=== PATIENT | female | born 1940 | race Caucasian/White ===

== ENCOUNTER 2017-01-18 13:22 | Inpatient (IN) | payer MEDICARE ==
[~2017-01-18] VITALS: Ht 167.6 cm; Wt 134.6 kg
[~2017-01-18 13:22] MED LIST: AMIT10TA6 PO; ASPI-973 PO; CHOL100045 PO; CLOBEX TP; DESONIDE TP; DULO60CA61 PO; FOLI1TAB3 PO; FUR20 PO; GABA-502 PO; GABA600T2 PO; GLIM4TAB2 PO; IBUP200C PO; KETACONAZOLE CREAM TP; KETACONAZOLE SHAMPOO TP; LACT1CAP65 PO; LISI10TA PO; LOPE1LIQ9 PO; LORA0.5T PO; MELA1CAP3 PO; PRAM0.256 PO; PRAM0.5T10 PO; PROP1DRO4 OP; [UNRECOGNIZED DRUG - OTHER] TP; vitamin b-12 IM
[2017-01-18 13:27] VITALS: BP 162/76; PULSE 125; RESP 20; O2SAT 94
[2017-01-18 14:38] LABS: BASOPHILS % (AUTO) 0 % (0-3); EOSINOPHILS % (AUTO) 0.7 % (0-5); MONOCYTES % (AUTO) 12.4 % (4-12); Mean Corpuscular Hemoglobin 28.9 pg (27.0-35.0); Mean Corpuscular Volume 96.6 fL (81-100); NEUTROPHILS % (AUTO) 72.7 % (40-74); Platelet Count 236 bil/L (150-400)
[2017-01-18 14:59] LABS: TROPONIN T < 0.010 ug/L (0.0-0.011)
[2017-01-18 15:08] LABS: Magnesium 1.7 mg/dL (1.6-2.6)
--- NOTE | 2017-01-18 15:20 | DRSVH ---
PROCEDURE: X-RAY CHEST ONE VIEW, PORTABLE ([id number]) INDICATIONS: cp TECHNIQUE: One view of the chest was acquired. COMPARISON: [facility], CT, CHEST/ABD/PELVIS W/CON (PNL), 12/05/2013, 16:49. [facility], CR, CHEST 1VW (PORTABLE), 09/25/2009, 19:05. FINDINGS: Surgical changes and devices: None. Lungs and pleura: No pleural effusions or pneumothorax. Streaky opacities noted in the right lung ba se likely related to atelectasis. Nodular density identified in the right midlung is severely change compared to prior examination.. Mediastinum: Mediastinal contours appear normal. Heart size is enlarged. Bones and chest wall: No suspicious bony lesions. Overlying soft tissues appear unremarkable. IMPRESSION: No acute cardiopulmonary disease process. Dictated by: Maddi Banks MD, PhD on 01/18/2017 at 14:56 Approved by: Maddi Banks MD, PhD on 01/18/2017 at 14:57
[2017-01-18 15:30] VITALS: BP 142/77; PULSE 121; RESP 21; O2SAT 92
[2017-01-18] MEDS ORDERED: 0.9% Sodium Chloride 1,000 ML IV ONE (17:00)
[2017-01-18] MEDS ORDERED: Dextrose 5% 0.9% NaCl 1,000 ML IV SCH (17:05)
[2017-01-18] MEDS ORDERED: ANAS1TAB7 PO (17:27)
[2017-01-18] MEDS ORDERED: GABA600T2 PO (17:32)
--- NOTE | 2017-01-18 17:35 | ED.REPORT ---
HPI-General Illness Date of Service Jan 18, 2017 ED Provider: Nasim Starkey MD History of Present Illness: Eileen Beverly is a 76 year old woman with a PMH of severe Chron's managed by Dr. Casper, DM2 on glimeperide, HTN, and depression with anxiety who presents with a 2 day history of recurrent episodes of hypoglycemia with BG as low as 25 with confusion and combativeness grossly out of character for her. Her family reports that they contacted EMS about this issue last evening and they gave her some juice which corrected her BG. However, the symptoms recurred 3 hours later and have generally been occuring 2-3 times daily for the past few days. She has chronic diarrhea from her Chron's which apparently has been worse over the past few days, she has continued to faithfully take her meds including Glimeperide in that interim with poor PO intake and significant GI losses. She further complains of chest pain with deep inspiration. Nursing Notes Stated Complaint: LOW BLOOD SUGAR/CHEST PAIN Chief Complaint: Chest Pain Nursing Notes Reviewed: Yes Allergies: Coded Allergies: No Known Drug Allergies (Verified Allergy, Unknown, 01/18/17) Scheduled ([Clobex]) 1 APPLIC TP DAILY 0.05% ([Flocinonide]) 1 APPLIC TP BID 0.05% ([vitamin b-12]) 0.1 ML IM MONTHLY 1000MCG/ML ([Ketaconazole Shampoo]) 1 APPLIC TP 2X/WK 2% ([Ketaconazole Cream]) 1 APPLIC TP 2X/WK 2% Amitriptyline (Amitriptyline) 10 Mg Tablet 30 MG PO HS Anastrozole (Anastrozole) 1 Mg Tablet 1 MG PO DAILY Aspirin (Aspirin) 81 Mg Tablet 81 MG PO DAILY Cholecalciferol (Vitamin D3) (Vitamin D) 1,000 Unit Capsule 5,000 UNIT PO DAILY Duloxetine (Duloxetine) 60 Mg Capsule.dr 90 MG PO DAILY Fluocinolone/Shower Cap (Fluocinolone Acetonide 0.01% Oil) 118.28 Ml Oil 1 APPLIC TOP DAILY Folic Acid/Multivits-Min/Lut (Centrum Silver Chewable Tablet) 1 Each Tab.chew 1 EACH PO DAILY Furosemide (Furosemide) 20 Mg Tab 20 MG PO DAILY Gabapentin (Gabapentin) 600 Mg Tablet 600 MG PO a.m., noon Gabapentin (Gabapentin) 600 Mg Tablet 900 MG PO HS Lactobacillus Acidophilus (Probiotic) 1 Each Capsule 1 EACH PO AM Lisinopril (Lisinopril) 10 Mg Tablet 10 MG PO DAILY Lovastatin (Lovastatin) 40 Mg Tablet 40 MG PO HS Pramipexole Dihydrochloride (Pramipexole Dihydrochloride) 0.25 Mg Tablet 0.25 MG PO TID Pramipexole Dihydrochloride (Pramipexole Dihydrochloride) 0.5 Mg Tablet 0.5 MG PO HS Sulfasalazine (Sulfasalazine) 500 Mg Tablet 500 MG PO BID Scheduled PRN ([Desonide]) 1 APPLIC TP BID PRN PRN PRN 0.05% Loperamide Liquid (Imodium A-D Liquid) 1 Mg/7.5 Ml Liquid 1 MG PO DAILY PRN PRN PN Miscellaneous Medications Melatonin/Herbal Complex #184 (Sleep Softgel) 1 Each Capsule 2 EACH PO Melatonin/Herbal Complex #184 (Sleep Softgel) 1 Each Capsule 1 EACH PO General Time Seen by MD: 16:20 Chief Complaint Chest pain, Other (hypoglycemia) Hx Obtained From: Other family... (sister) Sudden in Onset?: No Onset Occurred: 1 day ago Symptom Duration: Waxes and wanes Similar Sx Previous: No Past Medical History Past Medical History Notes: Chron's disease with prior neil-colectomy DM2 HTN Anxieyt and depression Past Medical History Reports: Diabetes mellitus Reports: Depression Past Surgical History Neil-colectomy Smoking History Former Smoker Review of Systems Full Review of Systems Constitutional: Reports: Weakness - generalized Respiratory: Reports: Shortness of breath (pain with deep inspiration) Cardiovascular: Reports: Chest pain, Orthopnea GI: Reports: Abdominal pain, Diarrhea, Mucousy stool, Nausea Neurologic: Reports: Confusion, Lightheaded Psychiatric: Reports: Agitation, Anxiety, Change mental status, Hostile Complete sys rev & neg: except as marked. Physical Exam GEN: A/O x3, pleasant cooperative female in NAD Neck: Large bull neck, supple, full ROM, no JVD HEENT: PERRL, EOMI, mucous membranes slightly dry CV: Tachycardic, regular rhythm, no murmurs rubs or gallops Resp: Lungs CTA BL, unable to respire deeply due to pain Adomen: Midline Ventral hernia, surgical scar from prior colectomy, diffuse tenderness to palpation most acute in RLQ Extr: mild BL LE edema, no cyanosis or clubbing Neuro: CN 2-12 grossly intact, no focal neurologic deficit Vital Signs Vital Signs Date Time Temp Pulse Resp B/P Pulse Ox O2 Delivery O2 Flow Rate FiO2 01/18/17 17:43 37.0 105 20 123/56 98 Simple Mask 3 01/18/17 15:30 121 21 142/77 92 Simple Mask 4 01/18/17 13:27 36.2 125 20 162/76 94 Room Air Initial VS: Reviewed Interpretation & Diagnostics Interpretation & Diagnostics: The patient has been having recurrent hypoglycemic episodes in the setting of Glimeperide use with concurrent poor PO intake vomiting and diarrhea. She further complains of pain with deep inspiration with associated tachycardia, and jail prolonged hypoactivity; this prompted a D-Dimer measure which returned positive so the patient was sent for CT angio to rule out PE. Her marginal kidney function was discussed with the military technology specialist who affirmed that she would be a candidate for the above imaging. CT angio revealed persistent perihilar mass unchanged since 01/09/17, and no evidence of acute PE Lab Results Interpretation Result Diagram: 01/23/17 1005 01/23/17 1005 Test 01/18/17 14:25 01/18/17 16:00 D-Dimer 2.0mg/L (<0.50) Hemoglobin A1c 5.6% (4.8-5.6) Magnesium Level 1.7mg/dL (1.6-2.6) Total Bilirubin 0.2mg/dL (0.0-1.2) Aspartate Amino Transf (AST/SGOT) 22U/L (0-50) Alanine Aminotransferase (ALT/SGPT) 14U/L (0-32) Alkaline Phosphatase 103U/L (25-165) Troponin T < 0.010ug/L (0.0-0.011) Total Protein 6.7g/dL (6.4-8.4) Albumin 4.1g/dL (3.4-5.0) Hold Sorensen Top Tube Received (Received) Hold Urine Received (Received) Lab values outside NL range: no clinical significance. (Patient mildly anemic likely due to chronic GI loss from Chron's, hypoglycemia with etiology discussed above.) Re-Eval/Medical Decision Med Decision/Clinical Course Patient was borderline hypoglycemia upon presentation, with a history as mentioned above. Likely these hypoglycemic episodes are precipitated by use of Glimeperide in the setting of poor PO intake and concurrent diarrhea related to Chron's. Patient was initially given juice which provided some improvement. Time of Eval: 17:00 Re-Evaluation/Progress Note: Patient with BG 37 upon re-assessment, given 1 ampule D50 + D5 NS @ 100 ml/hr. Discharge & Departure Shift Change Sign-Out Patient Care Transferred: Yes Discussed Complaint(s): Yes Laboratory Evaluation: Back, reviewed by me Imaging Studies: Imaging discussed Response to Therapy: Improved Primary Impression: Hypoglycemia Disposition: ADMITTED TO HOSPITAL Discharge Condition All VS Reviewed: Yes Condition: Stable Referrals: Judith Miranda DO (PCP) Attending Statement The patient was seen and examined together with Dr. Carlin on 01/18/17 and I agree with the history, exam and plan as outlined in the note above. copies to: Judith Miranda David E DO Jan 18, 2017 16:47 Nasim Starkey MD Jan 24, 2017 09:03 7.4mg/dL (8.5-10.1) Magnesium Level 1.7mg/dL (1.6-2.6) Total Bilirubin 0.2mg/dL (0.0-1.2) Aspartate Amino Transf (AST/SGOT) 22U/L (0-50) Alanine Aminotransferase (ALT/SGPT) 14U/L (0-32) Alkaline Phosphatase 103U/L (25-165) Troponin T < 0.010ug/L (0.0-0.011) Total Protein 6.7g/dL (6.4-8.4) Albumin 4.1g/dL (3.4-5.0) Hold Sorensen Top Tube Received (Received) Hold Urine Received (Received) Lab values outside NL range: no clinical significance. (Patient mildly anemic likely due to chronic GI loss from Chron's, hypoglycemia with etiology discussed above.) Re-Eval/Medical Decision Med Decision/Clinical Course Patient was borderline hypoglycemia upon presentation, with a history as mentioned above. Likely these hypoglycemic episodes are precipitated by use of Glimeperide in the setting of poor PO intake and concurrent diarrhea related to Chron's. Patient was initially given juice which provided some improvement. Time of Eval: 17:00 Re-Evaluation/Progress Note: Patient with BG 37 upon re-assessment, given 1 ampule D50 + D5 NS @ 100 ml/hr. Discharge & Departure Shift Change Sign-Out Patient Care Transferred: Yes Discussed Complaint(s): Yes Laboratory Evaluation: Back, reviewed by me Imaging Studies: Imaging discussed Response to Therapy: Improved Primary Impression: Hypoglycemia Disposition: ADMITTED TO HOSPITAL Discharge Condition All VS Reviewed: Yes Condition: Stable Referrals: Judith Miranda DO (PCP) copies to: Judith Miranda David E DO Jan 18, 2017 16:47
[2017-01-18] MEDS ORDERED: LOVA40TA PO (17:36)
[2017-01-18 17:43] VITALS: BP 123/56; PULSE 105; RESP 20; O2SAT 98
--- NOTE | 2017-01-18 18:05 | DRSVH ---
PROCEDURE: CT ANGIO CHEST PULMONARY EMBOLISM ([id number]) INDICATIONS: possible PE TECHNIQUE: After the administration of intravenous contrast, 2 mm thick sections acquired from the pulmonary api manish to the posterior costophrenic angles. 3-dimensional maximum intensity projection (MIP) coronal a nd sagittal reformats were then acquired through the thorax. For radiation dose reduction, the follo wing was used: automated exposure control, adjustment of mA and/or kV according to patient size. COMPARISON: [facility], CT, CT CHEST WO CON, 01/09/2017, 10:16. [facility], CT, CT ANGIO CHEST PE, 07/18/2015, 9:45. FINDINGS: Image quality: Prominent artifact is present secondary to patient body habitus as well as injection t iming, limiting evaluation of distal branches of the pulmonary artery for evaluation of potential emb olism. There is no embolus identified within the main pulmonary artery branches. Pulmonary arteries: Pulmonary arteries are normal in size, and demonstrate no intraluminal filling d efects to suggest central pulmonary embolism. Lungs and pleura: The lungs demonstrate dependent changes. There is persistent consolidative opacity within the right lower lobe and right infrahilar region, as seen on 01/09/17. Scattered areas of groun dglass like opacity are present within the lungs bilaterally without significant interval change. Mediastinum: Heart size is normal, without pericardial effusion. No mediastinal or hilar adenopathy . Thoracic aorta is normal in caliber and enhancement. Esophagus demonstrates mild circumferential distal thickening with hiatal hernia. Recommend correlation of potential esophagitis. Bones and chest wall: No suspicious bony lesions. Ribs and thoracic spine appear intact throughout. Thyroid gland is unremarkable. No axillary or supraclavicular adenopathy. Abdomen: Visualized upper abdominal solid organs appear normal in the early arterial phase of enhanc ement. IMPRESSION: 1. Persistent consolidative opacities within the right perihilar region and right base. These are rel atively unchanged compared to 01/09/17. This could represent persistent infection or inflammation. Rec ommend continued general followup to document resolution and exclude presence of underlying mass lesi on. 2. Persistent groundglass like opacities within the lungs, indicative of inflammation or infection. 3. No evidence of central pulmonary embolus, as above. Dictated by: Annette Freitas M.D. on 01/18/2017 at 18:00 Approved by: Annette Freitas M.D. on 01/18/2017 at 18:03
[2017-01-18] MEDS ORDERED: Alum-Mag Hydrox-Simeth 30 mL Suspension PO PRN (18:25)
[2017-01-18] MEDS ORDERED: Polyethylene Glycol (PEG) 17 Gm Powder PO PRN (18:25)
[2017-01-18] MEDS ORDERED: Ondansetron 2 mg/mL 2 mL Inj IVPUSH PRN (18:25)
[2017-01-18] MEDS ORDERED: AZU500 PO (19:46)
[2017-01-18 20:13] VITALS: PULSE 119
[2017-01-18 20:18] VITALS: BP 134/62; PULSE 100; RESP 20; O2SAT 96
[2017-01-18] MEDS ORDERED: Glucose 40% Oral Gel 15 Gm Tube PO PRN (21:10)
[2017-01-18] MEDS: Dextrose 5% 0.45% NaCl 1,000 ML IV SCH (22:06)
--- NOTE | 2017-01-18 22:43 | PCM.HPMED ---
Subjective Date of Service Jan 18, 2017 Primary Provider: Admitting Physician: Primary Care Physician: Judith Miranda DO Attending Physician: Admit Status: From the Emergency Department, 23-Hour Observation, Remote Telemetry Chief Complaint: Hypoglycemia History of Present Illness: Eileen Beverly is a 76 year old woman with a PMH of severe Chron's managed by Dr. Casper, DM2 on glimeperide, HTN, and depression with anxiety who presents to [facility] emergency department with hypoglycemia Patient reports 2 day history of recurrent episodes of hypoglycemia with BG as low as 25 with confusion and combativeness. Her family reports that they contacted EMS about this issue last evening and they gave her some juice which corrected her BG. However, the symptoms recurred 3 hours later and have generally been occuring 2-3 times daily for the past few days. She has chronic diarrhea from her Chron's which apparently has been worse over the past few days, she has continued to faithfully take her meds including Glimeperide in that interim with poor PO intake and significant loose stools. She reports diffuse abdominal pressure consistent with her crohns pain. Non radiating. She further complains of chest pain with deep inspiration. Patient is not on any insulin. Case discussed with resident Dr Carlin, several doses of D50 given but still hypoglycemic. D5NS not going with plans to admit for close observation overnight. Review of Systems: Pertinent positives as noted in HPI. All other systems were reviewed and are negative Allergies Coded Allergies: No Known Drug Allergies (Verified Allergy, Unknown, 01/18/17) Home Medications From [facility], not yet confirmed Eileen Beverly I. [id number] 1940 01/01/2017 11:00 AM 11/23 amitriptyline 10 mg tablet take 3 tablet by oral route every day anastrozole 1 mg tablet take 1 tablet by oral route every day Aspirin Low Dose 81 mg tablet,delayed release take 1 tablet by oral route every day clobetasol 0.05 % scalp solution apply to affected areas 2xday until resolution Clobex 0.05 % shampoo APPLY A THIN LAYER TO SCALP EVERY DAY LEAVE ON FOR 15 MINUTES THEN LATHER AND RINSE Culturelle 10 billion cell capsule Take one dose by mouth daily. cyanocobalamin (vitamin B-12) 1,000 mcg/mL Injection inject 0.1 milliliter ( 100MCG) by intramuscular route every month desonide 0.05 % topical cream apply by topical route 2 times every day sparingly and rub gently into the affected area(s) diphenhydramine 25 mg tablet take 1 tablet by oral route at bedtime as needed duloxetine 30 mg capsule,delayed release take 3 capsule by oral route every day flaxseed oral powder Drink 2 tbps. ground flax in 8 oz water every morning fluocinolone 0.01 % scalp oil and shower cap Apply to scalp and cover QHS x 1- 2wk, then BIW until condition is clear. folic acid 800 mcg tablet take 1 tablet (0.8MG) by oral route every day FUROSEMIDE 20MG TAB SAND TAKE ONE TABLET BY MOUTH ONE TIME DAILY gabapentin 600 mg tablet one tablet by mouth in am, one at noon, one at 4pm, and 1.5 at bedtime. glimepiride 4 mg tablet take 1 tablet by oral route every day ibuprofen 200 mg tablet take 1 tablet by oral route every 6 hours as needed with food Imodium A-D take as needed ketoconazole 2 % shampoo lather x 5 min then rinse qd x 1 week (when flaring), then BIW thereafter (for maintenance) ketoconazole 2 % topical cream apply by topical route every day to the affected area(s) lisinopril 10 mg tablet take 1 tablet by oral route every day lorazepam 0.5 mg tablet take 1 tablet by oral route every day as needed MEVACOR 40MG TAB MERC TAKE 1 TABLET BY MOUTH EVERY DAY WITH THE EVENING MEAL. multivitamin tablet take 1 tablet by oral route every day with food One Touch Verio IQ Meter kit To test blood sugars twice daily OneTouch Verio strips Check fasting glucose levels one time a day. pramipexole 0.5 mg tablet 1/2 in am, 1/2 noon, 1/2 4-6 pm. 1 at 1 hr before bedtime Probiotic-Digestive Enzymes 5 mg-250 mg capsule 1 cap by mouth daily sulfasalazine 500 mg tablet take 2 tablet by ORAL route 2 times every day after meals Systane Ultra take as needed Vitamin D3 5,000 unit tablet 1 tab by mouth daily PMH Vitamin B12 deficiency Psoriasis Aortic Insufficiency Venous insufficiency, chronic Crohn's disease of small AND large intestines Depression with anxiety Restless leg syndrome Diabetes type 2, uncontrolled Insomnia Mitral Valve-regurgitation Peripheral neuropathy Obstructive sleep apnea Breast Cancer Periodic limb movement . Surgical History Tonsillectomy Fistulaetomy Bowel resection Stomach tumor removal Appendectomy Mastectomy Hysterectomy Family History Father had congenital heart disease, aortic aneurysm Mother from Brain tumor Social History Hx Alcohol Use: Yes (rare) Hx Substance Use: No Hx Tobacco Use: No Smoking Status: Former Smoker Living Arrangement: with Family Exam Vital Signs Vital Sign - Last Date Time Temp Pulse Resp B/P Pulse Ox O2 Delivery O2 Flow Rate FiO2 01/18/17 17:43 37.0 105 20 123/56 98 Simple Mask 3 Exam General: Alert, Oriented X3, Cooperative, No acute Distress Eyes: PERRLA, Scleral Anicteric Mouth: Mouth Normal, Mucous Membranes Moist/[place] Neck: Supple, no Thyromegaly, trachea central. Chest & Lungs: Clear to auscultation & percussion, No adventitious breath sounds, no crackles, no wheeze Cardiovascular: Normal S1, Normal S2, No Murmurs/Rubs/Gallops, Regular Rate/ Rhythm, (No JVD, no peripheral edema) Pulses: Radial (present and equal), Dorsalis Pedi (present and equal) Abdomen: Soft, Non-tender, Non-distended, Normoactive bowel tones. Musculoskeletal: Unremarkable. Normal range of motion, no swollen or erythematous joints Extremities: No edema, no cyanosis, no clubbing. Skin: No rashes. Warm and dry, no erythematous areas Neurological: Grossly neurologically intact, has generalized weakness, Normal Speech, Sensation Intact Lymphatic: Lymph nodes Cervical and Axillary not palpable. Lab and Diagnostics Labs Laboratory Tests Test 01/18/17 14:25 01/18/17 16:00 White Blood Count 5.6th/mm3 (3.8-10.1) Red Blood Count 3.57mil/mm3 (3.90-5.20) Hemoglobin 10.3g/dL (12.0-15.6) Hematocrit 34.5% (35.0-46.0) Mean Corpuscular Volume 96.6fL (81-100) Mean Corpuscular Hemoglobin 28.9pg (27.0-35.0) Mean Corpuscular Hemoglobin Concent 29.9% (32.0-37.0) Red Cell Distribution Width 17.4% (12.3-15.4) Platelet Count 236bil/L (150-400) Neutrophils (%) (Auto) 72.7% (40-74) Lymphocytes (%) (Auto) 12.8% (14-46) Monocytes (%) (Auto) 12.4% (4-12) Eosinophils (%) (Auto) 0.7% (0-5) Basophils (%) (Auto) 0% (0-3) D-Dimer 2.0mg/L (<0.50) Sodium Level 139mEq/L (134-144) Potassium Level 4.3mEq/L (3.5-5.2) Chloride Level 104mEq/L (97-108) Carbon Dioxide Level 19mmol/L (18-29) Blood Urea Nitrogen 17mg/dL (8-27) Creatinine 1.12mg/dL (0.57-1.00) Estimat Glomerular Filtration Rate 68mL/min (>59) Glucose Level 74mg/dL (60-99) Calcium Level 7.4mg/dL (8.5-10.1) Magnesium Level 1.7mg/dL (1.6-2.6) Total Bilirubin 0.2mg/dL (0.0-1.2) Aspartate Amino Transf (AST/SGOT) 22U/L (0-50) Alanine Aminotransferase (ALT/SGPT) 14U/L (0-32) Alkaline Phosphatase 103U/L (25-165) Troponin T < 0.010ug/L (0.0-0.011) Total Protein 6.7g/dL (6.4-8.4) Albumin 4.1g/dL (3.4-5.0) Hold Sorensen Top Tube Received (Received) Hold Urine Received (Received) Result Diagram: 01/18/17 1425 01/18/17 1425 X-Rays, CTs and MRIs CT ANGIO CHEST PULMONARY EMBOLISM 01/18/17 1. Persistent consolidative opacities within the right perihilar region and right base. These are relatively unchanged compared to 01/09/17. This could represent persistent infection or inflammation. Recommend continued general followup to document resolution and exclude presence of underlying mass lesion. 2. Persistent groundglass like opacities within the lungs, indicative of inflammation or infection. 3. No evidence of central pulmonary embolus, as above. Dictated by: Annette Freitas M.D. on 01/18/2017 at 18:00 Approved by: Annette Freitas M.D. on 01/18/2017 at 18:03 Assessment & Plan Eileen Beverly is a 76 year old woman with a PMH of severe Chron's managed by Dr. Casper, DM2 on glimeperide, HTN, and depression with anxiety who presents to [facility] emergency department with hypoglycemia 1. Acute Hypoglycemia. Present on admission Due to taking Glimepiride without eating. Other etiology includes Insulinoma which is less likely. - D51/2 NS @ 125 cc/hr with D 50 PRN - general diet ordered - hold Glimepiride - may consider using Metformin instead with no hypoglycemic side effects - educated patient on the importance of eating while taking hypoglycemic agents 2. Sinus tachycardia. Present on admission Pulmonary embolism ruled out. Pleuritic chest pain resolved and patient reported having chronic tachycardia - monitor on telemetry 3. Crohns disease with possible flare Patient currently being followed by Dr Spicer. Currently not on any steroids - continue Sulfasalazine 1000 mg bid - consider GI consult if symptoms escalates 4. Breast Cancer. Chronic Presumed stable - continue Anastrozole 1 mg daily - continue outpatient surveillance 5. Obesity BMI 47.9 Consider bariatric surgery - Acetaminophen as needed for mild pain/fever/headache - Bowel regimen as needed - Antiemetic as needed Patient is admitted under observation status with expected length of stay less than 2 midnights due to severity of presenting symptoms, risk of adverse event, and complexity of treatment plan. . Resuscitation Status: CPR: Attempt Resuscitation Loyd Shearer MD Jan 18, 2017 18:35
[2017-01-18] MEDS ORDERED: Loperamide 1 mg/5 mL 120 mL Liquid PO PRN (22:45)
[2017-01-19 00:18] VITALS: BP 118/73; PULSE 76; O2SAT 97
--- NOTE | 2017-01-19 00:18 | NUR ---
ADMIT Patient transfer from the ED after receiving another dose of D50 for ongoing hypoglycemia. BG has varied from 50-70s since arrival. Patient received several more D50 ampules and drank a couple of glasses of juice, half an ensure, ate half a frozen dinner and part of sandwich. D5 1/2Ns running continuous. Patient then became nauseated and began retching, resolved with zofran. . Then became incontinent of stool related to her crohns and was changed into a brief. Patient reports her crohn's has been out of control since August. Reports seeing Dr. Holley outpatient. Patient is alert and oriented with intermittent moments of confusion and dizziness noted when her BG dipped into the 50s. Will continue with frequent BG checks.
--- NOTE | 2017-01-19 04:56 | NUR ---
Blood Sugars Pt requiring Q15 to Q1 hour blood sugar checks. Pt requiring several pushes of D50 to help increase blood sugar. Last BG 109 will recheck in one hour. Pt c/o of heartburn as well as a headache. Maalox not effective for heartburn, notified and orders for Tums given, awaiting pharmacy verification. Administered 650 mg of Tylenol and awaiting reassessment. VSS and Tele ST 100's to 115's.
[2017-01-19 05:09] VITALS: BP 125/70; PULSE 81; RESP 22; O2SAT 96
[2017-01-19] MEDS: Dextrose 5% 0.45% NaCl 1,000 ML IV SCH (06:34)
[2017-01-19 08:04] LABS: BASOPHILS % (AUTO) 0.1 % (0-3); EOSINOPHILS % (AUTO) 0.8 % (0-5); MONOCYTES % (AUTO) 13.1 % (4-12); Mean Corpuscular Hemoglobin 28.1 pg (27.0-35.0); Mean Corpuscular Volume 95.8 fL (81-100); NEUTROPHILS % (AUTO) 67.9 % (40-74); Platelet Count 275 bil/L (150-400)
[2017-01-19] MEDS: DULoxetine 30 mg DR Capsule PO SCH (08:24)
[2017-01-19] MEDS: Sulfasalzine 500 mg Tablet PO SCH ×2 (08:25→21:46)
[2017-01-19 08:37] LABS: INR 0.96 ratio
[2017-01-19 10:46] VITALS: PULSE 110
[2017-01-19 10:55] VITALS: BP 123/78; PULSE 96; RESP 22; O2SAT 92
[2017-01-19] MEDS ORDERED: MELA1CAP3 PO ×2 (13:36→13:47)
[2017-01-19] MEDS ORDERED: [UNRECOGNIZED DRUG - CODE] TOP (13:45)
--- NOTE | 2017-01-19 15:16 | PCM.PNMED ---
Subjective Date of Service Jan 19, 2017 Subjective denies any new issues/complaints Exam Vital Signs Vital Sign - Last Date Time Temp Pulse Resp B/P Pulse Ox O2 Delivery O2 Flow Rate FiO2 01/19/17 10:55 36.5 96 22 123/78 92 Nasal Cannula 2.00 Intake and Output 01/18/17 01/18/17 01/19/17 Cumulative From/Thru 15:00 23:00 07:00 01/18/17 13:27 - 01/19/17 06:39 Intake Total 1420 ml 1420 ml Output Total 200 ml 200 ml Balance 1220 ml 1220 ml Intake Oral 400 ml 400 ml IV Total 1020 ml 1020 ml Output Urine Total 200 ml 200 ml # Voids 3 3 # Bowel Movements 3 3 General: Alert, Oriented X3, Cooperative, No Acute Distress Head: Normal Eyes: Scleral Anicteric Nose: Mucous Membr Moist/[place] Mouth: Mucous Membr Moist/[place] Neck: Supple Chest & Lungs: Chest Wall Normal, Clear to auscultation & percussion Cardiovascular: Regular Rate/Rhythm Abdomen: Non-tender, Non-distended, Normoactive bowel tones, Soft Extremities: No cyanosis/clubbing/edma bilat Neurological: Grossly Neurologically Intact, Cranial Nerves 2-12 Intact, Normal Speech IVs and Medications Medications Reviewed: Medications were reviewed in detail Lab and Diagnostics Result Diagram: 01/19/17 0753 01/19/17 0753 X-Rays, CTs and MRIs CT ANGIO CHEST PULMONARY EMBOLISM 01/18/17 1. Persistent consolidative opacities within the right perihilar region and right base. These are relatively unchanged compared to 01/09/17. This could represent persistent infection or inflammation. Recommend continued general followup to document resolution and exclude presence of underlying mass lesion. 2. Persistent groundglass like opacities within the lungs, indicative of inflammation or infection. 3. No evidence of central pulmonary embolus, as above. Dictated by: Annette Freitas M.D. on 01/18/2017 at 18:00 Approved by: Annette Freitas M.D. on 01/18/2017 at 18:03 Assessment & Plan 76 year old woman with a PMH of severe Chron's, DM2 on glimeperide, HTN, and depression with anxiety who presents to [facility] emergency department with hypoglycemia 1. Acute Hypoglycemia. Present on admission Due to taking Glimepiride without eating. Other etiology includes Insulinoma which is less likely. - stop D51/2 NS and f/u blood glucose on PO diet - ISS as needed - hold Glimepiride - ? about diagnosis of diabetes in this patient. - HgA1C 5.6 - may consider using Metformin if noted elevated blood sugar 2. Sinus tachycardia. Present on admission Pulmonary embolism ruled out. Pleuritic chest pain resolved and patient reported having chronic tachycardia - monitor on telemetry 3. Crohns disease with possible flare Patient currently being followed by Dr Spicer. Currently not on any steroids - continue Sulfasalazine 1000 mg bid - consider GI consult if symptoms escalates 4. Breast Cancer. Chronic Presumed stable - continue Anastrozole 1 mg daily - continue outpatient surveillance 5. Obesity BMI 47.9 Consider bariatric surgery Dispo: possibly home tomorrow if blood glucose stable. Resuscitation Status: CPR: Attempt Resuscitation Time spent 30 min Srikanth Hawthorne Jan 19, 2017 15:16
--- NOTE | 2017-01-19 16:11 | NUR ---
Social Work Note - Initial Assessment: D/A: See Initial Assessment, the Pt is a 76 y/o female that was admitted for drug related hypoglycemia. The Pt's PCP is DO Judith Miranda and her insurance is [employer] Medicare, no LTC or VA Benefits. EMR reviewed, LU met with the Pt at bedside to explain role and discuss discharge planning. LU telephone number written on board. The Pt lives with her son in a one story home with a ramp in the garage. The Pt does not have an Advance Care Directive, states that she has the paperwork at home to be completed. LU requested copy when it becomes available. The Pt reports that her son assists with most of her care needs to exclude personal care. The Pt drives, does not use any DME, and denies a HH/SNF history. The Pt denies any SW needs at this time, SW to follow if needs arise. P: The Pt will likely discharge home with son to provide POV transportation when medically stable. The Pt denies any SW needs at this time, SW to follow if needs arise. SORAYA Hernandez Equity Director SORAYA Latif Addendum: 01/19/17 at 1612 by SCOTT VAZQUEZ Amended: Links added.
[2017-01-19 17:58] VITALS: BP 132/76; PULSE 83; RESP 22; O2SAT 92
--- NOTE | 2017-01-19 19:42 | NUR ---
Case Management: MIRTHA explained to patient at 1710, all questions answered. Signed original in chart, copy given to patient. Jannie Irwin RN
[2017-01-19] MEDS ORDERED: GABAPENTIN 900 MG PO SCH (21:00)
[2017-01-19 21:40] VITALS: BP 116/69; PULSE 111; RESP 20; O2SAT 87
[2017-01-19] MEDS: LORazepam 0.5 mg Tablet PO PRN (21:47)
[2017-01-20] VITALS (9 sets, daily range): BP systolic 110–153; BP diastolic 46–68; PULSE 95–111; RESP 20; O2SAT 84–95
--- NOTE | 2017-01-20 05:52 | NUR ---
DIARRHEA Patient had two more episodes of explosive, incontinent diarrhea but was able to sleep the rest of the night without incident. Using CPAP, requiring 4L O2 for sleep. Continues to become quite SOB with any level of activity.
[2017-01-20] MEDS: DULoxetine 30 mg DR Capsule PO SCH (09:11)
[2017-01-20] MEDS: Sulfasalzine 500 mg Tablet PO SCH ×2 (09:12→21:40)
--- NOTE | 2017-01-20 10:41 | PCM.PNMED ---
Subjective Date of Service Jan 20, 2017 Subjective says "explosive diarrhea" that began yesterday afternoon seems to have resolved so far today. overall feels "a lot better". denies any other new issues/ complaints. Exam Vital Signs Vital Sign - Last Date Time Temp Pulse Resp B/P Pulse Ox O2 Delivery O2 Flow Rate FiO2 01/20/17 10:27 36.5 111 20 153/64 92 Room Air 01/20/17 05:54 3.00 Intake and Output 01/19/17 01/19/17 01/20/17 Cumulative From/Thru 15:00 23:00 07:00 01/18/17 13:27 - 01/20/17 06:38 Intake Total 800 ml 400 ml 2620 ml Output Total 5 ml 1100 ml 1305 ml Balance 795 ml -700 ml 1315 ml Intake Oral 800 ml 400 ml 1600 ml IV Total 1020 ml Output Urine Total 600 ml 800 ml Urine/Stool Mix 500 ml 500 ml Emesis 5 ml 5 ml # Voids 3 6 # Bowel Movements 0 1 4 Exam General: Alert, Oriented X3, Cooperative, No Acute Distress Head: Normal Eyes: Scleral Anicteric Nose: Mucous Membr Moist/[place] Mouth: Mucous Membr Moist/[place] Neck: Supple Chest & Lungs: Chest Wall Normal, Clear to auscultation bilat Cardiovascular: Regular Rate/Rhythm Abdomen: Non-tender, Non-distended, Normoactive bowel tones, Soft Extremities: No cyanosis/clubbing/edema bilat Neurological: Grossly Neurologically Intact, Cranial Nerves 2-12 Intact, Normal IVs and Medications Medications Reviewed: Medications were reviewed in detail Lab and Diagnostics Result Diagram: 01/19/17 0753 01/20/17 0535 X-Rays, CTs and MRIs CT ANGIO CHEST PULMONARY EMBOLISM 01/18/17 1. Persistent consolidative opacities within the right perihilar region and right base. These are relatively unchanged compared to 01/09/17. This could represent persistent infection or inflammation. Recommend continued general followup to document resolution and exclude presence of underlying mass lesion. 2. Persistent groundglass like opacities within the lungs, indicative of inflammation or infection. 3. No evidence of central pulmonary embolus, as above. Dictated by: Annette Freitas M.D. on 01/18/2017 at 18:00 Approved by: Annette Freitas M.D. on 01/18/2017 at 18:03 Assessment & Plan 76 year old woman with a PMH of severe Chron's, DM2 on glimeperide, HTN, and depression with anxiety who presents to [facility] emergency department with hypoglycemia 1. Acute Hypoglycemia. Present on admission Due to taking Glimepiride without eating. - stopped D51/2 NS on 01/19 and blood glucose has remained stable and within normal limits since. ? about diagnosis of diabetes at this time - HgA1C 5.6 - ISS as needed - hold Glimepiride 2. Sinus tachycardia. Present on admission Pulmonary embolism ruled out. Pleuritic chest pain resolved and patient reported having chronic tachycardia - monitor on telemetry 3. Crohns disease with possible flare Patient currently being followed by Dr Spicer. Currently not on any steroids - continue Sulfasalazine 1000 mg bid - consider GI consult if symptoms escalates 4. Acute diarrhea on 01/19/17. not present on admission. improving - r/o C. diff - ? if related to underlying Crohns - f/u 5. CKD - Cr on admission was much better than baseline but a little worse than admission today. - f/u renal fxn given diarrhea and IV contrast for CTA on admission - hold home dose Lasix for now - gentle IVF for today 6. Breast Cancer. Chronic Presumed stable - continue Anastrozole 1 mg daily - continue outpatient surveillance 7. Obesity BMI 47.9 Consider bariatric surgery Dispo: possibly home tomorrow if C. diff negative, blood glucose and renal function stable Resuscitation Status: CPR: Attempt Resuscitation Time spent 30 min Srikanth Hawthorne Jan 20, 2017 10:41
--- NOTE | 2017-01-20 12:30 | NUR ---
Social Work-readiness for discharge: Data:EMR Reviewed. Pt is on day 2 of hospitalization for hypoglycemia per H&P. Pt is not medically stable anticipate 1-2 days. Pt resides at home with her son and has been up independent in her room. SW confirmed plan of discharge home. No discharge needs identified. All updated and agreeable to plan. Assessment:Pt who is independent at baseline. Plan:Pt to discharge home when medically stable via POV. No discharge needs identified. All updated and agreeable to plan. SORAYA Latif
--- NOTE | 2017-01-20 15:22 | NUR ---
Stool/BG Pt had small soft formed stool today. Another C-diff sample sent per request of Lab. C-diff rule out pending. Blood glucose levels have been stable today. Last BG in the 200 range. Pt alert and oriented, states she feels much better than yesterday. Care ongoing.
--- NOTE | 2017-01-20 18:27 | NUR ---
C-DIFF P-Patient on Enteric precautions for pending C-Diff. I-C-Diff negative, precautions removed. E-Patient reports no diarrhea today.
[2017-01-20] MEDS: LORazepam 0.5 mg Tablet PO PRN (21:40)
[2017-01-21] VITALS (8 sets, daily range): BP systolic 129–146; BP diastolic 64–83; PULSE 76–121; RESP 20; O2SAT 91–97
--- NOTE | 2017-01-21 05:34 | NUR ---
BG/desaturation BG at HS was 224. Pt desated to 86% with just CPAP when sleeping. added 3L O2 bleeding in to her CPAP; SpO2 90%-93%. denies SOB or respiratory distress. pt stated that she's shallow breathing. Encouraged to CDB Q1hr while awake. pt verbalized understanding. Pt also desated to high 80s on RA when awake. given 3L O2 via NC. Sats in low 90s now.
[2017-01-21] MEDS: DULoxetine 30 mg DR Capsule PO SCH (08:01)
[2017-01-21] MEDS: Sulfasalzine 500 mg Tablet PO SCH ×2 (08:01→21:34)
[2017-01-21] MEDS ORDERED: Glucose 40% Oral Gel 15 Gm Tube PO PRN (11:25)
[2017-01-21] MEDS: Insulin LISPRO 300 Unit/3 mL Inj SUBQ SCH ×3 (11:53→22:00)
[2017-01-21 12:13] LABS: BASOPHILS % (AUTO) 0.2 % (0-3); EOSINOPHILS % (AUTO) 1.9 % (0-5); MONOCYTES % (AUTO) 13.8 % (4-12); Mean Corpuscular Hemoglobin 28.5 pg (27.0-35.0); Mean Corpuscular Volume 98.3 fL (81-100); NEUTROPHILS % (AUTO) 60.6 % (40-74); Platelet Count 219 bil/L (150-400)
--- NOTE | 2017-01-21 13:28 | PCM.PNMED ---
Subjective Date of Service Jan 21, 2017 Subjective pt seen on supplemental oxygen of 3L this AM - recumbent in bed. denies cp/sob/ f but does not use oxygen at home. notes generally has sedentary lifestyle given her bouts of diarrhea with hx of crohns. neg c diff - needs order for insulin sliding scale with inc sugars. repeat cxr Exam Vital Signs Vital Sign - Last Date Time Temp Pulse Resp B/P Pulse Ox O2 Delivery O2 Flow Rate FiO2 01/21/17 12:24 76 20 97 Nasal Cannula 2.00 01/21/17 09:31 36.3 146/81 Intake and Output 01/20/17 01/20/17 01/21/17 Cumulative From/Thru 15:00 23:00 07:00 01/18/17 13:27 - 01/21/17 06:26 Intake Total 1000 ml 1200 ml 4820 ml Output Total 800 ml 400 ml 2505 ml Balance 200 ml 800 ml 2315 ml Intake Oral 1000 ml 200 ml 2800 ml IV Total 1000 ml 2020 ml Output Urine Total 800 ml 400 ml 2000 ml Urine/Stool Mix 500 ml Emesis 5 ml # Voids 6 # Bowel Movements 1 0 5 Exam General: Alert, Oriented X3, Cooperative, No Acute Distress Head: Normal Eyes: Scleral Anicteric Nose: Mucous Membr Moist/[place], +supplemental oxygen Mouth: Mucous Membr Moist/[place] Neck: Supple, cannot assess jvd d/t habitus Chest & Lungs: Chest Wall Normal, intermittent fine wheezing but +BS b/l Cardiovascular: Regular Rate/Rhythm Abdomen: Non-tender, Non-distended, Normoactive bowel tones, Soft Extremities: No cyanosis/clubbing/edema bilat Neurological: Grossly Neurologically Intact, Cranial Nerves 2-12 Intact, Normal IVs and Medications Medications Reviewed: Medications were reviewed in detail Lab and Diagnostics Result Diagram: 01/21/17 1200 01/21/17 1200 X-Rays, CTs and MRIs CT ANGIO CHEST PULMONARY EMBOLISM 01/18/17 1. Persistent consolidative opacities within the right perihilar region and right base. These are relatively unchanged compared to 01/09/17. This could represent persistent infection or inflammation. Recommend continued general followup to document resolution and exclude presence of underlying mass lesion. 2. Persistent groundglass like opacities within the lungs, indicative of inflammation or infection. 3. No evidence of central pulmonary embolus, as above. Dictated by: Annette Freitas M.D. on 01/18/2017 at 18:00 Approved by: Annette Freitas M.D. on 01/18/2017 at 18:03 Assessment & Plan 76 year old woman with a PMH of severe Chron's, DM2 on glimeperide, HTN, and depression with anxiety who presents to [facility] emergency department with hypoglycemia 1. Acute Hypoglycemia. Present on admission Due to taking Glimepiride without eating. - stopped D51/2 NS on 01/19 and blood glucose has remained stable, now inc and insulin ss added - HgA1C 5.6? - hold Glimepiride 2. acute respiratory failure necessitating supplementaly oxygen possibly 2/2 to obesity/hypoventil syndrome +/-atelectasis with low grade sinus tachycardia. Present on admission Pulmonary embolism ruled out. Pleuritic chest pain resolved and patient reported having chronic tachycardia - off tele, repeat cxr today' - up out of bed, PT padmini, added IS 3. Crohns disease with possible flare Patient currently being followed by Dr Casper. Currently not on any steroids - continue Sulfasalazine 1000 mg bid - consider GI consult if symptoms escalates 4. Acute diarrhea on 01/19/17. not present on admission. - neg c diff on 01/20 - likely related to underlying Crohns given hx of recent intermittent bouts 5. Cisco/CKD - likely 2/2 to IV contrast load - cont to monitor - Cr on admission was much better than baseline but a little worse than admission today. - f/u renal fxn given diarrhea and IV contrast for CTA on admission - hold home dose Lasix for now - gentle IVF for today 6. Breast Cancer. Chronic Presumed stable - continue Anastrozole 1 mg daily - continue outpatient surveillance 7. Obesity BMI 47.9 Consider bariatric surgery Dispo: possibly home tomorrow if blood glucose reasonable and renal function stable - along with improved respiratory status Pain Evaluation: Adequate Pain Control VTE Prophylaxis: Sub-Q Heparin (Unfractionated) Resuscitation Status: CPR: Attempt Resuscitation Time spent 40 minutes spent with evmary and Nasim Blackman DO Jan 21, 2017 13:28
--- NOTE | 2017-01-21 14:21 | NUR ---
Evaluation completed. Please go to "Notes" then click on "Assessments and Notes" (bottom left corner of screen). Then select appropriate discipline tab on top of screen.
--- NOTE | 2017-01-21 15:59 | DRSVH ---
PROCEDURE: X-RAY CHEST ONE VIEW, PORTABLE ([id number]) INDICATIONS: desat TECHNIQUE: One view of the chest was acquired. COMPARISON: [facility], CR, XR CHEST 1VW (PORTABLE), 01/18/2017, 14:10. FINDINGS: Surgical changes and devices: None. Lungs and pleura: Mid/bibasilar airspace opacities redemonstrated. Interstitial is prominent. Mediastinum: Mediastinal contours appear normal. Heart size is normal. Bones and chest wall: No suspicious bony lesions. Overlying soft tissues appear unremarkable. IMPRESSION: Mid/basilar atelectasis versus aspiration or pneumonia. Dictated by: Joaquin Dickens RRA Interpreted: Maddi Banks MD on 01/21/2017 at 15:58 Transcribed by: TORO on 01/21/2017 at 15:59 Approved by: Maddi Banks MD, PhD on 01/21/2017 at 17:08
--- NOTE | 2017-01-21 17:23 | NUR ---
Transfer of care Assumed care of pt at 1700 following report from Luisa Hood RN. Pt sitting up EOB, eating dinner. Denies any pain/discomfort and in no distress. Pt aware to call if she needs anything.
[2017-01-22 05:01] VITALS: BP 143/78; PULSE 105; RESP 18; O2SAT 89
--- NOTE | 2017-01-22 05:03 | NUR ---
Activity Pt alert and oriented, cooperative with cares. Uses CPAP at night with 2L O2 and a pulse Ox. Pt desating to 85% so pushed up O2 to 3L with CPAP, O2 now up to 91 to 92%. Left room with call light at bedside.
[2017-01-22 06:38] LABS: BASOPHILS % (AUTO) 0.3 % (0-3); EOSINOPHILS % (AUTO) 1.9 % (0-5); MONOCYTES % (AUTO) 15.5 % (4-12); Mean Corpuscular Hemoglobin 28.1 pg (27.0-35.0); Mean Corpuscular Volume 96.4 fL (81-100); Platelet Count 191 bil/L (150-400)
[2017-01-22] MEDS: Insulin LISPRO 300 Unit/3 mL Inj SUBQ SCH ×4 (07:57→22:00)
[2017-01-22] MEDS: Sulfasalzine 500 mg Tablet PO SCH ×2 (09:00→21:13)
[2017-01-22] MEDS: DULoxetine 30 mg DR Capsule PO SCH (09:01)
--- NOTE | 2017-01-22 09:15 | PCM.PNMED ---
Subjective Date of Service Jan 22, 2017 Subjective - No acute events over night. - c/o mild head ache. Denies any other complaints. - Creatinine is worsening. 1.32 <-- 1.14 Exam Vital Signs Vital Sign - Last Date Time Temp Pulse Resp B/P Pulse Ox O2 Delivery O2 Flow Rate FiO2 01/22/17 05:01 36.6 105 18 143/78 89 Room Air 01/21/17 21:09 3.00 Intake and Output 01/21/17 01/21/17 01/22/17 Cumulative From/Thru 15:00 23:00 07:00 01/18/17 13:27 - 01/22/17 06:39 Intake Total 1300 ml 350 ml 6470 ml Output Total 1150 ml 600 ml 4255 ml Balance 150 ml -250 ml 2215 ml Intake Oral 1300 ml 350 ml 4450 ml IV Total 2020 ml Output Urine Total 1150 ml 600 ml 3750 ml Urine/Stool Mix 500 ml Emesis 5 ml # Voids 6 # Bowel Movements 1 6 Exam General: Morbidly obese, Alert, Oriented X3, Cooperative, No Acute Distress Head: Normal Eyes: Scleral Anicteric Nose: Mucous Membr Moist/[place], +supplemental oxygen Neck: Supple, cannot assess jvd d/t habitus Chest & Lungs: Chest Wall Normal, intermittent fine wheezing but +BS b/l Cardiovascular: Regular Rate/Rhythm Abdomen: Non-tender, Non-distended, Normoactive bowel tones, Soft Extremities: No cyanosis/clubbing/edema bilat Neurological: Grossly Neurologically Intact, Cranial Nerves 2-12 Intact, Normal IVs and Medications Medications Reviewed: Medications were reviewed in detail Lab and Diagnostics Result Diagram: 01/22/17 0600 01/22/17 0600 X-Rays, CTs and MRIs CT ANGIO CHEST PULMONARY EMBOLISM 01/18/17 1. Persistent consolidative opacities within the right perihilar region and right base. These are relatively unchanged compared to 01/09/17. This could represent persistent infection or inflammation. Recommend continued general followup to document resolution and exclude presence of underlying mass lesion. 2. Persistent groundglass like opacities within the lungs, indicative of inflammation or infection. 3. No evidence of central pulmonary embolus, as above. Dictated by: Annette Freitas M.D. on 01/18/2017 at 18:00 Approved by: Annette Freitas M.D. on 01/18/2017 at 18:03 Assessment & Plan 76 year old woman with a PMH of severe Chron's, DM2 on glimeperide, HTN, and depression with anxiety who presents to [facility] emergency department with hypoglycemia 1. Acute Hypoglycemia. Present on admission Due to taking Glimepiride without eating. - stopped D51/2 NS on 01/19 and blood glucose has remained stable, now inc and insulin ss added - HgA1C 5.6 - hold Glimepiride 2. acute respiratory failure necessitating supplementaly oxygen possibly 2/2 to obesity/hypoventil syndrome +/-atelectasis with low grade sinus tachycardia. Present on admission Pulmonary embolism ruled out. Pleuritic chest pain resolved and patient reported having chronic tachycardia - improving - up out of bed, PT eval, added IS 3. Crohns disease with possible flare - Patient currently being followed by Dr Casper. Currently not on any steroids - continue Sulfasalazine 1000 mg bid - consider GI consult if symptoms escalates 4. Acute diarrhea on 01/19/17. not present on admission. - neg c diff on 01/20 - likely related to underlying Crohns given hx of recent intermittent bouts 5. Cisco/CKD - likely 2/2 to IV contrast load - cont to monitor - Cr is worsening 1.32 <-- 1.14 - f/u renal fxn given diarrhea and IV contrast for CTA on admission - hold home dose Lasix for now - gentle IVF 6. Breast Cancer. Chronic Presumed stable - continue Anastrozole 1 mg daily - continue outpatient surveillance 7. Obesity BMI 47.9 Consider bariatric surgery Dispo: possibly home tomorrow if blood glucose reasonable and renal function improves Pain Evaluation: Adequate Pain Control VTE Prophylaxis: Sub-Q Heparin (Unfractionated) Resuscitation Status: CPR: Attempt Resuscitation Luis Coffey MD Jan 22, 2017 09:15
[2017-01-22] MEDS: 0.9% Sodium Chloride 1,000 ML IV SCH (10:04)
[2017-01-22 10:10] VITALS: O2SAT 92
[2017-01-22 14:45] VITALS: BP 118/68; PULSE 116; O2SAT 91
--- NOTE | 2017-01-22 16:20 | NUR ---
IV infiltration Right upper hand IV infiltration. per assessment denies pain to right hand but discomfort and swelling to right upper hand. Discontinued IV to right upper hand with out difficulty. Encouraged patient to elevate right hand. Paged Dr. Posey and orders to elevated right hand and warm compresses. Will start IV on left arm. Will continue to monitor.
--- NOTE | 2017-01-22 17:18 | NUR ---
Follow up IV infiltration Patient feeling much better after elevation and warm compress. Patient is able to eat her dinner with her right hand. Blood sugar 163. Insulin given as ordered. IV Therapy at bed side to start new peripheral IV. Continue to monitor Right hand.
[2017-01-22 20:21] VITALS: BP 133/62; PULSE 109; RESP 18; O2SAT 94
--- NOTE | 2017-01-22 20:55 | NUR ---
[facility] signed
[2017-01-23] MEDS: 0.9% Sodium Chloride 1,000 ML IV SCH (03:08)
--- NOTE | 2017-01-23 04:40 | NUR ---
activity Pt alert and oriented, some forgetfulness. Pt remained in room for the shift, independent to bathroom, with slip resistant socks on. Pleasant and conversational throughout the shift. Left room with call light at bedside.
[2017-01-23 05:00] VITALS: BP 143/78; PULSE 105; RESP 18; O2SAT 93
[2017-01-23] MEDS: Insulin LISPRO 300 Unit/3 mL Inj SUBQ SCH ×2 (08:00→12:07)
[2017-01-23] MEDS: Sulfasalzine 500 mg Tablet PO SCH (08:41)
[2017-01-23] MEDS: DULoxetine 30 mg DR Capsule PO SCH (08:50)
[2017-01-23 08:51] VITALS: BP 144/82; PULSE 111; RESP 22; O2SAT 89
--- NOTE | 2017-01-23 10:08 | PCM.DIMED ---
Discharge Instructions Date of Service Jan 23, 2017 Dates of Hospitalization Jan 18, 2017 at 18:50 Discharge Diagnosis Discharge Diagnosis Hypoglycemia ELVIA on CKD Diet Heart Healthy Call your provider Fever or Chills, Shortness of breath, Bleeding, Chest pain, Vomitting, Excessive diarrhea, Weakness (unilateral) Patient Instructions - Your diabetic medications are stopped due to persistent low blood glucose. Please follow up with your primary physician for further follow up. Follow-up with PCP in: 1 week Luis Coffey MD Jan 23, 2017 10:08
--- NOTE | 2017-01-23 10:19 | PCM.DC.MED ---
Discharge Summary Date of Service Jan 23, 2017 Dates of Hospitalization Date of Hospital Admission Jan 18, 2017 at 18:50 Date of Discharge: Jan 23, 2017 Providers: Admitting Physician: Loyd Shearer MD Primary Care Physician: Judith Miranda DO Attending Physician: Loyd Shearer MD Diagnosis at Time of Discharge Diagnosis at Time of Discharge Hypoglycemia ELVIA on CKD Procedures XRay, CTs & MRIs CT ANGIO CHEST PULMONARY EMBOLISM 01/18/17 1. Persistent consolidative opacities within the right perihilar region and right base. These are relatively unchanged compared to 01/09/17. This could represent persistent infection or inflammation. Recommend continued general followup to document resolution and exclude presence of underlying mass lesion. 2. Persistent groundglass like opacities within the lungs, indicative of inflammation or infection. 3. No evidence of central pulmonary embolus, as above. Dictated by: Annette Freitas M.D. on 01/18/2017 at 18:00 Approved by: Annette Freitas M.D. on 01/18/2017 at 18:03 Brief History Eileen Beverly is a 76 year old woman with a PMH of severe Chron's managed by Dr. Casper, DM2 on glimeperide, HTN, and depression with anxiety who presents to [facility] emergency department with hypoglycemia Patient reports 2 day history of recurrent episodes of hypoglycemia with BG as low as 25 with confusion and combativeness. Her family reports that they contacted EMS about this issue last evening and they gave her some juice which corrected her BG. However, the symptoms recurred 3 hours later and have generally been occuring 2-3 times daily for the past few days. She has chronic diarrhea from her Chron's which apparently has been worse over the past few days, she has continued to faithfully take her meds including Glimeperide in that interim with poor PO intake and significant loose stools. She reports diffuse abdominal pressure consistent with her crohns pain. Non radiating. She further complains of chest pain with deep inspiration. Patient is not on any insulin. Case discussed with resident Dr Carlin, several doses of D50 given but still hypoglycemic. D5NS not going with plans to admit for close observation overnight. Hospital Course 76 year old woman with a PMH of severe Chron's, DM2 on glimeperide, HTN, and depression with anxiety who presents to [facility] emergency department with hypoglycemia 1. Acute Hypoglycemia. Present on admission Due to taking Glimepiride without eating. - stopped D51/2 NS on 01/19 and blood glucose has remained stable, now inc and insulin ss added - HgA1C 5.6 - Glimepiride stopped. 2. acute respiratory failure necessitating supplementaly oxygen possibly 2/2 to obesity/hypoventil syndrome +/-atelectasis with low grade sinus tachycardia. Present on admission Pulmonary embolism ruled out. Pleuritic chest pain resolved and patient reported having chronic tachycardia - resolved 3. Crohns disease with possible flare - Patient currently being followed by Dr Casper. Currently not on any steroids - continue Sulfasalazine 1000 mg bid 4. Acute diarrhea on 01/19/17. not present on admission. - neg c diff on 01/20 - likely related to underlying Crohns given hx of recent intermittent bouts 5. Elvia/CKD - likely 2/2 to IV contrast load - cont to monitor - Cr is at baseline on discharge. - f/u renal fxn given diarrhea and IV contrast for CTA on admission 6. Breast Cancer. Chronic Presumed stable - continue Anastrozole 1 mg daily - continue outpatient surveillance 7. Obesity BMI 47.9 Consider bariatric surgery Exam Vital Signs (Last) Date Time Temp Pulse Resp B/P Pulse Ox O2 Delivery O2 Flow Rate FiO2 01/23/17 08:51 Supplement Oxygen CPAP/BIPAP 01/23/17 08:51 36.8 111 22 144/82 89 01/23/17 05:00 2.50 Exam General: Morbidly obese, Alert, Oriented X3, Cooperative, No Acute Distress Head: Normal Eyes: Scleral Anicteric Nose: Mucous Membr Moist/Lago, +supplemental oxygen Neck: Supple, cannot assess jvd d/t habitus Chest & Lungs: Chest Wall Normal, intermittent fine wheezing but +BS b/l Cardiovascular: Regular Rate/Rhythm Abdomen: Non-tender, Non-distended, Normoactive bowel tones, Soft Extremities: No cyanosis/clubbing/edema bilat Neurological: Grossly Neurologically Intact, Cranial Nerves 2-12 Intact, Normal Test 01/18/17 14:25 01/18/17 16:00 01/19/17 07:53 01/22/17 06:00 D-Dimer 2.0mg/L (<0.50) Hemoglobin A1c 5.6% (4.8-5.6) Magnesium Level 1.7mg/dL (1.6-2.6) Total Bilirubin 0.2mg/dL (0.0-1.2) Aspartate Amino Transf (AST/SGOT) 22U/L (0-50) Alanine Aminotransferase (ALT/SGPT) 14U/L (0-32) Alkaline Phosphatase 103U/L (25-165) Troponin T < 0.010ug/L (0.0-0.011) Total Protein 6.7g/dL (6.4-8.4) Albumin 4.1g/dL (3.4-5.0) Hold [place] Top Tube Received (Received) Hold Urine Received (Received) Prothrombin Time 10.3sec (8.1-12.5) Prothromb Time International Ratio 0.96ratio Activated Partial Thromboplast Time 29.0sec (22.8-33.0) White Blood Count 5.8th/mm3 (3.8-10.1) Red Blood Count 3.38mil/mm3 (3.90-5.20) Hemoglobin 9.5g/dL (12.0-15.6) Hematocrit 32.6% (35.0-46.0) Mean Corpuscular Volume 96.4fL (81-100) Mean Corpuscular Hemoglobin 28.1pg (27.0-35.0) Mean Corpuscular Hemoglobin Concent 29.1% (32.0-37.0) Red Cell Distribution Width 17.1% (12.3-15.4) Platelet Count 191bil/L (150-400) Neutrophils (%) (Auto) 62.0% (40-74) Lymphocytes (%) (Auto) 18.6% (14-46) Monocytes (%) (Auto) 15.5% (4-12) Eosinophils (%) (Auto) 1.9% (0-5) Basophils (%) (Auto) 0.3% (0-3) Sodium Level 139mEq/L (134-144) Potassium Level 5.0mEq/L (3.5-5.2) Chloride Level 105mEq/L (97-108) Carbon Dioxide Level 19mmol/L (18-29) Blood Urea Nitrogen 19mg/dL (8-27) Creatinine 1.32mg/dL (0.57-1.00) Estimat Glomerular Filtration Rate 56mL/min (>59) Glucose Level 165mg/dL (60-99) Calcium Level 8.2mg/dL (8.5-10.1) Discharge Medications Discharge Medications ([Clobex]) 1 APPLIC TP DAILY (Reported) 0.05% ([Flocinonide]) 1 APPLIC TP BID (Reported) 0.05% ([vitamin b-12]) 0.1 ML IM MONTHLY (Reported) 1000MCG/ML ([Ketaconazole Shampoo]) 1 APPLIC TP 2X/WK (Reported) 2% ([Ketaconazole Cream]) 1 APPLIC TP 2X/WK (Reported) 2% Amitriptyline (Amitriptyline) 10 Mg Tablet 30 MG PO HS (Reported) Anastrozole (Anastrozole) 1 Mg Tablet 1 MG PO DAILY (Reported) Aspirin (Aspirin) 81 Mg Tablet 81 MG PO DAILY (Reported) Cholecalciferol (Vitamin D3) (Vitamin D) 1,000 Unit Capsule 5,000 UNIT PO DAILY (Reported) Duloxetine (Duloxetine) 60 Mg Capsule.dr 90 MG PO DAILY (Reported) Fluocinolone/Shower Cap (Fluocinolone Acetonide 0.01% Oil) 118.28 Ml Oil 1 APPLIC TOP DAILY (Reported) Folic Acid/Multivits-Min/Lut (Centrum Silver Chewable Tablet) 1 Each Tab.chew 1 EACH PO DAILY (Reported) Furosemide (Furosemide) 20 Mg Tab 20 MG PO DAILY (Reported) Gabapentin (Gabapentin) 600 Mg Tablet 600 MG PO a.m., noon (Reported) Gabapentin (Gabapentin) 600 Mg Tablet 900 MG PO HS (Reported) Lactobacillus Acidophilus (Probiotic) 1 Each Capsule 1 EACH PO AM (Reported) Lisinopril (Lisinopril) 10 Mg Tablet 10 MG PO DAILY (Reported) Lovastatin (Lovastatin) 40 Mg Tablet 40 MG PO HS (Reported) Pramipexole Dihydrochloride (Pramipexole Dihydrochloride) 0.25 Mg Tablet 0.25 MG PO TID (Reported) Pramipexole Dihydrochloride (Pramipexole Dihydrochloride) 0.5 Mg Tablet 0.5 MG PO HS (Reported) Sulfasalazine (Sulfasalazine) 500 Mg Tablet 500 MG PO BID (Reported) As needed ([Desonide]) 1 APPLIC TP BID PRN PRN PRN (Reported) 0.05% Loperamide Liquid (Imodium A-D Liquid) 1 Mg/7.5 Ml Liquid 1 MG PO DAILY PRN PRN PN (Reported) Miscellaneous Medications Melatonin/Herbal Complex #184 (Sleep Softgel) 1 Each Capsule 2 EACH PO (Reported ) Melatonin/Herbal Complex #184 (Sleep Softgel) 1 Each Capsule 1 EACH PO (Reported ) Followup Plan Discharge Diet: Heart Healthy Patient Instructions - Your diabetic medications are stopped due to persistent low blood glucose. Please follow up with your primary physician for further follow up. Follow-up with PCP in: 1 week Luis Coffey MD Jan 23, 2017 10:19
[2017-01-23 10:26] LABS: BASOPHILS % (AUTO) 0.3 % (0-3); EOSINOPHILS % (AUTO) 1.7 % (0-5); MONOCYTES % (AUTO) 12.8 % (4-12); Mean Corpuscular Hemoglobin 28.4 pg (27.0-35.0); Mean Corpuscular Volume 97.2 fL (81-100); NEUTROPHILS % (AUTO) 62.9 % (40-74); Platelet Count 177 bil/L (150-400)
--- NOTE | 2017-01-23 11:35 | NUR ---
Social Work- discharge: Data:EMR Reviewed. Pt is on day 5 of hospitalization for hypoglycemia per H&P. Pt is medically stable for discharge today. Pt resides at home with her son. PT has cleared pt for home no needs. SW confirmed plan with pt and family. No discharge needs identified. All updated and agreeable to plan. Assessment:Pt who is independent at baseline. Plan:Pt to discharge home today via POV. No discharge needs identified. All updated and agreeable to plan. SORAYA Latif
--- NOTE | 2017-01-23 12:48 | NUR ---
DISCHARGE Patient discharged at 1245, left with friend who is to drive her home. Patient denies pain, shortness of breath at rest, and nausea. IV catheter removed intact, medications reviewed and patient verbalizes understanding. Care notes on Crohns and hypoglycemia provided. Follow up care reviewed and paperwork given to patient.
== END 2017-01-23 12:46 | disposition home or self-care (01) | DRG 638 ==
LOC: SED 13:22 → MPC 18:50 → OBSVTOIN 18:50 → INTOOBSV 18:50 → MPC 19:46
PROVIDERS: ADMIT Hospitalist; ATTEND Hospitalist
DX: E11.649 Type 2 diabetes mellitus with hypoglycemia without coma (principal); K50.80 Crohn's disease of both small and large intestine without complications; Z68.42 Body mass index [BMI] 45.0-49.9, adult; E66.2 Morbid (severe) obesity with alveolar hypoventilation; I10 Essential (primary) hypertension; G25.81 Restless legs syndrome; Z87.891 Personal history of nicotine dependence; R00.0 Tachycardia, unspecified; C50.919 Malignant neoplasm of unspecified site of unspecified female breast; N17.9 Acute kidney failure, unspecified

== ENCOUNTER 2017-03-08 19:09 | Inpatient (IN) | payer MEDICARE ==
[~2017-03-08] VITALS: Ht 170.2 cm; Wt 123.3 kg
[~2017-03-08 19:09] MED LIST changes: +ANAS1TAB7 PO; -GABA-502 PO; -GLIM4TAB2 PO; -IBUP200C PO; -LACT1CAP65 PO; -LORA0.5T PO; +LOVA40TA PO; -MELA1CAP3 PO; -PROP1DRO4 OP; +[UNRECOGNIZED DRUG - CODE] TOP
--- NOTE | 2017-03-08 19:39 | ED.REPORT ---
HPI-NVD Date of Service Mar 08, 2017 ED Provider: Dr. Silvestre Jensen, DCarlosO. A 76 year old female with a medical history including Crohn's disease, diabetes , hypertension, and metastatic breast cancer currently in remission presents to the ED accompanied by her son with vomiting and diarrhea onset two days ago. Associated symptoms include abdominal pain, decreased appetite, altered mental status, and lethargy. Per the patient's son, she has been drinking plenty of fluids. He denies other symptoms. EMS found the patient with a BP of 129/61, a pulse of 110, and a respiration rate of 18. History is limited due to patient's mental status. Nursing Notes Stated Complaint: VOMITTING AND DIARRHEA FOR 2 DAYS,HX OF CROHNS Chief Complaint: General Complaint Nursing Notes Reviewed: Yes Allergies: Coded Allergies: No Known Drug Allergies (Verified Allergy, Unknown, 03/08/17) Scheduled Amitriptyline (Amitriptyline) 10 Mg Tablet 30 MG PO HS Anastrozole (Anastrozole) 1 Mg Tablet 1 MG PO QAM Aspirin (Aspirin) 81 Mg Tablet 81 MG PO QAM Cholecalciferol (Vitamin D3) (Vitamin D) 1,000 Unit Capsule 5,000 UNIT PO QAM Clobetasol Propionate (Clobetasol Propionate) 50 Ml Solution 1 APPLIC TP QAM 0.05% Cyanocobalamin (Cyanocobalamin Injection) 1,000 Mcg/1 Ml Vial 1,000 MCG IM Monthly Duloxetine (Duloxetine) 60 Mg Capsule.dr 90 MG PO QAM DULOXETINE 30 MG + 60 MG = 90 MG TOTAL Fluocinolone/Shower Cap (Fluocinolone Acetonide 0.01% Oil) 118.28 Ml Oil 1 APPLIC TOP DAILY Fluocinonide 0.05% Cream (Fluocinonide 0.05% Cream) 15 Gm Cream..g. 1 APPLIC TOPICAL BID Folic Acid/Multivits-Min/Lut (Centrum Silver Chewable Tablet) 1 Each Tab.chew 1 EACH PO QAM Furosemide (Furosemide) 20 Mg Tab 20 MG PO QAM Gabapentin (Gabapentin) 600 Mg Tablet 600 MG PO BIDBL 600 MG IN AM & AFTERNOON, 900 MG AT HS Gabapentin (Gabapentin) 600 Mg Tablet 900 MG PO HS 600 MG IN AM & AFTERNOON, 900 MG AT HS Infliximab (Remicade) 10 Mg/Ml Sdv Unknown Dose IV [id number] Ketoconazole (Nizoral) 120 Ml Shampoo 1 APPLIC TOP TWICE WEEKLY Lisinopril (Lisinopril) 10 Mg Tablet 10 MG PO QAM Lovastatin (Lovastatin) 40 Mg Tablet 40 MG PO HS Pramipexole Dihydrochloride (Pramipexole Dihydrochloride) 0.25 Mg Tablet 0.25 MG PO TIDWM PRAMIPEXOLE 0.25 MG AM, NOON, PM AND 0.5 MG AT HS Pramipexole Dihydrochloride (Pramipexole Dihydrochloride) 0.5 Mg Tablet 0.5 MG PO HS PRAMIPEXOLE 0.25 MG AM, NOON, PM AND 0.5 MG AT HS Scheduled PRN Desonide (Desonide Cream) 15 Gm Cream..g. 1 APPLIC TOP BID PRN PRN RASH Loperamide Liquid (Imodium A-D Liquid) 1 Mg/7.5 Ml Liquid 1 MG PO DAILY PRN PRN PN General Time Seen by MD: 19:39 Chief Complaint Vomiting, Diarrhea Hx Obtained From: Son Unable to Obtain Hx: Patient condition, Mental status Arrived By: Ambulance Onset Occurred: 2 days ago Symptom Duration: Since onset Location: : Diffuse Quality: Painful Severity: Current: Moderate Severity: Maximum: Moderate Associated with: Reports: Abdominal pain Pertinent Negative: Relieved by nothing Related History: Reports: Abdominal surgery, Crohn's disease, Diabetes mellitus Recent Healthcare: No recent doctor visit Similar Sx Previous: Yes Past Medical History Past Medical History Psoriasis Aortic and venous Insufficiency Crohn's disease of small AND large intestines Depression with anxiety Restless leg syndrome Diabetes type 2, uncontrolled Insomnia Mitral Valve-regurgitation Peripheral neuropathy Obstructive sleep apnea Metastatic breast cancer in clinical remission since 2008 Periodic limb movement Reports: Diabetes mellitus, Hypertension Reports: Depression Past Surgical History Neil-colectomy Tonsillectomy Fistulaetomy Bowel resection Stomach tumor removal Appendectomy Mastectomy Hysterectomy Family History Father had congenital heart disease, aortic aneurysm Mother from Brain tumor Smoking History Former Smoker Review of Systems Unable to Obtain ROS Patient condition, Mental status Physical Exam Physical Exam Notes: Initial Vital Signs Vital Signs (First) Date Time Temp Pulse Resp B/P Pulse Ox O2 Delivery O2 Flow Rate FiO2 03/08/17 19:43 37.0 110 20 111/58 94 Nasal Cannula 3 Initial VS: Reviewed Head / Eyes: Atraumatic, Normocephalic, PERRL Cardiovascular: Regular rate & rhythm, Heart sounds normal Skin: Warm, Dry General/Constitutional: Awake Distress / Hydration: Positive: Dehydration moderate Appearance / Presentation: Positive: Obese, Pale Altered mental status Jennifer Coma Scale 13 Abdomen: Atraumatic, No distention Tenderness/Guarding/Rebound: Positive: Tender diffuse Respiratory / Chest: Breath sounds = bilat, No respiratory distress Rales / Rhonchi: Positive: Rales diffuse (Bilateral) Interpretation & Diagnostics ARTERIAL BLOOD GAS REPORT: Time 20:40 pH 7.244 pCO2 28 pO2 90.0 cHCO3 11.6 cBase(B) -14.3 Lab Results Interpretation Result Diagram: 03/08/17 1950 03/08/17 1950 Test 03/08/17 19:22 03/08/17 19:50 03/08/17 20:20 Hold Purple Top Tube Received (Received) Hold Blue Top Tube Received (Received) Hold Red Top Tube Received (Received) Hold [place] Top Tube Received (Received) White Blood Count 5.7th/mm3 (3.8-10.1) Red Blood Count 3.71mil/mm3 (3.90-5.20) Hemoglobin 10.3g/dL (12.0-15.6) Hematocrit 32.4% (35.0-46.0) Mean Corpuscular Volume 87.3fL (81-100) Mean Corpuscular Hemoglobin 27.8pg (27.0-35.0) Mean Corpuscular Hemoglobin Concent 31.8% (32.0-37.0) Red Cell Distribution Width 17.5% (12.3-15.4) Platelet Count 298bil/L (150-400) Neutrophils (%) (Auto) 74.9% (40-74) Lymphocytes (%) (Auto) 15.8% (14-46) Monocytes (%) (Auto) 8.2% (4-12) Eosinophils (%) (Auto) 0.4% (0-5) Basophils (%) (Auto) 0.2% (0-3) Prothrombin Time 10.5sec (8.1-12.5) Prothromb Time International Ratio 0.98ratio Sodium Level 136mEq/L (134-144) Potassium Level 5.2mEq/L (3.5-5.2) Chloride Level 95mEq/L (97-108) Carbon Dioxide Level 12mmol/L (18-29) Blood Urea Nitrogen 142mg/dL (8-27) Creatinine 8.40mg/dL (0.57-1.00) Estimat Glomerular Filtration Rate 7mL/min (>59) Glucose Level 129mg/dL (60-99) Calcium Level 6.5mg/dL (8.5-10.1) Magnesium Level 2.1mg/dL (1.6-2.6) Total Bilirubin 0.4mg/dL (0.0-1.2) Aspartate Amino Transf (AST/SGOT) 13U/L (0-50) Alanine Aminotransferase (ALT/SGPT) 10U/L (0-32) Alkaline Phosphatase 90U/L (25-165) Troponin T 0.093ug/L (0.0-0.011) Total Protein 7.0g/dL (6.4-8.4) Albumin 4.0g/dL (3.4-5.0) Lactic Acid Level 0.6mmol/L (0.4-2.0) Ammonia 144ug/dL (18-53) ECG Interpretation ECG Interpretation: Sinus tachycardia rate 108 LBBB Similar to prior 01/18/17 Time: 20:21 Interpreted by: ED physician X-Ray Chest Interpretation Chest Xray Interpretation: IMPRESSION: 1. Right infrahilar consolidation redemonstrated as was increased bandlike opacities in the left base and bilateral patchy groundglass opacities. The findings are suggestive of multifocal pneumonia. Dictated by: Man Mcnulty M.D. on 03/08/2017 at 20:22 View: Portable, 1 view Interpretation / Wet Read by: Interpret - Radiologist CT Head Interpretation IMPRESSION: 1. Limited study due to motion demonstrates no definite acute intracranial abnormality. Dictated by: Man Mcnulty M.D. on 03/08/2017 at 21:29 Study: Head CT no contrast Interpretation / Wet Read by: Interpret - Radiologist CT Abd / Pelvis Interpretation IMPRESSION: 1. Fluid and gas distention of the small and large bowel extending to the rectosigmoid colon distally without a focal transition point. The findings are suggestive of an ileus or gastroenteritis without definite obstruction. 2. Patchy groundglass opacities in the visualized lung bases with consolidation in the inferior right middle and lower lobes. The findings suggest aspiration with right basilar pneumonia. 3. Small atrophic left kidney. No hydronephrosis in the right the left kidney. Dictated by: Man Mcnulty M.D. on 03/08/2017 at 21:18 Study type: Abdominal CT no contrast Interpretation / Wet Read by: Interpret - Radiologist Re-Eval/Medical Decision Med Decision/Clinical Course Altered mental status, multifactorial with associated uremia as well as elevated ammonia and probable hepatic encephalopathy, she is maintaining her own airway at this point, does not need to be emergently intubated. She has acute renal failure with acidosis and will be fluid repleted as this is the likely underlying cause additionally started on a bicarbonate drip. Significant hypocalcemia repleted with IV calcium. Unclear etiology of elevated troponin though it does not seem to be acute coronary syndrome. Nasogastric tube placed due to massive abdominal distention. Multi lobar pneumonia meets criteria for healthcare associated, broad-spectrum antibiotics initiated. Source of Hx: Old records Re-Evaluation/Progress #1: Time of Eval: 21:03 Patient Status: Condition improved Re-Evaluation/Progress Note: Patient rechecked. Discussed with patient's son lab results and plan for nephrology consult. Re-Evaluation/Progress #2: Time of Eval: 21:13 Patient Status: Condition improved Re-Evaluation/Progress Note: Discussed with patient's family nephrology consult and plan for NG tube placement. O2 saturation at 96% Re-Evaluation/Progress #3: Time of Eval: 21:52 Patient Status: Condition improved Re-Evaluation/Progress Note: Discussed with patient's family x-ray, lab, and CT results, diagnosis, and plan for admit. They agree with plan for care and all questions were addressed. Consultation #1: Referral / Consult Name: Gen Escobedo MD Consulted With: Nephrology Call Returned at: 21:07 Retail Stocker: Agrees with eval, Agrees with plan Consultation #2: Referral / Consult Name: Loyd Shearer MD Consulted With: Hospitalist Call Returned at: 21:47 Retail Stocker: Agrees with eval, Agrees with plan, Accepts admit Counseled Regarding: Diagnosis, Lab results, Need for admission Discharge & Departure Impression: Primary Impression: Acute kidney injury Additional Impressions: Ileus Pneumonia Pneumonia type: due to unspecified organism Laterality: unspecified laterality Lung location: unspecified part of lung Qualified Code: J18.9 - Pneumonia, unspecified organism Disposition: ADMITTED TO HOSPITAL Discharge Condition All VS Reviewed: Yes Condition: Improved (ERASED) Referrals: Judith Miranda DO (PCP) Crit Care Except Billable Proc Time Spent: 30-74 minutes Services Performed: Patient management by me, Time spent at bedside, Reviewing test results Critical Care Notes: See MDM Scribe Attestation Portions of this note were transcribed by Mayra Rodriguez. I, Dr. Jensen, personally performed the history, physical exam, and medical decision-making; I reviewed and confirmed the accuracy of the information in the transcribed note. Signed by: Elvin Foster, 03/08/2017, 23:05 copies to: Judith Miranda Timothy S DO Mar 08, 2017 19:39 MAYAR RODRIGUEZ Mar 08, 2017 19:54
[2017-03-08 19:43] VITALS: BP 111/58; PULSE 110; RESP 20; O2SAT 94
[2017-03-08] MEDS ORDERED: 0.9% Sodium Chloride 1,000 ML IV ONE ×2 (19:49→21:05)
[2017-03-08 19:53] LABS: BASOPHILS % (AUTO) 0.2 % (0-3); EOSINOPHILS % (AUTO) 0.4 % (0-5); MONOCYTES % (AUTO) 8.2 % (4-12); Mean Corpuscular Hemoglobin 27.8 pg (27.0-35.0); Mean Corpuscular Volume 87.3 fL (81-100); NEUTROPHILS % (AUTO) 74.9 % (40-74); Platelet Count 298 bil/L (150-400)
[2017-03-08] MEDS ORDERED: Ondansetron 2 mg/mL 2 mL Inj IVPUSH PRN (20:00)
[2017-03-08 20:01] LABS: INR 0.98 ratio
[2017-03-08 20:17] LABS: Magnesium 2.1 mg/dL (1.6-2.6)
[2017-03-08] MEDS ORDERED: Calcium GLUCOnate 10% (Gm) 1 Gm/10 mL Inj IVPUSH ONE (20:25)
--- NOTE | 2017-03-08 20:26 | DRSVH ---
PROCEDURE: X-RAY CHEST ONE VIEW, PORTABLE ([id number]) INDICATIONS: Nausea and vomiting. TECHNIQUE: One view of the chest was acquired. COMPARISON: [facility], CT, CT ANGIO CHEST PE, 01/18/2017, 17:24. [facility] , CR, XR CHEST 1VW (PORTABLE), 01/21/2017, 12:54. FINDINGS: Surgical changes and devices: None. Lungs and pleura: No pleural effusions or pneumothorax. There is persistent right infrahilar consol idation with streaky left basilar opacities which appear slightly increased. There also patchy groun dglass opacities bilaterally which appear slightly increased. Mediastinum: Mediastinal contours appear unchanged. Heart size is borderline enlarged. Bones and chest wall: No suspicious bony lesions. Overlying soft tissues appear unremarkable. IMPRESSION: 1. Right infrahilar consolidation redemonstrated as was increased bandlike opacities in the left bas e and bilateral patchy groundglass opacities. The findings are suggestive of multifocal pneumonia. Dictated by: Man Mcnulty M.D. on 03/08/2017 at 20:22 Approved by: Man Mcnulty M.D. on 03/08/2017 at 20:24
[2017-03-08 20:42] LABS: TROPONIN T 0.093 ug/L (0.0-0.011)
--- NOTE | 2017-03-08 20:48 | ABG ---
DateTimeAnalyzed 20:43:00 -_ pH ____7.244 - 7.350 7.450 pCO2 ___27.7__ -mmHg 35.0 45.0 pO2 ___90.0__ -mmHg 69.0 116 HCO3- ___11.6__ -mmol/L 22.0 26.0 ABE __-14.3__ -mmol/L -2.0 2.0 tHb ____9.8__ -g/dL O2Hb ___93.4__ -% COHb ____0.5__ -% MetHb ____0.8__ -% sO2 ___94.6__ -% FIO2 ___32.0__ -% Drawn By MM - Date/Time Notified____ 20:48:00 -_ Liter_Flow ____3.0__ -L/min Oxygen Device 1 __CANNULA - Notified By MM - Notified Whom DR O'SEAN - B 753 -mmHg tO2 ___13.0__ -Vol% Steven test _Positive -
[2017-03-08] MEDS ORDERED: Sodium Bicarb 8.4% 150 mEq/1,000 mL D5W IV ONE ×2 (21:10)
[2017-03-08] MEDS ORDERED: levoFLOXacin Inj 500 MG in IV Premix 1 EACH IV ONE (21:15)
[2017-03-08] MEDS ORDERED: Linezolid Inj 600 MG in IV Premix 1 EACH IV ONE (21:15)
[2017-03-08] MEDS ORDERED: Piperacillin-Tazo 3.375 Gm Inj 3.375 GM in Dextrose 5% Minibag Plus 50 ML IV ONE (21:15)
--- NOTE | 2017-03-08 21:28 | DRSVH ---
PROCEDURE: CT ABDOMEN AND PELVIS WITHOUT CONTRAST ([id number]) INDICATIONS: Abdominal distention TECHNIQUE: Noncontrast 5 mm thick sections acquired from the diaphragms to the symphysis. 5 mm coronal and sagi ttal reformats were then performed. For radiation dose reduction, the following was used: automated exposure control, adjustment of mA and/or kV according to patient size. COMPARISON: [facility], CT, CT ABD PELVIS WO CON, 10/14/2016, 17:22. FINDINGS: Image quality: There is extensive motion artifact limiting evaluation. ABDOMEN: Lung bases: There are patchy groundglass opacities within the lung bases and mild consolidation with in the inferior right middle lobe and right lower lobe. Findings are suggestive of aspiration with r ight basilar pneumonia. Heart size is normal. There is mild concentric wall thickening of the visua lized distal esophagus. Solid organs: No definite focal hepatic lesions and absence of intravenous contrast. The spleen is normal in size. The gallbladder is distended with internal high attenuation which may represent bili adrien sludge. No calcified gallstones or definite gallbladder wall thickening. There is mild fatty at rophy of the pancreas. No adrenal nodules. There is a small diminutive atrophic left kidney. There are multiple small hypoattenuating foci in the kidneys bilaterally suggestive of small cysts. No hy dronephrosis. Peritoneum and bowel: There are postsurgical changes in the right lower quadrant compatible with shon or partial bowel resection. There is diffuse fluid and gas distention throughout the residual small bowel with multiple air-fluid levels. There is a gradual transition in the distal small bowel in the right lower quadrant. There is also diffuse fluid and gas distention of the colon extending to the rectosigmoid colon. No definite focal transition point to suggest an obstruction. There is colonic diverticulosis without acute diverticulitis. No free fluid or air. Nodes and vessels: No retroperitoneal or mesenteric adenopathy by size criteria. Aorta and inferior vena cava are normal in caliber. Miscellaneous: No ventral hernias. PELVIS: Genitourinary: Bladder wall thickness is normal. Miscellaneous: No inguinal hernias or adenopathy. Bones: No suspicious bony lesions. No vertebral body compression fractures. IMPRESSION: 1. Fluid and gas distention of the small and large bowel extending to the rectosigmoid colon distall y without a focal transition point. The findings are suggestive of an ileus or gastroenteritis witho ut definite obstruction. 2. Patchy groundglass opacities in the visualized lung bases with consolidation in the inferior righ t middle and lower lobes. The findings suggest aspiration with right basilar pneumonia. 3. Small atrophic left kidney. No hydronephrosis in the right the left kidney. Dictated by: Man Mcnulty M.D. on 03/08/2017 at 21:18 Approved by: Man Mcnulty M.D. on 03/08/2017 at 21:26
[2017-03-08] MEDS ORDERED: Ketamine 10 mg/mL 20 mL Inj IV ONE (21:30)
--- NOTE | 2017-03-08 21:33 | DRSVH ---
PROCEDURE: CT BRAIN WITHOUT CONTRAST ([id number]) INDICATIONS: Altered mental status. TECHNIQUE: Noncontrast 4.5 mm thick angled axial sections acquired from the foramen magnum to the vertex, with c oronal reformats. COMPARISON: None. FINDINGS: Image quality: There is motion artifact limiting evaluation. CSF spaces: Basal cisterns are patent. No extra-axial fluid collections. The ventricles are symmet melodie in size and shape. Brain: No intracranial hemorrhage, mass, or mass effect. There are subcortical, periventricular and deep white matter hypodensities consistent with old chronic small vessel ischemic changes. There is intracranial internal carotid artery atherosclerosis. Skull and face: Calvarium and visualized facial bones appear intact, without suspicious lesions. Sinuses: Visualized sinuses and mastoids are clear. IMPRESSION: 1. Limited study due to motion demonstrates no definite acute intracranial abnormality. Dictated by: Man Mcnulty M.D. on 03/08/2017 at 21:29 Approved by: Man Mcnulty M.D. on 03/08/2017 at 21:31
[2017-03-08] MEDS ORDERED: Polyethylene Glycol (PEG) 17 Gm Powder PO PRN (22:10)
[2017-03-08] MEDS ORDERED: Alum-Mag Hydrox-Simeth 30 mL Suspension PO PRN (22:10)
[2017-03-08] MEDS ORDERED: GLIM4TAB2 PO (22:20)
[2017-03-08] MEDS ORDERED: GLIM2TAB2 PO (22:20)
[2017-03-08] MEDS ORDERED: CLOB50SO TP (22:22)
[2017-03-08] MEDS ORDERED: FLUO15CR TOPICAL (22:23)
[2017-03-08] MEDS ORDERED: DESO15CR25 TOP (22:23)
[2017-03-08] MEDS ORDERED: CYA1000I IM (22:25)
[2017-03-08] MEDS ORDERED: KETO120S TOP (22:25)
--- NOTE | 2017-03-08 22:28 | PCM.HPMED ---
Subjective Date of Service Mar 08, 2017 Primary Provider: Admitting Physician: Primary Care Physician: Judith Miranda DO Attending Physician: Admit Status: From the Emergency Department, [facility] Telemetry Chief Complaint: Vomiting, diarrhea, abdominal pain, decreased appetite, altered mental status, lethargy History of Present Illness: Ms. Beverly is a 76-year-old morbidly obese woman with an unfortunate history of Crohn's disease status post hemicolectomy, [id number] diabetes mellitus, hypertension, and metastatic breast cancer currently in remission, that presented to [facility] with a 2 day history of vomiting, diarrhea, abdominal pain , decreased appetite, altered mental status, lethargy. Information is primarily obtained from chart review, as patient has no family at bedside at time of admission, and is not responsive to questioning. She was admitted for evaluation and treatment of altered mental status, severe acute on chronic kidney injury, and suspected pneumonia, gastroenteritis. Hospital day 1 According to documentation, patient was initially accompanied by her family, whom she resides with. Family at that time stated that the patient had been experiencing approximately a 2 day history of diarrhea, vomiting, decreased intake, lethargy, and confusion. She is followed by Dr. Miranda, oncology, last OV 02/02/17; at that visit, her breast cancer was deemed to be in continued remission, she was continuing with her anastrozole, and scheduled for her next dose of Prolia July 2017. She was recently admitted 01/18/17-01/23/17 with presenting symptoms hypoglycemia and acute respiratory failure. Examination at that time revealed an alert and oriented woman that was cooperative and is in no acute distress. In the ED, T 37.0, pulse 110, respiratory rate 20, blood pressure 111/58, 94% on 3 L nasal cannula; initial labs revealed WBC 5.7, hemoglobin 10.3, platelets 298; potassium 5.2, chloride 95, carbon dioxide 12, BUN 142, creatinine 8.40, lactic acid 0.6, calcium 6.5, albumin 4.0, troponin 0.093, ammonia 144; blood cultures, UA, and stool PCR were ordered, not yet obtained. Initial therapies included an S bolus is, Levaquin, Zosyn, linezolid, and ketamine. ABG revealed pH 7.24, PCO2 27.7, PO2 90, bicarbonate 11.6. EKG revealed sinus tachycardia with rate 108, QTC 491 and findings of suspected left bundle branch block, this EKG is largely unchanged compared to prior 01/2017. Multiple images were taken , including chest x-ray which revealed right infrahilar consolidation with bandlike opacities in left base and bilateral patchy groundglass opacities suggestive of multifocal pneumonia; brain CT was obtained and the study was limited due to motion artifact, but no definite acute intracranial abnormalities were noted; CT abdomen and pelvis without contrast as her kidneys were failing, there was patchy groundglass opacities within both lung bases and consolidation within the inferior right middle lobe and right lower lobe suspicious of aspiration with right basilar pneumonia, no hepatic lesions are noted, spleen was normal in size, possibility of biliary sludge plus and without gallstones, evidence of partial bowel resection was noted no definite focal transitions to suggest an obstruction, colonic diverticulosis without diverticulitis and findings of fluid and gas distention of small and large bowel suggestive of ileus or gastroenteritis, kidneys largely unremarkable in appearance with left kidney mildly atrophied and no hydronephrosis noted. She was transferred to [facility] in stable condition. Review of Systems: Unable to obtain ROS secondary to patient's current mental status Allergies Coded Allergies: No Known Drug Allergies (Verified Allergy, Unknown, 03/08/17) Home Medications Obtained from 80 to documentation, as patient is unable to respond to questioning appropriately. No family is present at bedside at time of this evaluation to verify any medications ([Clobex]) 1 APPLIC TP DAILY 0.05% ([Flocinonide]) 1 APPLIC TP BID 0.05% ([vitamin b-12]) 0.1 ML IM MONTHLY 1000MCG/ML ([Ketaconazole Shampoo]) 1 APPLIC TP 2X/WK 2% ([Ketaconazole Cream]) 1 APPLIC TP 2X/WK 2% Amitriptyline (Amitriptyline) 10 Mg Tablet 30 MG PO HS Anastrozole (Anastrozole) 1 Mg Tablet 1 MG PO DAILY Aspirin (Aspirin) 81 Mg Tablet 81 MG PO DAILY Cholecalciferol (Vitamin D3) (Vitamin D) 1,000 Unit Capsule 5,000 UNIT PO DAILY Duloxetine (Duloxetine) 60 Mg Capsule.dr 90 MG PO DAILY Fluocinolone/Shower Cap (Fluocinolone Acetonide 0.01% Oil) 118.28 Ml Oil 1 APPLIC TOP DAILY Folic Acid/Multivits-Min/Lut (Centrum Silver Chewable Tablet) 1 Each Tab.chew 1 EACH PO DAILY Furosemide (Furosemide) 20 Mg Tab 20 MG PO DAILY Gabapentin (Gabapentin) 600 Mg Tablet 600 MG PO a.m., noon Gabapentin (Gabapentin) 600 Mg Tablet 900 MG PO HS Lisinopril (Lisinopril) 10 Mg Tablet 10 MG PO DAILY Lovastatin (Lovastatin) 40 Mg Tablet 40 MG PO HS Pramipexole Dihydrochloride (Pramipexole Dihydrochloride) 0.25 Mg Tablet 0.25 MG PO TID Pramipexole Dihydrochloride (Pramipexole Dihydrochloride) 0.5 Mg Tablet 0.5 MG PO HS Scheduled PRN ([Desonide]) 1 APPLIC TP BID PRN PRN PRN 0.05% Loperamide Liquid (Imodium A-D Liquid) 1 Mg/7.5 Ml Liquid 1 MG PO DAILY PRN PRN PN PMH Obtained from ED documentation, as patient is not appropriately responsive: Psoriasis Aortic and venous Insufficiency Crohn's disease of small AND large intestines Depression with anxiety Restless leg syndrome Diabetes type 2, uncontrolled Insomnia Mitral Valve-regurgitation Peripheral neuropathy Obstructive sleep apnea Metastatic breast cancer in clinical remission since 2008 Periodic limb movement Reports: Diabetes mellitus, Hypertension Reports: Depression Surgical History Obtained from ED documentation, patient is unable to appropriately respond to questioning: Neil-colectomy Tonsillectomy Fistulaetomy Bowel resection Stomach tumor removal Appendectomy Mastectomy Hysterectomy Family History Obtained from ED documentation, as patient is unable to appropriately respond to questioning at this time: Father had congenital heart disease, aortic aneurysm Mother from Brain tumor Social History Hx Alcohol Use: Yes (rare) Hx Substance Use: No Hx Tobacco Use: No Smoking Status: Former Smoker Living Arrangement: with Family (reported to live with son, local) Exam Vital Signs Vital Sign - Last Date Time Temp Pulse Resp B/P Pulse Ox O2 Delivery O2 Flow Rate FiO2 03/08/17 19:43 37.0 110 20 111/58 94 Nasal Cannula 3 Exam General: Patient unresponsive, intermittently opens eyes, nonpurposeful; no acute distress Neck: Obese, soft HEENT: Atraumatic, pupils reactive to light, no conjunctival hemorrhage, mucous membranes dry Cardiac: Tachycardic rate approximately 90 at time of examination, no murmurs were discernible Respiratory: Poor inspiratory effort secondary to poor mental status, bilateral crackles from bases to mid house; use of accessory muscles Abdomen: Obese, appears to be nontender, nondistended Extremities: Mild dependent edema appreciated, obese MSK: Unable to follow commands to assess strength; unable to support self when transitioning Skin: Warm and dry; recently cleansed by nursing staff : Neville in place Neuro: Unable to assess secondary to current mental status Psych: Unable to assess secondary to altered mental status Lab and Diagnostics Result Diagram: 03/08/17 1950 03/08/17 1950 Assessment & Plan Ms. Beverly is a 76-year-old morbidly obese woman with an unfortunate history of Crohn's disease status post hemicolectomy, [id number]-[id number] diabetes mellitus, hypertension, and metastatic breast cancer currently in remission, that presented to [facility] with a 2 day history of vomiting, diarrhea, abdominal pain , decreased appetite, altered mental status, lethargy. Information is primarily obtained from chart review, as patient has no family at bedside at time of admission, and is not responsive to questioning. She was admitted for evaluation and treatment of altered mental status, severe acute on chronic kidney injury, and suspected pneumonia, gastroenteritis. Hospital day 1 Acute Encephalopathy, present on admission. Ongoing - Patient unable to answer any questions appropriately at time of admission - ABG on admit: pH 7.24, pCO2 27.7, pO2 90, HCO3 11.6 - Per documentation, patient was alert and oriented at recent admission in 2016 - Treat underlying cause. DDx: Uremia, infection, TIA/CVA, electrolyte abnormalities, vitamin deficiencies; no history chronic alcohol use - CT brain did not reveal any evidence of acute intracranial abnormality - ABG in am - NPO - Swallow eval - NGT placed; dietary consultation when appropriate Acute on chronic kidney injury, present on admission. Under evaluation - On admit: Creatinine 8.40; previous value 01/2017 creatinine 1.15 - ED had contacted Dr. Palomino, nephrology; kindly agrees to consult on patient in a.m. - Initial orders: Bicarbonate drip plus rehydration - Telemetry Diarrhea and emesis, acute, present on admission. Under evaluation - These are the symptoms that led to her admission and resultant dehydration, which led to her significant acute on chronic renal failure - CT findings suggestive of gastroenteritis versus ileus - Stool PCR- await results - Blood cultures Abnormal CT findings suggestive of pneumonia, likely acute, present on admission. Under evaluation - At risk for healthcare associated PNA: Recent admission 01/2017 - In ED, patient received: linezolid, Levaquin, Zosyn - We will continue antibiotics at this time to provide broad coverage until spectrum can be narrowed appropriately: ZOSYN + LEVO + VANCO - Linezolid interacts with SSRIs/antidepressants, patient on duloxetine and amitriptyline; not FDA for tx PNA - Amitriptyline t1/2 18-36h; duloxetine t1/2 8-17h - Vanco further progresses kidney disease - Dapto OK for bacteremia; not useful in PNA - Clinda carries risk C.diff; pt has diarrhea currently - OK to continue levaquin and zosyn; will continue with vanco per pharmacy as risk with serotonin syndrome too great with linezolid Elevated troponins of undetermined significance, likely acute, present on admission. Monitor - On admit: 0.093; in 01/2017, troponin was negative - Likely secondary to demand ischemia in the setting of acute on chronic renal failure - Continue to monitor - Telemetry plus EKG in morning Elevated ammonia, chronicity unknown, present on admission. Under evaluation - On admit: Ammonia 144 - No known history of chronic/daily alcohol use - Hold lactulose secondary to CT findings of gastroenteritis/ileus Hypocalcemia, chronicity unknown, present on admission. Active - On admit: Ca 6.5 - In ED, 2 g calcium gluconate provided - Replete as necessary; monitor High anion gap acidosis, likely acute, present on admission. Under evaluation - On admit, calculated: 29 - Likely secondary to renal failure, uremia, possibly rhabdo in the setting of ongoing vomiting and diarrhea; no salicylate or alcohol levels were obtained - Trend lactic acid, CPK - Replete fluids Diabetes mellitus, non-insulin using, chronic. Controlled - A1c 01/2017:5.6 History of Crohn's colitis status post hemicolectomy, chronic. Presumed stable - May be contributing to electrolyte abnormalities which in turn may affect mental status - Labs Goals of care, chronic. Needs to be evaluated - EMS reported that patient was found covered in feces and vomitus - Patient currently lives with family, no family present at time of initial evaluation; son later attended bedside on PCC - [employer] consultation placed - Previous admission: Cleared for home, no needs were identified - POLST completion recommended an appropriate - Son reports she has paperwork, unsure of details - Son would like to keep FULL CODE until paperwork found - Son insists he is able to care for her; patient does not have LifeAlert and does have h/o GLF PRN fever/pain/bowel/nausea DVT: Hep q8 GI: Not indicated Diet: NPO CODE STATUS: FULL CODE at this time; will need to find patient's paperwork Patient status: Due to severity of presented symptoms, likely course of events, and anticipated course of care, estimated length of stay exceeds two midnights; admitted as inpatient Pain Evaluation: Adequate Pain Control GI Prophylaxis: Not indicated VTE Prophylaxis: Sub-Q Heparin (Unfractionated) Resuscitation Status: CPR: Attempt Resuscitation Attending Statement The patient was seen and examined together with Dr. Ibarra on 03/08 and I agree with the history, exam and plan as outlined in the note above. Kathi Ibarra DO Mar 08, 2017 22:28 Loyd Shearer MD Mar 09, 2017 03:30
[2017-03-08] MEDS ORDERED: INFL100V IV (23:00)
[2017-03-08 23:25] VITALS: BP 116/54; PULSE 111; RESP 20; O2SAT 95
[2017-03-08] MEDS: Sodium Bicarb 8.4% Inj 150 MEQ in Dextrose 5% 1,000 ML IV SCH (23:25)
[2017-03-08 23:32] VITALS: PULSE 110
[2017-03-08] MEDS: Vancomycin Dose per Pharmacist XX SCH (23:55)
[2017-03-08] MEDS ORDERED: levoFLOXacin Dose Per Pharmacist XX ONE (23:55)
[2017-03-09] VITALS (8 sets, daily range): BP systolic 83–130; BP diastolic 44–82; PULSE 11–118; RESP 16–20; O2SAT 95–98
[2017-03-09 02:35] LABS: BASOPHILS % (AUTO) 0 % (0-3); EOSINOPHILS % (AUTO) 0 % (0-5); MONOCYTES % (AUTO) 8.3 % (4-12); Mean Corpuscular Hemoglobin 27.4 pg (27.0-35.0); Mean Corpuscular Volume 87.7 fL (81-100); NEUTROPHILS % (AUTO) 78.1 % (40-74); Platelet Count 259 bil/L (150-400)
[2017-03-09 03:59] LABS: Magnesium 1.8 mg/dL (1.6-2.6); Phosphorus 7.5 mg/dL (2.5-4.9)
[2017-03-09 04:51] LABS: APPEARANCE,URINE HAZY (CLEAR,HAZY); COLOR,URINE YELLOW (YELLOW)
[2017-03-09 04:52] LABS: ICTOTEST,URINE POSITIVE (Negative); OCCULT BLOOD,URINE LARGE (NEGATIVE); UROBILINOGEN,URINE NORMAL (NORMAL)
--- NOTE | 2017-03-09 05:31 | ABG ---
DateTimeAnalyzed 05:26:00 -_ pH ____7.393 - 7.350 7.450 pCO2 ___31.5__ -mmHg 35.0 45.0 pO2 105 -mmHg 69.0 116 HCO3- ___18.8__ -mmol/L 22.0 26.0 ABE ___-5.0__ -mmol/L -2.0 2.0 tHb ____9.1__ -g/dL O2Hb ___95.8__ -% COHb ____0.6__ -% MetHb ____1.3__ -% sO2 ___97.7__ -% FIO2 ___32.0__ -% Drawn By blf - Date/Time Notified____ 05:30:00 -_ Spontaneous_RR ___18.0__ -b/min Liter_Flow ____4.0__ -L/min Oxygen Device 1 __CANNULA - Notified By blf - Notified Whom _Bruce RN - B 755 -mmHg tO2 ___12.4__ -Vol% OrderingPhysicianInitials mf - Steven test N/A -
[2017-03-09] MEDS: Sodium Bicarb 8.4% Inj 150 MEQ in Dextrose 5% 1,000 ML IV SCH ×2 (06:35→18:54)
[2017-03-09] MEDS: Vancomycin Dose per Pharmacist XX SCH (08:30)
--- NOTE | 2017-03-09 10:03 | DRSVH ---
PROCEDURE: X-RAY CHEST ONE VIEW, PORTABLE ([id number]) INDICATIONS: PNEUMONIA TECHNIQUE: One view of the chest was acquired. COMPARISON: [facility], CR, XR CHEST 1VW (PORTABLE), 03/08/2017, 19:58. FINDINGS: Surgical changes and devices: Nasogastric tube has been placed tip extending beyond the GE junction. Lungs and pleura: Mid/bibasilar airspace opacities redemonstrated, slightly increased involving the l eft upper lobe. Mediastinum: Mediastinal contours appear normal. Heart size is normal. Bones and chest wall: No suspicious bony lesions. Overlying soft tissues appear unremarkable. IMPRESSION: Bilateral pneumonia slightly increased involving the left upper lobe. Dictated by: Joaquin Dickens RRA Interpreted: Maddi Banks MD on 03/09/2017 at 10:01 Transcribed by: TORO on 03/09/2017 at 10:02 Approved by: Maddi Banks MD, PhD on 03/09/2017 at 11:28
--- NOTE | 2017-03-09 10:29 | NUR ---
Social Work- Initial Assessment Data: See Initial Assessment. Pt is a 76 year old female admitted 03/08/17 for ELVIA Ileus Pneumonia per H&P. Wound Care is following. Nephrology is following. Pt may require hemodialysis. PT evaluation is pending. Pt's insurance is [facility]. Pt's PCP/oncologist is Judith Miranda DO. LU met with pt's son (Jermain Beverly, ) and pt at bedside regarding discharge plan, SW role explained. Pt was periodically awake at bedside, did not participate in conversation at this time. Pt resides in a home in [place] with her son where she receives assistance with meals, cooking, cleaning, transfers, ambulating. Pt is not very active, has limited mobility, no O2 at base. Pt uses a CPAP at night. Pt manages her own medications and is able to bathe and feed herself. Pt uses no DME at base, though pt's son states that she should use it and has a walker and cane available for use. Pt's home is equipped with ramps, handrails in the bathrooms, and a bath bench. Pt's son states pt has fallen a few times, states "we get along the best that we can." SW explored feelings related to SNF or HH, pending therapy evaluation. Pt's son open to further conversation, hesitant about SNF. Pt has no HH or SNF experience. Pt has no LTC or VA benefits. Pt may have DPOA/AD, POLST, or Living Will available at home. SW encouraged son to check and bring in any information that he may have at home. Anticipate pt to discharge home with HH vs SNF, pending therapy recommendation. SW will continue to follow. Assessment: Pt who has limited mobility at base. Plan: PT evaluation pending. Anticipate pt to discharge home with HH vs SNF, pending therapy recommendation. SW will continue to follow. SORAYA Xie Addendum: 03/09/17 at 1037 by DEREK SEO SS Amended: Links added. Addendum: 03/09/17 at 1354 by DEREK SEO SS SW received social work referral order from MD regarding pt's condition at time of EMS pickup. Pt was somnolent at time of assessment, SW to follow up regarding this matter when pt is more alert and oriented. Joselyn Seo, SORAYA
--- NOTE | 2017-03-09 10:44 | NUR ---
[employer] consultation received. Pt has NG with suction for ileus. METAL RIVETER will follow and evaluate with pt is cleared for PO.
[2017-03-09] MEDS: Piperacillin-Tazo 3.375 Gm Inj 3.375 GM in Dextrose 5% Minibag Plus 50 ML IV SCH ×2 (12:11→21:58)
--- NOTE | 2017-03-09 13:23 | NUR ---
Pt transferred to CCU at 1315hrs Pt VS on admit to CCU ST 109, BP 122/48, RR 16, Sats 96% of 4l NC. Pt does open eyes to voice and obey some simple commands but is drowsy and generally decreased LOC. Family at bedside.
--- NOTE | 2017-03-09 14:03 | CONS ---
[address] [address] CONSULTATION REPORT PATIENT: ELIZABETH HAWTHORNE I : 1940 MR#: [id number] ADMIT: 03/08/2017 JOB ID: [id number] DATE OF SERVICE: 03/09/2017 RENAL CONSULTATION: HISTORY: The patient is a 76-year-old white female, who was admitted to [facility] for intractable nausea, vomiting, diarrhea, and acute kidney injury. Renal consultation is being sought for further evaluation of her acute on chronic kidney injury. She has a longstanding history of Crohn disease and has undergone a subtotal colectomy in the remote past. Her son states that she has intermittent exacerbation of her Crohn disease and when this happens, she usually stays in bed. Approximately a week ago, she had an exacerbation of her diarrhea, nausea and vomiting and has had decreased oral intake. Her condition continued to deteriorate and she was brought to the hospital. In the emergency department, her BUN and creatinine were found to be markedly elevated at 142 and 8.4 respectively. She also had a significant anion gap metabolic acidosis with a bicarbonate of 12, along with hypocalcemia. She was quite obtunded and her ammonia level was 144. She has had some IV fluids and her creatinine has improved somewhat to a level of 7.8 this morning. Her son states that there is no history of any prior renal problems. There is no history of any prior hematuria, proteinuria, recurrent urinary tract infections or diabetes. She does have a history of an atrophic kidney, but this is longstanding. On January 20, 2017, her creatinine was 1.17. In the emergency department, her chest x-ray was obtained and was suspicious for right hilar infrastructural infiltrates and possible pneumonia. CT of the brain was also performed for her obtundation and there were no acute findings and there was evidence of chronic small vessel disease. CT of her abdomen showed diffuse air-fluid levels and ileus. Her left kidney was atrophic and the right kidney showed some small cysts. Her gallbladder was distended with considerable sludge in there. There was fatty infiltration of the liver but otherwise was unremarkable. She was empirically given vancomycin, Zosyn, and Levaquin. Reviewing her blood pressures, she has had blood pressures in the low 110s to the mid 120s since admission. Since midnight she has had approximately 200 mL of urine out. She has also had approximately 800 mL of coffee-ground material via her NG tube. This morning the patient was passing some loose stools. PAST MEDICAL HISTORY: Is significant for: 1. Crohn disease as detailed above. 2. Psoriasis. 3. Type 2 diabetes. 4. Mitral regurgitation. 5. History of breast cancer dating back to 2008. 6. There is also a history of hypertension and peripheral neuropathy. 7. She does have a history of obstructive sleep apnea. PAST SURGICAL HISTORY: Is significant for: 1. Subtotal hemicolectomy. 2. Tonsillectomy. 3. Bowel resection. 4. Some type of gastric surgery. 5. Appendectomy. 6. Mastectomy. 7. Hysterectomy. ALLERGIES: She is not allergic to any food or any medications. SOCIAL HISTORY: She takes ethanol on rare occasions and there is no history of any tobacco use. She lives with her son and is quite sedentary. FAMILY HISTORY: Remarkable for a brain tumor and heart disease. REVIEW OF SYSTEMS: Is detailed above. Otherwise is unobtainable. MEDICATIONS: At time of my evaluation, include Levaquin, Zosyn, vancomycin, linezolid and sodium bicarb infusion. PHYSICAL EXAMINATION: Revealed a pale, chronically ill-appearing, obese 76-year-old white female, who was quite obtunded at time of my evaluation. Her blood pressure was 112/53 with a pulse rate of 108. HEENT examination is remarkable for pale sclerae. Mucous membranes are dry. Neck is supple without adenopathy, thyromegaly or jugular venous distention. Lungs showed scattered rhonchi with markedly diminished breath sounds bilaterally due to poor inspiratory effort. Heart sounds were regular but distant again due to the patient's body habitus. Abdomen is distended with diminished bowel sounds. There was diffuse tympany throughout the abdomen. There was nonfocal tenderness without rebound, guarding, or masses noted. There was a questionable abdominal fluid wave noted. Extremities do not show any evidence of any clubbing, cyanosis or edema. Skin turgor is good and half and half nails are noted. LABORATORY EXAMINATION: This morning, her white count is 4.7, hemoglobin of 8.9, hematocrit 25.5, red cell indices and platelet count were normal. Neutrophils were 78%. This morning her follow up lab showed a sodium of 139, potassium 4.4, chloride 98, bicarbonate 15. BUN and creatinine were 131 and 7.8 with a calcium of 5.8, and a phosphorus of 7.5. Her remaining liver function studies were unremarkable as was her PT and PTT were also normal. Urinalysis showed a specific gravity 1.025, pH was 5. Tests for protein, occult blood and bilirubin were positive. Microscopic showed 11-50 RBCs per high-power field and 0-5 WBCs per high-power field. IMPRESSION: 1. Acute tubular necrosis secondary to acute volume depletion with possible sepsis. 2. Acute asterixis with hyperammonemia. 3. Increased anion gap metabolic acidosis secondary to acid and possible B lactic acidosis. 4. Atrophic left kidney. 5. Baseline chronic kidney disease stage 3. 6. Thickened gallbladder with possible cholecystitis. RECOMMENDATION: 1. I would like to get a renal ultrasound. 2. I would also like to do cautious IV hydration with half normal saline with 1 amp of sodium bicarbonate to run at 75 mL/h. 3. I would like to try clamping her NG tube and checking it several hours later for residual fluid. I would also strongly recommend both a GI and a surgical evaluation for possible ileus versus obstruction and an explanation for her elevated ammonia level. I would also like to strongly consider if she can tolerate starting lactulose but I will defer that to gastroenterology. Once again, I would like to thank you for allowing me to participate in the care of this rather unfortunate patient and I will be following her closely with you.
--- NOTE | 2017-03-09 14:58 | PCM.PNMED ---
Subjective Date of Service Mar 09, 2017 Subjective 76-year-old morbidly obese woman with Crohn's disease, anti-TNF therapy, hemicolectomy,diabetes mellitus, and hypertension presented after several days of vomiting, diarrhea, abdominal pain, decreased appetite, altered mental status , lethargy. The patient remains encephalopathic and is unable to give history. Her son describes chronic diarrhea which is worse over the past 2 weeks, with severe nausea vomiting and poor by mouth intake times several days. He endorses abdomen pain which is chronic complaint. He does not recall any other new complaints from his mother prior to her encephalopathy. Exam Vital Signs Vital Sign - Last Date Time Temp Pulse Resp B/P Pulse Ox O2 Delivery O2 Flow Rate FiO2 03/09/17 12:25 36.4 108 20 89/50 98 Room Air 03/09/17 08:00 4.00 Intake and Output 03/08/17 03/08/17 03/09/17 Cumulative From/Thru 15:00 23:00 07:00 03/08/17 19:43 - 03/09/17 06:06 Intake Total 3343 ml 3343 ml Output Total 250 ml 250 ml Balance 3093 ml 3093 ml Intake Oral 0 ml 0 ml IV Total 3343 ml 3343 ml Output Urine Total 250 ml 250 ml Exam General: Obese woman with NG tube and myoclonic twitching, barely responds to voice HEENT: Pale, sclerae anicteric, oral mucosa dry Neck: Difficult to assess JVP Chest: Coarse breath sounds but generally clear to auscultation Cardiac: S1S2, distant, no murmur initiated Abdomen: BS diminished, protuberant and tympanitic, no rigidity, no wincing with rebound Extremities: 1+ edema Neuro: Cranial nerves seen symmetric, myoclonic twitching, asterixis, reflexes 3 + symmetric bilaterally toes downgoing IVs and Medications Medications Reviewed: Medications were reviewed in detail Lab and Diagnostics Serial troponin: 0.09, 0.07, 0.08 Calcium/phosphorus equals 5.8/7.5 Procalcitonin 0.42 Thyroid function tests normal Arterial blood gas: DateTimeAnalyzed 20:43:00 -_ pH ____7.244 - 7.350 7.450 pCO2 ___27.7__ -mmHg 35.0 45.0 pO2 ___90.0__ -mmHg 69.0 116 FIO2 ___32.0__ -% DateTimeAnalyzed 05:26:00 -_ pH ____7.393 - 7.350 7.450 pCO2 ___31.5__ -mmHg 35.0 45.0 pO2 105 -mmHg 69.0 116 FIO2 ___32.0__ -% . Result Diagram: 03/09/17 0221 03/09/17 1220 Microbiology Urinalysis no pyuria Enteric pathogen stool profile - no C. difficile or other pathogen MRSA swab negative Strep pneumonia and legionella urinary antigens negative Blood culture 03/08/17 - 2 sets pending X-Rays, CTs and MRIs PROCEDURE: CT ABDOMEN AND PELVIS WITHOUT CONTRAST ([id number]) IMPRESSION: 1. Fluid and gas distention of the small and large bowel extending to the rectosigmoid colon distally without a focal transition point. The findings are suggestive of an ileus or gastroenteritis without definite obstruction. 2. Patchy groundglass opacities in the visualized lung bases with consolidation in the inferior right middle and lower lobes. The findings suggest aspiration with right basilar pneumonia. 3. Small atrophic left kidney. No hydronephrosis in the right the left kidney. Dictated by: Man Mcnulty M.D. on 03/08/2017 at 21:18 PROCEDURE: X-RAY CHEST ONE VIEW, PORTABLE ([id number]) IMPRESSION: 1. Right infrahilar consolidation redemonstrated as was increased bandlike opacities in the left base and bilateral patchy groundglass opacities. The findings are suggestive of multifocal pneumonia. Dictated by: Man Mcnulty M.D. on 03/08/2017 at 20:22 PROCEDURE: X-RAY CHEST ONE VIEW, PORTABLE ([id number]) IMPRESSION: Bilateral pneumonia slightly increased involving the left upper lobe. Dictated by: Joaquin Dickens RRA Interpreted: Maddi Banks MD on 03/09/2017 at 10:01 PROCEDURE: CT BRAIN WITHOUT CONTRAST ([id number]) IMPRESSION: 1. Limited study due to motion demonstrates no definite acute intracranial abnormality. Dictated by: Man Mcnulty M.D. on 03/08/2017 at 21:29 . 12-lead ECG Sinus tachycardia with left bundle branch block Assessment & Plan # Acute Encephalopathy, present on admission. Ongoing. Per documentation, patient was alert and oriented at baseline. Likely metabolic encephalopathy secondary to acidosis, uremia and elevated ammonia. Brain CT unremarkable - Swallow eval - Avoid sedatives - Avoid anticholinergics and benzodiazepines # Acute on chronic kidney injury, present on admission. Oliguric. In setting of unilateral functioning kidney. Presumed prerenal azotemia, possibly ATN secondary to volume depletion.On admit: Creatinine 8.40; recent baseline is 1.15. - Moderate fluid resuscitation, but avoid precipitating pulmonary edema - Bicarbonate drip plus rehydration - Treat electrolyte disorders - Nephrology consult # High anion gap acidosis, acute, present on admission. On admit, calculated: 29, lactate is not elevated. Likely secondary to renal failure, pyroglutamate and D lactate possible - Replete fluids # Hypotension, acute. Not present on admission. Patient developed mean arterial pressures less than 65 mmHg despite aggressive fluid hydration. - Place CVC to manage fluid resuscitation and pressors; IJ only to avoid interfering with potential dialysis catheter needs - Measure CVP - Pressors as needed - Maintain mean arterial pressure greater than 65, urine output greater than 0.5 ml/kg/hr # Abdomen pain, diarrhea and emesis, acute, present on admission. Diarrhea appears to be chronic related to Crohn disease, although possibly worse recently. The patient is immunocompromise on TNF alpha inhibitor. Differential diagnosis is Crohn disease, gastroenteritis, ischemic bowel, partial bowel obstruction. Acalculous cholecystitis is possible, although not supported by CT scan. C. difficile has been ruled out. - Nothing by mouth - NG tube to low suction - Gen. surgery consult to assess abdomen # Radiographic pneumonia, likely acute, present on admission. Likely aspiration pneumonia pneumonitis versus pneumonia based on clinical context of recent severe emesis. At risk for healthcare associated PNA: Recent admission . In ED, patient received: linezolid, Levaquin, Zosyn - We will continue levaquin and zosyn; - Discontinue vanco due to MRSA-negative status low clinical probability of staphylococcal pneumonia # Elevated ammonia, chronicity unknown, present on admission. On admit: Ammonia 144. Liver transaminases unremarkable, synthetic function intact. Differential diagnosis hyperammonemia: hepatic disorders, portosystemic shunt, inborn errors of urea cycle metabolism, Teresita's syndrome, ureterosigmoidostomy, infection in nondraining bladder, drugs (cyanide, carbamazepine, valproic acid, iron, and cytotoxics can also cause secondary hyperammonemia.) - Lactulose when able to take by mouth # Hypocalcemia, hyperphosphatemia, present on admission. Presumed secondary to severe renal failure. Calcium phosphorus product is 43. - No parenteral calcium supplementation to avoid precipitating calciphylaxis - Nephrology service to consider phosphate binder, active vitamin D when patient is able to take by mouth # Diabetes mellitus, non-insulin using, chronic. Controlled. A1c 01/2017:5.6 - Frequently monitor capillary blood glucose - Glucose control goals: Random less than 180, fasting less than 140, none less than 70 - Insulin as needed, IV insulin while patient in CCU, then divided 50-50 long- acting and nutritional/correctional Resolving, stable and/or chronic problems: # Elevated troponins of undetermined significance, likely acute, present on admission. Monitor - Troponin profile does not suggest acute coronary syndrome # History of Crohn's colitis status post hemicolectomy, chronic. Recently initiated infliximab therapy. - May be contributing to electrolyte abnormalities which in turn may affect mental status - Labs # Goals of care, chronic. Discussed with 2 children at bedside today. Patient does not wish to be dependent on life support, or to live a chronically impaired lifestyle nursing facility. CODE STATUS: DO NOT RESUSCITATE, DO NOT INTUBATE in setting life-threatening arrhythmia, otherwise medical care Patient status: Due to severity of presented symptoms, likely course of events, and anticipated course of care, estimated length of stay exceeds two midnights; admitted as inpatient GI Prophylaxis: Not indicated VTE Prophylaxis: Sub-Q Heparin (Unfractionated) Resuscitation Status: CPR: Attempt Resuscitation Time spent 60 minutes with patient assessment, care coordination, counseling family, review of data with consultants. Robert Levin MD Mar 09, 2017 14:58
--- NOTE | 2017-03-09 15:07 | DRSVH ---
PROCEDURE: US RENAL SONOGRAM INDICATIONS: worsening creatinine TECHNIQUE: Real-time scanning was performed of the kidneys and bladder, with image documentation. COMPARISON: [facility], CT, CT ABD PELVIS WO CON, 03/08/2017, 20:52. FINDINGS: Kidneys: Left kidney not visualized. Right kidney measures 14.5 cm in length renal cortical thickne ss 1.6 cm. Renal cortical echogenicity is mildly increased. Right kidney superior pole cyst present on the upper pole measuring 17 mm and inferior pole cyst present measuring 25 mm Bladder: Urinary bladder decompressed and suboptimally visualized. Miscellaneous: No free pelvic fluid. IMPRESSION: 1. Left kidney not visualized which is atrophied CT scan.. 2. Increased renal cortical echogenicity of the right kidney suggesting medical renal disease and sev eral right renal cysts present. 3. Urinary bladder not well-seen. Dictated by: Joaquin Dickens [facility] Interpreted: Maddi Banks MD on 03/09/2017 at 14:59 Transcribed by: TORO on 03/09/2017 at 15:06 Approved by: Maddi Banks MD, PhD on 03/09/2017 at 16:30
[2017-03-09] MEDS ORDERED: Insulin Human REGular Inj 100 UNIT in 0.9% Sodium Chloride-Pha MIX 100 ML IV SCH (15:39)
--- NOTE | 2017-03-09 18:29 | DRSVH ---
PROCEDURE: X-RAY CHEST ONE VIEW, PORTABLE ([id number]) INDICATIONS: CENTRAL LINE PLACEMENT TECHNIQUE: One view of the chest was acquired. COMPARISON: [facility], CR, XR CHEST 1VW (PORTABLE), 03/09/2017, 5:57. FINDINGS: Surgical changes and devices: Right internal jugular vein central venous catheter is present, tip of which is not well seen, but appears to project over the lower SVC. NGT extends the level of the film. Lungs and pleura: No pleural effusions or pneumothorax. No change in multifocal patchy bilateral pul monary opacities. Mediastinum: Mediastinal contours appear normal. Heart size is normal. Bones and chest wall: No suspicious bony lesions. Overlying soft tissues appear unremarkable. IMPRESSION: 1. No complication following right-sided catheter placement, tip of which appears to be in the lower SVC. 2. No change in multifocal pneumonia. Dictated by: Bernice Fountain M.D. on 03/09/2017 at 18:26 Approved by: Bernice Fountain M.D. on 03/09/2017 at 18:28
--- NOTE | 2017-03-09 18:46 | NUR ---
P: Hemodynamics, Neuro, I,E: Pt continues to have marginal BP's. SBP 88-89 on average. She is in ST 110's, with occ to frequent PAc's. UOP was 200cc, since arrival in CCU, NG put out 300cc of brown fluid since arrival in CCU. Pt has decreased LOC, but if persistant she does look at you and is able to acknowledge simple concepts/ comments. She has ongoing twitching of extremities, MD is aware. Pt just had Central line placed by anaesthesia. Will obtain CVP and start levophed as needed per MD instructions. Keep CVP 6-10, use levophed if needed to keep MAP >65. Family is at the bedside and have been updated on pt progress.
--- NOTE | 2017-03-09 20:02 | NUR ---
Admit Admitted to room 2002 , son accompanied her assisted w history though many gaps in history and details . Unsure exactly about POLST , but SonJermain states he will bring it in on Wednesday. IV rt arm , Blood pressures only on left arm , BiCarb IV running @ 150 , NS @ TKO, ABX as ordered, 6 L O2 per NC. Pt is weak and withdrawn, unable or unwilling to respond in complete sentences . Denies pain, Neville Catheter draining scant urine to gravity, was ablt to draw 3 Ml for lab sample, NG tube in to 65 Cm. on intermittent low suction, placement placement checked by auscultation. On soft non-violent restraints to protect lines, otherwise compliant. Telemetry: SR-80's
[2017-03-09] MEDS: Norepineph 8,000 mCg/250 mL NS 8,000 MCG in IV Premix 1 EACH IV SCH (20:30)
[2017-03-09 20:49] LABS: Mean Corpuscular Hemoglobin 28.3 pg (27.0-35.0); Mean Corpuscular Volume 87.7 fL (81-100)
--- NOTE | 2017-03-09 23:00 | PCM.CONSUR ---
Subjective History of Present Illness CC : Vomiting, Diarrhea, Altered mental status Consulting physician: Dr. Robert Levin. H&P: Ms. Beverly is a 76-year-old morbidly obese woman with an unfortunate history of Crohn's disease status post hemicolectomy, cpk-zkbtzuo-juurorhve diabetes mellitus, hypertension, and metastatic breast cancer currently in remission, that presented to [facility] with a 4 day history of vomiting, diarrhea, abdominal pain , and a 2 day history decreased appetite, altered mental status, lethargy. Patient son, Jermain was present during interview and answered questions on Ms. Patten behalf. Patient denies abdominal pain or nausea with a shake of the head no. She has NG in place with roughly 1300 cc brown liquid output since . 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 Today she was transferred to [facility] in stable condition with potential for use of pressers. She is receiving Vacomycin, zosyn, and levoquin. IV fluids of Sodium bicarb 150 meq currently running at 150 ml/hr. Surgery has been consulted for evaluation of bowel obstruction or the possible contribution of her gallbladder to her overall systemic illness. Past Medical History: Psoriasis Aortic and venous Insufficiency Crohn's disease of small AND large intestines Depression with anxiety Restless leg syndrome Diabetes type 2, uncontrolled Insomnia Mitral Valve-regurgitation Peripheral neuropathy Obstructive sleep apnea Metastatic breast cancer in clinical remission since 2008 Periodic limb movement Reports: Diabetes mellitus, Hypertension Reports: Depression Past Surgical History. I looked through all operative records in [facility], asked the patient and her sister to obtain the following PSH: R hemicolectomy with ileocolonic anastomosis--Colonoscopy in 2003 reports seeing the anastomosis Hysterectomy R breast lumpectomy with SLN Bx 2006 Dr. Keith Marquez R Simple mastectomy 2006 Dr. Keith Marquez R axillary dissection 2006 Dr. Keith Marquez Laparotomy with resection of R ovarian mass, left salpingo-oophorectomy, lysis of adhesions, [address] Keith Marquez. R ureteral stent was placed by Dr. Maldonado Port placement in 2008 R finger surgery 2016 by Garret Mason Colonoscopy 2004 shows patent ileocolonic anastomosis, diverticular stricture in sigmoid Colonoscopy 2006 shows IC anastomotic stricture, anal stenosis Colonoscopy 2008 shows edema in the sigmoid colon Tonsillectomy--report not in EMR Stomach tumor removal--report not in EMR Possible additional resection of small bowel/fistula/no records in EMR Possible additional h/o appendectomy Home Meds: Obtained from AD from documentation, as patient is unable to respond to questioning appropriately. ([Clobex]) 1 APPLIC TP DAILY 0.05% ([Flocinonide]) 1 APPLIC TP BID 0.05% ([vitamin b-12]) 0.1 ML IM MONTHLY 1000MCG/ML ([Ketaconazole Shampoo]) 1 APPLIC TP 2X/WK 2% ([Ketaconazole Cream]) 1 APPLIC TP 2X/WK 2% Amitriptyline (Amitriptyline) 10 Mg Tablet 30 MG PO HS Anastrozole (Anastrozole) 1 Mg Tablet 1 MG PO DAILY Aspirin (Aspirin) 81 Mg Tablet 81 MG PO DAILY Cholecalciferol (Vitamin D3) (Vitamin D) 1,000 Unit Capsule 5,000 UNIT PO DAILY Duloxetine (Duloxetine) 60 Mg Capsule.dr 90 MG PO DAILY Fluocinolone/Shower Cap (Fluocinolone Acetonide 0.01% Oil) 118.28 Ml Oil 1 APPLIC TOP DAILY Folic Acid/Multivits-Min/Lut (Centrum Silver Chewable Tablet) 1 Each Tab.chew 1 EACH PO DAILY Furosemide (Furosemide) 20 Mg Tab 20 MG PO DAILY Gabapentin (Gabapentin) 600 Mg Tablet 600 MG PO a.m., noon Gabapentin (Gabapentin) 600 Mg Tablet 900 MG PO HS Lisinopril (Lisinopril) 10 Mg DAILY Lovastatin (Lovastatin) 40 Mg PO HS Pramipexole Dihydrochloride 0.25 MG PO TID Pramipexole Dihydrochloride 0.5 MG PO HS Scheduled PRN ([Desonide]) 1 APPLIC TP BID PRN PRN PRN 0.05% Loperamide Liquid (Imodium A-D Liquid) 1 Mg/7.5 Ml Liquid 1 MG PO DAILY PRN PRN PN Allergies: NKDA. Family history: Father had congenital heart disease, aortic aneurysm Mother from Brain tumor Social history: Former Smoker, lives at home with son Jermain. ROS: A comprehensive review of systems was conducted with the patient and found to be negative except as above in the History of Present Illness. PE General: No acute distress, well-developed, Obese, intermittently responsive with nods yes or head shakes no. HEENT: Normocephalic, atraumatic. External ears without defect. Pupils equal, round, and reactive to light and accommodation. Anicteric sclerae, moist conjunctivae Neck: Supple with full range of motion. JVD hard to assess due to neck habitus. No bruits. No lymphadenopathy or thyromegaly. Cardiovascular: Tachycardic rate and irregular rhythm with no murmurs, rubs, or gallops appreciated Pulmonary: Diminished air flow bilaterally with no crackles, wheezes, or rhonchi at apices. Mild use of accessory muscles of respiration. Abdomen: Distended, tympanic. Obese, mild tenderness to palpation. No hepatosplenomegaly or masses appreciated. Minimal Fluid wave present. Extremities: No clubbing, cyanosis, or lymphadenopathy appreciated. Lower extremity edema present, Soft restraints in place Skin: Normal temperature, no subcutaneous nodules appreciated. Neurological: Cranial nerves grossly intact. Muscle tone, strength, reflexes difficult to ascertain due to muscle tetany. Psychiatric: Difficult to determine orientation of person/place/time due to obtundation and tetany. . Vitals : Temp 37.2, HR 111, RR 16, BP 83/45, 96% 4L NC Laboratories: WBC 4.7, RBC 3.25, Hgb 8.9, Plt 259, Neut 78.1, lymph 13.2, Sodium 139, potassium 4.1, chloride 97, C0217, BUN 125, Cr 7.69, Glu 144, Calcium 5.7, Trop 0.075, ck 129, pt/inr 10.5/0.98, MICRO Ur L. pne negative. Stool PCR negative. MRSA swab negative. Strep pneum Ag negative. Blood cx negative. I/O: NG output 300 cc brown liquid out today, with vineet reports of roughly 1300 cc total since yesterday (03/08) Imaging: CXR 03/09 18:28 1. No complication following right-sided catheter placement, tip of which appears to be in the lower SVC. 2. 2. No change in multifocal pneumonia. Retroperitoneum US 03/09 15:06 1. Left kidney not visualized which is atrophied CT scan.. 2. Increased renal cortical echogenicity of the right kidney suggesting medical renal disease and several right renal cysts present. 3. Urinary bladder not well-seen. CT abd/pelvis 03/08 21:26 1. Fluid and gas distention of the small and large bowel extending to the rectosigmoid colon distally without a focal transition point. The findings are suggestive of an ileus or gastroenteritis without definite obstruction. 2. Patchy groundglass opacities in the visualized lung bases with consolidation in the inferior right middle and lower lobes. The findings suggest aspiration with right basilar pneumonia. 3. Small atrophic left kidney. No hydronephrosis in the right the left kidney. CT brain 03/08 21:31 1. Limited study due to motion demonstrates no definite acute intracranial abnormality. Assessment: 76yof with abdominal distension, renal failure, diarrhea, without transition point to suggest small bowel obstruction, with patent ileocolonic anastomosis seen on CT, with narrowed sigmoid colon but with ongoing diarrhea. Physical exam is unrevealing as to the cause of her pain and distension. Dr. Levin asked me to weigh in to whether her gallbladder could be contributory to her overall picture. Recommendations: 1. Abdominal ultrasound to rule out gallbladder pathology. 2. I will review CT scan images in detail with radiologist tomorrow and follow her stool output. Although she had a stricture in the sigmoid back in 2003 and her sigmoid colon appears narrowed on CT, she is having ongoing bowel movements which makes obstruction less likely at this location. There is no sign of small bowel obstruction as there is both proximal and distal distention within the loops of small bowel, and the colon is also distended rather than decompressed. 3. I called Dr. Shearer and Dr. Levin to discuss overall plan of care given hypotension, tachycardia, and renal failure. The patient's DPOA is her son Jermain. 4. I ordered repeat lactate and CBC for this evening. Allergy Allergies: Coded Allergies: No Known Drug Allergies (Verified Allergy, Unknown, 03/08/17) Medications Amitriptyline (Amitriptyline) 10 Mg Tablet 30 MG PO HS (Reported) Last Taken: 30 MG on 03/07/17 2100 Anastrozole (Anastrozole) 1 Mg Tablet 1 MG PO QAM (Reported) Last Taken: 1 MG on 03/07/17 0900 Aspirin (Aspirin) 81 Mg Tablet 81 MG PO QAM (Reported) Last Taken: 81 MG on 03/07/17 0900 Cholecalciferol (Vitamin D3) (Vitamin D) 1 ,000 Unit Capsule 5,000 UNIT PO QAM (Reported) Last Taken: 5,000 UNITS on 03/07/17 0900 Clobetasol Propionate (Clobetasol Propionate) 50 Ml Solution 1 APPLIC TP QAM (Reported) 0.05% Last Taken: 1 APPLICATION on Unknown Date & Time Cyanocobalamin ( Cyanocobalamin Injection) 1,000 Mcg/1 Ml Vial 1,000 MCG IM Monthly (Reported) Last Taken: 1,000 MCG on Unknown Date & Time Desonide (Desonide Cream) 15 Gm Cream..g. 1 APPLIC TOP BID PRN PRN RASH (Reported) Last Taken: 1 APPLICATION on Unknown Date & Time Duloxetine (Duloxetine) 60 Mg Capsule.dr 90 MG PO QAM (Reported) DULOXETINE 30 MG + 60 MG = 90 MG TOTAL Last Taken: 90 MG on 03/07/17 0900 Fluocinolone/Shower Cap (Fluocinolone Acetonide 0.01% Oil) 118.28 Ml Oil 1 APPLIC TOP DAILY (Reported) Last Taken: 1 CAP on Unknown Date & Time Fluocinonide 0.05% Cream ( Fluocinonide 0.05% Cream) 15 Gm Cream..g. 1 APPLIC TOPICAL BID (Reported) Last Taken: 1 APPLICATION on Unknown Date & Time Folic Acid/Multivits-Min/ Lut (Centrum Silver Chewable Tablet) 1 Each Tab.chew 1 EACH PO QAM (Reported) Last Taken: 1 TABLET on 03/07/17 0900 Furosemide (Furosemide) 20 Mg Tab 20 MG PO QAM (Reported) Last Taken: 20 MG on 03/07/17 0900 Gabapentin (Gabapentin) 600 Mg Tablet 600 MG PO BIDBL (Reported) 600 MG IN AM & AFTERNOON, 900 MG AT HS Last Taken: 600 MG on 03/07/17 1200 Gabapentin (Gabapentin) 600 Mg Tablet 900 MG PO HS (Reported) 600 MG IN AM & AFTERNOON, 900 MG AT HS Last Taken: 900 MG on 03/07/17 2100 Infliximab (Remicade) 10 Mg/Ml Sdv Unknown Dose IV [id number] (Reported) Last Taken: UNKNOWN on Unknown Date & Time Ketoconazole (Nizoral) 120 Ml Shampoo 1 APPLIC TOP TWICE WEEKLY (Reported) Last Taken: 1 APPICATION on Unknown Date & Time Lisinopril (Lisinopril) 10 Mg Tablet 10 MG PO QAM (Reported) Last Taken: 10 MG on 03/07/17 0900 Loperamide Liquid (Imodium A-D Liquid) 1 Mg/7.5 Ml Liquid 1 MG PO DAILY PRN PRN PN (Reported) Last Taken: 1 MG on Unknown Date & Time Lovastatin (Lovastatin) 40 Mg Tablet 40 MG PO HS (Reported) Last Taken: 40 MG on 03/07/17 2100 Pramipexole Dihydrochloride (Pramipexole Dihydrochloride) 0.25 Mg Tablet 0.25 MG PO TIDWM (Reported) PRAMIPEXOLE 0.25 MG AM, NOON, PM AND 0.5 MG AT HS Last Taken: 0.25 MG on 03/07/17 1700 Pramipexole Dihydrochloride ( Pramipexole Dihydrochloride) 0.5 Mg Tablet 0.5 MG PO HS (Reported) PRAMIPEXOLE 0.25 MG AM, NOON, PM AND 0.5 MG AT HS Last Taken: 0.5 MG on 03/07/17 2100 Discontinued Medications ([Clobex]) 1 APPLIC TP DAILY (Reported) 0.05% ([Desonide]) 1 APPLIC TP BID PRN PRN PRN (Reported) 0.05% ([Flocinonide]) 1 APPLIC TP BID (Reported) 0.05% ([vitamin b-12]) 0.1 ML IM MONTHLY (Reported) 1000MCG/ML ([Ketaconazole Shampoo]) 1 APPLIC TP 2X/WK (Reported) 2% ([Ketaconazole Cream]) 1 APPLIC TP 2X/WK (Reported) 2% Glimepiride (Glimepiride) 4 Mg Tablet 4 MG PO DAILYWM (Reported) GLIMEPERIDE 4 MG WITH BREAKFAST, 2 MG WITH DINNER Last Taken: 4 MG on Unknown Date & Time Glimepiride (Glimepiride) 2 Mg Tablet 2 MG PO DAILYWD (Reported) GLIMEPERIDE 4 MG WITH BREAKFAST, 2 MG WITH DINNER Last Taken: 2 MG on Unknown Date & Time Lactobacillus Acidophilus (Probiotic ) 1 Each Capsule 1 EACH PO AM (Reported) Melatonin/Herbal Complex #184 (Sleep Softgel) 1 Each Capsule 2 EACH PO (Reported ) Melatonin/Herbal Complex #184 (Sleep Softgel) 1 Each Capsule 1 EACH PO (Reported ) Sulfasalazine (Sulfasalazine) 500 Mg Tablet 500 MG PO BID (Reported) Past Surgical History Surgeries: Yes (multiple.) Patient/Family Past Surgical: Positive for:: Accept Blood Products?, Blood Transfusions, Denies:: Anesthesia Reactions, Blood Transfuse Reaction, Malignant Hyperthermia Social History Hx Alcohol Use: No Hx Substance Use: No Hx Tobacco Use: No PMH HEENT History History of ENT Problems?: No HEENT History: Positive for:: Cataracts (surgery ) Hearing Problem Denies:: Abnormal Airway Difficult Intubation Dysphagia Sinus Problem Cardiovascular History History of Heart Problems?: Yes Cardiovascular History: Positive for:: Congestive Heart Failure Edema (ankles and feet) Hypertension Valvular Heart Disease (HX OF AI) Denies:: AICD Atrial Fibrillation Cardiac Surgery Chest Pain Heart Murmur (ECHO 11/2015 EF 50%) Pacemaker Respiratory History of Respiratory Problem: Yes Respiratory History: Positive for:: COPD (PFT 2009 SHOWS MOD RESTRICTIVE DISEASE) Chest Surgery (right mastectomy) Dyspnea (PEARCE W/ PROBLEMS LYING FLAT) Use of C-PAP Machine (NANI+ SLEEP STUDY 02/2011) Denies:: Asthma Cough Hemoptysis Pneumonia Tuberculosis Neurological History Hx Neurologic Problems?: Yes Neurological History: Positive for:: Headaches Denies:: CVA Dementia Dizziness Parkinson's Disease Seizures Gastrointestinal History HX of GI Problems?: Yes Gastrointestinal History: Positive for:: Diverticulitis (hx of) Denies:: Cirrhosis Gastroesphageal Reflux Gastrointestinal Bleeding Heartburn Hepatitis Hiatal Hernia Rectal Bleeding (HX COLON POLYPS HX ANAL STENOSIS S/P FISTULECTOMY) Genitourinary History Hx of Gu Problems?: Yes Genitourinary History: Denies: HX of Hemodialysis (HX CHRONIC RENAL INSUFFICIENCY) Urinary Tract Infection Female/Male History Reproductive History Female: Positive for: Problems with Breasts? (S/P RT BREQAST BX/MASTECTOMY FOR CA) Denies: Currently ? Endometriosis Pelvic Inflammatory DX Skin History Skin History: Positive for:: History Skin Disorders? (PSORIASIS, PRURITIS, RASHES) Denies:: Pressure Ulcers Musculoskeletal History Hx Musculoskeletal Problems?: Yes Musculoskeletal History: Positive for:: Back Injury (chronic back pain) Denies:: Joint Replacement Psycho Social History Hx of Psycho/Social Problems?: Yes Psycho Social History: Positive for:: Anxiety Hx Depression Denies:: Bipolar Disorder Suicide Attempt Other History Hx Any Other Health Problems?: Yes Other History: Positive for:: Cancer (RT BREAST) Hospitalization Denies:: Endocrine Disease Thyroid Disease Diabetes: YesBedside Blood Glucose: 128 Social History Hx Alcohol Use: NoHx Substance Use: NoHx Tobacco Use: No Smoking Status: Former Smoker Living Arrangement: with Family (reported to live with son, local) Objective Exam Vital Signs & I/O Vital Sign- Last 8 Hours Date Time Temp Pulse Resp B/P Pulse Ox O2 Delivery O2 Flow Rate FiO2 03/09/17 20:30 37.2 18 18 102/44 95 Nasal Cannula 3.00 03/09/17 16:35 37.2 11 16 83/45 96 Nasal Cannula 4.00 Intake and Output- Last 8 Hour 03/09/17 Cumulative From/Thru 07:00 03/08/17 19:43 - 03/09/17 06:06 Intake Total 3343 ml 3343 ml Output Total 250 ml 250 ml Balance 3093 ml 3093 ml Intake Oral 0 ml 0 ml IV Total 3343 ml 3343 ml Output Urine Total 250 ml 250 ml Lab & Micro Results Laboratory Tests Test 03/09/17 02:21 03/09/17 04:30 03/09/17 08:30 03/09/17 12:20 White Blood Count 4.7th/mm3 (3.8-10.1) Red Blood Count 3.25mil/mm3 (3.90-5.20) Hemoglobin 8.9g/dL (12.0-15.6) Hematocrit 28.5% (35.0-46.0) Mean Corpuscular Volume 87.7fL (81-100) Mean Corpuscular Hemoglobin 27.4pg (27.0-35.0) Mean Corpuscular Hemoglobin Concent 31.2% (32.0-37.0) Red Cell Distribution Width 17.4% (12.3-15.4) Platelet Count 259bil/L (150-400) Neutrophils (%) (Auto) 78.1% (40-74) Lymphocytes (%) (Auto) 13.2% (14-46) Monocytes (%) (Auto) 8.3% (4-12) Eosinophils (%) (Auto) 0% (0-5) Basophils (%) (Auto) 0% (0-3) Sodium Level 139mEq/L (134-144) 139mEq/L (134-144) Potassium Level 4.4mEq/L (3.5-5.2) 4.1mEq/L (3.5-5.2) Chloride Level 98mEq/L (97-108) 97mEq/L (97-108) Carbon Dioxide Level 15mmol/L (18-29) 17mmol/L (18-29) Blood Urea Nitrogen 131mg/dL (8-27) 125mg/dL (8-27) Creatinine 7.80mg/dL (0.57-1.00) 7.69mg/dL (0.57-1.00) Estimat Glomerular Filtration Rate 7mL/min (>59) 7mL/min (>59) Glucose Level 195mg/dL (60-99) 144mg/dL (60-99) Lactic Acid Level 1.2mmol/L (0.4-2.0) Calcium Level 5.8mg/dL (8.5-10.1) 5.8mg/dL (8.5-10.1) 5.7mg/dL (8.5-10.1) Phosphorus Level 7.5mg/dL (2.5-4.9) Magnesium Level 1.8mg/dL (1.6-2.6) Total Bilirubin 0.3mg/dL (0.0-1.2) Aspartate Amino Transf (AST/SGOT) 10U/L (0-50) Alanine Aminotransferase (ALT/SGPT) 9U/L (0-32) Alkaline Phosphatase 75U/L (25-165) Troponin T 0.067ug/L (0.0-0.011) 0.075ug/L (0.0-0.011) Total Protein 5.6g/dL (6.4-8.4) Albumin 3.0g/dL (3.4-5.0) Procalcitonin 0.42ng/mL (0.00-0.08) Thyroid Stimulating Hormone (TSH) 1.180uIU/mL (0.450-4.500) Free Thyroxine 0.91ng/dL (0.82-1.77) Urine Color Yellow (YELLOW) Urine Appearance Hazy (CLEAR,HAZY) Urine pH 5.0 (5.0-8.0) Urine Specific [place] 1.025 (1.003-1.035) Urine Protein 30mg/dL (NEG,TRACE) Urine Glucose (UA) Negativemg/dL (NEGATIVE) Urine Ketones Negativemg/dL (NEGATIVE) Urine Occult Blood Large (NEGATIVE) Urine Nitrite Negative (NEGATIVE) Urine Bilirubin Small (NEGATIVE) Urine Ictotest Positive (Negative) Urine Urobilinogen Normalmg/dL (NORMAL) Urine Leukocyte Esterase Negative (NEGATIVE) Urine RBC 11-50/hpf (0-2) Urine WBC 0-5/hpf (0-5) Urine Epithelial Cells Few/hpf (NONE-MOD) Urine Crystals Amorphous urates (NONE Urine Bacteria None/hpf (NONE-FEW) Urine Hyaline Casts None/lpf (NONE) Urine Granular Casts None seen (NONE SEEN) Urine Waxy Casts None seen (NONE SEEN) Urine Red Blood Cell Casts None seen (NONE SEEN) Urine White Blood Cell Casts None seen (NONE SEEN) Urine Mucus None seen (None Seen) Urine Trichomonas None seen (NONE SEEN) Urine Yeast None (NONE SEEN) Urine Culture Reflexed Not indicated Urine Legionella pneumophilia Ag Negative (Negative) Total Creatine Kinase 129U/L (21-215) Vancomycin Level Trough 19.4mcg/mL Test 03/09/17 20:38 White Blood Count 6.1th/mm3 (3.8-10.1) Red Blood Count 3.18mil/mm3 (3.90-5.20) Hemoglobin 9.0g/dL (12.0-15.6) Hematocrit 27.9% (35.0-46.0) Mean Corpuscular Volume 87.7fL (81-100) Mean Corpuscular Hemoglobin 28.3pg (27.0-35.0) Mean Corpuscular Hemoglobin Concent 32.3% (32.0-37.0) Red Cell Distribution Width 17.4% (12.3-15.4) Platelet Count 298bil/L (150-400) Lactic Acid Level 0.8mmol/L (0.4-2.0) Microbiology 03/08/17 Blood Culture - Preliminary, Resulted NO GROWTH AFTER 24 HOURS 03/09/17 Campylobacter (PCR) - Final, Complete Not Detected 03/09/17 Clostridium difficile Toxin A&B (M) - Final, Complete Not Detected 03/09/17 Plesiomonas shigelloides (PCR) - Final, Complete Not Detected 03/09/17 Salmonella (PCR)([place]) - Final, Complete Not Detected 03/09/17 Yersinia enterocolitica (PCR) - Final, Complete Not Detected 03/09/17 Vibrio Species (PCR) - Final, Complete Not Detected 03/09/17 Vibrio Cholerae (PCR) - Final, Complete Not Detected 03/09/17 Enteroaggregative E. coli (PCR) - Final, Complete Not Detected 03/09/17 Enteropathogenic E. coli (PCR) - Final, Complete Not Detected 03/09/17 Enterotoxigenic E. coli (PCR) - Final, Complete Not Detected 03/09/17 E. coli Shiga-like Toxin (PCR) - Final, Complete Not Detected 03/09/17 Escherichia coli 0157 (PCR) - Final, Complete Not Detected 03/09/17 Enteroinvasive E. coli/Shigella PCR - Final, Complete Not Detected 03/09/17 Cryptosporidium (PCR) - Final, Complete Not Detected 03/09/17 Cyclospora cayetanensis (PCR) - Final, Complete Not Detected 03/09/17 Entamoeba histolytica (PCR) - Final, Complete Not Detected 03/09/17 Giardia lamblia (PCR) - Final, Complete Not Detected 03/09/17 Adenovirus Type F 40/41 (PCR) - Final, Complete Not Detected 03/09/17 Astrovirus (PCR) - Final, Complete Not Detected 03/09/17 Norovirus (PCR) - Final, Complete Not Detected 03/09/17 Rotavirus A (PCR) - Final, Complete Not Detected 03/09/17 Sapovirus I/II/IV/V (PCR) - Final, Complete 03/09/17 MRSA (PCR) - Final, Complete 03/09/17 Streptococcus pneumoniae Ag Screen - Final, Complete Result Diagram: 03/09/17203703/09/17 1220 Review of Systems: Constitutional: Negative, except as otherwise mentioned in the history above. Ophthalmologic: Negative, except as otherwise mentioned in the history above. Cardiovascular: Negative, except as otherwise mentioned in the history above. Respiratory: Negative, except as otherwise mentioned in the history above. Gastrointestinal: Negative, except as otherwise mentioned in the history above. Genitourinary: Negative, except as otherwise mentioned in the history above. Musculoskeletal: Negative, except as otherwise mentioned in the history above. Neurological: Negative, except as otherwise mentioned in the history above. Psychiatric: Negative, except as otherwise mentioned in the history above. Hematologic/Lymphatic: Negative, except as otherwise mentioned in the history above. Allergic/Immunologic: Negative, except as otherwise mentioned in the history above. Assessment & Plan VTE Prophylaxis: Sub-Q Heparin (Unfractionated) Resuscitation Status: CPR: Attempt Resuscitation Swati Parish MD Mar 09, 2017 23:00
--- NOTE | 2017-03-09 23:28 | PROCED ---
[address] [address] PROCEDURE NOTE PATIENT: ELIZABETH HAWTHORNE I : 1940 MR#: [id number] ADMIT: 03/08/2017 JOB ID: [id number] DATE OF SERVICE: PREOPERATIVE DIAGNOSIS(ES): POSTOPERATIVE DIAGNOSIS(ES): SURGEON: PROCEDURE: Central venous line placement was requested by Dr. Levin of the hospitalist group. The patient is encephalopathic secondary to renal failure, she is also hypovolemic and hypotensive. Central line is requested for management of fluids and the surveillance agent requested the line be placed in the internal jugular to leave the subclavians available for future potential hemodialysis catheters. [id number] is in the room and telephoned the son with durable power of immigration attorney, with whom I spoke at length about that procedure. He agrees to proceed. Nurses have received verbal consent over the phone and it has been signed. The patient was placed in the supine, head turned to left position. The head was taped to keep it on the left as the patient is having occasional spastic motions. Ultrasound was used to identify the right internal carotid artery, as well as the right internal jugular vein. It was noted to be in good position and full in the supine position. Trendelenburg was not needed. The neck was prepped in the usual fashion. Gown and gloves, hat and mask were worn. A drape was placed. Local anesthetic was infiltrated. A 22-gauge needle was placed into the right internal jugular vein, blood was aspirated. An 18-gauge catheter was placed parallel to this 22-gauge needle and then advanced into the vein. A wire was placed into the catheter. The catheter was removed. A skin hole was made and a dilator was placed. The dilator was removed. An 8-Welsh triple lumen catheter was placed at 18 cm. It will be secured after x-ray has determined the placement of the line. All three lines were aspirated and flushed. They all returned good venous blood. The patient tolerated the procedure well. Thank you for the consultation. Chest x ray was obtained, catherter was noted to be about 2.5 cm too far in and was adjusted by iv therapy nurse Man FRAZIER
[2017-03-10 00:30] VITALS: BP 125/56; PULSE 114; RESP 22; O2SAT 95
[2017-03-10] MEDS: Sodium Bicarb 8.4% Inj 150 MEQ in Dextrose 5% 1,000 ML IV SCH ×4 (02:43→19:08)
[2017-03-10 04:30] VITALS: BP 103/51; PULSE 112; RESP 24; O2SAT 96
[2017-03-10 05:04] LABS: BASOPHILS % (AUTO) 0.2 % (0-3); EOSINOPHILS % (AUTO) 0.7 % (0-5); MONOCYTES % (AUTO) 14.5 % (4-12); Mean Corpuscular Hemoglobin 28.1 pg (27.0-35.0); Mean Corpuscular Volume 88.3 fL (81-100); NEUTROPHILS % (AUTO) 61.1 % (40-74); Platelet Count 277 bil/L (150-400)
[2017-03-10 05:36] LABS: Magnesium 1.6 mg/dL (1.6-2.6); Phosphorus 6.5 mg/dL (2.5-4.9)
[2017-03-10 07:46] VITALS: BP 124/60; PULSE 114; RESP 21; O2SAT 95
--- NOTE | 2017-03-10 08:07 | PCM.PNNEPH ---
Gadiel Bear DO 03/10/17 0807: Subjective Date of Service Mar 10, 2017 Subjective Per the primary team the patient is to be moved to comfort care measures once her family arrives. Sister was in the room when nephrology saw the patient. The patient was unresponsive and the sister had no question. Exam Vital Signs Vital Sign - Last Date Time Temp Pulse Resp B/P Pulse Ox O2 Delivery O2 Flow Rate FiO2 03/10/17 07:46 114 03/10/17 07:46 37.5 21 124/60 95 Nasal Cannula 3.00 Intake and Output 03/09/17 03/09/17 03/10/17 Cumulative From/Thru 15:00 23:00 07:00 03/08/17 19:43 - 03/10/17 06:31 Intake Total 1450 ml 1899 ml 6692 ml Output Total 2000 ml 950 ml 3200 ml Balance -550 ml 949 ml 3492 ml Intake Oral 0 ml IV Total 1450 ml 1899 ml 6692 ml Output Urine Total 200 ml 550 ml 1000 ml Stool Total 500 ml 500 ml Gastric Drainage Total 1300 ml 400 ml 1700 ml # Bowel Movements 2 2 Exam General: No acute distress, well-developed, Obese ill appearing female lying in bed Eyes: PERRLA, anicteric sclerae, moist noninjected conjunctivae HEENT: Normocephalic, atraumatic. External ears without defect. Neck: Supple with full range of motion. JVD hard to assess due to neck habitus. No bruits. No lymphadenopathy or thyromegaly. Right IJ in place Cardiovascular: Tachycardic rate and irregular rhythm with no murmurs, rubs, or gallops appreciated Pulmonary: Diminished air flow bilaterally with no crackles, wheezes, or rhonchi at apices. Abdomen: Distended, tympanic. Obese Extremities: No clubbing, cyanosis, or lymphadenopathy appreciated. Lower extremity edema present Skin: Normal temperature, no subcutaneous nodules appreciated. Neurological: Cranial nerves grossly intact. involuntary contracture and asterixis noted Psychiatric: unable to obtain Lab and Diagnostics Result Diagram: 03/10/17 0455 03/10/17 0455 Microbiology Urinalysis no pyuria Enteric pathogen stool profile - no C. difficile or other pathogen MRSA swab negative Strep pneumonia and legionella urinary antigens negative Blood culture 03/08/17 - 2 sets pending X-Rays, CTs and MRIs PROCEDURE: CT ABDOMEN AND PELVIS WITHOUT CONTRAST ([id number]) IMPRESSION: 1. Fluid and gas distention of the small and large bowel extending to the rectosigmoid colon distally without a focal transition point. The findings are suggestive of an ileus or gastroenteritis without definite obstruction. 2. Patchy groundglass opacities in the visualized lung bases with consolidation in the inferior right middle and lower lobes. The findings suggest aspiration with right basilar pneumonia. 3. Small atrophic left kidney. No hydronephrosis in the right the left kidney. Dictated by: Man Mcnulty M.D. on 03/08/2017 at 21:18 PROCEDURE: X-RAY CHEST ONE VIEW, PORTABLE ([id number]) IMPRESSION: 1. Right infrahilar consolidation redemonstrated as was increased bandlike opacities in the left base and bilateral patchy groundglass opacities. The findings are suggestive of multifocal pneumonia. Dictated by: Man Mcnulty M.D. on 03/08/2017 at 20:22 PROCEDURE: X-RAY CHEST ONE VIEW, PORTABLE ([id number]) IMPRESSION: Bilateral pneumonia slightly increased involving the left upper lobe. Dictated by: Joaquin Dickens RR Interpreted: Maddi Banks MD on 03/09/2017 at 10:01 PROCEDURE: CT BRAIN WITHOUT CONTRAST ([id number]) IMPRESSION: 1. Limited study due to motion demonstrates no definite acute intracranial abnormality. Dictated by: Man Mcnulty M.D. on 03/08/2017 at 21:29 . 12-lead ECG Sinus tachycardia with left bundle branch block Plan Impression 76-year-old morbidly obese woman with Crohn's disease, anti-TNF therapy, hemicolectomy,diabetes mellitus, and hypertension presented after several days of vomiting, diarrhea, abdominal pain, decreased appetite, altered mental status , lethargy. 1. Acute tubular necrosis secondary to acute volume depletion with possible sepsis. 2. Acute asterixis with hyperammonemia. 3. Increased anion gap metabolic acidosis secondary to pyroglutamic acid and possible d-lactic acidosis 4. Hypocalcemia 4. Atrophic left kidney. 5. Baseline chronic kidney disease stage 3. Plan: # Acute Tubular necrosis - likely secondary to hypotension and poor kidney perfusion with only one functional kidney - Creatinine 8.40; recent baseline is 1.15. - to be moved to comfort care measures # Asterixis secondary to elevated ammonia, - On admit: Ammonia 144. - Liver transaminases unremarkable, INR unremarkable making synthetic function intact. - to be moved to comfort care measures # High anion gap acidosis, acute, present on admission. - AG 29 on admission - Likely secondary to chronic renal failure, pyroglutamate and D lactate - lactate was not elevated 1.3 - to be moved to comfort care measures # Acute kidney injury on chronic kidney disease, present on admission. - Atrophic left kidney with stage III chronic kidney disease - Presumed prerenal azotemia, possibly ATN secondary to volume depletion.On admit: Creatinine 8.40; recent baseline is 1.15. - to be moved to comfort care measures # hypocalcemia - given elevated phosphate likely secondary to chronic renal failure - to be moved to comfort care measures # Hypotension - Patient developed mean arterial pressures less than 65 mmHg despite aggressive fluid hydration. - to be moved to comfort care measures Conor Carolina DO 03/10/17 1357: Subjective Subjective He was seen and examined and case discussed with . I appreciate Dr. Parish's input and in light of her multiple comorbidities and her condition is terminal. Apparently she is on comfort care at this point and I feel this is not entirely appropriate as I do not feel dialysis would be of any significant benefit. Exam Lab and Diagnostics Result Diagram: 03/10/17 0455 03/10/17 0455 Gadiel Bear DO Mar 10, 2017 08:07 Conor Carolina DO Mar 10, 2017 13:57
[2017-03-10] MEDS: Norepineph 8,000 mCg/250 mL NS 8,000 MCG in IV Premix 1 EACH IV SCH (08:09)
--- NOTE | 2017-03-10 08:30 | PCM.PNMED ---
Subjective Date of Service Mar 10, 2017 Subjective The patient is unable to communicate in any meaningful way. Her eyes are open but she is not following. She appears uncomfortable with intermittent tonic movements. Review of systems and subjective is otherwise not obtainable. Exam Vital Signs Vital Sign - Last Date Time Temp Pulse Resp B/P Pulse Ox O2 Delivery O2 Flow Rate FiO2 03/10/17 07:46 114 03/10/17 07:46 37.5 21 124/60 95 Nasal Cannula 3.00 Intake and Output 03/09/17 03/09/17 03/10/17 Cumulative From/Thru 15:00 23:00 07:00 03/08/17 19:43 - 03/10/17 06:31 Intake Total 1450 ml 1899 ml 6692 ml Output Total 2000 ml 950 ml 3200 ml Balance -550 ml 949 ml 3492 ml Intake Oral 0 ml IV Total 1450 ml 1899 ml 6692 ml Output Urine Total 200 ml 550 ml 1000 ml Stool Total 500 ml 500 ml Gastric Drainage Total 1300 ml 400 ml 1700 ml # Bowel Movements 2 2 Exam She cannot speak or follow commands. Her eyes are open and she does have a fixed gaze. Tonic movements intermittently. Anicteric sclera. Lungs are clear with normal rate and effort Heart is regular without murmur gallop or rub Abdomen soft nontender, distended Extremities are free of edema. Skin is free of rash or lesions. IVs and Medications Medications Reviewed: Medications were reviewed in detail Lab and Diagnostics Result Diagram: 03/10/17 0455 03/10/17 0455 Microbiology Urinalysis no pyuria Enteric pathogen stool profile - no C. difficile or other pathogen MRSA swab negative Strep pneumonia and legionella urinary antigens negative Blood culture 03/08/17 - 2 sets pending X-Rays, CTs and MRIs PROCEDURE: CT ABDOMEN AND PELVIS WITHOUT CONTRAST ([id number]) IMPRESSION: 1. Fluid and gas distention of the small and large bowel extending to the rectosigmoid colon distally without a focal transition point. The findings are suggestive of an ileus or gastroenteritis without definite obstruction. 2. Patchy groundglass opacities in the visualized lung bases with consolidation in the inferior right middle and lower lobes. The findings suggest aspiration with right basilar pneumonia. 3. Small atrophic left kidney. No hydronephrosis in the right the left kidney. Dictated by: Man Mcnulty M.D. on 03/08/2017 at 21:18 PROCEDURE: X-RAY CHEST ONE VIEW, PORTABLE ([id number]) IMPRESSION: 1. Right infrahilar consolidation redemonstrated as was increased bandlike opacities in the left base and bilateral patchy groundglass opacities. The findings are suggestive of multifocal pneumonia. Dictated by: Man Mcnulty M.D. on 03/08/2017 at 20:22 PROCEDURE: X-RAY CHEST ONE VIEW, PORTABLE ([id number]) IMPRESSION: Bilateral pneumonia slightly increased involving the left upper lobe. Dictated by: Joaquin Dickens RRA Interpreted: Maddi Banks MD on 03/09/2017 at 10:01 PROCEDURE: CT BRAIN WITHOUT CONTRAST ([id number]) IMPRESSION: 1. Limited study due to motion demonstrates no definite acute intracranial abnormality. Dictated by: Man Mcnulty M.D. on 03/08/2017 at 21:29 . 12-lead ECG Sinus tachycardia with left bundle branch block Assessment & Plan # Acute Encephalopathy, present on admission. Ongoing. Per documentation, patient was alert and oriented at baseline. Likely metabolic encephalopathy secondary to acidosis, uremia and elevated ammonia. Brain CT unremarkable - Swallow eval - Avoid sedatives - Avoid anticholinergics and benzodiazepines No meaningful improvement. # Acute on chronic kidney injury, present on admission. Oliguric. In setting of unilateral functioning kidney. Presumed prerenal azotemia, possibly ATN secondary to volume depletion.On admit: Creatinine 8.40; recent baseline is 1.15. - Moderate fluid resuscitation, but avoid precipitating pulmonary edema - Bicarbonate drip plus rehydration - Treat electrolyte disorders - Nephrology consult No meaningful improvement, patient's family indicates that dialysis will not be accepted as a treatment option. # High anion gap acidosis, acute, present on admission. On admit, calculated: 29, lactate is not elevated. Likely secondary to renal failure, pyroglutamate and D lactate possible - Replete fluids No meaningful improvement. # Hypotension, acute. Not present on admission. Patient developed mean arterial pressures less than 65 mmHg despite aggressive fluid hydration. - Place CVC to manage fluid resuscitation and pressors; IJ only to avoid interfering with potential dialysis catheter needs - Measure CVP - Pressors as needed - Maintain mean arterial pressure greater than 65, urine output greater than 0.5 ml/kg/hr # Abdomen pain, diarrhea and emesis, acute, present on admission. Diarrhea appears to be chronic related to Crohn disease, although possibly worse recently. The patient is immunocompromise on TNF alpha inhibitor. Differential diagnosis is Crohn disease, gastroenteritis, ischemic bowel, partial bowel obstruction. Acalculous cholecystitis is possible, although not supported by CT scan. C. difficile has been ruled out. - Nothing by mouth - NG tube to low suction - Gen. surgery consult to assess abdomen, they felt that there is no evidence of acute cholecystitis. # Radiographic pneumonia, likely acute, present on admission. Likely aspiration pneumonia pneumonitis versus pneumonia based on clinical context of recent severe emesis. At risk for healthcare associated PNA: Recent admission . In ED, patient received: linezolid, Levaquin, Zosyn - We will continue levaquin and zosyn; - Discontinue vanco due to MRSA-negative status low clinical probability of staphylococcal pneumonia, no changed medications this morning. # Elevated ammonia, chronicity unknown, present on admission. On admit: Ammonia 144. Liver transaminases unremarkable, synthetic function intact. Differential diagnosis hyperammonemia: hepatic disorders, portosystemic shunt, inborn errors of urea cycle metabolism, Teresita's syndrome, ureterosigmoidostomy, infection in nondraining bladder, drugs (cyanide, carbamazepine, valproic acid, iron, and cytotoxics can also cause secondary hyperammonemia.) - Lactulose when able to take by mouth # Hypocalcemia, hyperphosphatemia, present on admission. Presumed secondary to severe renal failure. Calcium phosphorus product is 43. - No parenteral calcium supplementation to avoid precipitating calciphylaxis - Nephrology service to consider phosphate binder, active vitamin D when patient is able to take by mouth # Diabetes mellitus, non-insulin using, chronic. Controlled. A1c 01/2017:5.6 - Frequently monitor capillary blood glucose - Glucose control goals: Random less than 180, fasting less than 140, none less than 70 - Insulin as needed, IV insulin while patient in CCU, then divided 50-50 long- acting and nutritional/correctional Resolving, stable and/or chronic problems: # Elevated troponins of undetermined significance, likely acute, present on admission. Monitor - Troponin profile does not suggest acute coronary syndrome # History of Crohn's colitis status post hemicolectomy, chronic. Recently initiated infliximab therapy. - May be contributing to electrolyte abnormalities which in turn may affect mental status - Labs # Goals of care, chronic. Discussed with 2 children at bedside today. Patient does not wish to be dependent on life support, or to live a chronically impaired lifestyle nursing facility. CODE STATUS: DO NOT RESUSCITATE, DO NOT INTUBATE in setting life-threatening arrhythmia, otherwise medical care Patient status: Due to severity of presented symptoms, likely course of events, and anticipated course of care, estimated length of stay exceeds two midnights; admitted as inpatient Family indicates that they will want to pursue comfort this morning after all family members assembled to likely be around 10:30 in the morning. Specifically they will want to withdraw all medical's and other measures. GI Prophylaxis: Not indicated VTE Prophylaxis: Sub-Q Heparin (Unfractionated) VTE Mechanical Devices: Intermittant Pneumatic CD Resuscitation Status: CPR: Attempt Resuscitation Steven Marquez MD Mar 10, 2017 08:30
--- NOTE | 2017-03-10 08:52 | DRSVH ---
PROCEDURE: US ABDOMEN, LIMITED ([id number]) INDICATIONS: evaluate gallbladder TECHNIQUE: Real-time focused scanning was performed of the abdomen, with image documentation. COMPARISON: [facility], CT, CT ABD PELVIS WO CON, 03/08/2017, 20:52. FINDINGS: Limited exam demonstrating small amount of gallbladder sludge. No stones or gallbladder wa ll thickening. No biliary dilatation. IMPRESSION: Limited exam demonstrating gallbladder sludge. No evidence for cholecystitis. Note: These findings are concordant with the preliminary interpretation. Dictated by: Joaquin VERMA Interpreted: Tulio Watson MD on 03/10/2017 at 8:50 Transcribed by: FABRICIO on 03/10/2017 at 8:51 Approved by: Tulio Watson M.D. on 03/10/2017 at 15:39
[2017-03-10 09:14] LABS: Vitamin B12 >1999 pg/mL (211-946)
--- NOTE | 2017-03-10 09:42 | NUR ---
Insulin drip Eye opening to verbal commands. Patient was able to indicate with her head to yes/no questions. Uncontrolled body jerks/twitches primarily to shoulders and arms. This activity was increased when patient was touched/stimulated- MD aware. Family at the bedside- patients sister asked that the patient not be disturbed with finger stick for glucose monitoring- MD was made aware- Insulin drip was discontinued.
--- NOTE | 2017-03-10 10:09 | NUR ---
PT NOTE-- Patient to transfer to comfort care per MD at CCU rounds. Discontinue PT eval.
--- NOTE | 2017-03-10 11:05 | PCM.PNSURG ---
Subjective Visit Information: Reason for Visit Lc Ileus Pneumonia Surgery/Surgery Date Post-Op Day # Date of Admission: Mar 08, 2017 at 22:23 Hospital Day # Subjective: Family present this morning, plans to initiate comfort care are underway. I reviewed the CT scan in detail with the radiologist this morning, no sign of small bowel obstruction, overall ileus picture is more likely. Although she does have narrowing in the sigmoid colon, it is possible that it is simply from stool ball. However, diarrhea limits the possibility of obstruction. US shows sludge in the gallbladder, no sign of cholecystitis. Objective Vital Sign- Last 8 Hours Date Time Temp Pulse Resp B/P Pulse Ox O2 Delivery O2 Flow Rate FiO2 03/10/17 07:46 114 03/10/17 07:46 37.5 114 21 124/60 95 Nasal Cannula 3.00 03/10/17 04:30 37.5 112 24 103/51 96 Nasal Cannula 3.00 Intake and Output- Last 8 Hour 03/10/17 Cumulative From/Thru 07:00 03/08/17 19:43 - 03/10/17 06:31 Intake Total 1899 ml 6692 ml Output Total 950 ml 3200 ml Balance 949 ml 3492 ml Intake Oral 0 ml IV Total 1899 ml 6692 ml Output Urine Total 550 ml 1000 ml Stool Total 500 ml Gastric Drainage Total 400 ml 1700 ml # Bowel Movements 2 General: Other (obtunded; family at bedside for comfort care measures, therefore full physical examination not performed.) Result Diagram: 03/10/17 0455 03/10/17 0455 Assessment & Plan Impression 76yof with multiorgan dysfunction, no SBO Problems: Plan Comfort care measures are being initiated. OK to consider enema PRN if she stops having bowel movements. Surgery team to sign off at this time. VTE Prophylaxis: Sub-Q Heparin (Unfractionated) Resuscitation Status: CPR: Attempt Resuscitation Swati Parish MD Mar 10, 2017 11:05
[2017-03-10] MEDS: Piperacillin-Tazo 3.375 Gm Inj 3.375 GM in Dextrose 5% Minibag Plus 50 ML IV SCH ×2 (11:18→22:30)
[2017-03-10 11:30] VITALS: BP 119/51; PULSE 112; RESP 29; O2SAT 95
[2017-03-10] MEDS ORDERED: Morphine 100 mg/100 mL NS 100 MG in IV Premix 1 EACH IV SCH (12:35)
[2017-03-10] MEDS ORDERED: Ondansetron 2 mg/mL 2 mL Inj IVPUSH PRN ×2 (12:35→15:25)
--- NOTE | 2017-03-10 15:54 | PCM.ADCARE ---
Advance Care Planning Note Purpose of Encounter: To discuss comfort care Parties in Attendance: 4 family members including daughters. Decisional Capacity: The patient is obtunded and could not participate. Subjective: The patient is obtunded for 2 days. Her family is concerned that she is receiving medical treatments that exceeded the level that she would ever want and that her dignity and comfort being compromised. Objective: Patient is obtunded, vital signs are stable. Lungs are clear with normal effort Abdomen soft Goals of Care Determinations: 1. DO NOT RESUSCITATE 2. DO NOT INTUBATE 3. Will withdraw all life-sustaining measures including NG tube, oxygen, active medications including vasopressors. 4. We will initiate comfort care and provide analgesia with morphine drip and lorazepam as needed. Plan: [place] full comfort care and withdrawal all active medical treatment measures as of noon today CODE STATUS: DO NOT RESUSCITATE DO NOT INTUBATE Time Spent Adv.Care Plannin minutes Adv. Care Plan Documenation: As outlined above Steven Marquez MD Mar 10, 2017 15:54
--- NOTE | 2017-03-10 16:18 | NUR ---
Comfort care: Pt transferred to comfort care, per MD orders. Levophed gtt stopped, tele d/c'd. NG tube left in place as it is still draining a fair amount, family notified that it can be d/c'd if it starts bothering pt. Per family's request, pt has not been turned, pt gets agitated with staff interaction. Pt denies pain at this time. Comfort cart provided for family. Care ongoing.
--- NOTE | 2017-03-10 18:03 | NUR ---
Social Work Note: Continued Discharge Planning Data& Assessment: Per MD pt is being transitioned to Comfort care. Per EMS report on chart and MD, pt was found by EMS covered in vomit and feces. Due to concerns over pt condition when found in the home, SW did make APS report today 03/10/2017. SW to continue to follow for any needs from APS or pt family during this time. SW to continue to follow. Plan: Pt is transitioning to comfort care, per pt is likely to pass during this hospitalization in the next 24 hours. SORAYA Deutsch
[2017-03-10] MEDS: Ondansetron 2 mg/mL 2 mL Inj IVPUSH PRN (18:15)
--- NOTE | 2017-03-10 18:35 | NUR ---
Transfer to [facility] [place] Pt arrived from [facility] at aprox 1815. Pt nauseated and appeared to be uncomfortable, 2mg IV morphine and 4mg IV zofran administered. Pt nonverbal, opens eyes and can intermittently nod/shake head in response to questions. Post medication, pt denies pain/nausea. NGT to low continuous suction, green/dark brown output noted. Family at bedside.
--- NOTE | 2017-03-10 18:55 | NUR ---
spiritual care: nurse referral supportive conversational care to pt and family as family gathers and makes discernments. stress of decisionmaking noted as family gathers.
[2017-03-10] MEDS ORDERED: Levofloxacin 500 mg/100 mL D5W IV SCH (21:00)
--- NOTE | 2017-03-10 21:19 | NUR ---
Nausea Pt has a constant flow in NG tube of dark brown fluid The pt's brother at the bedside as well as the evening RN reiterated that the pt became very nauseated with the NG was temporarily off. Plan to speak to MD ozuna NG left at [facility] for comfort to prevent ongoing nausea.
--- NOTE | 2017-03-10 23:47 | NUR ---
GI/Pain Pt has moderate amt of liq brown stool. Pt showed signs of nausea when changing her dominick area of soiled linens. FELDT score 2 Given IV ativan and morphine. Pt appears comfortable. All cares explained to brother and son at bedside. Will cont to monitor
--- NOTE | 2017-03-11 01:46 | NUR ---
Comfort Pt has no tremors/body twitches following dose of ativan. She appears comfortable. FELDT score zero Will cont to monitor
[2017-03-11] MEDS: Sodium Bicarb 8.4% Inj 150 MEQ in Dextrose 5% 1,000 ML IV SCH ×2 (05:05→12:15)
--- NOTE | 2017-03-11 08:31 | NUR ---
Social Work: APS Update [employer] received telephone notification from [facility] that the pt's case has been screened in and an investigation is pending. Reference number is [id number]. Radiologist Physician is Veronica Mcneil ([phone]). SORAYA Yuen Addendum: 03/11/17 at 1506 by TABATHA GERBER SS [employer] spoke with Veronica Mcneil with [facility]. Clinicals faxed to [phone]. She is aware pt has been made comfort care.
[2017-03-11] MEDS: Piperacillin-Tazo 3.375 Gm Inj 3.375 GM in Dextrose 5% Minibag Plus 50 ML IV SCH (10:30)
[2017-03-11] MEDS: Norepineph 8,000 mCg/250 mL NS 8,000 MCG in IV Premix 1 EACH IV SCH (12:16)
[2017-03-11 17:26] LABS: BASOPHILS % (AUTO) 0.2 % (0-3); EOSINOPHILS % (AUTO) 0.6 % (0-5); MONOCYTES % (AUTO) 12.3 % (4-12); Mean Corpuscular Hemoglobin 27.5 pg (27.0-35.0); Mean Corpuscular Volume 93.8 fL (81-100); Platelet Count 211 bil/L (150-400)
[2017-03-11 17:47] LABS: Magnesium 1.8 mg/dL (1.6-2.6); Phosphorus 9.3 mg/dL (2.5-4.9)
--- NOTE | 2017-03-11 18:43 | NUR ---
Comfort Care: Patient remains on comfort care. She recieved PRN pain and anxiety meds as needed. Her Family has been at her bedside throughout the day. Patient spoke with her family briefly this afternoon and then fell back to sleep and became non verbal again. Patients labs were3 drawn and remain out of range per MD . MD consulted with family RE plan of care.
[2017-03-11] MEDS: 0.9% Sodium Chloride 1,000 ML IV SCH ×2 (21:10→22:48)
[2017-03-11] MEDS: Calcium GLUCO 10% (Gm) Inj 2 GM in 0.9% Sodium Chloride 100 ML IV ONE ×2 (21:14→23:38)
--- NOTE | 2017-03-11 23:09 | NUR ---
Mentation Pt awakened when turned. She stated, "It hurts" and then repeatedly, "Water!" Given mouth swabs. NG draining light green fluid. Her FELDT score is 1. Appears comfortable. IVF started NS at 80cc/hr per MD orders. Explained all cares to family at bedside.
--- NOTE | 2017-03-12 00:24 | PCM.PNMED ---
Subjective Date of Service Mar 12, 2017 Subjective Patient apparently woke up this morning the first time since admission and said hello to all of her family members by name and when I entered the room this afternoon she asked me where Dr. Holley was and when I told her I was and that I did not know where Dr. Holley was she asked me "sorry you going to fix me". Patient remains somnolent. Easily arousable and conversant with family members in the room. Exam Vital Signs Vital Sign - Last Date Time Temp Pulse Resp B/P Pulse Ox O2 Delivery O2 Flow Rate FiO2 03/11/17 23:51 Supplement Oxygen 03/10/17 11:30 37.9 112 29 119/51 95 2.00 Intake and Output 03/11/17 03/11/17 03/12/17 Cumulative From/Thru 15:00 23:00 07:00 03/08/17 19:43 - 03/11/17 06:46 Intake Total 7387 ml Output Total 4900 ml Balance 2487 ml Intake Oral 0 ml IV Total 7387 ml Output Urine Total 2200 ml Stool Total 500 ml Gastric Drainage Total 2200 ml # Bowel Movements 7 Exam General: Patient is now waking up and speaking to family members as above. HEENT: Head is atraumatic and normocephalic. Eyes: Pupils are equally round and reactive to light and accommodation. Extraocular muscles are intact. Sclera are white, anicteric. Subconjunctival mucosa is pink. Ears are unremarkable. Nose is significant for an NG tube placed in the left nostril.. Oropharynx: There are no mucosal lesions, there is no thrush, there is no pharyngitis. However, mucosa is quite dry. Neck: Is supple, there are no nodes, or masses or tenderness. Chest: Is clear to auscultation and percussion. There are no rales, rhonchi, wheezes or rubs. Heart: Rate, rhythm is regular. There is no murmur, rub or gallop. Abdomen: Good bowel sounds are present. Abdomen is soft, nontender, no organomegaly or masses were appreciated. Extremities: Are symmetrical and well perfused. There is no edema, there is no cellulitis, no rash. Neurologic: There are no focal neurological deficits. Cranial nerves II through XII are intact. There are no sensory or motor deficits. Patient is somnolent. Psychiatric: Patients mood is calm and she shows no sign of agitation. Genital: Deferred Rectal: Deferred Lab and Diagnostics Result Diagram: 03/11/17 1715 03/11/17 171 Microbiology Urinalysis no pyuria Enteric pathogen stool profile - no C. difficile or other pathogen MRSA swab negative Strep pneumonia and legionella urinary antigens negative Blood culture 03/08/17 - 2 sets pending X-Rays, CTs and MRIs PROCEDURE: CT ABDOMEN AND PELVIS WITHOUT CONTRAST ([id number]) IMPRESSION: 1. Fluid and gas distention of the small and large bowel extending to the rectosigmoid colon distally without a focal transition point. The findings are suggestive of an ileus or gastroenteritis without definite obstruction. 2. Patchy groundglass opacities in the visualized lung bases with consolidation in the inferior right middle and lower lobes. The findings suggest aspiration with right basilar pneumonia. 3. Small atrophic left kidney. No hydronephrosis in the right the left kidney. Dictated by: Man Mcnulty M.D. on 03/08/2017 at 21:18 PROCEDURE: X-RAY CHEST ONE VIEW, PORTABLE ([id number]) IMPRESSION: 1. Right infrahilar consolidation redemonstrated as was increased bandlike opacities in the left base and bilateral patchy groundglass opacities. The findings are suggestive of multifocal pneumonia. Dictated by: Man Mcnulty M.D. on 03/08/2017 at 20:22 PROCEDURE: X-RAY CHEST ONE VIEW, PORTABLE ([id number]) IMPRESSION: Bilateral pneumonia slightly increased involving the left upper lobe. Dictated by: Joaquin Dickens RRA Interpreted: Maddi Banks MD on 03/09/2017 at 10:01 PROCEDURE: CT BRAIN WITHOUT CONTRAST ([id number]) IMPRESSION: 1. Limited study due to motion demonstrates no definite acute intracranial abnormality. Dictated by: Man Mcnulty M.D. on 03/08/2017 at 21:29 . 12-lead ECG Sinus tachycardia with left bundle branch block Assessment & Plan Ms. Beverly is a 76-year-old morbidly obese woman with an unfortunate history of Crohn's disease status post hemicolectomy, [id number] diabetes mellitus, hypertension, and metastatic breast cancer currently in remission, that presented to [facility] with a 2 day history of vomiting, diarrhea, abdominal pain , decreased appetite, altered mental status, lethargy. Information is primarily obtained from chart review, as patient has no family at bedside at time of admission, and is not responsive to questioning. She was admitted for evaluation and treatment of altered mental status, severe acute on chronic kidney injury, and suspected pneumonia, gastroenteritis. # Acute Encephalopathy, present on admission. Ongoing. Per documentation, patient was alert and oriented at baseline. Likely metabolic encephalopathy secondary to acidosis, uremia and elevated ammonia. Brain CT unremarkable - She is now starting to wake up. - Swallow eval - Avoid sedatives - Avoid anticholinergics and benzodiazepines # Acute on chronic kidney injury, present on admission. Oliguric. In setting of unilateral functioning kidney. Presumed prerenal azotemia, possibly ATN secondary to volume depletion.On admit: Creatinine 8.40; recent baseline is 1.15. - Moderate fluid resuscitation, but avoid precipitating pulmonary edema - Bicarbonate drip plus rehydration - Treat electrolyte disorders - We will likely need to re-consult Nephrology No meaningful improvement in renal function yet, patient's family indicates that dialysis will not be accepted as a treatment option. # High anion gap acidosis, acute, present on admission. On admit, calculated: 29, lactate is not elevated. Likely secondary to renal failure, pyroglutamate and D lactate possible - Replete fluids No meaningful improvement. # Hypotension, acute. Not present on admission. Patient developed mean arterial pressures less than 65 mmHg despite aggressive fluid hydration. - Place CVC to manage fluid resuscitation and pressors; IJ only to avoid interfering with potential dialysis catheter needs - Measure CVP - Pressors as needed - Maintain mean arterial pressure greater than 65, urine output greater than 0.5 ml/kg/hr # Abdomen pain, diarrhea and emesis, acute, present on admission. Diarrhea appears to be chronic related to Crohn disease, although possibly worse recently. The patient is immunocompromise on TNF alpha inhibitor. Differential diagnosis is Crohn disease, gastroenteritis, ischemic bowel, partial bowel obstruction. Acalculous cholecystitis is possible, although not supported by CT scan. C. difficile has been ruled out. - Nothing by mouth - NG tube to low suction - Gen. surgery consult to assess abdomen, they felt that there is no evidence of acute cholecystitis. # Radiographic pneumonia, likely acute, present on admission. Likely aspiration pneumonia pneumonitis versus pneumonia based on clinical context of recent severe emesis. At risk for healthcare associated PNA: Recent admission . In ED, patient received: linezolid, Levaquin, Zosyn - We will continue levaquin and zosyn; - Discontinue vanco due to MRSA-negative status low clinical probability of staphylococcal pneumonia, no changed medications this morning. # Elevated ammonia, chronicity unknown, present on admission. On admit: Ammonia 144. Liver transaminases unremarkable, synthetic function intact. Differential diagnosis hyperammonemia: hepatic disorders, portosystemic shunt, inborn errors of urea cycle metabolism, Teresita's syndrome, ureterosigmoidostomy, infection in nondraining bladder, drugs (cyanide, carbamazepine, valproic acid, iron, and cytotoxics can also cause secondary hyperammonemia.) - Lactulose when able to take by mouth # Hypocalcemia, hyperphosphatemia, present on admission. Presumed secondary to severe renal failure. Calcium phosphorus product is 43. - No parenteral calcium supplementation to avoid precipitating calciphylaxis - Nephrology service to consider phosphate binder, active vitamin D when patient is able to take by mouth # Diabetes mellitus, non-insulin using, chronic. Controlled. A1c 01/2017:5.6 - Frequently monitor capillary blood glucose - Glucose control goals: Random less than 180, fasting less than 140, none less than 70 - Insulin as needed, IV insulin while patient in CCU, then divided 50-50 long- acting and nutritional/correctional Resolving, stable and/or chronic problems: # Elevated troponins of undetermined significance, likely acute, present on admission. Monitor - Troponin profile does not suggest acute coronary syndrome # History of Crohn's colitis status post hemicolectomy, chronic. Recently initiated infliximab therapy. - May be contributing to electrolyte abnormalities which in turn may affect mental status - Labs # Goals of care, chronic. Discussed with 2 children at bedside today. Patient does not wish to be dependent on life support, or to live a chronically impaired lifestyle nursing facility. CODE STATUS: DO NOT RESUSCITATE, DO NOT INTUBATE in setting life-threatening arrhythmia, otherwise medical care Patient status: Due to severity of presented symptoms, likely course of events, and anticipated course of care, estimated length of stay exceeds two midnights; admitted as inpatient Patient appears to be waking up and family is now undecided as to what they wanted to the PO2 want to resume medical therapy for the patient as she is waking up and talking to all of them and asking me the doctor to fixer. We will continue to check labs and order some IV fluids and some IV calcium gluconate and see if the patient will make any meaningful improvement. We will continue have further discussions with the patient family and will likely reconsult palliative care. Pain Evaluation: Adequate Pain Control GI Prophylaxis: Not indicated VTE Prophylaxis: Sub-Q Heparin (Unfractionated) VTE Mechanical Devices: Intermittant Pneumatic CD Resuscitation Status: CPR: Attempt Resuscitation AlyceFox MD Mar 12, 2017 00:24
[2017-03-12] MEDS ORDERED: Piperacillin-Tazo 3.375 Gm Inj 3.375 GM in Dextrose 5% Minibag Plus 50 ML IV ONE (01:00)
--- NOTE | 2017-03-12 01:52 | NUR ---
GI Pt has large watery brown diarreah. Requires entire bed change Skin is irritated around the perineam. Camoseptime applied x 3 packages. The pt tolerated the movement/turning. Requested water multiple times. Given mouth swabs. Returned to sleep.
--- NOTE | 2017-03-12 06:14 | NUR ---
PO intake Pt requests again and again, "Water". Pt given mouth swabs and water. Family helping with the mouth swabs due to the constant request of the patient for water. I asked the familiy not to have the pt drink the water down via the mouth swabs. Mouth wash and mouth moisturizer at bedside. Will cont to monitor
[2017-03-12 06:28] LABS: BASOPHILS % (AUTO) 0.2 % (0-3); EOSINOPHILS % (AUTO) 1.2 % (0-5); MONOCYTES % (AUTO) 12.3 % (4-12); Mean Corpuscular Hemoglobin 27.7 pg (27.0-35.0); Mean Corpuscular Volume 94.9 fL (81-100); Platelet Count 236 bil/L (150-400)
[2017-03-12 07:40] LABS: Magnesium 1.8 mg/dL (1.6-2.6); Phosphorus 8.9 mg/dL (2.5-4.9)
[2017-03-12] MEDS: Piper-Tazo 3.375 Gm/50 mL D5W Minibag Plus - Q8H over 4 hrs IV SCH ×2 (12:13)
[2017-03-12] MEDS: 0.9% Sodium Chloride 1,000 ML IV SCH (12:15)
--- NOTE | 2017-03-12 14:19 | PCM.PNSURG ---
Subjective Date of Service: Mar 12, 2017 Date of Service: Mar 12, 2017 Visit Information: Reason for Visit Lc Ileus Pneumonia Surgery/Surgery Date Post-Op Day # Date of Admission: Mar 08, 2017 at 22:23 Hospital Day # Subjective: Patient is alert and oriented to place and month/year, and person. She continues to deny abdominal pain, nausea, vomiting, fever, chills, chest pain, shortness of breath, headache. She reports bowel movements, flatus. Objective Vital Sign- Last 8 Hours Date Time Temp Pulse Resp B/P Pulse Ox O2 Delivery O2 Flow Rate FiO2 03/12/17 09:00 Supplement Oxygen Intake and Output- Last 8 Hour 03/12/17 Cumulative From/Thru 07:00 03/08/17 19:43 - 03/12/17 06:12 Intake Total 621 ml 8008 ml Output Total 4900 ml Balance 621 ml 3108 ml Intake Oral 0 ml IV Total 621 ml 8008 ml Output Urine Total 2200 ml Stool Total 500 ml Gastric Drainage Total 2200 ml # Bowel Movements 7 General: Alert, Oriented X3, Cooperative, No Acute Distress, Anicteric Neck: Supple Lungs: Clear to Auscultation Heart: Exam Unremarkable Abdomen: Non-tender, Distended, Tympanic, Other (obese) Neuro: Cranial Nerves 2-12 nl, Other (speech slightly slurred. ) Result Diagram: 03/12/17 0600 03/12/17 0600 Assessment & Plan Impression 76yof with multiorgan dysfunction, no SBO, resolving illeus and AMS. Problems: Plan Comfort care measures were in place, however patient awoke and is nearly back to baseline mentally and patient and family is currently in the process of re- evaluating care plan. She states she would like surgery if necessary, but is apprehensive regarding hemo-dialysis, intubation and CPR. She is currently passing bowel and flatus, Okay from surgery standpoint to attempt clamp NG tube in a day and see if she tolerates it. Will consider additional CT scans, however patient's symptoms are resolving and is a poor surgical candidate. Consider gastroenterology consult as her current illness occurred just after use of Remicade. She also has had diverticular stricture in the past on colonoscopy, although it was not noted on later colonoscopies. Surgery will continue to follow along. Thank you for this most interesting consult. I have examined this patient and agree with the assessment and plan as noted above. I also discussed this with Jermain her son and Dr. Mead. Swati Parish MD VTE Prophylaxis: Sub-Q Heparin (Unfractionated) Resuscitation Status: CPR: Attempt Resuscitation [place] MENDIETA DO Mar 12, 2017 14:11 Swati Parish MD Mar 12, 2017 15:19
[2017-03-12 14:59] VITALS: BP 131/71; PULSE 100; RESP 15; O2SAT 93
--- NOTE | 2017-03-12 15:17 | NUR ---
NUTRITION ASSESSMENT: ASSESS: 76 YO female admitted for acute kidney injury, ileus with vomiting, diarrhea, abd. pain, decreased appetite, altered mental status and lethargy. Pt was placed on comfort measures, but has since become more alert and responsive. Per GI, ileus appears to be resolving as pt with BM and flatus. NG tube will be clamped today also. Pt has been NPO x 4 days. PMHx:Psoriasis, Crohn's, depression, anxiety, restless leg syndrome, DM type 2, insomnia, NANI, metastatic breast cancer, peripheral neuropathy, mitral value regurgitation. LABS: Reviewed. Na 149, BUN 117, Cr 7.52, Glu 117, Ca 5.4, Phos 8.9, Alb 3.2. MEDS: Reviewed. GI: BM x 1 today (diarrhea) and flatus. NG tube to be clamped today. CURRENT WT: 123.3 kg. IBW: 61.364. Adj BW: 76.85 kg. DIET: NPO x 4 days. EST. NEEDS (ELVIA, BMI): 2383-5441 kcals (25-30 kcals/kg Adj BW), 60-75 g protein (0.8-1.0 g/kg Adj BW) NUTRITION DIAGNOSIS: 1.) Inadequate oral intake related to decreased ability to consume sufficient energy as evidenced by current NPO x 4 days status. NUTRITION INTERVENTION: 1.) Will continue to await resolution of ileus and timely advancement of diet, hopefully within the next 24-48 hours. MONITOR / EVAL: Diet advancement / tolerance, labs, nutritional status. Follow per high nutritional risk guidelines.
--- NOTE | 2017-03-12 18:22 | NUR ---
Change of Status: Patient was changed from "comfort care status" to regular hospital status (patient continues to be DNR/DNI per MD) Patient woke up and is able to converse with her family and nursing staff members. Patient verbalized that she is not having anxiety or pain . Her IV fluids were restarted . Her IV ABT was restarted .Patients NG tube was clamped and turned off and left in place. She was started on a soft diet with honey thick liquids. Patient has been tolerating oral intake at this time without issues.Her Family is at bedside.
[2017-03-12 21:25] VITALS: BP 131/79; PULSE 99; RESP 20; O2SAT 92
[2017-03-13] MEDS: Piper-Tazo 3.375 Gm/50 mL D5W Minibag Plus - Q8H over 4 hrs IV SCH ×4 (00:30→14:08)
--- NOTE | 2017-03-13 00:45 | PCM.PNMED ---
Subjective Date of Service Mar 13, 2017 Subjective Patient is awake and alert and lucid. She is fully oriented to person time and place surroundings etc. She is very thirsty and wants to drink water. She has no other new complaints. Exam Vital Signs Vital Sign - Last Date Time Temp Pulse Resp B/P Pulse Ox O2 Delivery O2 Flow Rate FiO2 03/12/17 21:25 37.3 99 20 131/79 92 Nasal Cannula 2.00 Intake and Output 03/12/17 03/12/17 03/13/17 Cumulative From/Thru 15:00 23:00 07:00 03/08/17 19:43 - 03/12/17 18:41 Intake Total 0 ml 1139 ml 9147 ml Output Total 1525 ml 900 ml 7325 ml Balance -1525 ml 239 ml 1822 ml Intake Oral 0 ml 200 ml 200 ml IV Total 939 ml 8947 ml Output Urine Total 1075 ml 900 ml 4175 ml Stool Total 500 ml Gastric Drainage Total 450 ml 2650 ml # Bowel Movements 3 3 13 Exam General: Patient is now waking up and speaking to family members as above. She is fully oriented to person time and place and her surroundings etc. HEENT: Head is atraumatic and normocephalic. Eyes: Pupils are equally round and reactive to light and accommodation. Extraocular muscles are intact. Sclera are white, anicteric. Subconjunctival mucosa is pink. Ears are unremarkable. Nose is significant for an NG tube placed in the left nostril.. Oropharynx: There are no mucosal lesions, there is no thrush, there is no pharyngitis. However, mucosa is quite dry. Neck: Is supple, there are no nodes, or masses or tenderness. Chest: Is clear to auscultation and percussion. There are no rales, rhonchi, wheezes or rubs. Heart: Rate, rhythm is regular. There is no new murmur, rub or gallop. Abdomen: Good bowel sounds are present. Abdomen is obese, soft, nontender, no organomegaly or masses were appreciated. Extremities: Are symmetrical and well perfused. There is no edema, there is no cellulitis, no rash. Neurologic: There are no focal neurological deficits. Cranial nerves II through XII are intact. There are no sensory or motor deficits. Patient is now fully oriented to person time place and her surroundings. Psychiatric: Patients mood is calm and she shows no sign of agitation. Genital: Deferred Rectal: Deferred Lab and Diagnostics Result Diagram: 03/12/17 0600 03/12/17 0600 Microbiology Urinalysis no pyuria Enteric pathogen stool profile - no C. difficile or other pathogen MRSA swab negative Strep pneumonia and legionella urinary antigens negative Blood culture 03/08/17 - 2 sets pending X-Rays, CTs and MRIs PROCEDURE: CT ABDOMEN AND PELVIS WITHOUT CONTRAST ([id number]) IMPRESSION: 1. Fluid and gas distention of the small and large bowel extending to the rectosigmoid colon distally without a focal transition point. The findings are suggestive of an ileus or gastroenteritis without definite obstruction. 2. Patchy groundglass opacities in the visualized lung bases with consolidation in the inferior right middle and lower lobes. The findings suggest aspiration with right basilar pneumonia. 3. Small atrophic left kidney. No hydronephrosis in the right the left kidney. Dictated by: Man Mcnulty M.D. on 03/08/2017 at 21:18 PROCEDURE: X-RAY CHEST ONE VIEW, PORTABLE ([id number]) IMPRESSION: 1. Right infrahilar consolidation redemonstrated as was increased bandlike opacities in the left base and bilateral patchy groundglass opacities. The findings are suggestive of multifocal pneumonia. Dictated by: Man Mcnulty M.D. on 03/08/2017 at 20:22 PROCEDURE: X-RAY CHEST ONE VIEW, PORTABLE ([id number]) IMPRESSION: Bilateral pneumonia slightly increased involving the left upper lobe. Dictated by: Joaquin Dickens [facility] Interpreted: Maddi Banks MD on 03/09/2017 at 10:01 PROCEDURE: CT BRAIN WITHOUT CONTRAST ([id number]) IMPRESSION: 1. Limited study due to motion demonstrates no definite acute intracranial abnormality. Dictated by: Man Mcnulty M.D. on 03/08/2017 at 21:29 . 12-lead ECG Sinus tachycardia with left bundle branch block Assessment & Plan Ms. Beverly is a 76-year-old morbidly obese woman with an unfortunate history of Crohn's disease status post hemicolectomy, [id number] diabetes mellitus, hypertension, and metastatic breast cancer currently in remission, that presented to [facility] with a 2 day history of vomiting, diarrhea, abdominal pain , decreased appetite, altered mental status, lethargy. Information is primarily obtained from chart review, as patient has no family at bedside at time of admission, and is not responsive to questioning. She was admitted for evaluation and treatment of altered mental status, severe acute on chronic kidney injury, and suspected pneumonia, gastroenteritis. # Acute Encephalopathy, present on admission. Ongoing, however improving. Per documentation, patient was alert and oriented at baseline. Likely metabolic encephalopathy secondary to acidosis, uremia and elevated ammonia. Brain CT unremarkable - She is now awake and alert. - Repeat Swallow eval - Avoid sedatives - Avoid anticholinergics and benzodiazepines # Acute on chronic kidney injury, present on admission. Oliguric. In setting of unilateral functioning kidney. Presumed prerenal azotemia, possibly ATN secondary to volume depletion.On admit: Creatinine 8.40; recent baseline is 1.15. - Moderate fluid resuscitation, but avoid precipitating pulmonary edema - Bicarbonate drip plus rehydration - Treat electrolyte disorders - We will likely need to re-consult Nephrology No meaningful improvement in renal function yet, patient's family indicates that dialysis will not be accepted as a treatment option. # High anion gap acidosis, acute, present on admission. On admit, calculated: 29, lactate is not elevated. Likely secondary to renal failure, pyroglutamate and D lactate possible - Replete fluids No meaningful improvement. # Hypotension, acute. Not present on admission. Patient developed mean arterial pressures less than 65 mmHg despite aggressive fluid hydration. - Place CVC to manage fluid resuscitation and pressors; IJ only to avoid interfering with potential dialysis catheter needs - Measure CVP - Pressors as needed - Maintain mean arterial pressure greater than 65, urine output greater than 0.5 ml/kg/hr # Abdomen pain, diarrhea and emesis, acute, present on admission. Diarrhea appears to be chronic related to Crohn disease, although possibly worse recently. The patient is immunocompromise on TNF alpha inhibitor. Differential diagnosis is Crohn disease, gastroenteritis, ischemic bowel, partial bowel obstruction. Acalculous cholecystitis is possible, although not supported by CT scan. C. difficile has been ruled out. - Nothing by mouth - NG tube to low suction - Gen. surgery consult to assess abdomen, they felt that there is no evidence of acute cholecystitis. # Radiographic pneumonia, likely acute, present on admission. Likely aspiration pneumonia pneumonitis versus pneumonia based on clinical context of recent severe emesis. At risk for healthcare associated PNA: Recent admission . In ED, patient received: linezolid, Levaquin, Zosyn - We will continue levaquin and zosyn; - Discontinue vanco due to MRSA-negative status low clinical probability of staphylococcal pneumonia, no changed medications this morning. # Elevated ammonia, chronicity unknown, present on admission. On admit: Ammonia 144. Liver transaminases unremarkable, synthetic function intact. Differential diagnosis hyperammonemia: hepatic disorders, portosystemic shunt, inborn errors of urea cycle metabolism, Teresita's syndrome, ureterosigmoidostomy, infection in nondraining bladder, drugs (cyanide, carbamazepine, valproic acid, iron, and cytotoxics can also cause secondary hyperammonemia.) - Lactulose when able to take by mouth # Hypocalcemia, hyperphosphatemia, present on admission. Presumed secondary to severe renal failure. Calcium phosphorus product is 43. - No parenteral calcium supplementation to avoid precipitating calciphylaxis - Nephrology service to consider phosphate binder, active vitamin D when patient is able to take by mouth # Diabetes mellitus, non-insulin using, chronic. Controlled. A1c 01/2017:5.6 - Frequently monitor capillary blood glucose - Glucose control goals: Random less than 180, fasting less than 140, none less than 70 - Insulin as needed, IV insulin while patient in CCU, then divided 50-50 long- acting and nutritional/correctional Resolving, stable and/or chronic problems: # Elevated troponins of undetermined significance, likely acute, present on admission. Monitor - Troponin profile does not suggest acute coronary syndrome # History of Crohn's colitis status post hemicolectomy, chronic. Recently initiated infliximab therapy. - May be contributing to electrolyte abnormalities which in turn may affect mental status - Labs # Goals of care, chronic. Discussed with 2 children at bedside today. Patient does not wish to be dependent on life support, or to live a chronically impaired lifestyle nursing facility. CODE STATUS: DO NOT RESUSCITATE, DO NOT INTUBATE in setting life-threatening arrhythmia, otherwise medical care Patient status: Due to severity of presented symptoms, likely course of events, and anticipated course of care, estimated length of stay exceeds two midnights; admitted as inpatient Patient appears to be waking up and family is now undecided as to what they wanted to the PO2 want to resume medical therapy for the patient as she is waking up and talking to all of them and asking me the doctor to fix her. We will continue to check labs and order some IV fluids and IV antibiotics and some IV calcium gluconate and see if the patient will make any meaningful improvement. We will continue have further discussions with the patient and family Pain Evaluation: Adequate Pain Control GI Prophylaxis: Not indicated VTE Prophylaxis: Sub-Q Heparin (Unfractionated) VTE Mechanical Devices: Intermittant Pneumatic CD Resuscitation Status: CPR: Attempt Resuscitation Fox Mead MD Mar 13, 2017 00:45
--- NOTE | 2017-03-13 00:49 | PCM.ADCARE ---
Advance Care Planning Note Purpose of Encounter: To establish goals of care Parties in Attendance: The patient was fully lucid alert and oriented at this time. The patient's son The patient's brother. Decisional Capacity: The patient is now in her right mind to make her own decisions. She is fully alert to person time including date and place. She is fully aware of her surroundings. She is fully aware of her situation. Subjective: Patient has made remarkable improvement since the last advanced care planning meeting Objective: The patient is much more awake alert and again fully oriented. For further physical exam see today's progress note. Goals of Care Determinations: The patient would like everything done to save her life. In the event of cardiopulmonary arrest she would like to be a DO NOT RESUSCITATE DO NOT INTUBATE. However, up to the point she would like everything done including intensive care and possibly even dialysis. Plan: Will begin to reinstitute aggressive medical care. Patient will remain a DNR/ DNI. I have contacted several of her specialists including gastroenterology and nephrology and surgery. I have received their input and will follow their recommendations. CODE STATUS: Patient has remain DNR/DNI Time Spent Adv.Care Planning: Approximately 30 minutes of time was taken in this advanced care planning meeting. Adv. Care Plan Documenation: See above. Fox Mead MD Mar 13, 2017 00:49
[2017-03-13] MEDS: 0.9% Sodium Chloride 1,000 ML IV SCH ×2 (01:13→12:53)
[2017-03-13 05:19] LABS: BASOPHILS % (AUTO) 0.2 % (0-3); EOSINOPHILS % (AUTO) 1.6 % (0-5); Mean Corpuscular Hemoglobin 27.4 pg (27.0-35.0); Mean Corpuscular Volume 95.9 fL (81-100); NEUTROPHILS % (AUTO) 68.8 % (40-74); Platelet Count 217 bil/L (150-400)
[2017-03-13 05:47] LABS: Phosphorus 6.7 mg/dL (2.5-4.9)
[2017-03-13 05:50] VITALS: BP 132/69; PULSE 95; RESP 20; O2SAT 90
[2017-03-13] MEDS ORDERED: Calcium GLUCO 10% (Gm) Inj 2 GM in 0.9% Sodium Chloride 100 ML IV ONE (09:00)
[2017-03-13] MEDS ORDERED: Magnesium Sulf 2 Gm/50mL Water 2 GM in IV Premix 1 EACH IV ONE (09:00)
[2017-03-13] MEDS ORDERED: KCl 40 mEq/D5W 500 mL 40 MEQ in IV Premix 1 EACH IV ONE (09:00)
--- NOTE | 2017-03-13 10:42 | PROG NOTE ---
[address] [address] PROGRESS NOTE PATIENT: ELIZABETH HAWTHORNE I : 1940 MR#: [id number] ADMIT: 03/08/2017 JOB ID: [id number] DATE: 03/13/2017 SUBJECTIVE: She remains lethargic but conversant and oriented. Vital signs are stable. She put 450 cc out of her gastric drain over the previous 24 hours, though did take in 200 cc orally during that time. She is having frequent bowel movements. OBJECTIVE: Abdominal exam is relatively benign, though difficult to assess, given her BMI of 42. LABORATORIES: Her white count is normal. Her hematocrit is 28. Her creatinine has dropped down to 6.54. IMPRESSION AND PLAN: I have reviewed her CT from the . At this point, I do not see any sign of significant mechanical obstruction. I will discuss the case with the hospitalist today, and General Surgery will continue to follow her.
[2017-03-13 13:14] VITALS: BP 119/67; PULSE 97; RESP 20; O2SAT 87
--- NOTE | 2017-03-13 13:52 | NUR ---
[facility] signed
--- NOTE | 2017-03-13 17:58 | NUR ---
appetite/agitation/IVF patient has refused oral nutrition but enjoys ice chips. magic cups provided and encouraged denied nausea but stated that she needed to throw up-lots of reassurance, encouraged slow breathing. son in room asked for ativan which helped with previous nausea. intermittent suctioning hooked up to NG tube. drained 200ml of grain-thin liquid. notified. tolerated IVF/antibiotics well. Addendum: 03/13/17 at 1854 by PHNOG GARDUNO RN I agree with above SRN note.
[2017-03-13] MEDS: Lactulose 20 Gm/30 mL 30 mL Syrup PO SCH (18:09)
[2017-03-13 20:20] VITALS: O2SAT 93
[2017-03-13 21:34] VITALS: BP 151/82; PULSE 98; RESP 20; O2SAT 88
--- NOTE | 2017-03-13 21:41 | PCM.PNMED ---
Subjective Date of Service Mar 13, 2017 Subjective Patient appears slightly less responsive late this morning. Apparently earlier in the morning she was more responsive. She has been asking for water and does not want to drink water with thickened and it she is taking ice chips. She has no other new complaints. Exam Vital Signs Vital Sign - Last Date Time Temp Pulse Resp B/P Pulse Ox O2 Delivery O2 Flow Rate FiO2 03/13/17 13:14 37.1 97 20 119/67 87 Nasal Cannula 2.00 Intake and Output 03/12/17 03/12/17 03/13/17 Cumulative From/Thru 15:00 23:00 07:00 03/08/17 19:43 - 03/12/17 18:41 Intake Total 0 ml 1139 ml 9147 ml Output Total 1525 ml 900 ml 7325 ml Balance -1525 ml 239 ml 1822 ml Intake Oral 0 ml 200 ml 200 ml IV Total 939 ml 8947 ml Output Urine Total 1075 ml 900 ml 4175 ml Stool Total 500 ml Gastric Drainage Total 450 ml 2650 ml # Bowel Movements 3 3 13 Exam General: Patient is slightly less interactive today and slightly more somnolent today. She remains fully oriented to person time and place and her surroundings etc. HEENT: Head is atraumatic and normocephalic. Eyes: Pupils are equally round and reactive to light and accommodation. Extraocular muscles are intact. Sclera are white, anicteric. Subconjunctival mucosa is pink. Ears are unremarkable. Nose is significant for an NG tube placed in the left nostril.. Oropharynx: There are no mucosal lesions, there is no thrush, there is no pharyngitis. However, mucosa is quite dry. Neck: Is supple, there are no nodes, or masses or tenderness. Chest: Is clear to auscultation and percussion. There are no rales, rhonchi, wheezes or rubs. Heart: Rate, rhythm is regular. There is no new murmur, rub or gallop. Abdomen: Good bowel sounds are present. Abdomen is obese, soft, nontender, no organomegaly or masses were appreciated. Extremities: Are symmetrical and well perfused. There is no edema, there is no cellulitis, no rash. Neurologic: There are no focal neurological deficits. Cranial nerves II through XII are intact. There are no sensory or motor deficits. Patient is now fully oriented to person, time, place and her surroundings. Psychiatric: Patients mood is calm and she shows no sign of agitation. Genital: Deferred Rectal: Deferred Lab and Diagnostics Result Diagram: 03/13/17 0503/13/17 05 Microbiology Urinalysis no pyuria Enteric pathogen stool profile - no C. difficile or other pathogen MRSA swab negative Strep pneumonia and legionella urinary antigens negative Blood culture 03/08/17 - 2 sets pending X-Rays, CTs and MRIs PROCEDURE: CT ABDOMEN AND PELVIS WITHOUT CONTRAST ([id number]) IMPRESSION: 1. Fluid and gas distention of the small and large bowel extending to the rectosigmoid colon distally without a focal transition point. The findings are suggestive of an ileus or gastroenteritis without definite obstruction. 2. Patchy groundglass opacities in the visualized lung bases with consolidation in the inferior right middle and lower lobes. The findings suggest aspiration with right basilar pneumonia. 3. Small atrophic left kidney. No hydronephrosis in the right the left kidney. Dictated by: Man Mcnulty M.D. on 03/08/2017 at 21:18 PROCEDURE: X-RAY CHEST ONE VIEW, PORTABLE ([id number]) IMPRESSION: 1. Right infrahilar consolidation redemonstrated as was increased bandlike opacities in the left base and bilateral patchy groundglass opacities. The findings are suggestive of multifocal pneumonia. Dictated by: Man Mcnulty M.D. on 03/08/2017 at 20:22 PROCEDURE: X-RAY CHEST ONE VIEW, PORTABLE ([id number]) IMPRESSION: Bilateral pneumonia slightly increased involving the left upper lobe. Dictated by: Joaquin Dickens [facility] Interpreted: Maddi Banks MD on 03/09/2017 at 10:01 PROCEDURE: CT BRAIN WITHOUT CONTRAST ([id number]) IMPRESSION: 1. Limited study due to motion demonstrates no definite acute intracranial abnormality. Dictated by: Man Mcnulty M.D. on 03/08/2017 at 21:29 . 12-lead ECG Sinus tachycardia with left bundle branch block Cardiac Echo Impressions Echocardiogram Report Name: ELIZABETH BEVERLY IStudy Date: Height: 67 in Hospital Exam Location: [facility] Weight: 291 lb Gender: Female BSA: 2.4 m2 : 1940 Age: 76 yrs BP: 109/71 mmHg Reason For Study: BREAST CANCER Ordering Physician: Performed By: Kori Keller Interpretation Summary Left ventricular systolic function is mildly reduced with the ejection fraction visually estimated to be 45-50% with borderline global hypokinesis and more severe hypokinesis in the inferior and inferoposterior segments but this appears unchanged compared to the previous study. There are no other obvious focal wall motion abnormalities and there has been no significant change since the previous study. There is borderline concentric left ventricular hypertrophy and assessment of diastolic parameters indicates a relaxation abnormality of the left ventricle, although the E/E' ratio is mildly increased, suggesting possible increased filling pressures, perhaps slightly higher compared to the previous study. The right ventricle is borderline dilated and right ventricular systolic function is mildly reduced but likely unchanged compared to the previous study. The right ventricular systolic pressure is estimated to be at least 38 mmHg assuming a right atrial pressure of 8 mm Hg, but could be higher. Comparison with the previous study is not possible because this was not assessed on the previous study. The left atrium is mildly dilated. There is no significant valvular heart disease. The ascending aorta is mildly enlarged. There is no pericardial effusion or pleural effusion seen. The patient was in normal sinus rhythm with heart rates between 85-105 bpm during the study which is somewhat slower compared to the previous study. Assessment & Plan Ms. Beverly is a 76-year-old morbidly obese woman with an unfortunate history of Crohn's disease status post hemicolectomy, iys-zqvowsa-tqczruyar diabetes mellitus, hypertension, and metastatic breast cancer currently in remission, that presented to [facility] with a 2 day history of vomiting, diarrhea, abdominal pain , decreased appetite, altered mental status, lethargy. Information is primarily obtained from chart review, as patient has no family at bedside at time of admission, and is not responsive to questioning. She was admitted for evaluation and treatment of altered mental status, severe acute on chronic kidney injury, and suspected pneumonia, gastroenteritis. # Acute Encephalopathy, present on admission. Ongoing, however improving. Per documentation, patient was alert and oriented at baseline. Likely metabolic encephalopathy secondary to acidosis, uremia and elevated ammonia. Brain CT unremarkable - She is now awake and alert. - Repeat Swallow eval, speech therapy has been re-consulted - Avoid sedatives - Avoid anticholinergics and benzodiazepines # Acute on chronic kidney injury, present on admission. Oliguric. In setting of unilateral functioning kidney. Presumed prerenal azotemia, possibly ATN secondary to volume depletion.On admit: Creatinine 8.40; recent baseline is 1.15. - Moderate fluid resuscitation, but avoid precipitating pulmonary edema - Bicarbonate drip plus rehydration was given. Patient is now off the bicarbonate drip and on gentle IV hydration. It appears patient may now be in the diuretic phase of acute tubular necrosis. - Treat electrolyte disorders - We will likely need to re-consult Nephrology # Chronic systolic congestive heart failure - See echocardiogram report as above - We will start carvedilol low-dose in a.m. - Unable to start NATHALIE inhibitor or ARB due to renal failure - Hold diuretics at this time as patient appears to be in the diuretic phase of acute tubular necrosis. The diuretic phase may be hampered somewhat by the fact that the patient has a solitary kidney. # High anion gap acidosis, acute, present on admission. On admit, calculated: 29, lactate is not elevated. Likely secondary to renal failure, pyroglutamate and D lactate possible - Replete fluids - Improved # Hypotension, acute. Not present on admission. Resolved Patient developed mean arterial pressures less than 65 mmHg despite aggressive fluid hydration. - Place CVC to manage fluid resuscitation and pressors; IJ only to avoid interfering with potential dialysis catheter needs - Measure CVP - Pressors as needed - Maintain mean arterial pressure greater than 65, urine output greater than 0.5 ml/kg/hr # Abdomen pain, diarrhea and emesis, acute, present on admission. Diarrhea appears to be chronic related to Crohn disease, although possibly worse recently. The patient is immunocompromise on TNF alpha inhibitor. Differential diagnosis is Crohn disease, gastroenteritis, ischemic bowel, partial bowel obstruction. Acalculous cholecystitis is possible, although not supported by CT scan. C. difficile has been ruled out. - Nothing by mouth - NG tube to low suction - Gen. surgery consult to assess abdomen, they felt that there is no evidence of acute cholecystitis. - Discussed with Dr. Nasim Doan today and appreciate his follow-up. There does not appear to be any current bowel obstruction. However, will leave NG tube in place for now and she stills appears to have some gastric significant gastric residual. # Radiographic pneumonia, likely acute, present on admission. Likely aspiration pneumonia pneumonitis versus pneumonia based on clinical context of recent severe emesis. At risk for healthcare associated PNA: Recent admission . In ED, patient received: linezolid, Levaquin, Zosyn - We will continue Zosyn alone for now; - Discontinue vanco due to MRSA-negative status low clinical probability of staphylococcal pneumonia, no changed medications this morning. # Elevated ammonia, chronicity unknown, present on admission. On admit: Ammonia 144. Liver transaminases unremarkable, synthetic function intact. Differential diagnosis hyperammonemia: hepatic disorders, portosystemic shunt, inborn errors of urea cycle metabolism, Teresita's syndrome, ureterosigmoidostomy, infection in nondraining bladder, drugs (cyanide, carbamazepine, valproic acid, iron, and cytotoxics can also cause secondary hyperammonemia.) - Lactulose when able to take by mouth - We will repeat ammonia level in a.m. # Hypocalcemia, hyperphosphatemia, present on admission. Presumed secondary to severe renal failure. Calcium phosphorus product is 43. - No parenteral calcium supplementation to avoid precipitating calciphylaxis - Nephrology service to consider phosphate binder, active vitamin D when patient is able to take by mouth # Diabetes mellitus, non-insulin using, chronic. Controlled. A1c 01/2017:5.6 - Frequently monitor capillary blood glucose - Glucose control goals: Random less than 180, fasting less than 140, none less than 70 - Insulin as needed, IV insulin while patient in CCU, then divided 50-50 long- acting and nutritional/correctional Resolving, stable and/or chronic problems: # Elevated troponins of undetermined significance, likely acute, present on admission. Monitor - Troponin profile does not suggest acute coronary syndrome # History of Crohn's colitis status post hemicolectomy, chronic. Recently initiated infliximab therapy. - May be contributing to electrolyte abnormalities which in turn may affect mental status - Labs Patient appears to be waking up and family is now undecided as to what they wanted to the PO2 want to resume medical therapy for the patient as she is waking up and talking to all of them and asking me the doctor to fix her. We will continue to check labs and order some IV fluids and IV antibiotics and some IV calcium gluconate and see if the patient will make any meaningful improvement. We will continue have further discussions with the patient and family Pain Evaluation: Adequate Pain Control GI Prophylaxis: Not indicated VTE Prophylaxis: Sub-Q Heparin (Unfractionated) VTE Mechanical Devices: Venous Foot Pump Resuscitation Status: CPR: Attempt Resuscitation Fox Mead MD Mar 13, 2017 21:41 VTE Mechanical Devices: Venous Foot Pump Resuscitation Status: CPR: Attempt Resuscitation Fox Mead MD Mar 13, 2017 21:41
[2017-03-13 21:50] VITALS: O2SAT 94
[2017-03-14] MEDS: Piper-Tazo 3.375 Gm/50 mL D5W Minibag Plus - Q8H over 4 hrs IV SCH ×4 (01:05→17:52)
[2017-03-14] MEDS: 0.9% Sodium Chloride 1,000 ML IV SCH ×2 (01:07→04:36)
[2017-03-14 05:35] VITALS: BP 131/73; PULSE 96; RESP 18; O2SAT 92
--- NOTE | 2017-03-14 07:18 | NUR ---
BM Pt large incontinent liquid brown stool flowing from bed to the floor at evening. 11 BM at dayshift per documentation. Dr. Alvarez paged for order fecal management system, not order given.
--- NOTE | 2017-03-14 07:51 | DRSVH ---
PROCEDURE: X-RAY CHEST ONE VIEW, PORTABLE ([id number]) INDICATIONS: follow-up for pulmonary edema? TECHNIQUE: One view of the chest was acquired. COMPARISON: [facility], CR, XR CHEST 1VW (PORTABLE), 03/09/2017, 17:59. FINDINGS: Surgical changes and devices: Right-sided central venous catheters present with the tip overlying the mid SVC. Lungs and pleura: Poor expiratory effort is present. There is persistent appearance of multifocal opa cities, although minimally less prominent when compared to prior exam. Minor right basilar opacity is present, likely atelectasis. Mediastinum: Mediastinal contours appear normal. Heart size is normal. Bones and chest wall: No suspicious bony lesions. Overlying soft tissues appear unremarkable. IMPRESSION: Minimal interval improvement of previous bilateral patchy opacities. Dictated by: Annette Freitas M.D. on 03/14/2017 at 7:48 Approved by: Annette Freitas M.D. on 03/14/2017 at 7:49
[2017-03-14 07:54] LABS: BASOPHILS % (AUTO) 0.3 % (0-3); EOSINOPHILS % (AUTO) 2.6 % (0-5); MONOCYTES % (AUTO) 12.9 % (4-12); Mean Corpuscular Hemoglobin 27.6 pg (27.0-35.0); Mean Corpuscular Volume 92.4 fL (81-100); NEUTROPHILS % (AUTO) 62.4 % (40-74); Platelet Count 252 bil/L (150-400)
[2017-03-14 08:52] LABS: Magnesium 1.8 mg/dL (1.6-2.6); Phosphorus 4.5 mg/dL (2.5-4.9)
[2017-03-14] MEDS: Lactulose 20 Gm/30 mL 30 mL Syrup PO SCH (10:12)
[2017-03-14] MEDS ORDERED: Potassium Chloride 20 mEq/15 mL 15mL Oral Soln PO ONE (10:20)
[2017-03-14] MEDS ORDERED: Magnesium Sulf 2 Gm/50mL Water 2 GM in IV Premix 1 EACH IV ONE (10:20)
[2017-03-14] MEDS ORDERED: Calcium GLUCO 10% (Gm) Inj 2 GM in 0.9% Sodium Chloride 100 ML IV ONE (10:20)
--- NOTE | 2017-03-14 13:45 | NUR ---
Evaluation completed. Please go to "Notes" then click on "Assessments and Notes" (bottom left corner of screen). Then select appropriate discipline tab on top of screen.
[2017-03-14 14:23] VITALS: BP 156/82; PULSE 89; RESP 17; O2SAT 92
--- NOTE | 2017-03-14 15:54 | NUR ---
Social work: Brief Note Data & Assessment: EMR reviewed. Patient is a 76 y/o female that admitted for ELVIA ileus Pneumonia and is on her sixth day of hospitalization. Patient was discussed in morning rounds and is not medically ready for discharge, but she is no longer on comfort care as she previously was. Physician ordered a ST evaluation. Patient has a current APS investigation is pending. Reference number is [id number]. SW call claims investigator Veronica Mcneil ([phone]) and attempted to give an update on the patient's status. There was no answer. SW left a voicemail requesting a call back. SW will continue to follow and assist patient throughout stay. Plan: SW will continue to follow patient for discharge planning needs. Chichi Arrieta LMSW, [place]
--- NOTE | 2017-03-14 16:51 | NUR ---
Patient pulled central line out Patient pulled her central line out at approx. 1130. Central Line intact. No bleeding on the site. placed a 2x2 Norris with Tegaderm on site. Notified MD, and IV therapy. MD ordered new PICC line to be inserted on patient. Patient refused. At 1400 MD talked to the patient and patient agreed to have PICC line inserted. IV therapy finishing PICC line insertion at this time.
--- NOTE | 2017-03-14 17:34 | DRSVH ---
PROCEDURE: X-RAY PICC LINE PLACEMENT BY NURSE ([id number]) INDICATIONS: Multiple IV infusion needed COMPARISON: None. FINDINGS: PICC was placed by the intravenous therapy team from the right side. Fluoroscopic spot fi lm demonstrates tip of PICC overlying the distal SVC/right atrial junction. IMPRESSION: Tip of PICC overlies the distal SVC/right atrial junction. Dictated by: Annette Freitas M.D. on 03/14/2017 at 17:32 Approved by: Annette Freitas M.D. on 03/14/2017 at 17:32
--- NOTE | 2017-03-14 18:29 | PROG NOTE ---
[address] [address] PROGRESS NOTE PATIENT: ELIZABETH HAWTHORNE I : 1940 MR#: [id number] ADMIT: 03/08/2017 JOB ID: [id number] DATE: 03/14/2017 The patient continues to improve with improved lucidity, stable vital signs and a decreasing creatinine. However, she continues with a high NG output and frequent bowel movements. I do not believe she requires surgical intervention at this point. I would leave her nasogastric tube in place for the time being given its high output. General Surgery will continue to follow her.
[2017-03-14] MEDS: Ondansetron 2 mg/mL 2 mL Inj IVPUSH PRN (19:40)
[2017-03-14 21:35] VITALS: BP 146/74; PULSE 95; RESP 18; O2SAT 96
[2017-03-15] MEDS: 0.9% Sodium Chloride 1,000 ML IV SCH ×2 (00:41→12:54)
--- NOTE | 2017-03-15 03:13 | PCM.PNMED ---
Subjective Date of Service March 14, 2017 Subjective Patient stated that she was "bad today" as she pulled out her central line. Her son Jermain stated that she awakened from a deep sleep and realized that her son was not there and was angry and pulled out her line. Patient agrees to keep PICC line in and agrees to PICC line placement. Exam Vital Signs Vital Sign - Last Date Time Temp Pulse Resp B/P Pulse Ox O2 Delivery O2 Flow Rate FiO2 03/14/17 21:35 36.9 95 18 146/74 96 OxyMask 2.00 Intake and Output 03/14/17 03/14/17 03/15/17 Cumulative From/Thru 15:00 23:00 07:00 03/08/17 19:43 - 03/14/17 19:30 Intake Total 1200 ml 64614 ml Output Total 1050 ml 850 ml 07677 ml Balance -1050 ml 350 ml 662 ml Intake Oral 1200 ml 1450 ml IV Total 75083 ml Output Urine Total 850 ml 7595 ml Stool Total 500 ml Gastric Drainage Total 1050 ml 5150 ml # Bowel Movements 2 27 Exam General: Patient is slightly more interactive today and in better spirits. She remains fully oriented to person time and place and her surroundings etc. HEENT: Head is atraumatic and normocephalic. Eyes: Pupils are equally round and reactive to light and accommodation. Extraocular muscles are intact. Sclera are white, anicteric. Subconjunctival mucosa is pink. Ears are unremarkable. Nose is significant for an NG tube placed in the left nostril.. Oropharynx: There are no mucosal lesions, there is no thrush, there is no pharyngitis. However, mucosa is quite dry. Neck: Is supple, there are no nodes, or masses or tenderness. Chest: Is clear to auscultation and percussion. There are no rales, rhonchi, wheezes or rubs. Heart: Rate, rhythm is regular. There is no new murmur, rub or gallop. Abdomen: Good bowel sounds are present. Abdomen is obese, soft, nontender, no organomegaly or masses were appreciated. Extremities: Are symmetrical and well perfused. There is 2+ edema on all 4 extremities. There is no cellulitis, no rash. Neurologic: There are no focal neurological deficits. Cranial nerves II through XII are intact. There are no sensory or motor deficits. Patient is now fully oriented to person, time, place and her surroundings. Psychiatric: Patients mood is calm and she shows no sign of agitation. Genital: Deferred Rectal: Deferred Lab and Diagnostics Result Diagram: 03/14/17 0740 03/14/17 0740 Microbiology Urinalysis no pyuria Enteric pathogen stool profile - no C. difficile or other pathogen MRSA swab negative Strep pneumonia and legionella urinary antigens negative Blood culture 03/08/17 - 2 sets pending X-Rays, CTs and MRIs PROCEDURE: CT ABDOMEN AND PELVIS WITHOUT CONTRAST ([id number]) IMPRESSION: 1. Fluid and gas distention of the small and large bowel extending to the rectosigmoid colon distally without a focal transition point. The findings are suggestive of an ileus or gastroenteritis without definite obstruction. 2. Patchy groundglass opacities in the visualized lung bases with consolidation in the inferior right middle and lower lobes. The findings suggest aspiration with right basilar pneumonia. 3. Small atrophic left kidney. No hydronephrosis in the right the left kidney. Dictated by: Man Mcnulty M.D. on 03/08/2017 at 21:18 PROCEDURE: X-RAY CHEST ONE VIEW, PORTABLE ([id number]) IMPRESSION: 1. Right infrahilar consolidation redemonstrated as was increased bandlike opacities in the left base and bilateral patchy groundglass opacities. The findings are suggestive of multifocal pneumonia. Dictated by: Man Mcnulty M.D. on 03/08/2017 at 20:22 PROCEDURE: X-RAY CHEST ONE VIEW, PORTABLE ([id number]) IMPRESSION: Bilateral pneumonia slightly increased involving the left upper lobe. Dictated by: Joaquin Dickens [facility] Interpreted: Maddi Banks MD on 03/09/2017 at 10:01 PROCEDURE: CT BRAIN WITHOUT CONTRAST ([id number]) IMPRESSION: 1. Limited study due to motion demonstrates no definite acute intracranial abnormality. Dictated by: Man Mcnulty M.D. on 03/08/2017 at 21:29 . 12-lead ECG Sinus tachycardia with left bundle branch block Cardiac Echo Impressions Echocardiogram Report Name: ELIZABETH BEVERLY IStudy Date: Height: 67 in Hospital Exam Location: [facility] Weight: 291 lb Gender: Female BSA: 2.4 m2 : 1940 Age: 76 yrs BP: 109/71 mmHg Reason For Study: BREAST CANCER Ordering Physician: Performed By: Kori Keller Interpretation Summary Left ventricular systolic function is mildly reduced with the ejection fraction visually estimated to be 45-50% with borderline global hypokinesis and more severe hypokinesis in the inferior and inferoposterior segments but this appears unchanged compared to the previous study. There are no other obvious focal wall motion abnormalities and there has been no significant change since the previous study. There is borderline concentric left ventricular hypertrophy and assessment of diastolic parameters indicates a relaxation abnormality of the left ventricle, although the E/E' ratio is mildly increased, suggesting possible increased filling pressures, perhaps slightly higher compared to the previous study. The right ventricle is borderline dilated and right ventricular systolic function is mildly reduced but likely unchanged compared to the previous study. The right ventricular systolic pressure is estimated to be at least 38 mmHg assuming a right atrial pressure of 8 mm Hg, but could be higher. Comparison with the previous study is not possible because this was not assessed on the previous study. The left atrium is mildly dilated. There is no significant valvular heart disease. The ascending aorta is mildly enlarged. There is no pericardial effusion or pleural effusion seen. The patient was in normal sinus rhythm with heart rates between 85-105 bpm during the study which is somewhat slower compared to the previous study. Assessment & Plan Ms. Beverly is a 76-year-old morbidly obese woman with an unfortunate history of Crohn's disease status post hemicolectomy, [id number] diabetes mellitus, hypertension, and metastatic breast cancer currently in remission, that presented to [facility] with a 2 day history of vomiting, diarrhea, abdominal pain , decreased appetite, altered mental status, lethargy. Information is primarily obtained from chart review, as patient has no family at bedside at time of admission, and is not responsive to questioning. She was admitted for evaluation and treatment of altered mental status, severe acute on chronic kidney injury, and suspected pneumonia, gastroenteritis. # Acute Encephalopathy, present on admission. Ongoing, however improving. Per documentation, patient was alert and oriented at baseline. Likely metabolic encephalopathy secondary to acidosis, uremia and elevated ammonia. Brain CT unremarkable - She is now awake and alert. - Repeat Swallow eval, speech therapy has been re-consulted - Avoid sedatives - Avoid anticholinergics and benzodiazepines # Acute on chronic kidney injury, present on admission. Oliguric. In setting of unilateral functioning kidney. Presumed prerenal azotemia, possibly ATN secondary to volume depletion.On admit: Creatinine 8.40; recent baseline is 1.15. - Moderate fluid resuscitation, but avoid precipitating pulmonary edema - Bicarbonate drip plus rehydration was given. Patient is now off the bicarbonate drip and on gentle IV hydration. It appears patient may now be in the diuretic phase of acute tubular necrosis. - Treat electrolyte disorders - We will likely need to re-consult Nephrology # Chronic systolic congestive heart failure - See echocardiogram report as above - We will start carvedilol low-dose in a.m. - Unable to start NATHALIE inhibitor or ARB due to renal failure - Hold diuretics at this time as patient appears to be in the diuretic phase of acute tubular necrosis. The diuretic phase may be hampered somewhat by the fact that the patient has a solitary kidney. # High anion gap acidosis, acute, present on admission. On admit, calculated: 29, lactate is not elevated. Likely secondary to renal failure, pyroglutamate and D lactate possible - Replete fluids - Improved # Hypotension, acute. Not present on admission. Resolved Patient developed mean arterial pressures less than 65 mmHg despite aggressive fluid hydration. - Place CVC to manage fluid resuscitation and pressors; IJ only to avoid interfering with potential dialysis catheter needs - Measure CVP - Pressors as needed - Maintain mean arterial pressure greater than 65, urine output greater than 0.5 ml/kg/hr # Abdomen pain, diarrhea and emesis, acute, present on admission. Diarrhea appears to be chronic related to Crohn disease, although possibly worse recently. The patient is immunocompromise on TNF alpha inhibitor. Differential diagnosis is Crohn disease, gastroenteritis, ischemic bowel, partial bowel obstruction. Acalculous cholecystitis is possible, although not supported by CT scan. C. difficile has been ruled out. - Nothing by mouth - NG tube to low suction - Gen. surgery consult to assess abdomen, they felt that there is no evidence of acute cholecystitis. - Discussed with Dr. Nasim Doan today and appreciate his follow-up. There does not appear to be any current bowel obstruction. However, will leave NG tube in place for now and she stills appears to have some gastric significant gastric residual. # Radiographic pneumonia, likely acute, present on admission. Likely aspiration pneumonia pneumonitis versus pneumonia based on clinical context of recent severe emesis. At risk for healthcare associated PNA: Recent admission . In ED, patient received: linezolid, Levaquin, Zosyn - We will continue Zosyn alone for now; - Discontinue vanco due to MRSA-negative status low clinical probability of staphylococcal pneumonia, no changed medications this morning. # Elevated ammonia, chronicity unknown, present on admission. On admit: Ammonia 144. Liver transaminases unremarkable, synthetic function intact. Differential diagnosis hyperammonemia: hepatic disorders, portosystemic shunt, inborn errors of urea cycle metabolism, Teresita's syndrome, ureterosigmoidostomy, infection in nondraining bladder, drugs (cyanide, carbamazepine, valproic acid, iron, and cytotoxics can also cause secondary hyperammonemia.) - Lactulose when able to take by mouth - Repeat ammonia levels have normalized # Hypocalcemia, hyperphosphatemia, present on admission. Presumed secondary to severe renal failure. Calcium phosphorus product is 43. - We will consult nephrology. - Nephrology service to consider phosphate binder, active vitamin D when patient is able to take by mouth # Diabetes mellitus, non-insulin using, chronic. Controlled. A1c 01/2017:5.6 - Frequently monitor capillary blood glucose - Glucose control goals: Random less than 180, fasting less than 140, none less than 70 - Insulin as needed, IV insulin while patient in CCU, then divided 50-50 long- acting and nutritional/correctional Resolving, stable and/or chronic problems: # Elevated troponins of undetermined significance, likely acute, present on admission. Monitor - Troponin profile does not suggest acute coronary syndrome # History of Crohn's colitis status post hemicolectomy, chronic. Recently initiated infliximab therapy. - May be contributing to electrolyte abnormalities which in turn may affect mental status - Labs Patient appears to be waking up and family is now undecided as to what they want to resume medical therapy for the patient as she is waking up and talking to all of them and asking me, the doctor, to fix her. We will continue to check labs and order some IV fluids and IV antibiotics and some IV calcium gluconate and see if the patient will make any meaningful improvement. We will continue have further discussions with the patient and family . Will consult nephrology. Dr. Padgett to follow in a.m. Pain Evaluation: Adequate Pain Control GI Prophylaxis: Not indicated VTE Prophylaxis: Sub-Q Heparin (Unfractionated) VTE Mechanical Devices: Intermittant Pneumatic CD, Venous Foot Pump Resuscitation Status: CPR: Attempt Resuscitation GrapelandFox MD March 15, 2017 03:13
[2017-03-15 05:31] VITALS: BP 132/72; PULSE 78; RESP 14; O2SAT 93
[2017-03-15] MEDS: Piper-Tazo 3.375 Gm/50 mL D5W Minibag Plus - Q8H over 4 hrs IV SCH ×4 (05:31→17:39)
[2017-03-15 06:01] LABS: BASOPHILS % (AUTO) 0.3 % (0-3); EOSINOPHILS % (AUTO) 1.5 % (0-5); MONOCYTES % (AUTO) 13.5 % (4-12); Mean Corpuscular Hemoglobin 27.5 pg (27.0-35.0); Mean Corpuscular Volume 94.8 fL (81-100); NEUTROPHILS % (AUTO) 57.7 % (40-74); Platelet Count 212 bil/L (150-400)
[2017-03-15 06:44] LABS: Magnesium 1.5 mg/dL (1.6-2.6); Phosphorus 3.7 mg/dL (2.5-4.9)
[2017-03-15] MEDS ORDERED: Potassium Chloride Inj 20 MEQ in Dextrose 5% 250 ML IV ONE (07:30)
[2017-03-15] MEDS ORDERED: Magnesium Sulf 2 Gm/50mL Water 2 GM in IV Premix 1 EACH IV ONE (07:30)
--- NOTE | 2017-03-15 07:53 | PCM.PNSURG ---
Subjective Visit Information: Reason for Visit Lc Ileus Pneumonia Surgery/Surgery Date Post-Op Day # Date of Admission: Mar 08, 2017 at 22:23 Hospital Day # Subjective: NG output about 1L, however, the pt has been advanced to pureed diet and PO output >1L in past 24h. She had a breakfast of eggs and gravy waiting for her this morning. Abdomen is less distended and she continues to have BMs. Objective Vital Sign- Last 8 Hours Date Time Temp Pulse Resp B/P Pulse Ox O2 Delivery O2 Flow Rate FiO2 03/15/17 05:31 36.5 78 14 132/72 93 OxyMask 2.00 Intake and Output- Last 8 Hour 03/15/17 Cumulative From/Thru 07:00 03/08/17 19:43 - 03/15/17 06:26 Intake Total 540 ml 79763 ml Output Total 66744 ml Balance 540 ml 1202 ml Intake Oral 1450 ml IV Total 540 ml 84912 ml Output Urine Total 7595 ml Stool Total 500 ml Gastric Drainage Total 5150 ml # Bowel Movements 27 General: Alert, Cooperative, No Acute Distress Abdomen: Soft, Other (mild distension, improved significantly) Result Diagram: 03/15/17 0515 03/15/17 0515 Assessment & Plan Impression Ileus, no sign of SBO. Problems: Plan NG removed today. Continue current diet. VTE Prophylaxis: Sub-Q Heparin (Unfractionated) Resuscitation Status: CPR: Attempt Resuscitation Swati Parish MD March 15, 2017 07:53
--- NOTE | 2017-03-15 08:40 | PCM.PNMED ---
Subjective Date of Service March 15, 2017 Subjective Pt still feeling poor. Minimal appetite "nothing smells good", but she is craving a strawberry milkshake form [employer]. NG tube removed this morning. She received some relief from this but notes epigastric pain and nausea are still present. Denies fever/chills/sweats. She denies severe abdominal distention, also noted good stool pattern. Exam Vital Signs Vital Sign - Last Date Time Temp Pulse Resp B/P Pulse Ox O2 Delivery O2 Flow Rate FiO2 03/15/17 05:31 36.5 78 14 132/72 93 OxyMask 2.00 Intake and Output 03/14/17 03/14/17 03/15/17 Cumulative From/Thru 15:00 23:00 07:00 03/08/17 19:43 - 03/15/17 06:26 Intake Total 1200 ml 540 ml 76668 ml Output Total 1050 ml 850 ml 66088 ml Balance -1050 ml 350 ml 540 ml 1202 ml Intake Oral 1200 ml 1450 ml IV Total 540 ml 91252 ml Output Urine Total 850 ml 7595 ml Stool Total 500 ml Gastric Drainage Total 1050 ml 5150 ml # Bowel Movements 2 27 General: Alert, Oriented X3, Cooperative, Moderate Distress Mouth: Mucous Membranes Dry Chest & Lungs: Clear to auscultation & percussion Cardiovascular: Regular Rate/Rhythm Abdomen: Non-distended, Other ((+)epigastric pain. Abdomen is obsese but nontender to palpation, (+)BS. ) Extremities: No cyanosis/clubbing/edma bilat Neurological: Grossly Neurologically Intact IVs and Medications Medications Reviewed: Medications were reviewed in detail Lab and Diagnostics Result Diagram: 03/15/1751403/15/17514 Microbiology Urinalysis no pyuria Enteric pathogen stool profile - no C. difficile or other pathogen MRSA swab negative Strep pneumonia and legionella urinary antigens negative Blood culture 03/08/17 - 2 sets pending X-Rays, CTs and MRIs PROCEDURE: CT ABDOMEN AND PELVIS WITHOUT CONTRAST ([id number]) IMPRESSION: 1. Fluid and gas distention of the small and large bowel extending to the rectosigmoid colon distally without a focal transition point. The findings are suggestive of an ileus or gastroenteritis without definite obstruction. 2. Patchy groundglass opacities in the visualized lung bases with consolidation in the inferior right middle and lower lobes. The findings suggest aspiration with right basilar pneumonia. 3. Small atrophic left kidney. No hydronephrosis in the right the left kidney. Dictated by: Man Mcnulty M.D. on 03/08/2017 at 21:18 PROCEDURE: X-RAY CHEST ONE VIEW, PORTABLE ([id number]) IMPRESSION: 1. Right infrahilar consolidation redemonstrated as was increased bandlike opacities in the left base and bilateral patchy groundglass opacities. The findings are suggestive of multifocal pneumonia. Dictated by: Man Mcnulty M.D. on 03/08/2017 at 20:22 PROCEDURE: X-RAY CHEST ONE VIEW, PORTABLE ([id number]) IMPRESSION: Bilateral pneumonia slightly increased involving the left upper lobe. Dictated by: Joaquin VERMA Interpreted: Maddi Banks MD on 03/09/2017 at 10:01 PROCEDURE: CT BRAIN WITHOUT CONTRAST ([id number]) IMPRESSION: 1. Limited study due to motion demonstrates no definite acute intracranial abnormality. Dictated by: Man Mcnulty M.D. on 03/08/2017 at 21:29 . 12-lead ECG Sinus tachycardia with left bundle branch block Cardiac Echo Impressions Echocardiogram Report Name: ELIZABETH BEVERLY IStudy Date: Height: 67 in Hospital Exam Location: [facility] Weight: 291 lb Gender: Female BSA: 2.4 m2 : 1940 Age: 76 yrs BP: 109/71 mmHg Reason For Study: BREAST CANCER Ordering Physician: Performed By: Kori Keller Interpretation Summary Left ventricular systolic function is mildly reduced with the ejection fraction visually estimated to be 45-50% with borderline global hypokinesis and more severe hypokinesis in the inferior and inferoposterior segments but this appears unchanged compared to the previous study. There are no other obvious focal wall motion abnormalities and there has been no significant change since the previous study. There is borderline concentric left ventricular hypertrophy and assessment of diastolic parameters indicates a relaxation abnormality of the left ventricle, although the E/E' ratio is mildly increased, suggesting possible increased filling pressures, perhaps slightly higher compared to the previous study. The right ventricle is borderline dilated and right ventricular systolic function is mildly reduced but likely unchanged compared to the previous study. The right ventricular systolic pressure is estimated to be at least 38 mmHg assuming a right atrial pressure of 8 mm Hg, but could be higher. Comparison with the previous study is not possible because this was not assessed on the previous study. The left atrium is mildly dilated. There is no significant valvular heart disease. The ascending aorta is mildly enlarged. There is no pericardial effusion or pleural effusion seen. The patient was in normal sinus rhythm with heart rates between 85-105 bpm during the study which is somewhat slower compared to the previous study. Assessment & Plan Ms. Beverly is a 76-year-old morbidly obese woman with an unfortunate history of Crohn's disease status post hemicolectomy, [id number] diabetes mellitus, hypertension, and metastatic breast cancer currently in remission, that presented to [facility] with a 2 day history of vomiting, diarrhea, abdominal pain , decreased appetite, altered mental status, lethargy. Information is primarily obtained from chart review, as patient has no family at bedside at time of admission, and is not responsive to questioning. She was admitted for evaluation and treatment of altered mental status, severe acute on chronic kidney injury, and suspected pneumonia, gastroenteritis. # Acute Encephalopathy, present on admission. Ongoing, however improving. Per documentation, patient was alert and oriented at baseline. Likely metabolic encephalopathy secondary to acidosis, uremia and elevated ammonia. Brain CT unremarkable - She is now awake and alert. - Repeat Swallow eval, speech therapy has been re-consulted - Avoid sedatives - Avoid anticholinergics and benzodiazepines # Acute on chronic kidney injury, present on admission. Oliguric. In setting of unilateral functioning kidney. Presumed prerenal azotemia, possibly ATN secondary to volume depletion.On admit: Creatinine 8.40; recent baseline is 1.15. - Moderate fluid resuscitation, but avoid precipitating pulmonary edema - Bicarbonate drip plus rehydration was given. Patient is now off the bicarbonate drip and on gentle IV hydration. It appears patient may now be in the diuretic phase of acute tubular necrosis. - Treat electrolyte disorders - We will re-consult Nephrology # Chronic systolic congestive heart failure - See echocardiogram report as above - We will start carvedilol low-dose in a.m. - Unable to start NATHALIE inhibitor or ARB due to renal failure - Hold diuretics at this time as patient appears to be in the diuretic phase of acute tubular necrosis. The diuretic phase may be hampered somewhat by the fact that the patient has a solitary kidney. # High anion gap acidosis, acute, present on admission. On admit, calculated: 29, lactate is not elevated. Likely secondary to renal failure, pyroglutamate and D lactate possible - Replete fluids - Improved # Hypotension, acute. Not present on admission. Resolved Patient developed mean arterial pressures less than 65 mmHg despite aggressive fluid hydration. - Place CVC to manage fluid resuscitation and pressors; IJ only to avoid interfering with potential dialysis catheter needs - Measure CVP - Pressors as needed - Maintain mean arterial pressure greater than 65, urine output greater than 0.5 ml/kg/hr - Currently resolved. HDS # Abdomen pain, diarrhea and emesis, acute, present on admission. Diarrhea appears to be chronic related to Crohn disease, although possibly worse recently. The patient is immunocompromise on TNF alpha inhibitor. Differential diagnosis is Crohn disease, gastroenteritis, ischemic bowel, partial bowel obstruction. Acalculous cholecystitis is possible, although not supported by CT scan. C. difficile has been ruled out. - Advancing diet now as tolerated - NG tube to low suction has been removed (03/15) - Gen. surgery consult to assess abdomen, they felt that there is no evidence of acute cholecystitis. - Discussed with Dr. Nasim Parry previously, pt now followed by Dr Parish, appreciating assistance and follow-up. There does not appear to be any current bowel obstruction, but CT does siggest evidence of some stricture. . # Radiographic pneumonia, likely acute, present on admission. Likely aspiration pneumonia pneumonitis versus pneumonia based on clinical context of recent severe emesis. At risk for healthcare associated PNA: Recent admission . In ED, patient received: linezolid, Levaquin, Zosyn - We will continue Zosyn alone for now; - Discontinue vanco due to MRSA-negative status low clinical probability of staphylococcal pneumonia, no changed medications this morning. # Elevated ammonia, chronicity unknown, present on admission. On admit: Ammonia 144. Liver transaminases unremarkable, synthetic function intact. Differential diagnosis hyperammonemia: hepatic disorders, portosystemic shunt, inborn errors of urea cycle metabolism, Teresita's syndrome, ureterosigmoidostomy, infection in nondraining bladder, drugs (cyanide, carbamazepine, valproic acid, iron, and cytotoxics can also cause secondary hyperammonemia.) - Lactulose when able to take by mouth - Repeat ammonia levels have normalized #Hypokalemia: - Progressive process, renal dsyfunction likely contributing factor - Continue to monitor on telemetry, repleated IV currently , in addition provided Mg repletion. # Hypocalcemia, hyperphosphatemia, present on admission. Presumed secondary to severe renal failure. Calcium phosphorus product is 43. - We will consult nephrology, repl;eteding orally daily, IV X1 today. - Nephrology service to consider phosphate binder, active vitamin D when patient is able to take by mouth # Diabetes mellitus, non-insulin using, chronic. Controlled. A1c 01/2017:5.6 - Frequently monitor capillary blood glucose - Glucose control goals: Random less than 180, fasting less than 140, none less than 70 - Insulin as needed, IV insulin while patient in CCU, then divided 50-50 long- acting and nutritional/correctional #Anemia: - Progressive process, no evidence of acute bleeding - Stool guiac ordered and pending. - Continue to monitor H&H. Resolving, stable and/or chronic problems: # Elevated troponins of undetermined significance, likely acute, present on admission. Monitor - Troponin profile does not suggest acute coronary syndrome # History of Crohn's colitis status post hemicolectomy, chronic. Recently initiated infliximab therapy. - May be contributing to electrolyte abnormalities which in turn may affect mental status - Continue tredning labs, role of medication treatment in this process unclear, but certain pt demonstrated acute worsening following first infusion. We will continue have further discussions with the patient and family . Awaiting further nrphology recommendations. Pain Evaluation: Adequate Pain Control GI Prophylaxis: Not indicated VTE Prophylaxis: Sub-Q Heparin (Unfractionated) VTE Mechanical Devices: Intermittant Pneumatic CD, Venous Foot Pump Resuscitation Status: CPR: Attempt Resuscitation Time spent 35 minutes Mk Winters DO March 15, 2017 08:40
[2017-03-15] MEDS: Lactulose 20 Gm/30 mL 30 mL Syrup PO SCH (09:00)
--- NOTE | 2017-03-15 10:39 | NUR ---
VANESSA: Patient unable to accept VANESSA, asked MANAGER [employer] to follow up with [facility]OO
--- NOTE | 2017-03-15 13:11 | NUR ---
NUTRITION FOLLOW UP: ASSESS: 76 YO female admitted for acute kidney injury, ileus with vomiting, diarrhea, abd. pain, decreased appetite, altered mental status and lethargy. Pt was placed on comfort measures, but has since become more alert and responsive. Per GI, ileus appears to be resolving as pt with BM and flatus, NG tube removed and now no evidence of bowel obstruction, however CT shows stricture. Appetite remains minimal; MD reports craving strawberry shake; will order strawberry supplement. PMHx: Psoriasis, Crohn's, depression, anxiety, restless leg syndrome, DM type 2, insomnia, NANI, metastatic breast cancer, peripheral neuropathy, mitral value regurgitation. LABS: Reviewed. Na 151, K+2.7, Cr 3.84, Ca 4.8, Alb 2.7 MEDS: Reviewed. GI: BM x 2 CURRENT WT: 123.3 kg. IBW: 61.364. Adj BW: 76.85 kg. DIET: Puree. PO 0-50% EST. NEEDS (ELVIA, BMI): 5720-5037 kcals (25-30 kcals/kg Adj BW), 60-75 g protein (0.8-1.0 g/kg Adj BW) NUTRITION DIAGNOSIS: 1.) Inadequate oral intake related to decreased ability to consume sufficient energy as evidenced by current NPO x 4 days status---IMPROVED. Diet advanced, po intake remains minimal. NUTRITION INTERVENTION: 1.) Supplements added to meal trays. (Glucerna TID). MONITOR / EVAL: Diet advancement / tolerance, labs, nutritional status. Follow per high nutritional risk guidelines.
--- NOTE | 2017-03-15 14:04 | NUR ---
SW - Continued Discharge Planning Data: Pt is on day 7 of hospitalization for Lc ileus pneumonia. EMR reviewed. Per morning rounds the pt could possibly discharge in 2-3 days. Pt has open APS case with child support investigator Veronica Tarun [phone]. SW called to update APS that pt is no longer imminently dying and could possibly discharge to home. APS requested we continue to update them. SW will continue to follow. Assessment: Pt who resides at home, independent, with open APS case Plan: Pt will possibly discharge home in 2-3 days. Transport tbd. SW will continue to follow. SORAYA Tian
--- NOTE | 2017-03-15 14:07 | NUR ---
Pt not appropriate to sign VANESSA. SW attempted to contact son Jermain via phone [phone] to sign VANESSA. Left voicemail. Will reattempt 03/16. SORAYA Tian
[2017-03-15 15:32] VITALS: BP 130/65; PULSE 73; RESP 20; O2SAT 91
--- NOTE | 2017-03-15 19:33 | NUR ---
Nutrition: Surgery MD discontinued NG tube this am. Patient taking ice chips, fluids, smoothies and yogurt. Tolerating well. Not eating much of meals trays as she does not like the puree diet. Denies abdominal pain and nausea.
[2017-03-15 20:15] VITALS: BP 137/69; PULSE 71; RESP 22; O2SAT 91
[2017-03-15 21:26] LABS: Mean Corpuscular Hemoglobin 27.9 pg (27.0-35.0); Mean Corpuscular Volume 94.4 fL (81-100)
[2017-03-15] MEDS ORDERED: Potassium Chloride 20 mEq/15 mL 15mL Oral Soln PO ONE (22:35)
[2017-03-16] VITALS (8 sets, daily range): BP systolic 124–144; BP diastolic 65–76; PULSE 68–86; RESP 18–20; O2SAT 90–93
[2017-03-16] MEDS: Ondansetron 2 mg/mL 2 mL Inj IVPUSH PRN ×2 (00:11→08:29)
[2017-03-16] MEDS ORDERED: Potassium Chloride 20 mEq SR Tablet PO ONE (00:30)
[2017-03-16] MEDS: 0.9% Sodium Chloride 1,000 ML IV SCH (00:43)
--- NOTE | 2017-03-16 03:09 | NUR ---
KCl Potassium liquid ordered for hypokalemia. Pt took a sip of diluted potassium and refused the rest. unable to finish it due to taste. Vomited 50mL 15mins later. Zofran given with good relief. Rec'd an order for KCl tab; diluted in water and given with apple sauce. able to tolerate this. will recheck K level with AM labs. denies pain; wanting to go home with her son and her "puppies".
[2017-03-16] MEDS: Piper-Tazo 3.375 Gm/50 mL D5W Minibag Plus - Q8H over 4 hrs IV SCH ×4 (06:26→18:33)
[2017-03-16 06:28] LABS: BASOPHILS % (AUTO) 0.3 % (0-3); EOSINOPHILS % (AUTO) 1.5 % (0-5); MONOCYTES % (AUTO) 16.5 % (4-12); Mean Corpuscular Hemoglobin 26.9 pg (27.0-35.0); Mean Corpuscular Volume 95.3 fL (81-100); NEUTROPHILS % (AUTO) 57.1 % (40-74); Platelet Count 199 bil/L (150-400)
[2017-03-16 06:52] LABS: Magnesium 1.8 mg/dL (1.6-2.6); Phosphorus 2.7 mg/dL (2.5-4.9)
[2017-03-16] MEDS: Lactulose 20 Gm/30 mL 30 mL Syrup PO SCH (07:59)
[2017-03-16] MEDS ORDERED: Calcium GLUCO 10% (mEq) Inj 9.3 MEQ in Dextrose 5% 100 ML IV ONE (08:25)
[2017-03-16] MEDS ORDERED: Potassium Chloride Inj 30 MEQ in Dextrose 5% 500 ML IV ONE ×2 (08:25→14:00)
--- NOTE | 2017-03-16 08:29 | PCM.PNMED ---
Subjective Date of Service March 16, 2017 Subjective Patient is very nauseated this morning, having difficult time keeping down even her [employer] milkshake was yesterday she enjoyed quite a bit. He notes frequent loose stools since starting lactulose, and also notes is very difficult to drink, worsening her nausea. No chest pains or shortness of breath however. Also denies any abdominal pain at this time. Denies fever chills. Exam Vital Signs Vital Sign - Last Date Time Temp Pulse Resp B/P Pulse Ox O2 Delivery O2 Flow Rate FiO2 03/16/17 07:55 36.1 68 20 130/65 91 Room Air 03/15/17 15:32 2.00 Intake and Output 03/15/17 03/15/17 03/16/17 Cumulative From/Thru 15:00 23:00 07:00 03/08/17 19:43 - 03/16/17 06:15 Intake Total 1050 ml 1647 ml 1045 ml 18547 ml Output Total 650 ml 802 ml 18301 ml Balance 400 ml 845 ml 1045 ml 3492 ml Intake Oral 1050 ml 700 ml 3200 ml IV Total 947 ml 1045 ml 85239 ml Output Urine Total 650 ml 800 ml 9045 ml Stool Total 2 ml 502 ml Gastric Drainage Total 5150 ml # Bowel Movements 2 1 30 Exam General: Alert, Oriented X3, Cooperative, Moderate Distress Mouth: Mucous Membranes Dry Chest & Lungs: Clear to auscultation & percussion Cardiovascular: Regular Rate/Rhythm Abdomen: Non-distended, Abdomen is obese but nontender to palpation, (+)BS. Extremities: No cyanosis/clubbing/edmea bilat Neurological: Grossly Neurologically Intact IVs and Medications Medications Reviewed: Medications were reviewed in detail Lab and Diagnostics Result Diagram: 03/16/1761403/16/17614 Microbiology Urinalysis no pyuria Enteric pathogen stool profile - no C. difficile or other pathogen MRSA swab negative Strep pneumonia and legionella urinary antigens negative Blood culture 03/08/17 - 2 sets pending X-Rays, CTs and MRIs PROCEDURE: CT ABDOMEN AND PELVIS WITHOUT CONTRAST ([id number]) IMPRESSION: 1. Fluid and gas distention of the small and large bowel extending to the rectosigmoid colon distally without a focal transition point. The findings are suggestive of an ileus or gastroenteritis without definite obstruction. 2. Patchy groundglass opacities in the visualized lung bases with consolidation in the inferior right middle and lower lobes. The findings suggest aspiration with right basilar pneumonia. 3. Small atrophic left kidney. No hydronephrosis in the right the left kidney. Dictated by: Man Mcnulty M.D. on 03/08/2017 at 21:18 PROCEDURE: X-RAY CHEST ONE VIEW, PORTABLE ([id number]) IMPRESSION: 1. Right infrahilar consolidation redemonstrated as was increased bandlike opacities in the left base and bilateral patchy groundglass opacities. The findings are suggestive of multifocal pneumonia. Dictated by: Man Mcnulty M.D. on 03/08/2017 at 20:22 PROCEDURE: X-RAY CHEST ONE VIEW, PORTABLE ([id number]) IMPRESSION: Bilateral pneumonia slightly increased involving the left upper lobe. Dictated by: Joaquin Dickens RRA Interpreted: Maddi Banks MD on 03/09/2017 at 10:01 PROCEDURE: CT BRAIN WITHOUT CONTRAST ([id number]) IMPRESSION: 1. Limited study due to motion demonstrates no definite acute intracranial abnormality. Dictated by: Man Mcnulty M.D. on 03/08/2017 at 21:29 . 12-lead ECG Sinus tachycardia with left bundle branch block Cardiac Echo Impressions Echocardiogram Report Name: ELIZABETH BEVERLY IStudy Date: Height: 67 in Hospital Exam Location: [facility] Weight: 291 lb Gender: Female BSA: 2.4 m2 : 1940 Age: 76 yrs BP: 109/71 mmHg Reason For Study: BREAST CANCER Ordering Physician: Performed By: Kori Keller Interpretation Summary Left ventricular systolic function is mildly reduced with the ejection fraction visually estimated to be 45-50% with borderline global hypokinesis and more severe hypokinesis in the inferior and inferoposterior segments but this appears unchanged compared to the previous study. There are no other obvious focal wall motion abnormalities and there has been no significant change since the previous study. There is borderline concentric left ventricular hypertrophy and assessment of diastolic parameters indicates a relaxation abnormality of the left ventricle, although the E/E' ratio is mildly increased, suggesting possible increased filling pressures, perhaps slightly higher compared to the previous study. The right ventricle is borderline dilated and right ventricular systolic function is mildly reduced but likely unchanged compared to the previous study. The right ventricular systolic pressure is estimated to be at least 38 mmHg assuming a right atrial pressure of 8 mm Hg, but could be higher. Comparison with the previous study is not possible because this was not assessed on the previous study. The left atrium is mildly dilated. There is no significant valvular heart disease. The ascending aorta is mildly enlarged. There is no pericardial effusion or pleural effusion seen. The patient was in normal sinus rhythm with heart rates between 85-105 bpm during the study which is somewhat slower compared to the previous study. Assessment & Plan Ms. Beverly is a 76-year-old morbidly obese woman with an unfortunate history of Crohn's disease status post hemicolectomy, [id number] diabetes mellitus, hypertension, and metastatic breast cancer currently in remission, that presented to [facility] with a 2 day history of vomiting, diarrhea, abdominal pain , decreased appetite, altered mental status, lethargy. Information is primarily obtained from chart review, as patient has no family at bedside at time of admission, and is not responsive to questioning. She was admitted for evaluation and treatment of altered mental status, severe acute on chronic kidney injury, and suspected pneumonia, gastroenteritis. # Acute Encephalopathy, present on admission. Ongoing, however improving. Per documentation, patient was alert and oriented at baseline. Likely metabolic encephalopathy secondary to acidosis, uremia and elevated ammonia. Brain CT unremarkable - She is now awake and alert. - Repeat Swallow eval, speech therapy has been re-consulted - Avoid sedatives - Will hold Lactulose in setting of normal liver function, complaints of poor tolerability, and now frequent stooling pattern. - Avoid anticholinergics and benzodiazepines # Acute on chronic kidney injury, present on admission. Oliguric. In setting of unilateral functioning kidney. Presumed prerenal azotemia, possibly ATN secondary to volume depletion.On admit: Creatinine 8.40; recent baseline is 1.15. - Moderate fluid resuscitation, but avoid precipitating pulmonary edema - Bicarbonate drip plus rehydration was given. Patient is now off the bicarbonate drip and on gentle IV hydration. It appears patient may now be in the diuretic phase of acute tubular necrosis. - Treat electrolyte disorders - We will re-consult Nephrology # Chronic systolic congestive heart failure - See echocardiogram report as above - We will start carvedilol low-dose in a.m. - Unable to start NATHALIE inhibitor or ARB due to renal failure - Hold diuretics at this time as patient appears to be in the diuretic phase of acute tubular necrosis. The diuretic phase may be hampered somewhat by the fact that the patient has a solitary kidney. # High anion gap acidosis, acute, present on admission. On admit, calculated: 29, lactate is not elevated. Likely secondary to renal failure, pyroglutamate and D lactate possible - Replete fluids - Improved # Hypotension, acute. Not present on admission. Resolved Patient developed mean arterial pressures less than 65 mmHg despite aggressive fluid hydration. - Place CVC to manage fluid resuscitation and pressors; IJ only to avoid interfering with potential dialysis catheter needs - Measure CVP - Pressors as needed - Maintain mean arterial pressure greater than 65, urine output greater than 0.5 ml/kg/hr - Currently resolved. HDS # Abdomen pain, diarrhea and emesis, acute, present on admission. Diarrhea appears to be chronic related to Crohn disease, although possibly worse recently. The patient is immunocompromise on TNF alpha inhibitor. Differential diagnosis is Crohn disease, gastroenteritis, ischemic bowel, partial bowel obstruction. Acalculous cholecystitis is possible, although not supported by CT scan. C. difficile has been ruled out. - Advancing diet now as tolerated - NG tube to low suction has been removed (03/15) - Gen. surgery consult to assess abdomen, they felt that there is no evidence of acute cholecystitis. - Discussed with Dr. Nasim Parry previously, pt now followed by Dr Parish, appreciating assistance and follow-up. There does not appear to be any current bowel obstruction, but CT does siggest evidence of some stricture. - Continue to monitor stooling pattern with DC of Lactulose. # Radiographic pneumonia, likely acute, present on admission. Likely aspiration pneumonia pneumonitis versus pneumonia based on clinical context of recent severe emesis. At risk for healthcare associated PNA: Recent admission . In ED, patient received: linezolid, Levaquin, Zosyn - We will continue Zosyn alone for now; - Discontinue vanco due to MRSA-negative status low clinical probability of staphylococcal pneumonia, no changed medications this morning. # Elevated ammonia, chronicity unknown, present on admission. On admit: Ammonia 144. Liver transaminases unremarkable, synthetic function intact. Differential diagnosis hyperammonemia: hepatic disorders, portosystemic shunt, inborn errors of urea cycle metabolism, Teresita's syndrome, ureterosigmoidostomy, infection in nondraining bladder, drugs (cyanide, carbamazepine, valproic acid, iron, and cytotoxics can also cause secondary hyperammonemia.) - Repeat ammonia levels have normalized - Lactulose, held, AM level pending. Mentation also stable. #Hypokalemia: - Progressive process, renal dsyfunction likely contributing factor. Maybe also due to loose stools., - Continue to monitor on telemetry, repleated IV currently , in addition provided Mg repletion. #Hyponatremia: - transitioning to 1/2 NS at this time at 75cc/hr. - Consider discontinuation with continued good pO intake. # Hypocalcemia, hyperphosphatemia, present on admission. Presumed secondary to severe renal failure. Calcium phosphorus product is 43. - We will consult nephrology, repl;eteding orally daily, IV X1 again today. - Nephrology service to consider phosphate binder, active vitamin D when patient is able to take by mouth # Diabetes mellitus, non-insulin using, chronic. Controlled. A1c 01/2017:5.6 - Frequently monitor capillary blood glucose - Glucose control goals: Random less than 180, fasting less than 140, none less than 70 - Insulin as needed, IV insulin while patient in CCU, then divided 50-50 long- acting and nutritional/correctional #Anemia: - Progressive process, no evidence of acute bleeding - Stool guiac ordered and pending. - Continue to monitor H&H. Resolving, stable and/or chronic problems: # Elevated troponins of undetermined significance, likely acute, present on admission. Monitor - Troponin profile does not suggest acute coronary syndrome # History of Crohn's colitis status post hemicolectomy, chronic. Recently initiated infliximab therapy. - May be contributing to electrolyte abnormalities which in turn may affect mental status - Continue tredning labs, role of medication treatment in this process unclear, but certain pt demonstrated acute worsening following first infusion. We will continue have further discussions with the patient and family . Awaiting further nephrology recommendations. Pain Evaluation: Adequate Pain Control GI Prophylaxis: Not indicated VTE Prophylaxis: Sub-Q Heparin (Unfractionated) VTE Mechanical Devices: Intermittant Pneumatic CD Resuscitation Status: CPR: Attempt Resuscitation Time spent 35 minutes Mk Winters DO March 16, 2017 08:29
--- NOTE | 2017-03-16 11:26 | PCM.PNNEPH ---
Subjective Date of Service March 16, 2017 Subjective Renal service was reconsulted to manage electrolyte disturbance. Her kidney function has improved. Persistent hypokalemia and hypocalcemia noted. KCL was given in am. Exam Vital Signs Vital Sign - Last Date Time Temp Pulse Resp B/P Pulse Ox O2 Delivery O2 Flow Rate FiO2 03/16/17 08:47 86 03/16/17 07:55 36.1 20 130/65 91 Room Air 03/15/17 15:32 2.00 Intake and Output 03/15/17 03/15/17 03/16/17 Cumulative From/Thru 15:00 23:00 07:00 03/08/17 19:43 - 03/16/17 06:15 Intake Total 1050 ml 1647 ml 1045 ml 83998 ml Output Total 650 ml 802 ml 33456 ml Balance 400 ml 845 ml 1045 ml 3492 ml Intake Oral 1050 ml 700 ml 3200 ml IV Total 947 ml 1045 ml 06189 ml Output Urine Total 650 ml 800 ml 9045 ml Stool Total 2 ml 502 ml Gastric Drainage Total 5150 ml # Bowel Movements 2 30 Exam General: No acute distress, well-developed, Obese ill appearing female lying in bed Eyes: PERRLA, anicteric sclerae, moist noninjected conjunctivae HEENT: Normocephalic, atraumatic. External ears without defect. Neck: Supple with full range of motion. JVD hard to assess due to neck habitus. No bruits. No lymphadenopathy or thyromegaly. Right IJ in place Cardiovascular: Tachycardic rate and irregular rhythm with no murmurs, rubs, or gallops appreciated Pulmonary: poor air entry, occasionally rhonchi noted. Abdomen: Distended, tympanic. Obese Extremities: No clubbing, cyanosis, or lymphadenopathy appreciated. Lower extremity edema present Lab and Diagnostics Result Diagram: 03/16/17 0615 03/16/1715 Microbiology Urinalysis no pyuria Enteric pathogen stool profile - no C. difficile or other pathogen MRSA swab negative Strep pneumonia and legionella urinary antigens negative Blood culture 03/08/17 - 2 sets pending X-Rays, CTs and MRIs PROCEDURE: CT ABDOMEN AND PELVIS WITHOUT CONTRAST ([id number]) IMPRESSION: 1. Fluid and gas distention of the small and large bowel extending to the rectosigmoid colon distally without a focal transition point. The findings are suggestive of an ileus or gastroenteritis without definite obstruction. 2. Patchy groundglass opacities in the visualized lung bases with consolidation in the inferior right middle and lower lobes. The findings suggest aspiration with right basilar pneumonia. 3. Small atrophic left kidney. No hydronephrosis in the right the left kidney. Dictated by: Man Mcnulty M.D. on 03/08/2017 at 21:18 PROCEDURE: X-RAY CHEST ONE VIEW, PORTABLE ([id number]) IMPRESSION: 1. Right infrahilar consolidation redemonstrated as was increased bandlike opacities in the left base and bilateral patchy groundglass opacities. The findings are suggestive of multifocal pneumonia. Dictated by: Man Mcnulty M.D. on 03/08/2017 at 20:22 PROCEDURE: X-RAY CHEST ONE VIEW, PORTABLE ([id number]) IMPRESSION: Bilateral pneumonia slightly increased involving the left upper lobe. Dictated by: Joaquin Dickens RRA Interpreted: Maddi Banks MD on 03/09/2017 at 10:01 PROCEDURE: CT BRAIN WITHOUT CONTRAST ([id number]) IMPRESSION: 1. Limited study due to motion demonstrates no definite acute intracranial abnormality. Dictated by: Man Mcnulty M.D. on 03/08/2017 at 21:29 . 12-lead ECG Sinus tachycardia with left bundle branch block Cardiac Echo Impressions Echocardiogram Report Name: ELIZABETH HAWTHORNE IStudy Date: Height: 67 in Hospital Exam Location: [facility] Weight: 291 lb Gender: Female BSA: 2.4 m2 : 1940 Age: 76 yrs BP: 109/71 mmHg Reason For Study: BREAST CANCER Ordering Physician: Performed By: Kori Keller Interpretation Summary Left ventricular systolic function is mildly reduced with the ejection fraction visually estimated to be 45-50% with borderline global hypokinesis and more severe hypokinesis in the inferior and inferoposterior segments but this appears unchanged compared to the previous study. There are no other obvious focal wall motion abnormalities and there has been no significant change since the previous study. There is borderline concentric left ventricular hypertrophy and assessment of diastolic parameters indicates a relaxation abnormality of the left ventricle, although the E/E' ratio is mildly increased, suggesting possible increased filling pressures, perhaps slightly higher compared to the previous study. The right ventricle is borderline dilated and right ventricular systolic function is mildly reduced but likely unchanged compared to the previous study. The right ventricular systolic pressure is estimated to be at least 38 mmHg assuming a right atrial pressure of 8 mm Hg, but could be higher. Comparison with the previous study is not possible because this was not assessed on the previous study. The left atrium is mildly dilated. There is no significant valvular heart disease. The ascending aorta is mildly enlarged. There is no pericardial effusion or pleural effusion seen. The patient was in normal sinus rhythm with heart rates between 85-105 bpm during the study which is somewhat slower compared to the previous study. Plan Impression 1. ELVIA due to ATN, improving. 2. Hypokalemia and hypomagnesemia. 3. Hypocalcemia due to ELVIA, possible vitD def, poor absorption. 4. Hypernatremia. 5. Crohn's disease status post hemicolectomy 6. Metabolic encephalopathy 7. DNR/DNI. Plan: start 1/2 NS + KCL 40 meq 80 ml/hr. start slow Mg, calcitriol and Tums. repeat BMP, Mg, PO4 in am. check PTH and vitD 25 level. Gen Escobedo MD March 16, 2017 11:26 kidney injury, and suspected pneumonia, gastroenteritis. # Acute Encephalopathy, present on admission. Ongoing, however improving. Per documentation, patient was alert and oriented at baseline. Likely metabolic encephalopathy secondary to acidosis, uremia and elevated ammonia. Brain CT unremarkable - She is now awake and alert. - Repeat Swallow eval, speech therapy has been re-consulted - Avoid sedatives - Continue Lactulose - Avoid anticholinergics and benzodiazepines # Acute on chronic kidney injury, present on admission. Oliguric. In setting of unilateral functioning kidney. Presumed prerenal azotemia, possibly ATN secondary to volume depletion.On admit: Creatinine 8.40; recent baseline is 1.15. - Moderate fluid resuscitation, but avoid precipitating pulmonary edema - Bicarbonate drip plus rehydration was given. Patient is now off the bicarbonate drip and on gentle IV hydration. It appears patient may now be in the diuretic phase of acute tubular necrosis. - Treat electrolyte disorders - We will re-consult Nephrology # Chronic systolic congestive heart failure - See echocardiogram report as above - We will start carvedilol low-dose in a.m. - Unable to start NATHALIE inhibitor or ARB due to renal failure - Hold diuretics at this time as patient appears to be in the diuretic phase of acute tubular necrosis. The diuretic phase may be hampered somewhat by the fact that the patient has a solitary kidney. # High anion gap acidosis, acute, present on admission. On admit, calculated: 29, lactate is not elevated. Likely secondary to renal failure, pyroglutamate and D lactate possible - Replete fluids - Improved # Hypotension, acute. Not present on admission. Resolved Patient developed mean arterial pressures less than 65 mmHg despite aggressive fluid hydration. - Place CVC to manage fluid resuscitation and pressors; IJ only to avoid interfering with potential dialysis catheter needs - Measure CVP - Pressors as needed - Maintain mean arterial pressure greater than 65, urine output greater than 0.5 ml/kg/hr - Currently resolved. HDS # Abdomen pain, diarrhea and emesis, acute, present on admission. Diarrhea appears to be chronic related to Crohn disease, although possibly worse recently. The patient is immunocompromise on TNF alpha inhibitor. Differential diagnosis is Crohn disease, gastroenteritis, ischemic bowel, partial bowel obstruction. Acalculous cholecystitis is possible, although not supported by CT scan. C. difficile has been ruled out. - Advancing diet now as tolerated - NG tube to low suction has been removed (03/15) - Gen. surgery consult to assess abdomen, they felt that there is no evidence of acute cholecystitis. - Discussed with Dr. Nasim Parry previously, pt now followed by Dr Parish, appreciating assistance and follow-up. There does not appear to be any current bowel obstruction, but CT does siggest evidence of some stricture. . # Radiographic pneumonia, likely acute, present on admission. Likely aspiration pneumonia pneumonitis versus pneumonia based on clinical context of recent severe emesis. At risk for healthcare associated PNA: Recent admission . In ED, patient received: linezolid, Levaquin, Zosyn - We will continue Zosyn alone for now; - Discontinue vanco due to MRSA-negative status low clinical probability of staphylococcal pneumonia, no changed medications this morning. # Elevated ammonia, chronicity unknown, present on admission. On admit: Ammonia 144. Liver transaminases unremarkable, synthetic function intact. Differential diagnosis hyperammonemia: hepatic disorders, portosystemic shunt, inborn errors of urea cycle metabolism, Teresita's syndrome, ureterosigmoidostomy, infection in nondraining bladder, drugs (cyanide, carbamazepine, valproic acid, iron, and cytotoxics can also cause secondary hyperammonemia.) - Lactulose when able to take by mouth - Repeat ammonia levels have normalized #Hypokalemia: - Progressive process, renal dsyfunction likely contributing factor - Continue to monitor on telemetry, repleated IV currently , in addition provided Mg repletion. #Hyponatremia: - transitioning to 1/2 NS at this time at 75cc/hr. - Consider discontinuation with continued good pO intake. # Hypocalcemia, hyperphosphatemia, present on admission. Presumed secondary to severe renal failure. Calcium phosphorus product is 43. - We will consult nephrology, repl;eteding orally daily, IV X1 again today. - Nephrology service to consider phosphate binder, active vitamin D when patient is able to take by mouth # Diabetes mellitus, non-insulin using, chronic. Controlled. A1c 01/2017:5.6 - Frequently monitor capillary blood glucose - Glucose control goals: Random less than 180, fasting less than 140, none less than 70 - Insulin as needed, IV insulin while patient in CCU, then divided 50-50 long- acting and nutritional/correctional #Anemia: - Progressive process, no evidence of acute bleeding - Stool guiac ordered and pending. - Continue to monitor H&H. Gen Escobedo MD March 16, 2017 11:26
[2017-03-16] MEDS: Magnesium Chloride SR 64 mg ER24 Tablet PO SCH ×2 (13:28→20:59)
[2017-03-16] MEDS: D5 0.45% NaCl + KCl 40 mEq/L 1,000 ML IV SCH (13:28)
--- NOTE | 2017-03-16 15:31 | NUR ---
SW - Continued Discharge Planning Pt discussed in morning rounds and is likely to be hospitalized at least 2 more nights. Palliative consult and nephrology consult are pending. LU met with pt at bedside to discuss HH for nursing needs. Pt appeared confused and SW asked if she could contact son, pt agreed. SW contacted hilda Aly at [phone]. He stated no preference for HH. LU sent referral to [facility] for RN per rotating calendar. Gave access. Face to face is in folder to be signed. LU will meet with hilda Aly tomorrow morning to further discuss discharge planning and offer resources. LU will continue to follow. SORAYA Tian
--- NOTE | 2017-03-16 17:58 | NUR ---
Panic Labs/Bowels Patient Potassium 2.2 this a.m. MD notified and orders recieved to start IV KCL and tele monitoring. Patient a/o x 2-3, forgetful at times, denies pain, nausea or sob. Patient taking diet poor. Patient given Lactulose this a.m. incont loose stools this shift. Barrier cream applied after incont stool. Neville patent putting out alexx uop. Patient declined getting oob this shift, turned q 2 hr. Family at bedside intermittently throughout the shift.
[2017-03-17] VITALS (7 sets, daily range): BP systolic 116–146; BP diastolic 67–78; PULSE 81–87; RESP 18–20; O2SAT 89–92
[2017-03-17] MEDS: D5 0.45% NaCl + KCl 40 mEq/L 1,000 ML IV SCH ×2 (01:20→13:00)
[2017-03-17] MEDS: Piper-Tazo 3.375 Gm/50 mL D5W Minibag Plus - Q8H over 4 hrs IV SCH ×4 (06:06→17:54)
[2017-03-17 06:39] LABS: BASOPHILS % (AUTO) 0.3 % (0-3)
--- NOTE | 2017-03-17 07:17 | NUR ---
sahu Pt c/o pain "when trying to pee". pt's sahu was assessed and advanced in. Pt had 500mL of UOP this shift; no further complaints of sahu discomfort.
[2017-03-17] MEDS: Magnesium Chloride SR 64 mg ER24 Tablet PO SCH ×2 (08:30→21:13)
[2017-03-17] MEDS: Ondansetron 2 mg/mL 2 mL Inj IVPUSH PRN ×5 (09:01→22:25)
[2017-03-17 09:19] LABS: Magnesium 1.5 mg/dL (1.6-2.6); Phosphorus 2.1 mg/dL (2.5-4.9)
[2017-03-17 09:39] LABS: Mean Corpuscular Hemoglobin 27.9 pg (27.0-35.0); Mean Corpuscular Volume 94.2 fL (81-100)
[2017-03-17 09:40] LABS: EOSINOPHILS % (AUTO) 2.2 % (0-5); MONOCYTES % (AUTO) 17.3 % (4-12); NEUTROPHILS % (AUTO) 50.7 % (40-74); Platelet Count 205 bil/L (150-400)
[2017-03-17] MEDS ORDERED: Magnesium Sulf 4 Gm/100 mL H2O 4 GM in IV Premix 1 EACH IV ONE (09:45)
[2017-03-17] MEDS ORDERED: Ergocalciferol (Vit D2) 50,000 Unit Capsule PO SCH (09:50)
--- NOTE | 2017-03-17 10:25 | PCM.PNNEPH ---
Subjective Date of Service March 17, 2017 Subjective She is nauseated, zofran given in am. c/o sahu discomfort. Exam Vital Signs Vital Sign - Last Date Time Temp Pulse Resp B/P Pulse Ox O2 Delivery O2 Flow Rate FiO2 03/17/17 06:02 37.1 81 20 130/70 90 Room Air 03/15/17 15:32 2.00 Intake and Output 03/16/17 03/16/17 03/17/17 Cumulative From/Thru 15:00 23:00 07:00 03/08/17 19:43 - 03/17/17 06:29 Intake Total 450 ml 2299 ml 1441 ml 53403 ml Output Total 700 ml 852 ml 501 ml 94014 ml Balance -250 ml 1447 ml 940 ml 5629 ml Intake Oral 450 ml 500 ml 400 ml 4550 ml IV Total 1799 ml 1041 ml 34749 ml Output Urine Total 650 ml 850 ml 500 ml 55226 ml Stool Total 2 ml 1 ml 505 ml Gastric Drainage Total 5150 ml Emesis 50 ml 50 ml # Bowel Movements 2 32 Exam General: No acute distress, well-developed, Obese ill appearing female lying in bed Eyes: PERRLA, anicteric sclerae, moist noninjected conjunctivae HEENT: Normocephalic, atraumatic. External ears without defect. Neck: Supple with full range of motion. JVD hard to assess due to neck habitus. No bruits. No lymphadenopathy or thyromegaly. Cardiovascular: RRR, no murmurs, rubs, or gallops appreciated Pulmonary: poor air entry, occasionally rhonchi noted. Abdomen: Distended, tympanic. Obese Extremities: trace edema. : sahu cath in place with good UOP. Lab and Diagnostics Result Diagram: 03/17/17 0615 03/17/17 0810 Microbiology Urinalysis no pyuria Enteric pathogen stool profile - no C. difficile or other pathogen MRSA swab negative Strep pneumonia and legionella urinary antigens negative Blood culture 03/08/17 - 2 sets pending X-Rays, CTs and MRIs PROCEDURE: CT ABDOMEN AND PELVIS WITHOUT CONTRAST ([id number]) IMPRESSION: 1. Fluid and gas distention of the small and large bowel extending to the rectosigmoid colon distally without a focal transition point. The findings are suggestive of an ileus or gastroenteritis without definite obstruction. 2. Patchy groundglass opacities in the visualized lung bases with consolidation in the inferior right middle and lower lobes. The findings suggest aspiration with right basilar pneumonia. 3. Small atrophic left kidney. No hydronephrosis in the right the left kidney. Dictated by: Man Mcnulty M.D. on 03/08/2017 at 21:18 PROCEDURE: X-RAY CHEST ONE VIEW, PORTABLE ([id number]) IMPRESSION: 1. Right infrahilar consolidation redemonstrated as was increased bandlike opacities in the left base and bilateral patchy groundglass opacities. The findings are suggestive of multifocal pneumonia. Dictated by: Man Mcnulty M.D. on 03/08/2017 at 20:22 PROCEDURE: X-RAY CHEST ONE VIEW, PORTABLE ([id number]) IMPRESSION: Bilateral pneumonia slightly increased involving the left upper lobe. Dictated by: Joaquin Dickens RRA Interpreted: Maddi Banks MD on 03/09/2017 at 10:01 PROCEDURE: CT BRAIN WITHOUT CONTRAST ([id number]) IMPRESSION: 1. Limited study due to motion demonstrates no definite acute intracranial abnormality. Dictated by: Man Mcnulty M.D. on 03/08/2017 at 21:29 . 12-lead ECG Sinus tachycardia with left bundle branch block Cardiac Echo Impressions Echocardiogram Report Name: ELIZABETH HAWTHORNE IStudy Date: Height: 67 in Hospital Exam Location: [facility] Weight: 291 lb Gender: Female BSA: 2.4 m2 : 1940 Age: 76 yrs BP: 109/71 mmHg Reason For Study: BREAST CANCER Ordering Physician: Performed By: Kori Keller Interpretation Summary Left ventricular systolic function is mildly reduced with the ejection fraction visually estimated to be 45-50% with borderline global hypokinesis and more severe hypokinesis in the inferior and inferoposterior segments but this appears unchanged compared to the previous study. There are no other obvious focal wall motion abnormalities and there has been no significant change since the previous study. There is borderline concentric left ventricular hypertrophy and assessment of diastolic parameters indicates a relaxation abnormality of the left ventricle, although the E/E' ratio is mildly increased, suggesting possible increased filling pressures, perhaps slightly higher compared to the previous study. The right ventricle is borderline dilated and right ventricular systolic function is mildly reduced but likely unchanged compared to the previous study. The right ventricular systolic pressure is estimated to be at least 38 mmHg assuming a right atrial pressure of 8 mm Hg, but could be higher. Comparison with the previous study is not possible because this was not assessed on the previous study. The left atrium is mildly dilated. There is no significant valvular heart disease. The ascending aorta is mildly enlarged. There is no pericardial effusion or pleural effusion seen. The patient was in normal sinus rhythm with heart rates between 85-105 bpm during the study which is somewhat slower compared to the previous study. Plan Impression 1. ELVIA due to ATN, improving. 2. Hypokalemia and hypomagnesemia. 3. Hypocalcemia due to ELVIA, possible vitD def, poor GI absorption. 4. Hypernatremia. 5. Crohn's disease status post hemicolectomy 6. Metabolic encephalopathy 7. DNR/DNI. Plan: Continue DW 1/2 NS + KCL 40 meq 80 ml/hr. Start ergocalciferol and neutraphos MgSO4 4 gm IVPB. Continue slow Mg, calcitriol and Tums. Repeat BMP, Mg, PO4 in am. d/c sahu cath. monitor PVR. Gen Escobedo MD March 17, 2017 10:25
--- NOTE | 2017-03-17 11:02 | PCM.PNSURG ---
Subjective Visit Information: Reason for Visit Lc Ileus Pneumonia Surgery/Surgery Date Post-Op Day # Date of Admission: Mar 08, 2017 at 22:23 Hospital Day # Subjective: Stable, nauseated but tolerating PO. Continues to have BMs Objective Vital Sign- Last 8 Hours Date Time Temp Pulse Resp B/P Pulse Ox O2 Delivery O2 Flow Rate FiO2 03/17/17 06:02 37.1 81 20 130/70 90 Room Air Intake and Output- Last 8 Hour 03/17/17 Cumulative From/Thru 07:00 03/08/17 19:43 - 03/17/17 06:29 Intake Total 1441 ml 12901 ml Output Total 501 ml 14685 ml Balance 940 ml 5629 ml Intake Oral 400 ml 4550 ml IV Total 1041 ml 95077 ml Output Urine Total 500 ml 64597 ml Stool Total 1 ml 505 ml Gastric Drainage Total 5150 ml Emesis 50 ml # Bowel Movements 32 General: Alert, Cooperative, No Acute Distress Abdomen: Soft, Distended Result Diagram: 03/17/17 0615 03/17/17 0810 Assessment & Plan Impression 76yof with ileus, tolerating PO despite nausea and having multiple BMs per day Problems: Plan Surgery to sign off. VTE Prophylaxis: Sub-Q Heparin (Unfractionated) Resuscitation Status: CPR: Attempt Resuscitation Swati Parish MD March 17, 2017 11:02
--- NOTE | 2017-03-17 11:24 | PCM.PNMED ---
Subjective Date of Service March 17, 2017 Subjective Patient was seen and examined at bedside. She is losing her son become was bringing her [employer] breakfast including smoothly which she plans on eating. Additionally will bring instant cream of wheat cereal and other food she is found she can tolerate without much nausea. Overall condition slowly improving but she still feels very weak intermittently nauseated. She has been having frequent stools as loose for the last couple of days, was thankful not to have to take lactulose the last couple of days. She denies any fever chills or sweats. Abdominal pain has resolved. Denies palpitations or shortness of breath at this time. Exam Vital Signs Vital Sign - Last Date Time Temp Pulse Resp B/P Pulse Ox O2 Delivery O2 Flow Rate FiO2 03/17/17 11:04 82 03/17/17 06:02 37.1 20 130/70 90 Room Air 03/15/17 15:32 2.00 Intake and Output 03/16/17 03/16/17 03/17/17 Cumulative From/Thru 15:00 23:00 07:00 03/08/17 19:43 - 03/17/17 06:29 Intake Total 450 ml 2299 ml 1441 ml 61115 ml Output Total 700 ml 852 ml 501 ml 76342 ml Balance -250 ml 1447 ml 940 ml 5629 ml Intake Oral 450 ml 500 ml 400 ml 4550 ml IV Total 1799 ml 1041 ml 37054 ml Output Urine Total 650 ml 850 ml 500 ml 71131 ml Stool Total 2 ml 1 ml 505 ml Gastric Drainage Total 5150 ml Emesis 50 ml 50 ml # Bowel Movements 2 32 Exam General: Alert, Oriented X3, Cooperative, Moderate Distress Mouth: Mucous Membranes Dry Chest & Lungs: Clear to auscultation & percussion. Coarse breath sounds diffusely. Cardiovascular: Regular Rate/Rhythm Abdomen: Non-distended, Abdomen is obese but nontender to palpation, (+)BS. Extremities: No cyanosis/clubbing/edema bilat Neurological: Grossly Neurologically Intact IVs and Medications Medications Reviewed: Medications were reviewed in detail Lab and Diagnostics Result Diagram: 03/17/17 0615 03/17/17 0810 Microbiology Urinalysis no pyuria Enteric pathogen stool profile - no C. difficile or other pathogen MRSA swab negative Strep pneumonia and legionella urinary antigens negative Blood culture 03/08/17 - 2 sets pending X-Rays, CTs and MRIs PROCEDURE: CT ABDOMEN AND PELVIS WITHOUT CONTRAST ([id number]) IMPRESSION: 1. Fluid and gas distention of the small and large bowel extending to the rectosigmoid colon distally without a focal transition point. The findings are suggestive of an ileus or gastroenteritis without definite obstruction. 2. Patchy groundglass opacities in the visualized lung bases with consolidation in the inferior right middle and lower lobes. The findings suggest aspiration with right basilar pneumonia. 3. Small atrophic left kidney. No hydronephrosis in the right the left kidney. Dictated by: Man Mcnulty M.D. on 03/08/2017 at 21:18 PROCEDURE: X-RAY CHEST ONE VIEW, PORTABLE ([id number]) IMPRESSION: 1. Right infrahilar consolidation redemonstrated as was increased bandlike opacities in the left base and bilateral patchy groundglass opacities. The findings are suggestive of multifocal pneumonia. Dictated by: Man Mcnulty M.D. on 03/08/2017 at 20:22 PROCEDURE: X-RAY CHEST ONE VIEW, PORTABLE ([id number]) IMPRESSION: Bilateral pneumonia slightly increased involving the left upper lobe. Dictated by: Joaquin Dickens [facility] Interpreted: Maddi Bansk MD on 03/09/2017 at 10:01 PROCEDURE: CT BRAIN WITHOUT CONTRAST ([id number]) IMPRESSION: 1. Limited study due to motion demonstrates no definite acute intracranial abnormality. Dictated by: Man Mcnulty M.D. on 03/08/2017 at 21:29 . 12-lead ECG Sinus tachycardia with left bundle branch block Cardiac Echo Impressions Echocardiogram Report Name: ELIZABETH BEVERLY IStudy Date: Height: 67 in Hospital Exam Location: [facility] Weight: 291 lb Gender: Female BSA: 2.4 m2 : 1940 Age: 76 yrs BP: 109/71 mmHg Reason For Study: BREAST CANCER Ordering Physician: Performed By: Kori Keller Interpretation Summary Left ventricular systolic function is mildly reduced with the ejection fraction visually estimated to be 45-50% with borderline global hypokinesis and more severe hypokinesis in the inferior and inferoposterior segments but this appears unchanged compared to the previous study. There are no other obvious focal wall motion abnormalities and there has been no significant change since the previous study. There is borderline concentric left ventricular hypertrophy and assessment of diastolic parameters indicates a relaxation abnormality of the left ventricle, although the E/E' ratio is mildly increased, suggesting possible increased filling pressures, perhaps slightly higher compared to the previous study. The right ventricle is borderline dilated and right ventricular systolic function is mildly reduced but likely unchanged compared to the previous study. The right ventricular systolic pressure is estimated to be at least 38 mmHg assuming a right atrial pressure of 8 mm Hg, but could be higher. Comparison with the previous study is not possible because this was not assessed on the previous study. The left atrium is mildly dilated. There is no significant valvular heart disease. The ascending aorta is mildly enlarged. There is no pericardial effusion or pleural effusion seen. The patient was in normal sinus rhythm with heart rates between 85-105 bpm during the study which is somewhat slower compared to the previous study. Assessment & Plan Ms. Beverly is a 76-year-old morbidly obese woman with an unfortunate history of Crohn's disease status post hemicolectomy, [id number] diabetes mellitus, hypertension, and metastatic breast cancer currently in remission, that presented to [facility] with a 2 day history of vomiting, diarrhea, abdominal pain , decreased appetite, altered mental status, lethargy. Information is primarily obtained from chart review, as patient has no family at bedside at time of admission, and is not responsive to questioning. She was admitted for evaluation and treatment of altered mental status, severe acute on chronic kidney injury, and suspected pneumonia, gastroenteritis. # Acute Encephalopathy, present on admission. Ongoing, however improving. Per documentation, patient was alert and oriented at baseline. Likely metabolic encephalopathy secondary to acidosis, uremia and elevated ammonia. Brain CT unremarkable - She is now awake and alert. - Repeat Swallow eval, speech therapy has been re-consulted; now advancing diet as tolerated - Avoid sedatives - Will hold Lactulose in setting of normal liver function, complaints of poor tolerability, and now frequent stooling pattern. - Avoid anticholinergics and benzodiazepines # Acute on chronic kidney injury, present on admission. Oliguric. In setting of unilateral functioning kidney. Presumed prerenal azotemia, possibly ATN secondary to volume depletion.On admit: Creatinine 8.40; recent baseline is 1.15. - Moderate fluid resuscitation, but avoid precipitating pulmonary edema - Bicarbonate drip plus rehydration was given. Patient is now off the bicarbonate drip and on gentle IV hydration. It appears patient may now be in the diuretic phase of acute tubular necrosis. - Treat electrolyte disorders - We have re-consulted Nephrology, continue to appreciate the recommendations and insight. Ergocalciferol and Neutra-Phos have been started on their recommendations.. # Chronic systolic congestive heart failure - See echocardiogram report as above - We will start carvedilol low-dose in a.m. - Unable to start NATHALIE inhibitor or ARB due to renal failure - Hold diuretics at this time as patient appears to be in the diuretic phase of acute tubular necrosis. The diuretic phase may be hampered somewhat by the fact that the patient has a solitary kidney. # High anion gap acidosis, acute, present on admission. On admit, calculated: 29, lactate is not elevated. Likely secondary to renal failure, pyroglutamate and D lactate possible - Replete fluids - Improved # Hypotension, acute. Not present on admission. Resolved Patient developed mean arterial pressures less than 65 mmHg despite aggressive fluid hydration. - Place CVC to manage fluid resuscitation and pressors; IJ only to avoid interfering with potential dialysis catheter needs - Measure CVP - Pressors as needed - Maintain mean arterial pressure greater than 65, urine output greater than 0.5 ml/kg/hr - Currently resolved. HDS # Abdomen pain, diarrhea and emesis, acute, present on admission. Diarrhea appears to be chronic related to Crohn disease, although possibly worse recently. The patient is immunocompromise on TNF alpha inhibitor. Differential diagnosis is Crohn disease, gastroenteritis, ischemic bowel, partial bowel obstruction. Acalculous cholecystitis is possible, although not supported by CT scan. C. difficile has been ruled out. - Advancing diet now as tolerated - NG tube to low suction has been removed (03/15) - Gen. surgery consult to assess abdomen, they felt that there is no evidence of acute cholecystitis. - Discussed with Dr. Nasim Parry previously, pt now followed by Dr Parish, appreciating assistance and follow-up. There does not appear to be any current bowel obstruction, but CT does siggest evidence of some stricture. - Continue to monitor stooling pattern with DC of Lactulose. Continues to note loose and frequent stools. - General surgery has signed off narrowing intervention will not be needed recommend consultation of GI should further abdominal symptoms develop as possible Crohn's flare or other etiology may account for stricture noted in imaging studies. , # Radiographic pneumonia, likely acute, present on admission. Likely aspiration pneumonia pneumonitis versus pneumonia based on clinical context of recent severe emesis. At risk for healthcare associated PNA: Recent admission . In ED, patient received: linezolid, Levaquin, Zosyn - We will continue Zosyn alone for now; anticipate discontinuation of 7 day, continue use has not appeared to hamper renal recovery. - Discontinue vanco due to MRSA-negative status low clinical probability of staphylococcal pneumonia, no changed medications this morning. # Elevated ammonia, chronicity unknown, present on admission. On admit: Ammonia 144. Liver transaminases unremarkable, synthetic function intact. Differential diagnosis hyperammonemia: hepatic disorders, portosystemic shunt, inborn errors of urea cycle metabolism, Teresita's syndrome, ureterosigmoidostomy, infection in nondraining bladder, drugs (cyanide, carbamazepine, valproic acid, iron, and cytotoxics can also cause secondary hyperammonemia.) - Repeat ammonia levels have normalized - Lactulose, held, AM level pending. Mentation also stable. Consider follow-up ammonia level once 2 days to ensure it is not again rising. - #Hypokalemia: - Progressive process, renal dsyfunction likely contributing factor. Maybe also due to loose stools., - Continue to monitor on telemetry, repleated IV currently , in addition provided Mg repletion. #Hyponatremia: - transitioning to 1/2 NS at this time at 75cc/hr. - Consider discontinuation with continued good pO intake. # Hypocalcemia, hyperphosphatemia, present on admission. Presumed secondary to severe renal failure. Calcium phosphorus product is 43. - We will consult nephrology, repl;eteding orally daily, IV X1 again today. - Nephrology service has recommended initiation of ergocalciferol, in addition to Tums. # Diabetes mellitus, non-insulin using, chronic. Controlled. A1c 01/2017:5.6 - Frequently monitor capillary blood glucose - Glucose control goals: Random less than 180, fasting less than 140, none less than 70 - Insulin as needed, IV insulin while patient in CCU, then divided 50-50 long- acting and nutritional/correctional #Anemia: - Progressive process, no evidence of acute bleeding - Stool guiac ordered and pending. - Continue to monitor H&H. Resolving, stable and/or chronic problems: # Elevated troponins of undetermined significance, likely acute, present on admission. Monitor - Troponin profile does not suggest acute coronary syndrome # History of Crohn's colitis status post hemicolectomy, chronic. Recently initiated infliximab therapy. - May be contributing to electrolyte abnormalities which in turn may affect mental status - Continue tredning labs, role of medication treatment in this process unclear, but certain pt demonstrated acute worsening following first infusion. We will continue have further discussions with the patient and family . Pain Evaluation: Adequate Pain Control GI Prophylaxis: Not indicated VTE Prophylaxis: Sub-Q Heparin (Unfractionated) VTE Mechanical Devices: Intermittant Pneumatic CD Resuscitation Status: CPR: Attempt Resuscitation Time spent 35 minutes Mk Winetrs DO March 17, 2017 11:24
--- NOTE | 2017-03-17 13:43 | NUR ---
Palliative Care Palliative Care received verbal order from Dr Winters 03/17/17 to assist with (?) goals of care and (?) symptom management. Patient is a 76 year old woman with a complex medical history and past history of breast CA. She was admitted 03/08/17. Patient lives at home with her son. Jermain Beverly (son) [phone] Palliative Care to follow. Lisette Vega
[2017-03-17] MEDS: Sodium-Potassium Phosphorus Packet PO SCH ×3 (14:15→21:28)
--- NOTE | 2017-03-17 14:41 | PCM.CONPAL ---
Date of Service March 17, 2017 Date of Hospital Admission: Mar 08, 2017 at 22:23 Date of Palliative Consult: March 17, 2017 Requesting Provider: BARBIE WINTERS MD Reason Palliative Care Consult: Other (per request of the patient's sonJermain. ) Reason for Consultation Palliative Care received verbal order from Dr Winters 03/17/17 to assist with ( ?) goals of care and (?) symptom management. Patient is a 76 year old woman with a complex medical history and past history of breast CA. She was admitted . Patient lives at home with her son. Jermain Beverly (son) [phone] Hospital Unit @time of consult: Medical/Pediatric Care ([id number]) Palliative Care Recommendation Summary of palliative recommendations: -Symptom management (Pain/other): per [facility] hospitalist team -DPOA/Advanced Directives/POLST: 1. Patient's code status is current DNR/DNI. She does not have a POLST form in place. Palliative care team hopes to complete a POLST form before discharge. However, discharge disposition is not clear at this point. -Family/emotional support: good support from son, sister, and niece. Kaz Aly can be reached at [phone] (or cell [phone]). -Family conference team meeting (FCTM): Dr. Bah and Dr. Sewell met with the patient's son, sister, and niece today. We had a lengthy discussion about Eileen's condition and explained how she is physically not as strong as 2 weeks prior to admission. At that time, she could transfer with one assist and take steps for short distances to get from bed to chair. Currently, she has not been out of bed at all since admission. We strongly recommend that she goes to a rehab facility for strengthening prior to transfer home. She should also have PT evaluation in the hospital. We counseled the patient and her family on this issue today. -Spiritual support: not addressed today. Patient Goals: The patient would like everything done to save her life. In the event of cardiopulmonary arrest she would like to be a DO NOT RESUSCITATE DO NOT INTUBATE. However, up to the point she would like everything done including intensive care and possibly even dialysis. Additional Medical Diagnoses with primary management by Hospitalist team include : Problems: Resuscitation Status Resuscitation Status: CPR: Attempt Resuscitation . Pain: None Symptom management: Nausea Pt History History of Present Illness Ms. Beverly is a 76-year-old morbidly obese woman with an unfortunate history of Crohn's disease status post hemicolectomy, [id number] diabetes mellitus, hypertension, and metastatic breast cancer currently in remission, that presented to [facility] with a 2 day history of vomiting, diarrhea, abdominal pain , decreased appetite, altered mental status, lethargy. Information is primarily obtained from chart review, as patient has no family at bedside at time of admission, and is not responsive to questioning. She was admitted for evaluation and treatment of altered mental status, severe acute on chronic kidney injury, and suspected pneumonia, gastroenteritis. Hospital Course: Patient was admitted on 03/08/17. Today is Hospital day 10. On admission, patient was initially put on comfort care due to her poor medical status. She was found to have metabolic encephalopathy, acute kidney injury due to ATN that likely secondary to acute volume depletion, bowel obstruction, metabolic acidosis, and hyperammonemia. However, patient's symptoms and labs has gradually improved and comfort care status was removed. Patient had NG tube for bowel obstruction that was removed on 03/15. The patient has been tolerating pureed diet well. The hyperammonemia has also resolved. Her overall condition is slowly improving but she still feels very weak with intermittent nausea. The nausea is refractory to Zofran. She also has been having frequent loose stools in spite of discontinuation of Lactulose. PT was consulted on admission , but stopped seeing the patient due to comfort care status on 03/10. Patient has not been out of bed, but thinks she can be discharged home with the help of her son and family. Today, her son (also her DPOA), Jermain Beverly, requests a Palliative consult to discuss about goals of care and discharge planning. Past Medical History Significant PMH Noted: PMH Obtained from ED documentation Psoriasis Aortic and venous Insufficiency Crohn's disease of small AND large intestines Depression with anxiety Restless leg syndrome Diabetes type 2, uncontrolled Insomnia Mitral Valve-regurgitation Peripheral neuropathy Obstructive sleep apnea Metastatic breast cancer in clinical remission since 2008 Periodic limb movement Reports: Diabetes mellitus, Hypertension Reports: Depression Surgical History Obtained from ED documentation Neil-colectomy Tonsillectomy Fistulaetomy Bowel resection Stomach tumor removal Appendectomy Mastectomy Hysterectomy Palliative Performance Scale PPS Patient Status: Baseline PPS Ambulation: Mainly Sit/Lie PPS Activity: Unable to do most activity PPS Self-Care: Considerable assistance required PPS Intake: Normal PPS Conscious Level: Full Performance Scale: 50% ADLs ADL Patient Status: Current ADL Ambulation: Totally Bed ADL Dressing: Total care ADL Feeding: Occasional assistance necessary ADL Hygene/bathing: Total care ADL Transfers: Total care POLST at Time of Admission Previous POLST?: No Allergy Allergies Reviewed: Yes Medications Current Medications: Current Medications Sodium Chloride 1,000 ml @ 75 mls/hr [id number] IV Last administered on 03/16/17 08:36; Admin Dose 75 MLS/HR; Start 03/16/17 at 08:25; Stop 03/16/17 at 11:28; Status DC Calcitriol 0.5 mcg DAILY PO Last administered on 03/17/17 11:32; Admin Dose 0.5 MCG; Start 03/16/17 at 11:20 Calcium Carbonate 1000 mg 1,000 mg TIDWM PO Last administered on 03/16/17 18:32 ; Admin Dose 1,000 MG; Start 03/16/17 at 12:00 Potassium Chloride/Dextrose/ Sod Cl 1,000 ml @ 80 mls/hr [id number] IV Last administered on 03/17/17 13:00; Admin Dose 80 MLS/HR; Start 03/16/17 at 11:30 Magnesium Chloride 64 mg BID PO Last administered on 03/16/17 20:59; Admin Dose 64 MG; Start 03/16/17 at 11:30 Potassium/ Phosphorus/Sodium 1 ea PCHS PO; Start 03/17/17 at 13:00 Ergocalciferol 13118 unit 50,000 unit WEEKLY PO; Start 03/17/17 at 09:50 Famotidine/Sodium Chloride/Premix 50 ml @ 100 mls/hr Q12 IV; Start 03/17/17 at 20:30 Scheduled Amitriptyline (Amitriptyline) 10 Mg Tablet 30 MG PO HS Anastrozole (Anastrozole) 1 Mg Tablet 1 MG PO QAM Aspirin (Aspirin) 81 Mg Tablet 81 MG PO QAM Cholecalciferol (Vitamin D3) (Vitamin D) 1,000 Unit Capsule 5,000 UNIT PO QAM Clobetasol Propionate (Clobetasol Propionate) 50 Ml Solution 1 APPLIC TP QAM 0.05% Cyanocobalamin (Cyanocobalamin Injection) 1,000 Mcg/1 Ml Vial 1,000 MCG IM Monthly Duloxetine (Duloxetine) 60 Mg Capsule. 90 MG PO QAM DULOXETINE 30 MG + 60 MG = 90 MG TOTAL Fluocinolone/Shower Cap (Fluocinolone Acetonide 0.01% Oil) 118.28 Ml Oil 1 APPLIC TOP DAILY Fluocinonide 0.05% Cream (Fluocinonide 0.05% Cream) 15 Gm Cream..g. 1 APPLIC TOPICAL BID Folic Acid/Multivits-Min/Lut (Centrum Silver Chewable Tablet) 1 Each Tab.chew 1 EACH PO QAM Furosemide (Furosemide) 20 Mg Tab 20 MG PO QAM Gabapentin (Gabapentin) 600 Mg Tablet 600 MG PO BIDBL 600 MG IN AM & AFTERNOON, 900 MG AT HS Gabapentin (Gabapentin) 600 Mg Tablet 900 MG PO HS 600 MG IN AM & AFTERNOON, 900 MG AT HS Infliximab (Remicade) 10 Mg/Ml Sdv Unknown Dose IV [id number] Ketoconazole (Nizoral) 120 Ml Shampoo 1 APPLIC TOP TWICE WEEKLY Lisinopril (Lisinopril) 10 Mg Tablet 10 MG PO QAM Lovastatin (Lovastatin) 40 Mg Tablet 40 MG PO HS Pramipexole Dihydrochloride (Pramipexole Dihydrochloride) 0.25 Mg Tablet 0.25 MG PO TIDWM PRAMIPEXOLE 0.25 MG AM, NOON, PM AND 0.5 MG AT HS Pramipexole Dihydrochloride (Pramipexole Dihydrochloride) 0.5 Mg Tablet 0.5 MG PO HS PRAMIPEXOLE 0.25 MG AM, NOON, PM AND 0.5 MG AT HS Scheduled PRN Desonide (Desonide Cream) 15 Gm Cream..g. 1 APPLIC TOP BID PRN PRN RASH Loperamide Liquid (Imodium A-D Liquid) 1 Mg/7.5 Ml Liquid 1 MG PO DAILY PRN PRN PN Objective Findings Exam Vital Sign - Last Date Time Temp Pulse Resp B/P Pulse Ox O2 Delivery O2 Flow Rate FiO2 03/17/17 11:04 82 03/17/17 10:46 36.9 18 136/78 92 Room Air 03/15/17 15:32 2.00 Intake and Output 03/16/17 03/16/17 03/17/17 Cumulative From/Thru 15:00 23:00 07:00 03/08/17 19:43 - 03/17/17 06:29 Intake Total 450 ml 2299 ml 1441 ml 50344 ml Output Total 700 ml 852 ml 501 ml 18144 ml Balance -250 ml 1447 ml 940 ml 5629 ml Intake Oral 450 ml 500 ml 400 ml 4550 ml IV Total 1799 ml 1041 ml 09835 ml Output Urine Total 650 ml 850 ml 500 ml 12048 ml Stool Total 2 ml 1 ml 505 ml Gastric Drainage Total 5150 ml Emesis 50 ml 50 ml # Bowel Movements 2 32 General: Alert, Oriented, No acute distress, Other (morbidly obese) HEENT: Atraumatic, EOMI, Scleral Anicteric Abdomen: Other (dry heaving noted during the visit) Lab/Diagnostics Lab and Imaging results reviewed in detail in EMR. Time spent Total time [70 ] minutes; >50% face to face with patient and/or family, providing counselling regarding plans and recommendations, and in care coordination with his/her medical teams. I also spent an additional [ ] minutes counseling for advanced care planning with the patient/the patients family/the surrogate decision maker. Attending Statement I was physically present and available with house staff and agree with history, exam and plan of care as outlined in the note above. copies to: Jovani Miranda DO; Judith Miranda DO; Eliazar Casper MD, Ngochanh H DO March 17, 2017 14:41 Luz Bah MD March 17, 2017 15:23
--- NOTE | 2017-03-17 17:15 | NUR ---
SW - Continued Discharge Planning Data: Pt is on day 9 of hospitalization for ELVIA Ileus pneumonia. EMR reviewed. Pt discussed in morning rounds and likely to be here several more days, not medically cleared to discharge. Palliative Care consult ordered. LU met with son Jermain to discuss discharge planning, stressed the importance of parallel planning. He stated they might have resources for in home caregiving and they have the senior resources handbook. SW will check in again following palliative care consult. LU has sent referral to [facility] for RN. Access given. Face to face in folder to be signed. Assessment: Pt who has open APS referral, would potentially benefit from palliative care. Plan: SW to check in following palliative care consult re: discharge plan. Pt likely to discharge home when medically stable with [facility] RN via POV. SW will continue to follow. SORAYA Tian
--- NOTE | 2017-03-17 17:17 | NUR ---
Nausea/Vomiting P: Pt. c/o nausea this morning, worsening with movement/repositioning. States she gets dizzy when being repositioned or changed. Pt. vomited 2X and was unable to take morning meds. I: Administered 8 mg. of Zofran. Moved pt. slowly when changing and repositioning. E: Tolerated medication well with no further c/o nausea.
[2017-03-17] MEDS: Famotidine Inj 20 MG in IV Premix 1 EACH IV SCH (21:14)
[2017-03-18] VITALS (9 sets, daily range): BP systolic 114–168; BP diastolic 59–75; PULSE 77–87; RESP 19–20; O2SAT 89–92
[2017-03-18] MEDS: D5 0.45% NaCl + KCl 40 mEq/L 1,000 ML IV SCH (00:53)
--- NOTE | 2017-03-18 05:05 | NUR ---
Nausea,vomiting. Pt c/o nausea,dry hives most of times, vomitted light yellow liquids about 50ml,unable to tolerate oral meds,throw up oral meds at pm. Symptoms especially worsened with repositioning. Pt anxious. Zofran 8mg given at pm,limited effects, Ativan appears effective, nausea resolved and pt sleeping after Ativan given. Pt denies abdominal pain, had moderate amount of brown loose BMX1. Pass gas per pt report. Abdomen soft, nontender, BT hyperactive. Poor appetite. Ice chips offered. [id number] running.
[2017-03-18] MEDS: Piper-Tazo 3.375 Gm/50 mL D5W Minibag Plus - Q8H over 4 hrs IV SCH ×4 (05:47→18:16)
[2017-03-18] MEDS: Famotidine Inj 20 MG in IV Premix 1 EACH IV SCH ×2 (08:05→20:43)
[2017-03-18] MEDS: Magnesium Chloride SR 64 mg ER24 Tablet PO SCH ×2 (09:17→20:42)
[2017-03-18] MEDS: Sodium-Potassium Phosphorus Packet PO SCH ×4 (09:17→21:39)
--- NOTE | 2017-03-18 10:00 | NUR ---
VANESSA signed SORAYA Jeong
[2017-03-18 10:23] LABS: Mean Corpuscular Volume 94.7 fL (81-100)
[2017-03-18 10:24] LABS: BASOPHILS % (AUTO) 0.6 % (0-3); EOSINOPHILS % (AUTO) 2.3 % (0-5); MONOCYTES % (AUTO) 17.9 % (4-12); NEUTROPHILS % (AUTO) 50.1 % (40-74); Platelet Count 192 bil/L (150-400)
[2017-03-18] MEDS ORDERED: Potassium Phos (mMol) Inj 30 MMOL in Dextrose 5% 500 ML IV ONE (10:45)
--- NOTE | 2017-03-18 10:50 | PCM.PNNEPH ---
Subjective Date of Service March 18, 2017 Subjective Persistent nausea. unable to tolerate oral intake. Electrolyte disturbance slowly corrected. Exam Vital Signs Vital Sign - Last Date Time Temp Pulse Resp B/P Pulse Ox O2 Delivery O2 Flow Rate FiO2 03/18/17 10:05 36.4 82 19 131/74 90 Room Air 03/15/17 15:32 2.00 Intake and Output 03/17/17 03/17/17 03/18/17 Cumulative From/Thru 15:00 23:00 07:00 03/08/17 19:43 - 03/18/17 05:50 Intake Total 200 ml 1622 ml 19877 ml Output Total 1021 ml 00576 ml Balance -821 ml 1622 ml 6430 ml Intake Oral 200 ml 4750 ml IV Total 1622 ml 27042 ml Output Urine Total 600 ml 63050 ml Stool Total 1 ml 506 ml Gastric Drainage Total 5150 ml Emesis 420 ml 470 ml # Bowel Movements 4 36 Exam General: No acute distress, well-developed, Obese ill appearing female lying in bed. Eyes: PERRLA, anicteric sclerae, moist noninjected conjunctivae. HEENT: Normocephalic, atraumatic. External ears without defect. Neck: Supple with full range of motion. JVD hard to assess due to neck habitus. No bruits. No lymphadenopathy or thyromegaly. Cardiovascular: RRR, no murmurs, rubs, or gallops appreciated. Pulmonary: Poor air entry, no wheezing. Abdomen: Distended, tympanic. hypoactive BS, Obese. Extremities: trace edema. : sahu cath in place with good UOP. Lab and Diagnostics Result Diagram: 03/18/17 0710 03/18/17 0710 Microbiology Urinalysis no pyuria Enteric pathogen stool profile - no C. difficile or other pathogen MRSA swab negative Strep pneumonia and legionella urinary antigens negative Blood culture 03/08/17 - 2 sets pending X-Rays, CTs and MRIs PROCEDURE: CT ABDOMEN AND PELVIS WITHOUT CONTRAST ([id number]) IMPRESSION: 1. Fluid and gas distention of the small and large bowel extending to the rectosigmoid colon distally without a focal transition point. The findings are suggestive of an ileus or gastroenteritis without definite obstruction. 2. Patchy groundglass opacities in the visualized lung bases with consolidation in the inferior right middle and lower lobes. The findings suggest aspiration with right basilar pneumonia. 3. Small atrophic left kidney. No hydronephrosis in the right the left kidney. Dictated by: Man Mcnulty M.D. on 03/08/2017 at 21:18 PROCEDURE: X-RAY CHEST ONE VIEW, PORTABLE ([id number]) IMPRESSION: 1. Right infrahilar consolidation redemonstrated as was increased bandlike opacities in the left base and bilateral patchy groundglass opacities. The findings are suggestive of multifocal pneumonia. Dictated by: Man Mcnulty M.D. on 03/08/2017 at 20:22 PROCEDURE: X-RAY CHEST ONE VIEW, PORTABLE ([id number]) IMPRESSION: Bilateral pneumonia slightly increased involving the left upper lobe. Dictated by: Joaquin Dickens [facility] Interpreted: Maddi Banks MD on 03/09/2017 at 10:01 PROCEDURE: CT BRAIN WITHOUT CONTRAST ([id number]) IMPRESSION: 1. Limited study due to motion demonstrates no definite acute intracranial abnormality. Dictated by: Man Mcnulty M.D. on 03/08/2017 at 21:29 . 12-lead ECG Sinus tachycardia with left bundle branch block Cardiac Echo Impressions Echocardiogram Report Name: ELIZABETH HAWTHORNE IStudy Date: Height: 67 in Hospital Exam Location: [facility] Weight: 291 lb Gender: Female BSA: 2.4 m2 : 1940 Age: 76 yrs BP: 109/71 mmHg Reason For Study: BREAST CANCER Ordering Physician: Performed By: Kori Keller Interpretation Summary Left ventricular systolic function is mildly reduced with the ejection fraction visually estimated to be 45-50% with borderline global hypokinesis and more severe hypokinesis in the inferior and inferoposterior segments but this appears unchanged compared to the previous study. There are no other obvious focal wall motion abnormalities and there has been no significant change since the previous study. There is borderline concentric left ventricular hypertrophy and assessment of diastolic parameters indicates a relaxation abnormality of the left ventricle, although the E/E' ratio is mildly increased, suggesting possible increased filling pressures, perhaps slightly higher compared to the previous study. The right ventricle is borderline dilated and right ventricular systolic function is mildly reduced but likely unchanged compared to the previous study. The right ventricular systolic pressure is estimated to be at least 38 mmHg assuming a right atrial pressure of 8 mm Hg, but could be higher. Comparison with the previous study is not possible because this was not assessed on the previous study. The left atrium is mildly dilated. There is no significant valvular heart disease. The ascending aorta is mildly enlarged. There is no pericardial effusion or pleural effusion seen. The patient was in normal sinus rhythm with heart rates between 85-105 bpm during the study which is somewhat slower compared to the previous study. Plan Impression 1. ELVIA due to ATN, improving. 2. Hypokalemia and hypomagnesemia. 3. Hypocalcemia (corrected calcium 7.26) due to ELVIA, possible vitD def, poor GI absorption. 4. Hypernatremia. 5. Crohn's disease status post hemicolectomy 6. Metabolic encephalopathy 7. DNR/DNI. Plan: d/c DW 1/2 NS + KCL 40 meq. start D5W + KCL 40 meq 80 m/lhr continue ergocalciferol and neutraphos Continue slow Mg, calcitriol and Tums. Repeat BMP, Mg, PO4 in am. Gen Escobedo MD March 18, 2017 10:50
--- NOTE | 2017-03-18 12:53 | NUR ---
Gave access and faxed facesheet to TENNILLE and Lorna Pierre per [employer]
[2017-03-18] MEDS: Ondansetron 2 mg/mL 2 mL Inj IVPUSH PRN (13:24)
--- NOTE | 2017-03-18 14:03 | PCM.PNMED ---
Subjective Date of Service March 18, 2017 Subjective Patient is finally noting significant improvement in nausea felt over the past nearly week. She has continued use when necessary Zofran, previously not been overly effective but now has relieved her nausea entirely. Overall she states her energy clarity of thinking is also improved. This improved cognition also prompted a repeat swallow study, which demonstrated an ability to swallow all foods from solid to liquid and limited advancement to a regular diet. She is denying any chest pain or shortness of breath. Abdominal pains. Previously has resolved. She continues to have regular loose stools, this is a more chronic problem. Exam Vital Signs Vital Sign - Last Date Time Temp Pulse Resp B/P Pulse Ox O2 Delivery O2 Flow Rate FiO2 03/18/17 13:08 36.5 87 19 141/59 91 Room Air 03/15/17 15:32 2.00 Intake and Output 03/17/17 03/17/17 03/18/17 Cumulative From/Thru 15:00 23:00 07:00 03/08/17 19:43 - 03/18/17 05:50 Intake Total 200 ml 1622 ml 01938 ml Output Total 1021 ml 96830 ml Balance -821 ml 1622 ml 6430 ml Intake Oral 200 ml 4750 ml IV Total 1622 ml 26961 ml Output Urine Total 600 ml 13461 ml Stool Total 1 ml 506 ml Gastric Drainage Total 5150 ml Emesis 420 ml 470 ml # Bowel Movements 4 36 Exam General: Alert, Oriented X3, Cooperative, No acute Distress Mouth: Mucous Membranes Dry Cardiovascular: Regular Rate/Rhythm Abdomen: Non-distended, Abdomen is obese but nontender to palpation, (+)BS. Extremities: No cyanosis/clubbing/edema bilat Neurological: Grossly Neurologically Intact IVs and Medications Medications Reviewed: Medications were reviewed in detail Lab and Diagnostics Result Diagram: 03/18/17 0710 03/18/17 0710 Microbiology Urinalysis no pyuria Enteric pathogen stool profile - no C. difficile or other pathogen MRSA swab negative Strep pneumonia and legionella urinary antigens negative Blood culture 03/08/17 - 2 sets pending X-Rays, CTs and MRIs PROCEDURE: CT ABDOMEN AND PELVIS WITHOUT CONTRAST ([id number]) IMPRESSION: 1. Fluid and gas distention of the small and large bowel extending to the rectosigmoid colon distally without a focal transition point. The findings are suggestive of an ileus or gastroenteritis without definite obstruction. 2. Patchy groundglass opacities in the visualized lung bases with consolidation in the inferior right middle and lower lobes. The findings suggest aspiration with right basilar pneumonia. 3. Small atrophic left kidney. No hydronephrosis in the right the left kidney. Dictated by: Man Mcnulty M.D. on 03/08/2017 at 21:18 PROCEDURE: X-RAY CHEST ONE VIEW, PORTABLE ([id number]) IMPRESSION: 1. Right infrahilar consolidation redemonstrated as was increased bandlike opacities in the left base and bilateral patchy groundglass opacities. The findings are suggestive of multifocal pneumonia. Dictated by: Man Mcnulty M.D. on 03/08/2017 at 20:22 PROCEDURE: X-RAY CHEST ONE VIEW, PORTABLE ([id number]) IMPRESSION: Bilateral pneumonia slightly increased involving the left upper lobe. Dictated by: Joaquin Dickens RRA Interpreted: Maddi Banks MD on 03/09/2017 at 10:01 PROCEDURE: CT BRAIN WITHOUT CONTRAST ([id number]) IMPRESSION: 1. Limited study due to motion demonstrates no definite acute intracranial abnormality. Dictated by: Man Mcnulty M.D. on 03/08/2017 at 21:29 . 12-lead ECG Sinus tachycardia with left bundle branch block Cardiac Echo Impressions Echocardiogram Report Name: ELIZABETH BEVERLY IStudy Date: Height: 67 in Hospital Exam Location: [facility] Weight: 291 lb Gender: Female BSA: 2.4 m2 : 1940 Age: 76 yrs BP: 109/71 mmHg Reason For Study: BREAST CANCER Ordering Physician: Performed By: Kori Keller Interpretation Summary Left ventricular systolic function is mildly reduced with the ejection fraction visually estimated to be 45-50% with borderline global hypokinesis and more severe hypokinesis in the inferior and inferoposterior segments but this appears unchanged compared to the previous study. There are no other obvious focal wall motion abnormalities and there has been no significant change since the previous study. There is borderline concentric left ventricular hypertrophy and assessment of diastolic parameters indicates a relaxation abnormality of the left ventricle, although the E/E' ratio is mildly increased, suggesting possible increased filling pressures, perhaps slightly higher compared to the previous study. The right ventricle is borderline dilated and right ventricular systolic function is mildly reduced but likely unchanged compared to the previous study. The right ventricular systolic pressure is estimated to be at least 38 mmHg assuming a right atrial pressure of 8 mm Hg, but could be higher. Comparison with the previous study is not possible because this was not assessed on the previous study. The left atrium is mildly dilated. There is no significant valvular heart disease. The ascending aorta is mildly enlarged. There is no pericardial effusion or pleural effusion seen. The patient was in normal sinus rhythm with heart rates between 85-105 bpm during the study which is somewhat slower compared to the previous study. Assessment & Plan Ms. Beverly is a 76-year-old morbidly obese woman with an unfortunate history of Crohn's disease status post hemicolectomy, [id number] diabetes mellitus, hypertension, and metastatic breast cancer currently in remission, that presented to [facility] with a 2 day history of vomiting, diarrhea, abdominal pain , decreased appetite, altered mental status, lethargy. Information is primarily obtained from chart review, as patient has no family at bedside at time of admission, and is not responsive to questioning. She was admitted for evaluation and treatment of altered mental status, severe acute on chronic kidney injury, and suspected pneumonia, gastroenteritis. # Acute Encephalopathy, present on admission. Ongoing, however improving. Per documentation, patient was alert and oriented at baseline. Likely metabolic encephalopathy secondary to acidosis, uremia and elevated ammonia. Brain CT unremarkable - She is now awake and alert. - Repeat Swallow eval, speech therapy has been re-consulted; now advancing diet as tolerated - Avoid sedatives - Will hold Lactulose in setting of normal liver function, complaints of poor tolerability, and now frequent stooling pattern. - Avoid anticholinergics and benzodiazepines # Acute on chronic kidney injury, present on admission. Oliguric. In setting of unilateral functioning kidney. Presumed prerenal azotemia, possibly ATN secondary to volume depletion.On admit: Creatinine 8.40; recent baseline is 1.15 , creatinine level is not yet at that number but has been downward trending. - Moderate fluid resuscitation, but avoid precipitating pulmonary edema - Bicarbonate drip plus rehydration was given. Patient is now off the bicarbonate drip and on gentle IV hydration. It appears patient may now be in the diuretic phase of acute tubular necrosis. - Treat electrolyte disorders - We have re-consulted Nephrology, continue to appreciate the recommendations and insight. Ergocalciferol and Neutra-Phos have been started on their recommendations.. # Chronic systolic congestive heart failure - See echocardiogram report as above - We will start carvedilol low-dose in a.m. - Unable to start NATHALIE inhibitor or ARB due to renal failure - Hold diuretics at this time as patient appears to be in the diuretic phase of acute tubular necrosis. The diuretic phase may be hampered somewhat by the fact that the patient has a solitary kidney. # High anion gap acidosis, acute, present on admission. On admit, calculated: 29, lactate is not elevated. Likely secondary to renal failure, pyroglutamate and D lactate possible - Replete fluids - Improved # Hypotension, acute. Not present on admission. Resolved Patient developed mean arterial pressures less than 65 mmHg despite aggressive fluid hydration. - Place CVC to manage fluid resuscitation and pressors; IJ only to avoid interfering with potential dialysis catheter needs - Measure CVP - Pressors as needed - Maintain mean arterial pressure greater than 65, urine output greater than 0.5 ml/kg/hr - Currently resolved. HDS # Abdomen pain, diarrhea and emesis, acute, present on admission. Diarrhea appears to be chronic related to Crohn disease, although possibly worse recently. The patient is immunocompromise on TNF alpha inhibitor. Differential diagnosis is Crohn disease, gastroenteritis, ischemic bowel, partial bowel obstruction. Acalculous cholecystitis is possible, although not supported by CT scan. C. difficile has been ruled out. - Advancing diet now as tolerated - NG tube to low suction has been removed (03/15) - Gen. surgery consult to assess abdomen, they felt that there is no evidence of acute cholecystitis. - Discussed with Dr. Nasim Parry previously, pt now followed by Dr Parish, appreciating assistance and follow-up. There does not appear to be any current bowel obstruction, but CT does siggest evidence of some stricture. - Continue to monitor stooling pattern with DC of Lactulose. Continues to note loose and frequent stools. - General surgery has signed off narrowing intervention will not be needed recommend consultation of GI should further abdominal symptoms develop as possible Crohn's flare or other etiology may account for stricture noted in imaging studies. , # Radiographic pneumonia, likely acute, present on admission. Likely aspiration pneumonia pneumonitis versus pneumonia based on clinical context of recent severe emesis. At risk for healthcare associated PNA: Recent admission . In ED, patient received: linezolid, Levaquin, Zosyn - We will continue Zosyn alone for now; anticipate discontinuation following 7 day course, continue use has not appeared to hamper renal recovery. - Discontinue vanco due to MRSA-negative status low clinical probability of staphylococcal pneumonia, no changed medications this morning. # Elevated ammonia, chronicity unknown, present on admission. On admit: Ammonia 144. Liver transaminases unremarkable, synthetic function intact. Differential diagnosis hyperammonemia: hepatic disorders, portosystemic shunt, inborn errors of urea cycle metabolism, Teresita's syndrome, ureterosigmoidostomy, infection in nondraining bladder, drugs (cyanide, carbamazepine, valproic acid, iron, and cytotoxics can also cause secondary hyperammonemia.) - Repeat ammonia levels have normalized - Lactulose, held, AM level pending. Mentation also stable. Consider follow-up ammonia level to ensure it is not again rising. #Hypokalemia: - Progressive process, renal dsyfunction likely contributing factor. Maybe also due to loose stools., - Continue to monitor on telemetry, repleated IV currently , in addition provided Mg repletion. #Hypernatremia: - transitioning to 1/2 NS at this time at 75cc/hr., and subsequently to D5 water for persistent elevation of sodium. - This condition also managed by nephrology continue to appreciate recommendations. # Hypocalcemia, hyperphosphatemia, present on admission. Presumed secondary to severe renal failure. Calcium phosphorus product is 43. - We will consult nephrology, repl;eteding orally daily, IV X1 again today. - Nephrology service has recommended initiation of ergocalciferol, in addition to Tums. # Diabetes mellitus, non-insulin using, chronic. Controlled. A1c 01/2017:5.6 - Frequently monitor capillary blood glucose - Glucose control goals: Random less than 180, fasting less than 140, none less than 70 - Insulin as needed, IV insulin while patient in CCU, then divided 50-50 long- acting and nutritional/correctional #Anemia: - Progressive process, no evidence of acute bleeding - Stool guiac ordered and pending. - Continue to monitor H&H. Resolving, stable and/or chronic problems: # Elevated troponins of undetermined significance, likely acute, present on admission. Monitor - Troponin profile does not suggest acute coronary syndrome # History of Crohn's colitis status post hemicolectomy, chronic. Recently initiated infliximab therapy. - May be contributing to electrolyte abnormalities which in turn may affect mental status - Continue tredning labs, role of medication treatment in this process unclear, but certain pt demonstrated acute worsening following first infusion. We will continue have further discussions with the patient and family . Pain Evaluation: Adequate Pain Control GI Prophylaxis: Not indicated VTE Prophylaxis: Sub-Q Heparin (Unfractionated) VTE Mechanical Devices: Intermittant Pneumatic CD Resuscitation Status: CPR: Attempt Resuscitation Time spent 25 minutes Mk Winters DO March 18, 2017 14:03
--- NOTE | 2017-03-18 18:48 | NUR ---
Nausea Pt is having intermittent nausea and dry heaving, pt had no emesis. Orders have been changed to zofran SL prior to meals.
[2017-03-19] VITALS (7 sets, daily range): BP systolic 124–149; BP diastolic 70–87; PULSE 80–89; RESP 20; O2SAT 90–96
[2017-03-19 05:40] LABS: BASOPHILS % (AUTO) 0.6 % (0-3); EOSINOPHILS % (AUTO) 2.1 % (0-5); MONOCYTES % (AUTO) 15.9 % (4-12); Mean Corpuscular Hemoglobin 27.9 pg (27.0-35.0); Mean Corpuscular Volume 93.6 fL (81-100); NEUTROPHILS % (AUTO) 52.9 % (40-74); Platelet Count 185 bil/L (150-400)
[2017-03-19] MEDS: Piper-Tazo 3.375 Gm/50 mL D5W Minibag Plus - Q8H over 4 hrs IV SCH ×4 (05:49→17:56)
[2017-03-19 06:03] LABS: Magnesium 1.6 mg/dL (1.6-2.6)
[2017-03-19] MEDS ORDERED: Calcium GLUCO 10% (mEq) Inj 9.3 MEQ in Dextrose 5% 100 ML IV ONE (08:00)
[2017-03-19] MEDS: Magnesium Chloride SR 64 mg ER24 Tablet PO SCH ×2 (08:30→21:59)
[2017-03-19] MEDS: Sodium-Potassium Phosphorus Packet PO SCH ×4 (08:30→22:00)
[2017-03-19] MEDS: Famotidine Inj 20 MG in IV Premix 1 EACH IV SCH ×2 (08:45→21:59)
--- NOTE | 2017-03-19 09:50 | PCM.CONPAL ---
Date of Service March 18, 2017 LATE ENTRY--prior note lost in system Date of Hospital Admission: Mar 08, 2017 at 22:23 Date of Palliative Consult: March 17, 2017 Requesting Provider: BARBIE WINTERS MD Reason Palliative Care Consult: Other Symptoms, Goals of Care Discussion, Other (per request of the patient's sonJermain. ) Reason for Consultation Palliative Care received verbal order from Dr Winters 03/17/17 to assist with ( ?) goals of care and (?) symptom management. Patient is a 76 year old woman with a complex medical history and past history of breast CA. She was admitted . Patient lives at home with her son. Jermain Beverly (son) [phone] Hospital Unit @time of consult: Medical/Pediatric Care ([id number]) Palliative Care Recommendation Summary of palliative recommendations: -Symptom management (Pain/other): per [facility] hospitalist team Nausea: pt feels her Zofran dosing is "always late"--" I need to get it before I eat". 1. Schedule zofran QID. Informed by pharmacy that 24ng is max daily dose , so we will make these 6 mg doses. With this plan, no addition zofran will be available for breakthrough. The patient is amenable to this being ODT rather that IV so that she could continue this routine in the SNF and at home. -DPOA/Advanced Directives/POLST: 1. Patient's code status is current DNR/DNI. POLST completed today. 2. discharge disposition is not clear at this point but expect that rehab will be her most likely option. CM to advise re: options -Family/emotional support: good support from son, sister, and niece. Kaz Aly can be reached at [phone] (or cell [phone]). -Family conference team meeting (FCTM): [facility] and Dr. Sewell met with the patient's son, sister, and niece today. All agree to the patient's plan for progressing to rehab. -Spiritual support: not addressed today. Patient Goals: The patient would like selective/effective medical treatments for any medical conditions. In the event of cardiopulmonary arrest she would like to be a DO NOT RESUSCITATE DO NOT INTUBATE and would like to avoid "machines", she does not want to have intubation and/or any machines for life-prolonging, although she would consider limited dialysis to resolve/ reverse acute renal failure but would NOT want this to be long-term. Additional Medical Diagnoses with primary management by Hospitalist team include : # Acute Encephalopathy, present on admission. Ongoing, however improving. Per documentation, patient was alert and oriented at baseline. Likely metabolic encephalopathy secondary to acidosis, uremia and elevated ammonia. Brain CT unremarkable # Acute on chronic kidney injury, present on admission. Oliguric. In setting of unilateral functioning kidney. Presumed prerenal azotemia, possibly ATN secondary to volume depletion.On admit: Creatinine 8.40; recent baseline is 1.15 , creatinine level is not yet at that number but has been downward trending. # Chronic systolic congestive heart failure # High anion gap acidosis, acute, present on admission. On admit, calculated: 29, lactate is not elevated. Likely secondary to renal failure, pyroglutamate and D lactate possible # Hypotension, acute. Not present on admission. Resolved Patient developed mean arterial pressures less than 65 mmHg despite aggressive fluid hydration. # Abdomen pain, diarrhea and emesis, acute, present on admission. Diarrhea appears to be chronic related to Crohn disease, although possibly worse recently. # Radiographic pneumonia, likely acute, present on admission. Likely aspiration pneumonia pneumonitis versus pneumonia based on clinical context of recent severe emesis. At risk for healthcare associated PNA: Recent admission . In ED, patient received: linezolid, Levaquin, Zosyn # Elevated ammonia, chronicity unknown, present on admission. #Hypokalemia: #Hypernatremia: # Hypocalcemia, hyperphosphatemia, present on admission. Presumed secondary to severe renal failure. Calcium phosphorus product is 43. # Diabetes mellitus, non-insulin using, chronic. #Anemia: Resolving, stable and/or chronic problems: # Elevated troponins of undetermined significance, likely acute, present on admission. Monitor # History of Crohn's colitis status post hemicolectomy, chronic. Recently initiated infliximab therapy. Problems: (1) Palliative care by specialist Status: Acute ICD Code: Z51.5 (2) Goals of care, counseling/discussion Status: Acute ICD Code: Z71.89 (3) Nausea & vomiting Status: Acute ICD Code: R11.2 (4) Ileus Status: Acute ICD Code: K56.7 (5) Acute kidney injury Status: Acute ICD Code: N17.9 End of Life Preferences wants selective medical therapies to reverse reversible life-threatening conditions, especially metabolic abnormalities but no intubation or other life- prolonging machines at end of life. Goals of Care hopes to return to baseline and home with son. Goal is for best possible control of chronic issues, treatment for reversible conditions and supportive therapies with goal of preserving/returning to baseline function. Disposition possible SNF pending PT eval Resuscitation Status Resuscitation Status: DNR/DNI:Do Not Resuscitate/Intubate POLST Updates/Changes Previous POLST?: No Antibiotics: Use ABX if can Prolong Life Artificially Admin Nutrition: Trial Period Tube Feeding POLST Discussed with: Patient POLST Review Outcome: New Form Completed . Advanced Care Planning Address: POLST Symptom management: Nausea Pt History History of Present Illness Ms. Beverly is a 76-year-old morbidly obese woman with an unfortunate history of Crohn's disease status post hemicolectomy, ogl-[id number]-[id number] diabetes mellitus, hypertension, and metastatic breast cancer currently in remission, that presented to [facility] with a 2 day history of vomiting, diarrhea, abdominal pain , decreased appetite, altered mental status, lethargy. Information is primarily obtained from chart review, as patient was not responsive to questioning on admission. She was admitted for evaluation and treatment of altered mental status, severe acute on chronic kidney injury, and suspected pneumonia, gastroenteritis. Hospital Course: Patient was admitted on 03/08/17. Today is Hospital day 12. On admission, patient was initially put on comfort care due to her poor medical status. She was found to have metabolic encephalopathy, acute kidney injury due to ATN that likely secondary to acute volume depletion, bowel obstruction, metabolic acidosis, and hyperammonemia. However, patient's symptoms and labs has gradually improved and comfort care status was reversed, medical therapies resumed. Patient had NG tube for bowel obstruction that was removed on 03/15. The patient has been tolerating pureed diet well. The hyperammonemia has also resolved. Her overall condition is slowly improving but she still feels very weak with intermittent nausea. Palliative Care note: The patient feels her nausea is better with Zofran but she usually does not get it when she needs it; we will enter a routine schedule for this medication. Her stools are now less loose; she is happy to no longer be taking Lactulose. PT was consulted on admission, but stopped seeing the patient due to comfort care status on 03/10. We will reorder this-- Patient has not been out of bed. The patient would prefer a home discharge but understands that her needs for rehab will necessitate transition to skilled facility on [place]. Her goals as previously stated to Palliative Care are reviewed--see new POLST above and in her chart/medical record. Past Medical History Significant PMH Noted: PMH From H& P by Dr. Lisette Ibarra: Psoriasis Aortic and venous Insufficiency Crohn's disease of small AND large intestines Depression with anxiety Restless leg syndrome Diabetes type 2, uncontrolled Insomnia Mitral Valve-regurgitation Peripheral neuropathy Obstructive sleep apnea Metastatic breast cancer in clinical remission since 2008 Periodic limb movement Reports: Diabetes mellitus, Hypertension Reports: Depression Surgical History Obtained from ED documentation, patient is unable to appropriately respond to questioning: Neil-colectomy Tonsillectomy Fistulaetomy Bowel resection Stomach tumor removal Appendectomy Mastectomy Hysterectomy Family History Obtained from ED documentation, as patient is unable to appropriately respond to questioning at this time: Father had congenital heart disease, aortic aneurysm Mother from Brain tumor Social History Hx Alcohol Use: Yes (rare) Hx Substance Use: No Hx Tobacco Use: No Smoking Status: Former Smoker Living Arrangement: with Family (reported to live with son, local) Social History Family Members Issues: son Jermain is POA, sister also very involved as advocate for medical care Living Situation: home with son. Palliative Performance Scale PPS Patient Status: Baseline PPS Ambulation: Mainly Sit/Lie PPS Activity: Unable to do most activity PPS Self-Care: Considerable assistance required PPS Intake: Normal PPS Conscious Level: Full Performance Scale: 50% ADLs ADL Patient Status: Current ADL Ambulation: Totally Bed ADL Dressing: Mainly assistance ADL Feeding: Considerable assistance required ADL Hygene/bathing: Considerable assistance required ADL Transfers: Mainly assistance POLST at Time of Admission Previous POLST?: No Allergy Allergies Reviewed: Yes Medications Current Medications: Current Medications Potassium/ Phosphorus/Sodium 1 ea PCHS PO Last administered on 03/18/17t 21:39; Admin Dose 1 EA; Start 03/17/17 at 13:00 Ergocalciferol 23063 unit 50,000 unit WEEKLY PO; Start 03/17/17 at 09:50 Famotidine/Sodium Chloride 20 mg/ Premix 50 ml @ 100 mls/hr Q12 IV Last administered on 03/19/17 08:45; Admin Dose 100 MLS/HR; Start 03/17/17 at 20:30 Potassium Chloride/Dextrose/ Water 1,020 ml @ 80 mls/hr [id number] IV; Start at 10:45; Stop 03/18/17 at 12:32; Status DC Calcitriol 1 mcg 1 mcg DAILY PO; Start 03/19/17 at 08:30 Potassium Chloride/Dextrose/ Water 1,020 ml @ 80 mls/hr [id number] IV Last administered on 03/18/17 16:45; Admin Dose 80 MLS/HR; Start 03/18/17 at 16:00; Stop 03/19/17 at 04:44; Status DC Ondansetron HCl PAtient may request larger 6... [id number] PO; Start 03/18/17 at 15: 10; Stop 03/18/17 at 15:44; Status DC Ondansetron HCl PAtient may request larger 6... ACHS PO Last administered on 03/19 08:43; Admin Dose 6 MG; Start 03/18/17 at 17:00 Scheduled Amitriptyline (Amitriptyline) 10 Mg Tablet 30 MG PO HS Anastrozole (Anastrozole) 1 Mg Tablet 1 MG PO QAM Aspirin (Aspirin) 81 Mg Tablet 81 MG PO QAM Cholecalciferol (Vitamin D3) (Vitamin D) 1,000 Unit Capsule 5,000 UNIT PO QAM Clobetasol Propionate (Clobetasol Propionate) 50 Ml Solution 1 APPLIC TP QAM 0.05% Cyanocobalamin (Cyanocobalamin Injection) 1,000 Mcg/1 Ml Vial 1,000 MCG IM Monthly Duloxetine (Duloxetine) 60 Mg Capsule.dr 90 MG PO QAM DULOXETINE 30 MG + 60 MG = 90 MG TOTAL Fluocinolone/Shower Cap (Fluocinolone Acetonide 0.01% Oil) 118.28 Ml Oil 1 APPLIC TOP DAILY Fluocinonide 0.05% Cream (Fluocinonide 0.05% Cream) 15 Gm Cream..g. 1 APPLIC TOPICAL BID Folic Acid/Multivits-Min/Lut (Centrum Silver Chewable Tablet) 1 Each Tab.chew 1 EACH PO QAM Furosemide (Furosemide) 20 Mg Tab 20 MG PO QAM Gabapentin (Gabapentin) 600 Mg Tablet 600 MG PO BIDBL 600 MG IN AM & AFTERNOON, 900 MG AT HS Gabapentin (Gabapentin) 600 Mg Tablet 900 MG PO HS 600 MG IN AM & AFTERNOON, 900 MG AT HS Infliximab (Remicade) 10 Mg/Ml Sdv Unknown Dose IV [id number] Ketoconazole (Nizoral) 120 Ml Shampoo 1 APPLIC TOP TWICE WEEKLY Lisinopril (Lisinopril) 10 Mg Tablet 10 MG PO QAM Lovastatin (Lovastatin) 40 Mg Tablet 40 MG PO HS Pramipexole Dihydrochloride (Pramipexole Dihydrochloride) 0.25 Mg Tablet 0.25 MG PO TIDWM PRAMIPEXOLE 0.25 MG AM, NOON, PM AND 0.5 MG AT HS Pramipexole Dihydrochloride (Pramipexole Dihydrochloride) 0.5 Mg Tablet 0.5 MG PO HS PRAMIPEXOLE 0.25 MG AM, NOON, PM AND 0.5 MG AT HS Scheduled PRN Desonide (Desonide Cream) 15 Gm Cream..g. 1 APPLIC TOP BID PRN PRN RASH Loperamide Liquid (Imodium A-D Liquid) 1 Mg/7.5 Ml Liquid 1 MG PO DAILY PRN PRN PN Objective Findings Exam Vital Sign - Last Date Time Temp Pulse Resp B/P Pulse Ox O2 Delivery O2 Flow Rate FiO2 03/19/17 04:38 37.1 86 20 143/75 95 Nasal Cannula 2.00 Intake and Output 03/18/17 03/18/17 03/19/17 Cumulative From/Thru 15:00 23:00 07:00 03/08/17 19:43 - 03/19/17 06:23 Intake Total 100 ml 755 ml 1010 ml 90547 ml Output Total 125 ml 200 ml 43916 ml Balance -25 ml 755 ml 810 ml 7970 ml Intake Oral 100 ml 100 ml 100 ml 5050 ml IV Total 655 ml 910 ml 64845 ml Output Urine Total 200 ml 66469 ml Stool Total 506 ml Gastric Drainage Total 5150 ml Emesis 125 ml 595 ml # Voids 3 6 5 14 # Bowel Movements 3 6 4 49 General: Alert, Oriented, No acute distress, Other (morbidly obese) HEENT: Atraumatic, EOMI, Scleral Anicteric Lungs: Normal Air Movement Abdomen: Bowel Tones x4, Non Tender, Other (dry heaving noted during the visit) Neuro: Arousable, Follows Commands Extremities: Warm Lab/Diagnostics Lab and Imaging results reviewed in detail in EMR. Patient/Family Conference Members Present Family Members Present son Jermain, and sister who arrives later, did not get name Medical Team Members Present? [facility]/ Dr. Sewell, PGY2 DO resident Discussion/Goals of Care Discussion FAMILY UNDERSTANDING OF DISEASE: [Pt frustrated by not being in control of her choice of foods and timing of medications, states "I am able to control all this much better at home". Pt understands that hospitalization was necessary for her profound medical problems of a few days ago. ] DISEASE PROGRESSION/EVIDENCE OF DECLINE: [Improving, getting back to baseline, with chronic GI and other problems.] SYMPTOM BURDEN: [nausea continues to be the most imposing symptom; states that appetite is difficult here as "food all smells like perfume, can't get past that to eat it". Family is encouraged to bring foods from "home" including take- out food that is known to be palatable.] GOALS: [to return home. Wishes to have a range of selective medical treatments aimed at helping her through any ailments but also wants to avoid aggressive therapies including intubation and CPR that would prolong her life if she were in fact, facing life-threatening situations. She would accept a trial of tube feeding or dialysis for acute illness, would probably not wish for long-term dialysis by would keep open the open for long-term TF if it helped her QOL.] HOPES/WORRIES: [Worries that she will get "stuck" in a place that isn't helping her and they won't let her go home.] Palliative Care counselled: POLST completed to reflect the above Routine nausea medication ordered. Support to patient and family. Time spent Total time [ ] minutes; >50% face to face with patient and/or family, providing counselling regarding plans and recommendations, and in care coordination with his/her medical teams. I also spent an additional [ ] minutes counseling for advanced care planning with the patient/the patients family/the surrogate decision maker. Carmina Guerrero March 19, 2017 09:49
--- NOTE | 2017-03-19 10:29 | NUR ---
[facility] can accept patient with Dr.Kim NULL can also accept if [facility] is able to do an acceptation for them Updated [place] [facility]
--- NOTE | 2017-03-19 10:40 | PCM.PALLBR ---
Palliative Care Recommendation Summary of palliative recommendations: -Symptom management (Pain/other): per [facility] hospitalist team Nausea: pt feels her Zofran dosing is "always late"--" I need to get it before I eat". 1. Schedule zofran QID. Informed by pharmacy that 24ng is max daily dose , so we will make these 6 mg doses. With this plan, no addition zofran will be available for breakthrough. The patient is amenable to this being ODT rather that IV so that she could continue this routine in the SNF and at home. 2. Use ativan 0.5-1 mg for breakthrough N/V when Zofran dosing is ineffective.\\ CONSIDER ADDITIONAL MEASURES: Olanzepine may be an effective adjuvant for nausea. Will start 5 mg tonight. Will get new EKG to ensure that QTc is within a reasonable range for this medication. Perhaps decrease zofran, also a QT prolonging med, if this is effective. DIARRHEA: This is severe and unrelenting today. --C-Diff micro ordered --started lomotil due to low likelihood of C-diff and patient's preference for relief. -DPOA/Advanced Directives/POLST: 1. Patient's code status is current DNR/DNI. POLST completed yesterday and in chart. Family given copies. 2. Discharge disposition is not clear at this point but expect that rehab will be her most likely option. CM to advise re: options -Family/emotional support: good support from son, sister, and niece. Son Jermain can be reached at [phone] (or cell [phone]). - [facility] amet with the patient and her son at bedside today. Difficult to -Spiritual support: not addressed today. Patient Goals: The patient would like selective/effective medical treatments for any medical conditions. In the event of cardiopulmonary arrest she would like to be a DO NOT RESUSCITATE DO NOT INTUBATE and would like to avoid "machines", she does not want to have intubation and/or any machines for life-prolonging, although she would consider limited dialysis to resolve/ reverse acute renal failure but would NOT want this to be long-term. Additional Medical Diagnoses with primary management by Hospitalist team include : # Acute Encephalopathy, present on admission. Ongoing, however improving. Per documentation, patient was alert and oriented at baseline. Likely metabolic encephalopathy secondary to acidosis, uremia and elevated ammonia. Brain CT unremarkable # Acute on chronic kidney injury, present on admission. Oliguric. In setting of unilateral functioning kidney. Presumed prerenal azotemia, possibly ATN secondary to volume depletion.On admit: Creatinine 8.40; recent baseline is 1.15 , creatinine level is not yet at that number but has been downward trending. # Chronic systolic congestive heart failure # High anion gap acidosis, acute, present on admission. On admit, calculated: 29, lactate is not elevated. Likely secondary to renal failure, pyroglutamate and D lactate possible # Hypotension, acute. Not present on admission. Resolved Patient developed mean arterial pressures less than 65 mmHg despite aggressive fluid hydration. # Abdomen pain, diarrhea and emesis, acute, present on admission. Diarrhea appears to be chronic related to Crohn disease, although possibly worse recently. # Radiographic pneumonia, likely acute, present on admission. Likely aspiration pneumonia pneumonitis versus pneumonia based on clinical context of recent severe emesis. At risk for healthcare associated PNA: Recent admission . In ED, patient received: linezolid, Levaquin, Zosyn # Elevated ammonia, chronicity unknown, present on admission. #Hypokalemia: #Hypernatremia: # Hypocalcemia, hyperphosphatemia, present on admission. Presumed secondary to severe renal failure. Calcium phosphorus product is 43. # Diabetes mellitus, non-insulin using, chronic. #Anemia: Resolving, stable and/or chronic problems: # Elevated troponins of undetermined significance, likely acute, present on admission. Monitor # History of Crohn's colitis status post hemicolectomy, chronic. Recently initiated infliximab therapy. Problems: (1) Palliative care by specialist Status: Acute ICD Code: Z51.5 (2) Goals of care, counseling/discussion Status: Acute ICD Code: Z71.89 (3) Nausea & vomiting Status: Acute ICD Code: R11.2 (4) Ileus Status: Acute ICD Code: K56.7 (5) Acute kidney injury Status: Acute ICD Code: N17.9 End of Life Preferences wants selective medical therapies to reverse reversible life-threatening conditions, especially metabolic abnormalities but no intubation or other life- prolonging machines at end of life. Goals of Care hopes to return to baseline and home with son. Goal is for best possible control of chronic issues, treatment for reversible conditions and supportive therapies with goal of preserving/returning to baseline function. Disposition possible SNF pending PT eval Resuscitation Status Resuscitation Status: DNR/DNI:Do Not Resuscitate/Intubate POLST Updates/Changes Previous POLST?: No Antibiotics: Use ABX if can Prolong Life Artificially Admin Nutrition: Trial Period Tube Feeding POLST Discussed with: Patient POLST Review Outcome: New Form Completed Total time [ ] minutes; >50% face to face with patient and/or family, providing counselling regarding plans and recommendations, and in care coordination with his/her medical teams. I also spent an additional [ ] minutes counseling for advanced care planning with the patient/the patients family/the surrogate decision maker. Palliative Brief Note Date of Service March 19, 2017 . Pt has received routine dosing of zofran today but states this has had only minimal effect. More distressing has been the increase of diarrhea today, which is currently unrelenting, causing severe excoriation of skin in perineum. Patient expresses significant suffering. She states lomotil helps when her Crohn's flares up and causes this amount of distress. See orders. Also advise use of lorazepam for nausea. see plan above for additional recommendations Carmina Guerrero March 19, 2017 10:40
--- NOTE | 2017-03-19 11:38 | NUR ---
Wound Care Wound evaluation orders received, pt seen at bedside. 76 yo female admitted to [facility] with nausea, diarrhea,possible ilius, history of breast cancer and chrons disease. Patient presents today on a bariatric foam bed, skin inspection reveals a 4 cm long fissure in the skin fold over the sacrum. I believe this is probably a moisture and continence issue versus a pressure phenomena. Recommend this be treated with calmoseptine and shield wipes at pericare as patient is frequently stooling loosely. Of note patient also has a small 1.3 cm ulceration in the abdominal scar in her pannus fold, recommend this be treated with application of calmoseptine as well. Patient is unsure how long this wound has been there, would be appropriate for dermatology to follow up on this wound as an outpatient.
--- NOTE | 2017-03-19 11:55 | PCM.PNNEPH ---
Subjective Date of Service March 19, 2017 Subjective Fair appetite. Remains nauseated but overall slowly improved. Exam Vital Signs Vital Sign - Last Date Time Temp Pulse Resp B/P Pulse Ox O2 Delivery O2 Flow Rate FiO2 03/19/17 09:58 36.4 88 20 130/71 90 Nasal Cannula 2.00 Intake and Output 03/18/17 03/18/17 03/19/17 Cumulative From/Thru 15:00 23:00 07:00 03/08/17 19:43 - 03/19/17 06:23 Intake Total 100 ml 755 ml 1010 ml 46207 ml Output Total 125 ml 200 ml 71005 ml Balance -25 ml 755 ml 810 ml 7970 ml Intake Oral 100 ml 100 ml 100 ml 5050 ml IV Total 655 ml 910 ml 32672 ml Output Urine Total 200 ml 55879 ml Stool Total 506 ml Gastric Drainage Total 5150 ml Emesis 125 ml 595 ml # Voids 3 6 5 14 # Bowel Movements 3 6 4 49 Exam General: No acute distress, well-developed, Obese ill appearing female lying in bed. Eyes: PERRLA, anicteric sclerae, moist noninjected conjunctivae. HEENT: Normocephalic, atraumatic. External ears without defect. Neck: Supple with full range of motion. JVD hard to assess due to neck habitus. No bruits. No lymphadenopathy or thyromegaly. Cardiovascular: RRR, no murmurs, rubs, or gallops appreciated. Pulmonary: Poor air entry, no wheezing. Abdomen: Distended, tympanic. hypoactive BS, Obese. Extremities: trace edema, PICC line in place. Lab and Diagnostics Result Diagram: 03/19/1752903/19/17 05 Microbiology Urinalysis no pyuria Enteric pathogen stool profile - no C. difficile or other pathogen MRSA swab negative Strep pneumonia and legionella urinary antigens negative Blood culture 03/08/17 - 2 sets pending X-Rays, CTs and MRIs PROCEDURE: CT ABDOMEN AND PELVIS WITHOUT CONTRAST ([id number]) IMPRESSION: 1. Fluid and gas distention of the small and large bowel extending to the rectosigmoid colon distally without a focal transition point. The findings are suggestive of an ileus or gastroenteritis without definite obstruction. 2. Patchy groundglass opacities in the visualized lung bases with consolidation in the inferior right middle and lower lobes. The findings suggest aspiration with right basilar pneumonia. 3. Small atrophic left kidney. No hydronephrosis in the right the left kidney. Dictated by: Man Mcnulty M.D. on 03/08/2017 at 21:18 PROCEDURE: X-RAY CHEST ONE VIEW, PORTABLE ([id number]) IMPRESSION: 1. Right infrahilar consolidation redemonstrated as was increased bandlike opacities in the left base and bilateral patchy groundglass opacities. The findings are suggestive of multifocal pneumonia. Dictated by: Man Mcnulty M.D. on 03/08/2017 at 20:22 PROCEDURE: X-RAY CHEST ONE VIEW, PORTABLE ([id number]) IMPRESSION: Bilateral pneumonia slightly increased involving the left upper lobe. Dictated by: Joaquin Dickens [facility] Interpreted: Maddi Banks MD on 03/09/2017 at 10:01 PROCEDURE: CT BRAIN WITHOUT CONTRAST ([id number]) IMPRESSION: 1. Limited study due to motion demonstrates no definite acute intracranial abnormality. Dictated by: Man Mcnulty M.D. on 03/08/2017 at 21:29 . 12-lead ECG Sinus tachycardia with left bundle branch block Cardiac Echo Impressions Echocardiogram Report Name: ELIZABETH HAWTHORNE IStudy Date: Height: 67 in Hospital Exam Location: [facility] Weight: 291 lb Gender: Female BSA: 2.4 m2 : 1940 Age: 76 yrs BP: 109/71 mmHg Reason For Study: BREAST CANCER Ordering Physician: Performed By: Kori Keller Interpretation Summary Left ventricular systolic function is mildly reduced with the ejection fraction visually estimated to be 45-50% with borderline global hypokinesis and more severe hypokinesis in the inferior and inferoposterior segments but this appears unchanged compared to the previous study. There are no other obvious focal wall motion abnormalities and there has been no significant change since the previous study. There is borderline concentric left ventricular hypertrophy and assessment of diastolic parameters indicates a relaxation abnormality of the left ventricle, although the E/E' ratio is mildly increased, suggesting possible increased filling pressures, perhaps slightly higher compared to the previous study. The right ventricle is borderline dilated and right ventricular systolic function is mildly reduced but likely unchanged compared to the previous study. The right ventricular systolic pressure is estimated to be at least 38 mmHg assuming a right atrial pressure of 8 mm Hg, but could be higher. Comparison with the previous study is not possible because this was not assessed on the previous study. The left atrium is mildly dilated. There is no significant valvular heart disease. The ascending aorta is mildly enlarged. There is no pericardial effusion or pleural effusion seen. The patient was in normal sinus rhythm with heart rates between 85-105 bpm during the study which is somewhat slower compared to the previous study. Plan Impression 1. ELVIA due to ATN, improving. 2. Hypokalemia and hypomagnesemia. 3. Hypocalcemia and hypophosphatemia 4. Secondary hyperparathyroidism 5. Hypernatremia. 6. Crohn's disease status post hemicolectomy Plan: D5W + KCL 40 meq 80 m/lhr. continue ergocalciferol and neutraphos. Continue slow Mg, calcitriol and Tums. Give IV Calcium gluconate 1 g IVPB x 1. Repeat BMP, Mg, PO4 in am. Gen Escobedo MD March 19, 2017 11:55
--- NOTE | 2017-03-19 13:53 | NUR ---
Social Work: Continued d/c planning Data: Pt is on day 11 of hospitalization. EMR reviewed. Pt discussed in rounds. MD states pt likely to remain in hospital for greater than 3 days. Pt has been accepted at [facility] and [facility], pt's first choice is [facility], however they are not contracted with pt's insurance. Pt is anxious to get home after SNF stay. PT was ordered, per MD at rounds. If pt improves before d/c, pt can go home with Patty MOE. [employer]OLDER [employer]BE[employer]ER will continue to follow. Assessment: Pt who is independent at baseline. Plan: Pt will likely d/c to [facility] once medically stable for d/c, MOLDER OFFBEARER will discuss with pt regarding this further. If pt improves before d/c, pt can go home with Patty MOE. [employer] OFFBE[employer]ER will continue to follow. SORAYA Jeong
--- NOTE | 2017-03-19 14:09 | NUR ---
NUTRITION FOLLOW UP: ASSESS: 76 YO female admitted for acute kidney injury, ileus with vomiting, diarrhea, abd. pain, decreased appetite, altered mental status and lethargy. Pt was placed on comfort measures, but has since become more alert and responsive. Per GI, ileus resolved but CT shows stricture. Appetite remains minimal x 11 days of 0-25% of meals. PMHx: Psoriasis, Crohn's, depression, anxiety, restless leg syndrome, DM type 2, insomnia, NANI, metastatic breast cancer, peripheral neuropathy, mitral value regurgitation. LABS: Reviewed. K+ 3.4, Cr 2.14, Glu 132, Ca 3.0, Alb 2.8. MEDS: Reviewed. GI: BM x 4 (03/19) SKIN: long fissure in skin folds over sacrum, ulceration in the abdominal scar in her pannus fold CURRENT WT: 123.3 kg. IBW: 61.364. Adj BW: 76.85 kg. DIET: General. PO 0-25% EST. NEEDS (ELVIA, BMI): 5498-2304 kcals (25-30 kcals/kg Adj BW), 60-75 g protein (0.8-1.0 g/kg Adj BW) NUTRITION DIAGNOSIS: 1.) Inadequate oral intake related to decreased ability to consume sufficient energy as evidenced by current PO intake of 0-25% x 25%-PERSISTS. NUTRITION INTERVENTION: 1.) Will add strawberry Glucerna supplements TID. MONITOR / EVAL: PO intake, labs, nutritional status. Follow per high nutritional risk guidelines.
--- NOTE | 2017-03-19 16:04 | PCM.PNMED ---
Subjective Date of Service March 19, 2017 Subjective Patient notes no significant changes overnight. Continues to experience significant nausea she is able to get some solid food down. Feels Zofran may be provided to wait they have generally been using it only after she starts experiencing symptoms of nausea, then it is only partially effective. Loose stool however is probably her largest complaint at this time she notes frequent and copious watery stools which have led to rash around her backside due to frequent bedwetting's/fecal incontinence. Exam Vital Signs Vital Sign - Last Date Time Temp Pulse Resp B/P Pulse Ox O2 Delivery O2 Flow Rate FiO2 03/19/17 12:21 36.5 80 20 131/70 92 Nasal Cannula 2.00 Intake and Output 03/18/17 03/18/17 03/19/17 Cumulative From/Thru 15:00 23:00 07:00 03/08/17 19:43 - 03/19/17 06:23 Intake Total 100 ml 755 ml 1010 ml 83731 ml Output Total 125 ml 200 ml 67382 ml Balance -25 ml 755 ml 810 ml 7970 ml Intake Oral 100 ml 100 ml 100 ml 5050 ml IV Total 655 ml 910 ml 42207 ml Output Urine Total 200 ml 32903 ml Stool Total 506 ml Gastric Drainage Total 5150 ml Emesis 125 ml 595 ml # Voids 3 6 5 14 # Bowel Movements 3 6 4 49 Exam General: Alert, Oriented X3, Cooperative, No acute Distress, improved mentation. Mouth: Mucous Membranes Dry Cardiovascular: Regular Rate/Rhythm Abdomen: Non-distended, Abdomen is obese but nontender to palpation, (+)BS. Extremities: No cyanosis/clubbing/edema bilat Neurological: Grossly Neurologically Intact IVs and Medications Medications Reviewed: Medications were reviewed in detail Lab and Diagnostics Result Diagram: 03/19/1752903/19/17529 Microbiology Urinalysis no pyuria Enteric pathogen stool profile - no C. difficile or other pathogen MRSA swab negative Strep pneumonia and legionella urinary antigens negative Blood culture 03/08/17 - 2 sets pending X-Rays, CTs and MRIs PROCEDURE: CT ABDOMEN AND PELVIS WITHOUT CONTRAST ([id number]) IMPRESSION: 1. Fluid and gas distention of the small and large bowel extending to the rectosigmoid colon distally without a focal transition point. The findings are suggestive of an ileus or gastroenteritis without definite obstruction. 2. Patchy groundglass opacities in the visualized lung bases with consolidation in the inferior right middle and lower lobes. The findings suggest aspiration with right basilar pneumonia. 3. Small atrophic left kidney. No hydronephrosis in the right the left kidney. Dictated by: Man Mcnulty M.D. on 03/08/2017 at 21:18 PROCEDURE: X-RAY CHEST ONE VIEW, PORTABLE ([id number]) IMPRESSION: 1. Right infrahilar consolidation redemonstrated as was increased bandlike opacities in the left base and bilateral patchy groundglass opacities. The findings are suggestive of multifocal pneumonia. Dictated by: Man Mcnulty M.D. on 03/08/2017 at 20:22 PROCEDURE: X-RAY CHEST ONE VIEW, PORTABLE ([id number]) IMPRESSION: Bilateral pneumonia slightly increased involving the left upper lobe. Dictated by: Joaquin Dickens RRA Interpreted: Maddi Banks MD on 03/09/2017 at 10:01 PROCEDURE: CT BRAIN WITHOUT CONTRAST ([id number]) IMPRESSION: 1. Limited study due to motion demonstrates no definite acute intracranial abnormality. Dictated by: Man Mcnulty M.D. on 03/08/2017 at 21:29 . 12-lead ECG Sinus tachycardia with left bundle branch block Cardiac Echo Impressions Echocardiogram Report Name: ELIZABETH BEVERLY IStudy Date: Height: 67 in Hospital Exam Location: [facility] Weight: 291 lb Gender: Female BSA: 2.4 m2 : 1940 Age: 76 yrs BP: 109/71 mmHg Reason For Study: BREAST CANCER Ordering Physician: Performed By: Kori Keller Interpretation Summary Left ventricular systolic function is mildly reduced with the ejection fraction visually estimated to be 45-50% with borderline global hypokinesis and more severe hypokinesis in the inferior and inferoposterior segments but this appears unchanged compared to the previous study. There are no other obvious focal wall motion abnormalities and there has been no significant change since the previous study. There is borderline concentric left ventricular hypertrophy and assessment of diastolic parameters indicates a relaxation abnormality of the left ventricle, although the E/E' ratio is mildly increased, suggesting possible increased filling pressures, perhaps slightly higher compared to the previous study. The right ventricle is borderline dilated and right ventricular systolic function is mildly reduced but likely unchanged compared to the previous study. The right ventricular systolic pressure is estimated to be at least 38 mmHg assuming a right atrial pressure of 8 mm Hg, but could be higher. Comparison with the previous study is not possible because this was not assessed on the previous study. The left atrium is mildly dilated. There is no significant valvular heart disease. The ascending aorta is mildly enlarged. There is no pericardial effusion or pleural effusion seen. The patient was in normal sinus rhythm with heart rates between 85-105 bpm during the study which is somewhat slower compared to the previous study. Assessment & Plan Ms. Beverly is a 76-year-old morbidly obese woman with an unfortunate history of Crohn's disease status post hemicolectomy, [id number] diabetes mellitus, hypertension, and metastatic breast cancer currently in remission, that presented to [facility] with a 2 day history of vomiting, diarrhea, abdominal pain , decreased appetite, altered mental status, lethargy. Information is primarily obtained from chart review, as patient has no family at bedside at time of admission, and is not responsive to questioning. She was admitted for evaluation and treatment of altered mental status, severe acute on chronic kidney injury, and suspected pneumonia, gastroenteritis. # Acute Encephalopathy, present on admission. Ongoing, however improving. Per documentation, patient was alert and oriented at baseline. Likely metabolic encephalopathy secondary to acidosis, uremia and elevated ammonia. Brain CT unremarkable - She is now awake and alert. - Repeat Swallow eval, speech therapy has been re-consulted; now advancing diet as tolerated - Avoid sedatives - Will hold Lactulose in setting of normal liver function, complaints of poor tolerability, and now frequent stooling pattern. - Avoid anticholinergics and benzodiazepines # Acute on chronic kidney injury, present on admission. Oliguric. In setting of unilateral functioning kidney. Presumed prerenal azotemia, possibly ATN secondary to volume depletion.On admit: Creatinine 8.40; recent baseline is 1.15 , creatinine level is not yet at that number but has been downward trending. - Moderate fluid resuscitation, but avoid precipitating pulmonary edema - Bicarbonate drip plus rehydration was given. Patient is now off the bicarbonate drip and on gentle IV hydration. It appears patient may now be in the diuretic phase of acute tubular necrosis. - Treat electrolyte disorders, though overall renal function appears to be steadily improving along with creatinine levels. - We have re-consulted Nephrology, continue to appreciate the recommendations and insight. Ergocalciferol and Neutra-Phos have been started on their recommendations.. # Chronic systolic congestive heart failure - See echocardiogram report as above - We will start carvedilol low-dose in a.m. - Unable to start NATHALIE inhibitor or ARB due to renal failure - Hold diuretics at this time as patient appears to be in the diuretic phase of acute tubular necrosis. The diuretic phase may be hampered somewhat by the fact that the patient has a solitary kidney. #Persistent diarrhea - Maybe multifactorial related to a number of contributing factors including, frequent and large amounts of electrolyte replacement, underlying colonic and intestinal disease related to Crohn's, or infectious possibly C. difficile colitis. - C. difficile PCR is currently pending, at this time about her care is additionally recommended the use of Imodium which of course be discontinued should C. difficile PCR returning officer positive. - Road additionally outreach gastroenterology for further consideration of this patient's complex condition which is causing significant morbidity in her life at this time. # Abdomen pain, diarrhea and emesis, acute, present on admission. Diarrhea appears to be chronic related to Crohn disease, although possibly worse recently. The patient is immunocompromise on TNF alpha inhibitor. Differential diagnosis is Crohn disease, gastroenteritis, ischemic bowel, partial bowel obstruction. Acalculous cholecystitis is possible, although not supported by CT scan. C. difficile had been ruled out prior. - Advancing diet now as tolerated - NG tube to low suction has been removed (03/15) - Gen. surgery consult to assess abdomen, they felt that there is no evidence of acute cholecystitis. - Discussed with Dr. Nasim Parry previously, pt now followed by Dr Parish, appreciating assistance and follow-up. There does not appear to be any current bowel obstruction, but CT does siggest evidence of some stricture. - Continue to monitor stooling pattern with DC of Lactulose. Continues to note loose and frequent stools. - General surgery has signed off narrowing intervention will not be needed recommend consultation of GI should further abdominal symptoms develop as possible Crohn's flare or other etiology may account for stricture noted in imaging studies. , # High anion gap acidosis, acute, present on admission. On admit, calculated: 29, lactate is not elevated. Likely secondary to renal failure, pyroglutamate and D lactate possible - Replete fluids - Improved # Hypotension, acute. Not present on admission. Resolved Patient developed mean arterial pressures less than 65 mmHg despite aggressive fluid hydration. - Place CVC to manage fluid resuscitation and pressors; IJ only to avoid interfering with potential dialysis catheter needs - Measure CVP - Pressors as needed - Maintain mean arterial pressure greater than 65, urine output greater than 0.5 ml/kg/hr - Currently resolved. HDS # Radiographic pneumonia, likely acute, present on admission. Likely aspiration pneumonia pneumonitis versus pneumonia based on clinical context of recent severe emesis. At risk for healthcare associated PNA: Recent admission . In ED, patient received: linezolid, Levaquin, Zosyn - We will continue Zosyn alone for now; anticipate discontinuation following 7 day course, continue use has not appeared to hamper renal recovery. - Discontinue vanco due to MRSA-negative status low clinical probability of staphylococcal pneumonia, no changed medications this morning. # Elevated ammonia, chronicity unknown, present on admission. On admit: Ammonia 144. Liver transaminases unremarkable, synthetic function intact. Differential diagnosis hyperammonemia: hepatic disorders, portosystemic shunt, inborn errors of urea cycle metabolism, Teresita's syndrome, ureterosigmoidostomy, infection in nondraining bladder, drugs (cyanide, carbamazepine, valproic acid, iron, and cytotoxics can also cause secondary hyperammonemia.) - Repeat ammonia levels have normalized - Lactulose, held, AM level pending. Mentation also stable. Consider follow-up ammonia level to ensure it is not again rising. - Pending for a.m. #Hypokalemia: - Progressive process, renal dsyfunction likely contributing factor. Maybe also due to loose stools., - Continue to monitor on telemetry, repleated IV currently , in addition provided Mg repletion as needed. #Hypernatremia: - transitioning to 1/2 NS at this time at 75cc/hr., and subsequently to D5 water for persistent elevation of sodium. - This condition also managed by nephrology continue to appreciate recommendations. # Hypocalcemia, hyperphosphatemia, present on admission. Presumed secondary to severe renal failure. Calcium phosphorus product is 43. - We will consult nephrology, repleteting orally daily, IV X1 again today. - Nephrology service has recommended initiation of ergocalciferol, in addition to Tums. # Diabetes mellitus, non-insulin using, chronic. Controlled. A1c 01/2017:5.6 - Frequently monitor capillary blood glucose - Glucose control goals: Random less than 180, fasting less than 140, none less than 70 - Insulin as needed, IV insulin while patient in CCU, then divided 50-50 long- acting and nutritional/correctional #Anemia: - Progressive process, no evidence of acute bleeding - Stool guiac ordered and pending. - Continue to monitor H&H. Resolving, stable and/or chronic problems: # Elevated troponins of undetermined significance, likely acute, present on admission. Monitor - Troponin profile does not suggest acute coronary syndrome # History of Crohn's colitis status post hemicolectomy, chronic. Recently initiated infliximab therapy. - May be contributing to electrolyte abnormalities which in turn may affect mental status - Continue tredning labs, role of medication treatment in this process unclear, but certain pt demonstrated acute worsening following first infusion. We will continue have further discussions with the patient and family . Pain Evaluation: Adequate Pain Control GI Prophylaxis: Not indicated VTE Prophylaxis: Sub-Q Heparin (Unfractionated) VTE Mechanical Devices: Intermittant Pneumatic CD Resuscitation Status: DNR/DNI:Do Not Resuscitate/Intubate Time spent 25 minutes Mk Winters DO March 19, 2017 16:04
[2017-03-19] MEDS: Ondansetron 2 mg/mL 2 mL Inj IVPUSH PRN (17:13)
--- NOTE | 2017-03-19 18:22 | NUR ---
Nausea /Appetite/Diarrhea: Patient has had several episodes of diarrhea today. Imodium was ordered for patient and given . Her diarrhea slowed down but did not completely stop. Patient has had poor appetite today and has eaten less than 50% of her meals. She has had nausea off and on throughout the day. Scheduled Zofran PO was given for the nausea with some relief. Zofran IV x1 was given with good relief of patients vomiting.
[2017-03-19] MEDS: OLANZapine Zydis ODT 5 mg Tablet PO SCH (21:59)
[2017-03-20] VITALS (8 sets, daily range): BP systolic 113–145; BP diastolic 69–75; PULSE 83–102; RESP 18–20; O2SAT 93–95
[2017-03-20 04:42] LABS: BASOPHILS % (AUTO) 0.5 % (0-3); EOSINOPHILS % (AUTO) 2.5 % (0-5); MONOCYTES % (AUTO) 15.9 % (4-12); Mean Corpuscular Hemoglobin 28.1 pg (27.0-35.0); Mean Corpuscular Volume 93.1 fL (81-100); NEUTROPHILS % (AUTO) 52.7 % (40-74); Platelet Count 157 bil/L (150-400)
[2017-03-20 05:03] LABS: Magnesium 1.4 mg/dL (1.6-2.6)
--- NOTE | 2017-03-20 05:10 | NUR ---
Mistrust/activity Patient stated "I don't know if I trust you giving me those medications." reinsured patient that the medications that I have for her were to help with her nausea. Patient stated "well I guess so, I am not promising anything." Patient took medications with no difficulty. patient slept throughout the night. turned self side to side in bed. ambulated 2PA to bedside commode. uses call light appropriately. will continue to monitor.
[2017-03-20] MEDS: Piper-Tazo 3.375 Gm/50 mL D5W Minibag Plus - Q8H over 4 hrs IV SCH ×4 (06:23→16:25)
[2017-03-20] MEDS: Famotidine Inj 20 MG in IV Premix 1 EACH IV SCH ×2 (07:38→20:56)
[2017-03-20] MEDS: Magnesium Chloride SR 64 mg ER24 Tablet PO SCH ×2 (07:46→20:51)
[2017-03-20] MEDS: Sodium-Potassium Phosphorus Packet PO SCH ×4 (07:46→21:10)
[2017-03-20] MEDS ORDERED: Furosemide 10 mg/mL 2 mL Inj IVPUSH ONE (08:00)
[2017-03-20] MEDS ORDERED: Magnesium Sulf 4 Gm/100 mL H2O 4 GM in IV Premix 1 EACH IV ONE (08:00)
[2017-03-20] MEDS ORDERED: KCl 40 mEq/D5W 500 mL 40 MEQ in IV Premix 1 EACH IV ONE (08:00)
--- NOTE | 2017-03-20 11:29 | PCM.PNMED ---
Subjective Date of Service March 20, 2017 Subjective Patient is feeling very well this morning compare with previous status. Appetite much improved and nausea is declined. During the first couple of coffee in over a month. She has been able to hydrate much more aggressively over the last 24 hours. She notes stool as well as greatly improved. She received 1 dose of movement afternoon, since held due to pending PCR for C. difficile, notes that was very effective at controlling previously loose stools. Abdominal pain continues to be resolved. Energy level is improving. She is very optimistic for home discharge soon but understands today is probably a little bit. Exam Vital Signs Vital Sign - Last Date Time Temp Pulse Resp B/P Pulse Ox O2 Delivery O2 Flow Rate FiO2 03/20/17 09:52 102 03/20/17 09:43 36.9 18 113/72 95 Room Air 03/20/17 04:11 2.00 Intake and Output 03/19/17 03/19/17 03/20/17 Cumulative From/Thru 15:00 23:00 07:00 03/08/17 19:43 - 03/20/17 05:29 Intake Total 400 ml 400 ml 74741 ml Output Total 5 ml 475 ml 66632 ml Balance 395 ml -75 ml 8290 ml Intake Oral 400 ml 400 ml 5850 ml IV Total 89623 ml Output Urine Total 475 ml 01036 ml Stool Total 5 ml 511 ml Gastric Drainage Total 5150 ml Emesis 595 ml # Voids 5 3 22 # Bowel Movements 3 52 Exam General: Alert, Oriented X3, Cooperative, No acute Distress, much improved mentation. Mouth: Mucous Membranes moist Cardiovascular: Regular Rate/Rhythm Abdomen: Non-distended, Abdomen is obese but nontender to palpation, (+)BS. Extremities: No cyanosis/clubbing/edema bilat Neurological: Grossly Neurologically Intact Skin: Some reddening/petechia underside of arm on right side distal to PICC. no overt induration or evidence of abscess or infection noted on exam. IVs and Medications Medications Reviewed: Medications were reviewed in detail Lab and Diagnostics Result Diagram: 03/20/17 0400 03/20/17 0400 Microbiology Urinalysis no pyuria Enteric pathogen stool profile - no C. difficile or other pathogen MRSA swab negative Strep pneumonia and legionella urinary antigens negative Blood culture 03/08/17 - 2 sets pending X-Rays, CTs and MRIs PROCEDURE: CT ABDOMEN AND PELVIS WITHOUT CONTRAST ([id number]) IMPRESSION: 1. Fluid and gas distention of the small and large bowel extending to the rectosigmoid colon distally without a focal transition point. The findings are suggestive of an ileus or gastroenteritis without definite obstruction. 2. Patchy groundglass opacities in the visualized lung bases with consolidation in the inferior right middle and lower lobes. The findings suggest aspiration with right basilar pneumonia. 3. Small atrophic left kidney. No hydronephrosis in the right the left kidney. Dictated by: Man Mcnulty M.D. on 03/08/2017 at 21:18 PROCEDURE: X-RAY CHEST ONE VIEW, PORTABLE ([id number]) IMPRESSION: 1. Right infrahilar consolidation redemonstrated as was increased bandlike opacities in the left base and bilateral patchy groundglass opacities. The findings are suggestive of multifocal pneumonia. Dictated by: Man Mcnulty M.D. on 03/08/2017 at 20:22 PROCEDURE: X-RAY CHEST ONE VIEW, PORTABLE ([id number]) IMPRESSION: Bilateral pneumonia slightly increased involving the left upper lobe. Dictated by: Joaquin Dickens RR Interpreted: Maddi Banks MD on 03/09/2017 at 10:01 PROCEDURE: CT BRAIN WITHOUT CONTRAST ([id number]) IMPRESSION: 1. Limited study due to motion demonstrates no definite acute intracranial abnormality. Dictated by: Man Mcnulty M.D. on 03/08/2017 at 21:29 . 12-lead ECG Sinus tachycardia with left bundle branch block Cardiac Echo Impressions Echocardiogram Report Name: ELIZABETH BEVERLY IStudy Date: Height: 67 in Hospital Exam Location: [facility] Weight: 291 lb Gender: Female BSA: 2.4 m2 : 1940 Age: 76 yrs BP: 109/71 mmHg Reason For Study: BREAST CANCER Ordering Physician: Performed By: Kori Keller Interpretation Summary Left ventricular systolic function is mildly reduced with the ejection fraction visually estimated to be 45-50% with borderline global hypokinesis and more severe hypokinesis in the inferior and inferoposterior segments but this appears unchanged compared to the previous study. There are no other obvious focal wall motion abnormalities and there has been no significant change since the previous study. There is borderline concentric left ventricular hypertrophy and assessment of diastolic parameters indicates a relaxation abnormality of the left ventricle, although the E/E' ratio is mildly increased, suggesting possible increased filling pressures, perhaps slightly higher compared to the previous study. The right ventricle is borderline dilated and right ventricular systolic function is mildly reduced but likely unchanged compared to the previous study. The right ventricular systolic pressure is estimated to be at least 38 mmHg assuming a right atrial pressure of 8 mm Hg, but could be higher. Comparison with the previous study is not possible because this was not assessed on the previous study. The left atrium is mildly dilated. There is no significant valvular heart disease. The ascending aorta is mildly enlarged. There is no pericardial effusion or pleural effusion seen. The patient was in normal sinus rhythm with heart rates between 85-105 bpm during the study which is somewhat slower compared to the previous study. Assessment & Plan Ms. Beverly is a 76-year-old morbidly obese woman with an unfortunate history of Crohn's disease status post hemicolectomy, tup-[id number]-tookumlod diabetes mellitus, hypertension, and metastatic breast cancer currently in remission, that presented to [facility] with a 2 day history of vomiting, diarrhea, abdominal pain , decreased appetite, altered mental status, lethargy. Information is primarily obtained from chart review, as patient has no family at bedside at time of admission, and is not responsive to questioning. She was admitted for evaluation and treatment of altered mental status, severe acute on chronic kidney injury, and suspected pneumonia, gastroenteritis. # Acute on chronic kidney injury, present on admission. Oliguric. In setting of unilateral functioning kidney. Presumed prerenal azotemia, possibly ATN secondary to volume depletion.On admit: Creatinine 8.40; recent baseline is 1.15 , creatinine level is not yet at that number but has been downward trending. - Moderate fluid resuscitation, but avoid precipitating pulmonary edema - Bicarbonate drip plus rehydration was given. Patient is now off the bicarbonate drip and on gentle IV hydration. It appears patient may now be in the diuretic phase of acute tubular necrosis. - Treat electrolyte disorders, though overall renal function appears to be steadily improving along with creatinine levels. - We have re-consulted Nephrology, continue to appreciate the recommendations and insight. Ergocalciferol and Neutra-Phos have been started on their recommendations.. # Chronic systolic congestive heart failure - See echocardiogram report as above - We started carvedilol low-dose - Unable to start NATHALIE inhibitor or ARB due to renal failure - Hold diuretics at this time as patient appears to be in the diuretic phase of acute tubular necrosis. The diuretic phase may be hampered somewhat by the fact that the patient has a solitary kidney. - With continued improvement in renal function may consider restarting diuretic in near future. #Persistent diarrhea - Maybe multifactorial related to a number of contributing factors including, frequent and large amounts of electrolyte replacement, underlying colonic and intestinal disease related to Crohn's, or infectious possibly C. difficile colitis. - C. difficile PCR is negative and thus will restart Imodium which was very effective in controlling stool yesterday. # Abdomen pain, diarrhea and emesis, acute, present on admission. Diarrhea appears to be chronic related to Crohn disease, although possibly worse recently. The patient is immunocompromise on TNF alpha inhibitor. Differential diagnosis is Crohn disease, gastroenteritis, ischemic bowel, partial bowel obstruction. Acalculous cholecystitis is possible, although not supported by CT scan. C. difficile had been ruled out prior. - Advancing diet now as tolerated - NG tube to low suction has been removed (03/15) - Gen. surgery consult to assess abdomen, they felt that there is no evidence of acute cholecystitis. - Discussed with Dr. Nasim Parry previously, pt now followed by Dr Parish, appreciating assistance and follow-up. There does not appear to be any current bowel obstruction, but CT does siggest evidence of some stricture. - Continue to monitor stooling pattern with DC of Lactulose. Continues to note loose and frequent stools. - General surgery has signed off narrowing intervention will not be needed recommend consultation of GI should further abdominal symptoms develop as possible Crohn's flare or other etiology may account for stricture noted in imaging studies. , # Hypotension, acute. Not present on admission. Resolved Patient developed mean arterial pressures less than 65 mmHg despite aggressive fluid hydration. - Place CVC to manage fluid resuscitation and pressors; IJ only to avoid interfering with potential dialysis catheter needs - Measure CVP - Pressors as needed - Maintain mean arterial pressure greater than 65, urine output greater than 0.5 ml/kg/hr - Currently resolved. HDS # Radiographic pneumonia, likely acute, present on admission. Likely aspiration pneumonia pneumonitis versus pneumonia based on clinical context of recent severe emesis. At risk for healthcare associated PNA: Recent admission . In ED, patient received: linezolid, Levaquin, Zosyn - We will continue Zosyn alone for now; anticipate discontinuation following 7 day course, continue use has not appeared to hamper renal recovery. - Discontinue vanco due to MRSA-negative status low clinical probability of staphylococcal pneumonia, no changed medications this morning. # Elevated ammonia, chronicity unknown, present on admission. On admit: Ammonia 144. Liver transaminases unremarkable, synthetic function intact. Differential diagnosis hyperammonemia: hepatic disorders, portosystemic shunt, inborn errors of urea cycle metabolism, Teresita's syndrome, ureterosigmoidostomy, infection in nondraining bladder, drugs (cyanide, carbamazepine, valproic acid, iron, and cytotoxics can also cause secondary hyperammonemia.) - Repeat ammonia levels have normalized - Lactulose, held, AM level pending. Mentation also stable. Consider follow- up ammonia level in a few days #Hypokalemia: - Progressive process, renal dsyfunction likely contributing factor. Maybe also due to loose stools., - Continue to monitor on telemetry, repleated IV currently , in addition provided Mg repletion as needed. #Hypernatremia: - transitioning to 1/2 NS at this time at 75cc/hr., and subsequently to D5 water for persistent elevation of sodium. - This condition also managed by nephrology continue to appreciate recommendations. # Hypocalcemia, hyperphosphatemia, present on admission. Presumed secondary to severe renal failure. Calcium phosphorus product is 43. - We will consult nephrology, repleteting orally daily, IV X1 again today. - Nephrology service has recommended initiation of ergocalciferol, in addition to Tums. # Diabetes mellitus, non-insulin using, chronic. Controlled. A1c 01/2017:5.6 - Frequently monitor capillary blood glucose - Glucose control goals: Random less than 180, fasting less than 140, none less than 70 - Insulin as needed, IV insulin while patient in CCU, then divided 50-50 long- acting and nutritional/correctional #Anemia: - Progressive process, no evidence of acute bleeding - Stool guiac ordered and pending. - Continue to monitor H&H. Resolving, stable and/or chronic problems: # Acute Encephalopathy, present on admission. Ongoing, however improving. Per documentation, patient was alert and oriented at baseline. Likely metabolic encephalopathy secondary to acidosis, uremia and elevated ammonia. Brain CT unremarkable - She is now awake and alert. - Repeat Swallow eval, speech therapy has been re-consulted; now advancing diet as tolerated - Avoid sedatives - Will hold Lactulose in setting of normal liver function, complaints of poor tolerability, and now frequent stooling pattern. - Avoid anticholinergics and benzodiazepines # High anion gap acidosis, acute, present on admission. On admit, calculated: 29, lactate is not elevated. Likely secondary to renal failure, pyroglutamate and D lactate possible - Replete fluids - Improved # Elevated troponins of undetermined significance, likely acute, present on admission. Monitor - Troponin profile does not suggest acute coronary syndrome # History of Crohn's colitis status post hemicolectomy, chronic. Recently initiated infliximab therapy. - May be contributing to electrolyte abnormalities which in turn may affect mental status - Continue tredning labs, role of medication treatment in this process unclear, but certain pt demonstrated acute worsening following first infusion. We will continue have further discussions with the patient and family . Pain Evaluation: Adequate Pain Control GI Prophylaxis: Not indicated VTE Prophylaxis: Sub-Q Heparin (Unfractionated) VTE Mechanical Devices: Intermittant Pneumatic CD Resuscitation Status: DNR/DNI:Do Not Resuscitate/Intubate Time spent 30 minutes Mk Winters DO March 20, 2017 11:29
--- NOTE | 2017-03-20 11:41 | NUR ---
[facility] signed
--- NOTE | 2017-03-20 12:00 | NUR ---
Evaluation completed. Please go to "Notes" then click on "Assessments and Notes" (bottom left corner of screen). Then select appropriate discipline tab on top of screen.
--- NOTE | 2017-03-20 12:59 | PCM.PNNEPH ---
Subjective Date of Service March 20, 2017 Subjective She is doing better today. Appetite has come back. No acute issue overnight. Exam Vital Signs Vital Sign - Last Date Time Temp Pulse Resp B/P Pulse Ox O2 Delivery O2 Flow Rate FiO2 03/20/17 12:46 36.8 90 20 145/70 93 Room Air 03/20/17 04:11 2.00 Intake and Output 03/19/17 03/19/17 03/20/17 Cumulative From/Thru 15:00 23:00 07:00 03/08/17 19:43 - 03/20/17 05:29 Intake Total 400 ml 400 ml 34444 ml Output Total 5 ml 475 ml 18809 ml Balance 395 ml -75 ml 8290 ml Intake Oral 400 ml 400 ml 5850 ml IV Total 17095 ml Output Urine Total 475 ml 16334 ml Stool Total 5 ml 511 ml Gastric Drainage Total 5150 ml Emesis 595 ml # Voids 5 3 22 # Bowel Movements 3 52 Exam General: No acute distress, AAOX3. Eyes: PERRLA, anicteric sclerae, moist noninjected conjunctivae. HEENT: Normocephalic, atraumatic. External ears without defect. Cardiovascular: RRR, no murmurs, rubs, or gallops appreciated. Pulmonary: Poor air entry, no wheezing. Abdomen: Obese, active BS, NT, ND. Extremities: trace edema, PICC line in place. Lab and Diagnostics Result Diagram: 03/20/17 0400 03/20/17 0400 Microbiology Urinalysis no pyuria Enteric pathogen stool profile - no C. difficile or other pathogen MRSA swab negative Strep pneumonia and legionella urinary antigens negative Blood culture 03/08/17 - 2 sets pending X-Rays, CTs and MRIs PROCEDURE: CT ABDOMEN AND PELVIS WITHOUT CONTRAST ([id number]) IMPRESSION: 1. Fluid and gas distention of the small and large bowel extending to the rectosigmoid colon distally without a focal transition point. The findings are suggestive of an ileus or gastroenteritis without definite obstruction. 2. Patchy groundglass opacities in the visualized lung bases with consolidation in the inferior right middle and lower lobes. The findings suggest aspiration with right basilar pneumonia. 3. Small atrophic left kidney. No hydronephrosis in the right the left kidney. Dictated by: Man Mcnulty M.D. on 03/08/2017 at 21:18 PROCEDURE: X-RAY CHEST ONE VIEW, PORTABLE ([id number]) IMPRESSION: 1. Right infrahilar consolidation redemonstrated as was increased bandlike opacities in the left base and bilateral patchy groundglass opacities. The findings are suggestive of multifocal pneumonia. Dictated by: Man Mcnulty M.D. on 03/08/2017 at 20:22 PROCEDURE: X-RAY CHEST ONE VIEW, PORTABLE ([id number]) IMPRESSION: Bilateral pneumonia slightly increased involving the left upper lobe. Dictated by: Joaquin Dicekns RRA Interpreted: Maddi Banks MD on 03/09/2017 at 10:01 PROCEDURE: CT BRAIN WITHOUT CONTRAST ([id number]) IMPRESSION: 1. Limited study due to motion demonstrates no definite acute intracranial abnormality. Dictated by: Man Mcnulty M.D. on 03/08/2017 at 21:29 . 12-lead ECG Sinus tachycardia with left bundle branch block Cardiac Echo Impressions Echocardiogram Report Name: ELIZABETH HAWTHORNE IStudy Date: Height: 67 in Hospital Exam Location: [facility] Weight: 291 lb Gender: Female BSA: 2.4 m2 : 1940 Age: 76 yrs BP: 109/71 mmHg Reason For Study: BREAST CANCER Ordering Physician: Performed By: Kori Keller Interpretation Summary Left ventricular systolic function is mildly reduced with the ejection fraction visually estimated to be 45-50% with borderline global hypokinesis and more severe hypokinesis in the inferior and inferoposterior segments but this appears unchanged compared to the previous study. There are no other obvious focal wall motion abnormalities and there has been no significant change since the previous study. There is borderline concentric left ventricular hypertrophy and assessment of diastolic parameters indicates a relaxation abnormality of the left ventricle, although the E/E' ratio is mildly increased, suggesting possible increased filling pressures, perhaps slightly higher compared to the previous study. The right ventricle is borderline dilated and right ventricular systolic function is mildly reduced but likely unchanged compared to the previous study. The right ventricular systolic pressure is estimated to be at least 38 mmHg assuming a right atrial pressure of 8 mm Hg, but could be higher. Comparison with the previous study is not possible because this was not assessed on the previous study. The left atrium is mildly dilated. There is no significant valvular heart disease. The ascending aorta is mildly enlarged. There is no pericardial effusion or pleural effusion seen. The patient was in normal sinus rhythm with heart rates between 85-105 bpm during the study which is somewhat slower compared to the previous study. Plan Impression 1. ELVIA due to ATN, improving. 2. Hypokalemia and hypomagnesemia. 3. Hypocalcemia and hypophosphatemia 4. Secondary hyperparathyroidism 5. Hypernatremia. 6. Crohn's disease status post hemicolectomy Plan: D5W 500 ml + KCL 40 meq 80 m/lhr. IV lasix 20 mg x 1. MgSO4 4 gm IVPB. continue ergocalciferol and neutraphos. Continue slow Mg, calcitriol and Tums. Repeat BMP, Mg, PO4 in am. Gen Escobedo MD March 20, 2017 12:59
[2017-03-20] MEDS: OLANZapine Zydis ODT 5 mg Tablet PO SCH (20:51)
[2017-03-21] VITALS (8 sets, daily range): BP systolic 119–157; BP diastolic 70–95; PULSE 83–101; RESP 18; O2SAT 92–98
[2017-03-21 03:37] LABS: BASOPHILS % (AUTO) 0.7 % (0-3); EOSINOPHILS % (AUTO) 2.2 % (0-5); MONOCYTES % (AUTO) 15.2 % (4-12); Mean Corpuscular Hemoglobin 28.2 pg (27.0-35.0); Mean Corpuscular Volume 93.2 fL (81-100); NEUTROPHILS % (AUTO) 48.6 % (40-74); Platelet Count 176 bil/L (150-400)
[2017-03-21 04:26] LABS: Magnesium 1.9 mg/dL (1.6-2.6)
[2017-03-21] MEDS: Piper-Tazo 3.375 Gm/50 mL D5W Minibag Plus - Q8H over 4 hrs IV SCH ×2 (06:21)
--- NOTE | 2017-03-21 06:44 | NUR ---
insomnia. patient reports insomnia. given 5mg melatonin. 30 minute later patient sleeping, breathing nonlabored. patient denied n/v/d. reports improvement overall. eager to get home.
--- NOTE | 2017-03-21 06:45 | NUR ---
Picc unable to draw blood from either PICC port. ports flush easily with no resistance. hubs changed on both ports. Lab called to draw AM labs. Left message with IV therapy. will continue to monitor
[2017-03-21] MEDS: Sodium-Potassium Phosphorus Packet PO SCH ×4 (08:30→21:52)
[2017-03-21] MEDS ORDERED: POTASSIUM CHLORIDE IV SCH ×2 (08:40→13:09)
[2017-03-21] MEDS ORDERED: DEXTROSE 5% IV SCH ×2 (08:40→13:09)
[2017-03-21] MEDS ORDERED: MAGNESIUM SULFATE IV SCH ×2 (08:40→13:09)
[2017-03-21] MEDS: Magnesium Chloride SR 64 mg ER24 Tablet PO SCH ×2 (09:09→20:28)
[2017-03-21] MEDS: Famotidine Inj 20 MG in IV Premix 1 EACH IV SCH ×2 (09:10→20:29)
--- NOTE | 2017-03-21 11:30 | PCM.PNMED ---
Subjective Date of Service March 21, 2017 Subjective Patient continues to improve significantly over the past 24 hours. Energy level is much improved, appetite is very good, nausea resolving, loose stools essentially resolved she did have one soft bowel movement earlier this morning. No Further acute complaints at this time , she is very encouraged by her progress Exam Vital Signs Vital Sign - Last Date Time Temp Pulse Resp B/P Pulse Ox O2 Delivery O2 Flow Rate FiO2 03/21/17 10:33 92 03/21/17 09:55 36.9 18 119/74 94 Room Air 03/20/17 04:11 2.00 Intake and Output 03/20/17 03/20/17 03/21/17 Cumulative From/Thru 15:00 23:00 07:00 03/08/17 19:43 - 03/21/17 05:02 Intake Total 600 ml 200 ml 63164 ml Output Total 1500 ml 550 ml 87119 ml Balance -900 ml -350 ml 7040 ml Intake Oral 600 ml 200 ml 6650 ml IV Total 72361 ml Output Urine Total 1100 ml 550 ml 51948 ml Stool Total 400 ml 911 ml Gastric Drainage Total 5150 ml Emesis 595 ml # Voids 3 1 26 # Bowel Movements 1 53 Exam General: Alert, Oriented X3, Cooperative, No acute Distress, again much improved mentation. Mouth: Mucous Membranes moist Cardiovascular: Regular Rate/Rhythm Abdomen: Non-distended, Abdomen is obese but nontender to palpation, (+)BS. Extremities: No cyanosis/clubbing/edema bilat Neurological: Grossly Neurologically Intact Skin: No skin changes no areas of induration around PICC line now there is some bruising inferior. IVs and Medications Medications Reviewed: Medications were reviewed in detail Lab and Diagnostics Result Diagram: 03/21/17 0326 03/21/17 0326 Microbiology Urinalysis no pyuria Enteric pathogen stool profile - no C. difficile or other pathogen MRSA swab negative Strep pneumonia and legionella urinary antigens negative Blood culture 03/08/17 - 2 sets pending X-Rays, CTs and MRIs PROCEDURE: CT ABDOMEN AND PELVIS WITHOUT CONTRAST ([id number]) IMPRESSION: 1. Fluid and gas distention of the small and large bowel extending to the rectosigmoid colon distally without a focal transition point. The findings are suggestive of an ileus or gastroenteritis without definite obstruction. 2. Patchy groundglass opacities in the visualized lung bases with consolidation in the inferior right middle and lower lobes. The findings suggest aspiration with right basilar pneumonia. 3. Small atrophic left kidney. No hydronephrosis in the right the left kidney. Dictated by: Man Mcnulty M.D. on 03/08/2017 at 21:18 PROCEDURE: X-RAY CHEST ONE VIEW, PORTABLE ([id number]) IMPRESSION: 1. Right infrahilar consolidation redemonstrated as was increased bandlike opacities in the left base and bilateral patchy groundglass opacities. The findings are suggestive of multifocal pneumonia. Dictated by: Man Mcnulty M.D. on 03/08/2017 at 20:22 PROCEDURE: X-RAY CHEST ONE VIEW, PORTABLE ([id number]) IMPRESSION: Bilateral pneumonia slightly increased involving the left upper lobe. Dictated by: Joaquin Dickens [facility] Interpreted: Maddi Banks MD on 03/09/2017 at 10:01 PROCEDURE: CT BRAIN WITHOUT CONTRAST ([id number]) IMPRESSION: 1. Limited study due to motion demonstrates no definite acute intracranial abnormality. Dictated by: Man Mcnulty M.D. on 03/08/2017 at 21:29 . 12-lead ECG Sinus tachycardia with left bundle branch block Cardiac Echo Impressions Echocardiogram Report Name: ELIZABETH BEVERLY IStudy Date: Height: 67 in Hospital Exam Location: [facility] Weight: 291 lb Gender: Female BSA: 2.4 m2 : 1940 Age: 76 yrs BP: 109/71 mmHg Reason For Study: BREAST CANCER Ordering Physician: Performed By: Kori Keller Interpretation Summary Left ventricular systolic function is mildly reduced with the ejection fraction visually estimated to be 45-50% with borderline global hypokinesis and more severe hypokinesis in the inferior and inferoposterior segments but this appears unchanged compared to the previous study. There are no other obvious focal wall motion abnormalities and there has been no significant change since the previous study. There is borderline concentric left ventricular hypertrophy and assessment of diastolic parameters indicates a relaxation abnormality of the left ventricle, although the E/E' ratio is mildly increased, suggesting possible increased filling pressures, perhaps slightly higher compared to the previous study. The right ventricle is borderline dilated and right ventricular systolic function is mildly reduced but likely unchanged compared to the previous study. The right ventricular systolic pressure is estimated to be at least 38 mmHg assuming a right atrial pressure of 8 mm Hg, but could be higher. Comparison with the previous study is not possible because this was not assessed on the previous study. The left atrium is mildly dilated. There is no significant valvular heart disease. The ascending aorta is mildly enlarged. There is no pericardial effusion or pleural effusion seen. The patient was in normal sinus rhythm with heart rates between 85-105 bpm during the study which is somewhat slower compared to the previous study. Assessment & Plan Ms. Beverly is a 76-year-old morbidly obese woman with an unfortunate history of Crohn's disease status post hemicolectomy, [id number] diabetes mellitus, hypertension, and metastatic breast cancer currently in remission, that presented to [facility] with a 2 day history of vomiting, diarrhea, abdominal pain , decreased appetite, altered mental status, lethargy. Information is primarily obtained from chart review, as patient has no family at bedside at time of admission, and is not responsive to questioning. She was admitted for evaluation and treatment of altered mental status, severe acute on chronic kidney injury, and suspected pneumonia, gastroenteritis. # Acute on chronic kidney injury, present on admission. Oliguric. In setting of unilateral functioning kidney. Presumed prerenal azotemia, possibly ATN secondary to volume depletion.On admit: Creatinine 8.40; recent baseline is 1.15 , creatinine level is not yet at that number but has been downward trending. - Moderate fluid resuscitation, but avoid precipitating pulmonary edema - Bicarbonate drip plus rehydration was given. Patient is now off the bicarbonate drip and on gentle IV hydration. It appears patient may now be in the diuretic phase of acute tubular necrosis. - Treat electrolyte disorders, though overall renal function appears to be steadily improving along with creatinine levels. - We have re-consulted Nephrology, continue to appreciate the recommendations and insight. Ergocalciferol and Neutra-Phos have been started on their recommendations.. # Chronic systolic congestive heart failure - See echocardiogram report as above - We started carvedilol low-dose - Unable to start NATHALIE inhibitor or ARB due to renal failure - Hold diuretics at this time as patient appears to be in the diuretic phase of acute tubular necrosis. The diuretic phase may be hampered somewhat by the fact that the patient has a solitary kidney. - With continued improvement in renal function may consider restarting diuretic in near future. #Persistent diarrhea - Maybe multifactorial related to a number of contributing factors including, frequent and large amounts of electrolyte replacement, underlying colonic and intestinal disease related to Crohn's, or infectious possibly C. difficile colitis. - C. difficile PCR is negative and thus will restart Imodium which has been very effective in controlling stool since yesterday, but must remain aware of potential for constipation which has occurred in the past. # Abdomen pain, diarrhea and emesis, acute, present on admission. Diarrhea appears to be chronic related to Crohn disease, although possibly worse recently. The patient is immunocompromise on TNF alpha inhibitor. Differential diagnosis is Crohn disease, gastroenteritis, ischemic bowel, partial bowel obstruction. Acalculous cholecystitis is possible, although not supported by CT scan. C. difficile had been ruled out prior. - Advancing diet now as tolerated - NG tube to low suction has been removed (03/15) - Gen. surgery consult to assess abdomen, they felt that there is no evidence of acute cholecystitis. - Discussed with Dr. Nasim Parry previously, pt now followed by Dr Parish, appreciating assistance and follow-up. There does not appear to be any current bowel obstruction, but CT does siggest evidence of some stricture. - Continue to monitor stooling pattern with DC of Lactulose. Continues to note loose and frequent stools. - General surgery has signed off narrowing intervention will not be needed recommend consultation of GI should further abdominal symptoms develop as possible Crohn's flare or other etiology may account for stricture noted in imaging studies. , # Hypotension, acute. Not present on admission. Resolved Patient developed mean arterial pressures less than 65 mmHg despite aggressive fluid hydration. - Place CVC to manage fluid resuscitation and pressors; IJ only to avoid interfering with potential dialysis catheter needs - Measure CVP - Pressors as needed - Maintain mean arterial pressure greater than 65, urine output greater than 0.5 ml/kg/hr - Currently resolved. HDS # Radiographic pneumonia, likely acute, present on admission. Likely aspiration pneumonia pneumonitis versus pneumonia based on clinical context of recent severe emesis. At risk for healthcare associated PNA: Recent admission . In ED, patient received: linezolid, Levaquin, Zosyn - Zosyn now discontinue following completion of seven-day course. - Discontinue vanco due to MRSA-negative status low clinical probability of staphylococcal pneumonia, no changed medications this morning. # Elevated ammonia, chronicity unknown, present on admission. On admit: Ammonia 144. Liver transaminases unremarkable, synthetic function intact. Differential diagnosis hyperammonemia: hepatic disorders, portosystemic shunt, inborn errors of urea cycle metabolism, Teresita's syndrome, ureterosigmoidostomy, infection in nondraining bladder, drugs (cyanide, carbamazepine, valproic acid, iron, and cytotoxics can also cause secondary hyperammonemia.) - Repeat ammonia levels have normalized - Lactulose held, AM ammonia level pending. Mentation also stable. Consider follow-up ammonia level in a few days #Hypokalemia: - Progressive process, renal dsyfunction likely contributing factor. Maybe also due to loose stools., - Continue to monitor on telemetry, Repleated IV currently , in addition provided Mg repletion as needed. #Hypernatremia: - transitioning to 1/2 NS at this time at 75cc/hr., and subsequently to D5 water for persistent elevation of sodium. - This condition also managed by nephrology continue to appreciate recommendations. # Hypocalcemia, hyperphosphatemia, present on admission. Presumed secondary to severe renal failure. Calcium phosphorus product is 43. - We will consult nephrology, repleteting orally daily, IV X1 again today. - Nephrology service has recommended initiation of ergocalciferol, in addition to Tums. # Diabetes mellitus, non-insulin using, chronic. Controlled. A1c 01/2017:5.6 - Frequently monitor capillary blood glucose - Glucose control goals: Random less than 180, fasting less than 140, none less than 70 - Insulin as needed, IV insulin while patient in CCU, then divided 50-50 long- acting and nutritional/correctional #Anemia: - Progressive process, no evidence of acute bleeding - Stool guiac ordered and pending. - Continue to monitor H&H. Resolving, stable and/or chronic problems: # Acute Encephalopathy, present on admission. Ongoing, however improving. Per documentation, patient was alert and oriented at baseline. Likely metabolic encephalopathy secondary to acidosis, uremia and elevated ammonia. Brain CT unremarkable - She is now awake and alert. - Repeat Swallow eval, speech therapy has been re-consulted; now advancing diet as tolerated - Avoid sedatives - Will hold Lactulose in setting of normal liver function, complaints of poor tolerability, and now frequent stooling pattern. - Avoid anticholinergics and benzodiazepines # High anion gap acidosis, acute, present on admission. On admit, calculated: 29, lactate is not elevated. Likely secondary to renal failure, pyroglutamate and D lactate possible - Replete fluids - Improved # Elevated troponins of undetermined significance, likely acute, present on admission. Monitor - Troponin profile does not suggest acute coronary syndrome # History of Crohn's colitis status post hemicolectomy, chronic. Recently initiated infliximab therapy. - May be contributing to electrolyte abnormalities which in turn may affect mental status - Continue tredning labs, role of medication treatment in this process unclear, but certain pt demonstrated acute worsening following first infusion. We will continue have further discussions with the patient and family . Pain Evaluation: Adequate Pain Control GI Prophylaxis: Not indicated VTE Prophylaxis: Sub-Q Heparin (Unfractionated) VTE Mechanical Devices: Intermittant Pneumatic CD Resuscitation Status: DNR/DNI:Do Not Resuscitate/Intubate Time spent 35 minutes Mk Winters DO March 21, 2017 11:30 Mk Winters DO March 21, 2017 11:30
--- NOTE | 2017-03-21 13:13 | PCM.PNNEPH ---
Subjective Date of Service March 21, 2017 Subjective Patient is in good spirits today. Her strength has come back. Urine output is considerably well. Exam Vital Signs Vital Sign - Last Date Time Temp Pulse Resp B/P Pulse Ox O2 Delivery O2 Flow Rate FiO2 03/21/17 12:57 37.2 88 18 157/87 98 Room Air 03/20/17 04:11 2.00 Intake and Output 03/20/17 03/20/17 03/21/17 Cumulative From/Thru 15:00 23:00 07:00 03/08/17 19:43 - 03/21/17 05:02 Intake Total 600 ml 200 ml 51316 ml Output Total 1500 ml 550 ml 20505 ml Balance -900 ml -350 ml 7040 ml Intake Oral 600 ml 200 ml 6650 ml IV Total 40375 ml Output Urine Total 1100 ml 550 ml 00923 ml Stool Total 400 ml 911 ml Gastric Drainage Total 5150 ml Emesis 595 ml # Voids 3 1 26 # Bowel Movements 1 53 Exam General: No acute distress, AAOX3. Eyes: PERRLA, anicteric sclerae, moist noninjected conjunctivae. HEENT: Normocephalic, atraumatic. External ears without defect. Cardiovascular: RRR, no murmurs, rubs, or gallops appreciated. Pulmonary: Poor air entry, no wheezing. Abdomen: Obese, active BS, NT, ND. Extremities: trace edema, PICC line in place. Lab and Diagnostics Result Diagram: 03/21/17 0326 03/21/17 032 Microbiology Urinalysis no pyuria Enteric pathogen stool profile - no C. difficile or other pathogen MRSA swab negative Strep pneumonia and legionella urinary antigens negative Blood culture 03/08/17 - 2 sets pending X-Rays, CTs and MRIs PROCEDURE: CT ABDOMEN AND PELVIS WITHOUT CONTRAST ([id number]) IMPRESSION: 1. Fluid and gas distention of the small and large bowel extending to the rectosigmoid colon distally without a focal transition point. The findings are suggestive of an ileus or gastroenteritis without definite obstruction. 2. Patchy groundglass opacities in the visualized lung bases with consolidation in the inferior right middle and lower lobes. The findings suggest aspiration with right basilar pneumonia. 3. Small atrophic left kidney. No hydronephrosis in the right the left kidney. Dictated by: Man Mcnulty M.D. on 03/08/2017 at 21:18 PROCEDURE: X-RAY CHEST ONE VIEW, PORTABLE ([id number]) IMPRESSION: 1. Right infrahilar consolidation redemonstrated as was increased bandlike opacities in the left base and bilateral patchy groundglass opacities. The findings are suggestive of multifocal pneumonia. Dictated by: Man Mcnulty M.D. on 03/08/2017 at 20:22 PROCEDURE: X-RAY CHEST ONE VIEW, PORTABLE ([id number]) IMPRESSION: Bilateral pneumonia slightly increased involving the left upper lobe. Dictated by: Joaquin Dickens RRA Interpreted: Maddi Banks MD on 03/09/2017 at 10:01 PROCEDURE: CT BRAIN WITHOUT CONTRAST ([id number]) IMPRESSION: 1. Limited study due to motion demonstrates no definite acute intracranial abnormality. Dictated by: Man Mcnulty M.D. on 03/08/2017 at 21:29 . 12-lead ECG Sinus tachycardia with left bundle branch block Cardiac Echo Impressions Echocardiogram Report Name: ELIZABETH HAWTHORNE IStudy Date: Height: 67 in Hospital Exam Location: [facility] Weight: 291 lb Gender: Female BSA: 2.4 m2 : 1940 Age: 76 yrs BP: 109/71 mmHg Reason For Study: BREAST CANCER Ordering Physician: Performed By: Kori Keller Interpretation Summary Left ventricular systolic function is mildly reduced with the ejection fraction visually estimated to be 45-50% with borderline global hypokinesis and more severe hypokinesis in the inferior and inferoposterior segments but this appears unchanged compared to the previous study. There are no other obvious focal wall motion abnormalities and there has been no significant change since the previous study. There is borderline concentric left ventricular hypertrophy and assessment of diastolic parameters indicates a relaxation abnormality of the left ventricle, although the E/E' ratio is mildly increased, suggesting possible increased filling pressures, perhaps slightly higher compared to the previous study. The right ventricle is borderline dilated and right ventricular systolic function is mildly reduced but likely unchanged compared to the previous study. The right ventricular systolic pressure is estimated to be at least 38 mmHg assuming a right atrial pressure of 8 mm Hg, but could be higher. Comparison with the previous study is not possible because this was not assessed on the previous study. The left atrium is mildly dilated. There is no significant valvular heart disease. The ascending aorta is mildly enlarged. There is no pericardial effusion or pleural effusion seen. The patient was in normal sinus rhythm with heart rates between 85-105 bpm during the study which is somewhat slower compared to the previous study. Plan Impression 1. ELVIA due to ATN, improving. 2. Hypokalemia and hypomagnesemia. 3. Hypocalcemia and hypophosphatemia 4. Secondary hyperparathyroidism 5. Hypernatremia. 6. Crohn's disease status post hemicolectomy Plan: D5W 1000 ml + KCL 20 meq +Mg 4 gm 60 ml/hr. continue ergocalciferol and neutraphos. Continue slow Mg, calcitriol and Tums. Repeat BMP, Mg, PO4 in am. Gen Escobedo MD March 21, 2017 13:13
[2017-03-21] MEDS ORDERED: Alteplase (Cathflo) 1 mg/mL 2 mL Inj IVPUSH ONE ×2 (13:20)
--- NOTE | 2017-03-21 17:40 | NUR ---
Activity: Patient has been up to the BSC with 1x assist today. She has been continent of bowel and bladder for most of the day. Patient walked with her FWW wti PT today and did well. Patient feels positive and in good spirits. Calm and cooperative with care.
[2017-03-21] MEDS: OLANZapine Zydis ODT 5 mg Tablet PO SCH (20:28)
[2017-03-22 00:41] VITALS: BP 102/58; PULSE 79; RESP 16; O2SAT 93
[2017-03-22 04:53] VITALS: BP 117/59; PULSE 71; RESP 16; O2SAT 93
[2017-03-22 05:20] LABS: BASOPHILS % (AUTO) 0.3 % (0-3); EOSINOPHILS % (AUTO) 2.5 % (0-5); Mean Corpuscular Hemoglobin 27.9 pg (27.0-35.0); Mean Corpuscular Volume 94.7 fL (81-100); NEUTROPHILS % (AUTO) 41.3 % (40-74); Platelet Count 148 bil/L (150-400)
[2017-03-22 05:50] LABS: Magnesium 2.5 mg/dL (1.6-2.6)
--- NOTE | 2017-03-22 06:39 | NUR ---
Activity Patient up to BSC 1PA with FWW. steady gait. Patient states "I am ready to go home today." Vitals stable. IVF infusing. no pain. no nausea. will continue to monitor.
[2017-03-22] MEDS ORDERED: Calcium GLUCO 10% (mEq) Inj 9.3 MEQ in Dextrose 5% 100 ML IV ONE (07:35)
[2017-03-22] MEDS: Magnesium Chloride SR 64 mg ER24 Tablet PO SCH (08:07)
[2017-03-22] MEDS: Famotidine Inj 20 MG in IV Premix 1 EACH IV SCH (08:08)
[2017-03-22] MEDS: Sodium-Potassium Phosphorus Packet PO SCH ×3 (08:12→17:28)
--- NOTE | 2017-03-22 09:10 | NUR ---
Social Work: Continued d/c planning Data: Pt is on day 14 of hospitalization for ELVIA ILEUS Pneumonia. EMR reviewed. Pt is not medically cleared for discharge. Pt has been accepted at [facility] and [facility], pt's first choice is [facility], however they are not contracted with pt's insurance. PT has evaluated the pt and is currently recommending home with PT. SW met with pt and son Jermain at bedside to update them and they were agreeable to this plan. Pt likely to discharge home when medically ready via family with Patty PT/RN/ possibly [facility]. SW will continue to follow. Assessment: Pt who would benefit from PT/RN. Plan: Pt will likely d/c home when medically stable via POV with Patty RN/PT/possible [facility] A[facility]. [facility]ARDMASTER will continue to follow. SORAYA Tian
[2017-03-22 09:42] VITALS: PULSE 80
[2017-03-22 10:31] VITALS: BP 132/71; PULSE 94; RESP 18; O2SAT 98
--- NOTE | 2017-03-22 11:10 | PCM.PNNEPH ---
Subjective Date of Service March 22, 2017 Subjective Patient continues to do well. Her renal function has improved and her creatinine this morning is 2.0. There is no recent headache, chest pain, shortness of breath, nausea or vomiting. Last 24 hours her intake and output 1103 in and 1450 out. This morning her hemoglobin 7.9, calcium 6.1, sodium 136 , potassium 3.5, chloride 111, bicarbonate 22, BUN and creatinine were 10 and 2.0. Exam Vital Signs Vital Sign - Last Date Time Temp Pulse Resp B/P Pulse Ox O2 Delivery O2 Flow Rate FiO2 03/22/17 10:31 36.4 94 18 132/71 98 Room Air 03/20/17 04:11 2.00 Intake and Output 03/21/17 03/21/17 03/22/17 Cumulative From/Thru 15:00 23:00 07:00 03/08/17 19:43 - 03/22/17 05:50 Intake Total 903 ml 634 ml 78979 ml Output Total 900 ml 900 ml 82826 ml Balance 3 ml -266 ml 6777 ml Intake Oral 600 ml 200 ml 7450 ml IV Total 303 ml 434 ml 30478 ml Output Urine Total 300 ml 85928 ml Stool Total 911 ml Urine/Stool Mix 600 ml 900 ml 1500 ml Gastric Drainage Total 5150 ml Emesis 595 ml # Voids 26 # Bowel Movements 53 Exam Neck is supple without adenopathy, thyromegaly, or jugular venous distention. Lungs are clear to auscultation. Heart was regular and rhythmical with a soft systolic murmur. Abdomen is soft without any tenderness, rebound, guarding, masses, or hepatosplenomegaly. Extremities do not show any evidence of any clubbing, cyanosis, or edema. Lab and Diagnostics Result Diagram: 03/22/[id number]/17444 Microbiology Urinalysis no pyuria Enteric pathogen stool profile - no C. difficile or other pathogen MRSA swab negative Strep pneumonia and legionella urinary antigens negative Blood culture 03/08/17 - 2 sets pending X-Rays, CTs and MRIs PROCEDURE: CT ABDOMEN AND PELVIS WITHOUT CONTRAST ([id number]) IMPRESSION: 1. Fluid and gas distention of the small and large bowel extending to the rectosigmoid colon distally without a focal transition point. The findings are suggestive of an ileus or gastroenteritis without definite obstruction. 2. Patchy groundglass opacities in the visualized lung bases with consolidation in the inferior right middle and lower lobes. The findings suggest aspiration with right basilar pneumonia. 3. Small atrophic left kidney. No hydronephrosis in the right the left kidney. Dictated by: Man Mcnulty M.D. on 03/08/2017 at 21:18 PROCEDURE: X-RAY CHEST ONE VIEW, PORTABLE ([id number]) IMPRESSION: 1. Right infrahilar consolidation redemonstrated as was increased bandlike opacities in the left base and bilateral patchy groundglass opacities. The findings are suggestive of multifocal pneumonia. Dictated by: Man Mcnulty M.D. on 03/08/2017 at 20:22 PROCEDURE: X-RAY CHEST ONE VIEW, PORTABLE ([id number]) IMPRESSION: Bilateral pneumonia slightly increased involving the left upper lobe. Dictated by: Joaquin Dickens RRA Interpreted: Maddi Banks MD on 03/09/2017 at 10:01 PROCEDURE: CT BRAIN WITHOUT CONTRAST ([id number]) IMPRESSION: 1. Limited study due to motion demonstrates no definite acute intracranial abnormality. Dictated by: Man Mcnulty M.D. on 03/08/2017 at 21:29 . 12-lead ECG Sinus tachycardia with left bundle branch block Cardiac Echo Impressions Echocardiogram Report Name: ELIZABETH HAWTHORNE IStudy Date: Height: 67 in Hospital Exam Location: [facility] Weight: 291 lb Gender: Female BSA: 2.4 m2 : 1940 Age: 76 yrs BP: 109/71 mmHg Reason For Study: BREAST CANCER Ordering Physician: Performed By: Kori Keller Interpretation Summary Left ventricular systolic function is mildly reduced with the ejection fraction visually estimated to be 45-50% with borderline global hypokinesis and more severe hypokinesis in the inferior and inferoposterior segments but this appears unchanged compared to the previous study. There are no other obvious focal wall motion abnormalities and there has been no significant change since the previous study. There is borderline concentric left ventricular hypertrophy and assessment of diastolic parameters indicates a relaxation abnormality of the left ventricle, although the E/E' ratio is mildly increased, suggesting possible increased filling pressures, perhaps slightly higher compared to the previous study. The right ventricle is borderline dilated and right ventricular systolic function is mildly reduced but likely unchanged compared to the previous study. The right ventricular systolic pressure is estimated to be at least 38 mmHg assuming a right atrial pressure of 8 mm Hg, but could be higher. Comparison with the previous study is not possible because this was not assessed on the previous study. The left atrium is mildly dilated. There is no significant valvular heart disease. The ascending aorta is mildly enlarged. There is no pericardial effusion or pleural effusion seen. The patient was in normal sinus rhythm with heart rates between 85-105 bpm during the study which is somewhat slower compared to the previous study. Plan Impression Impression #1 acute on chronic kidney injury which is resolved #2 chronic kidney disease stage IV #3 hyponatremia number for hypocalcemia #5 metabolic acidosis #6 anemia secondary to chronic kidney disease Recommendations #1 from my point of view she can be discharged today with instructions to follow up in office in about 4-6 weeks. Conor Carolina DO March 22, 2017 11:10
[2017-03-22 12:55] VITALS: PULSE 103
--- NOTE | 2017-03-22 12:56 | PCM.PALLBR ---
Palliative Care Recommendation Summary of palliative recommendations: Symptom management (Pain/other): per [facility] hospitalist team Nausea: pt states that nausea in good control "now that they are giving me the anti-nausea before meals on a regular basis." 1. Should go home on scheduled zofran po QID. Informed by pharmacy that 24ng is max daily dose, so we will make these 6 mg doses. 2. Adjuvant anti-nausea agent for home use: ativan 0.5-1 mg for breakthrough N/V when Zofran dosing is ineffective. 3. Continue olanzepine at HS as nausea adjuvant. 5mg q HS. CONSIDER: for pt's PCP, perhaps decrease zofran, also a QT prolonging med, if this is effective. DIARRHEA: has resolved per pt. DPOA/Advanced Directives/POLST: 1. Patient's code status is current DNR/DNI. POLST completed on 03/19/17 with ALON Toribio and in chart. Family given copies. 2. Discharge disposition now seems to be home with [facility] today-- per pt preference. Family/emotional support: good support from son, sister, and niece. Kaz Aly can be reached at [phone] (or cell [phone]). Patient Goals: The patient would like selective/effective medical treatments for any medical conditions. In the event of cardiopulmonary arrest she would like to be a DO NOT RESUSCITATE DO NOT INTUBATE and would like to avoid "machines", she does not want to have intubation and/or any machines for life-prolonging, although she would consider limited dialysis to resolve/ reverse acute renal failure but would NOT want this to be long-term. Problems: (1) Palliative care by specialist Status: Acute ICD Code: Z51.5 (2) Goals of care, counseling/discussion Status: Acute ICD Code: Z71.89 (3) Nausea & vomiting Status: Acute ICD Code: R11.2 (4) Ileus Status: Acute ICD Code: K56.7 (5) Acute kidney injury Status: Acute ICD Code: N17.9 End of Life Preferences wants selective medical therapies to reverse reversible life-threatening conditions, especially metabolic abnormalities but no intubation or other life- prolonging machines at end of life. Goals of Care hopes to return to baseline and home with son. Goal is for best possible control of chronic issues, treatment for reversible conditions and supportive therapies with goal of preserving/returning to baseline function. Disposition possible SNF pending PT eval Resuscitation Status Resuscitation Status: DNR/DNI:Do Not Resuscitate/Intubate POLST Updates/Changes Previous POLST?: No Antibiotics: Use ABX if can Prolong Life Artificially Admin Nutrition: Trial Period Tube Feeding POLST Discussed with: Patient POLST Review Outcome: New Form Completed Total time 25 minutes; >50% face to face with patient and/or family, providing counselling regarding plans and recommendations, and in care coordination with his/her medical teams. Palliative Brief Note Date of Service March 22, [address] Bah and Dr. Madrid met with pt this morning on rounds to assess effectiveness of palliative care's symptom management of nausea. Pt has received routine dosing of zofran over the weekend and gradually her nausea has subside. The diarrhea has also resolved. She is content with her current condition and wants to go home today. Luz Bah MD March 22, 2017 12:56 Luz Bah MD March 22, 2017 12:56
--- NOTE | 2017-03-22 13:09 | NUR ---
D/c from PT. Safe to amb with nsg.
[2017-03-22] MEDS ORDERED: LOPE2CAP PO (13:24)
[2017-03-22] MEDS ORDERED: ONDA4TAB12 PO (13:24)
[2017-03-22] MEDS ORDERED: LACT10SO60 PO (13:24)
[2017-03-22] MEDS ORDERED: CARV3.122 PO (13:24)
[2017-03-22] MEDS ORDERED: Ergocalciferol (Vitamin D2) PO (13:24)
[2017-03-22] MEDS ORDERED: CALC500T53 PO (13:24)
[2017-03-22] MEDS ORDERED: MAGN64TA7 PO (13:24)
[2017-03-22] MEDS ORDERED: CALC0.257 PO (13:24)
[2017-03-22] MEDS ORDERED: MELA5TAB14 PO (13:24)
--- NOTE | 2017-03-22 13:33 | PCM.DIMED ---
Discharge Instructions Date of Service March 22, 2017 Dates of Hospitalization Mar 08, 2017 at 22:23 Discharge Diagnosis Discharge Diagnosis Acute on chronic kidney injury (resolving) secondary to ATN Chronic systolic CHF Persistent diarrhea Abdominal pain, diarrhea, emesis most likely secondary to Crohn's exacerbation Hypotension Pneumonia Elevated pneumonia Hypokalemia Hypernatremia Hypocalcemia Hyperphosphatemia Diabetes mellitus (non-insulin using controlled) Anemia Acute encephalopathy High anion gap acidosis Elevated troponin (not suggestive of acute coronary syndrome) History of Crohn's colitis status post hemicolectomy Medication Instructions Please pay close attention to the medication list that you are being given today. Many of your medications have been altered and it is important that he follow this new medication list. Diet Diabetic, Renal Diet Activity No restrictions (gradually return to normal daily activities) Patient Instructions Please follow up at the [facility] in regards to your Crohn's disease. It is very important that he follow-up at the [facility] as you may need a surgical procedure in order to help alleviate some of your issues in regards to Crohn's disease. An authorization form has already been sent over to [facility] and your insurance has approved it please maintain any follow-up appointments. Follow-up Provider: Judith Miranda DO Follow-up with PCP in: 1 week (if appointment has not been made please call to schedule an appointment) Follow-up in: 2 weeks (please call to schedule an appointment with the information resources manager at the [facility]) Mid-level Provider (F9): Conor Carolina DO Follow-up with Mid-level in: 4 weeks (please follow-up with Dr. Carolina or Dr. Escobedo in the next 4-6 weeks in regards to your acute on chronic kidney injury. If an appointment has not been made please call to schedule an appointment) Haleigh Cuevas DO March 22, 2017 13:32
--- NOTE | 2017-03-22 13:36 | PCM.DC.MED ---
Discharge Summary Date of Service March 22, 2017 Dates of Hospitalization Date of Hospital Admission Mar 08, 2017 at 22:23 Date of Discharge: March 22, 2017 Providers: Admitting Physician: Loyd Shearer MD Primary Care Physician: Judith Miranda DO Attending Physician: Loyd Shearer MD Diagnosis at Time of Discharge Diagnosis at Time of Discharge Acute on chronic kidney injury (resolving) secondary to ATN Chronic systolic CHF Persistent diarrhea Abdominal pain, diarrhea, emesis most likely secondary to Crohn's exacerbation Hypotension Pneumonia Elevated pneumonia Hypokalemia Hypernatremia Hypocalcemia Hyperphosphatemia Diabetes mellitus (non-insulin using controlled) Anemia Acute encephalopathy High anion gap acidosis Elevated troponin (not suggestive of acute coronary syndrome) History of Crohn's colitis status post hemicolectomy Procedures XRay, CTs & MRIs PROCEDURE: CT ABDOMEN AND PELVIS WITHOUT CONTRAST ([id number]) IMPRESSION: 1. Fluid and gas distention of the small and large bowel extending to the rectosigmoid colon distally without a focal transition point. The findings are suggestive of an ileus or gastroenteritis without definite obstruction. 2. Patchy groundglass opacities in the visualized lung bases with consolidation in the inferior right middle and lower lobes. The findings suggest aspiration with right basilar pneumonia. 3. Small atrophic left kidney. No hydronephrosis in the right the left kidney. Dictated by: Man Mcnulty M.D. on 03/08/2017 at 21:18 PROCEDURE: X-RAY CHEST ONE VIEW, PORTABLE ([id number]) IMPRESSION: 1. Right infrahilar consolidation redemonstrated as was increased bandlike opacities in the left base and bilateral patchy groundglass opacities. The findings are suggestive of multifocal pneumonia. Dictated by: Man Mcnulty M.D. on 03/08/2017 at 20:22 PROCEDURE: X-RAY CHEST ONE VIEW, PORTABLE ([id number]) IMPRESSION: Bilateral pneumonia slightly increased involving the left upper lobe. Dictated by: Joaquin Dickens [facility] Interpreted: Maddi Banks MD on 03/09/2017 at 10:01 PROCEDURE: CT BRAIN WITHOUT CONTRAST ([id number]) IMPRESSION: 1. Limited study due to motion demonstrates no definite acute intracranial abnormality. Dictated by: Man Mcnulty M.D. on 03/08/2017 at 21:29 . ECG 12 Lead Sinus tachycardia with left bundle branch block Cardiac Echo Impression Echocardiogram Report Name: ELIZABETH BEVERLY IStudy Date: Height: 67 in Hospital Exam Location: [facility] Weight: 291 lb Gender: Female BSA: 2.4 m2 : 1940 Age: 76 yrs BP: 109/71 mmHg Reason For Study: BREAST CANCER Ordering Physician: Performed By: Kori Keller Interpretation Summary Left ventricular systolic function is mildly reduced with the ejection fraction visually estimated to be 45-50% with borderline global hypokinesis and more severe hypokinesis in the inferior and inferoposterior segments but this appears unchanged compared to the previous study. There are no other obvious focal wall motion abnormalities and there has been no significant change since the previous study. There is borderline concentric left ventricular hypertrophy and assessment of diastolic parameters indicates a relaxation abnormality of the left ventricle, although the E/E' ratio is mildly increased, suggesting possible increased filling pressures, perhaps slightly higher compared to the previous study. The right ventricle is borderline dilated and right ventricular systolic function is mildly reduced but likely unchanged compared to the previous study. The right ventricular systolic pressure is estimated to be at least 38 mmHg assuming a right atrial pressure of 8 mm Hg, but could be higher. Comparison with the previous study is not possible because this was not assessed on the previous study. The left atrium is mildly dilated. There is no significant valvular heart disease. The ascending aorta is mildly enlarged. There is no pericardial effusion or pleural effusion seen. The patient was in normal sinus rhythm with heart rates between 85-105 bpm during the study which is somewhat slower compared to the previous study. Brief History Ms. Beverly is a 76-year-old morbidly obese woman with an unfortunate history of Crohn's disease status post hemicolectomy, fkd-bjuepew-naitfdlyg diabetes mellitus, hypertension, and metastatic breast cancer currently in remission, that presented to [facility] with a 2 day history of vomiting, diarrhea, abdominal pain , decreased appetite, altered mental status, lethargy. Information is primarily obtained from chart review, as patient was not responsive to questioning on admission. She was admitted for evaluation and treatment of altered mental status, severe acute on chronic kidney injury, and suspected pneumonia, gastroenteritis. Hospital Course: Patient was admitted on 03/08/17. Today is Hospital day 12. On admission, patient was initially put on comfort care due to her poor medical status. She was found to have metabolic encephalopathy, acute kidney injury due to ATN that likely secondary to acute volume depletion, bowel obstruction, metabolic acidosis, and hyperammonemia. However, patient's symptoms and labs has gradually improved and comfort care status was reversed, medical therapies resumed. Patient had NG tube for bowel obstruction that was removed on 03/15. The patient has been tolerating pureed diet well. The hyperammonemia has also resolved. Her overall condition is slowly improving but she still feels very weak with intermittent nausea. Palliative Care note: The patient feels her nausea is better with Zofran but she usually does not get it when she needs it; we will enter a routine schedule for this medication. Her stools are now less loose; she is happy to no longer be taking Lactulose. PT was consulted on admission, but stopped seeing the patient due to comfort care status on 03/10. We will reorder this-- Patient has not been out of bed. The patient would prefer a home discharge but understands that her needs for rehab will necessitate transition to skilled facility on [place]. Her goals as previously stated to Palliative Care are reviewed--see shweta LUJAN above and in her chart/medical record. Hospital Course Ms. Beverly is a 76-year-old morbidly obese woman with an unfortunate history of Crohn's disease status post hemicolectomy, yyt-ipjnoil-aeknvliqx diabetes mellitus, hypertension, and metastatic breast cancer currently in remission, that presented to [facility] with a 2 day history of vomiting, diarrhea, abdominal pain , decreased appetite, altered mental status, lethargy. Information is primarily obtained from chart review, as patient has no family at bedside at time of admission, and is not responsive to questioning. She was admitted for evaluation and treatment of altered mental status, severe acute on chronic kidney injury, and suspected pneumonia, gastroenteritis. The patient is progressing well and her altered mental status has improved. At this time it is recommended that the patient follow up at the for further assessment and treatment for her Chron's disease. This has been explained to the patient and she agrees that this is the best course of action for the patient. See below for full hospital course: # Acute on chronic kidney injury, present on admission. Oliguric. In setting of unilateral functioning kidney. Presumed prerenal azotemia, possibly ATN secondary to volume depletion.On admit: Creatinine 8.40; recent baseline is 1.15 , creatinine level is not yet at that number but has been downward trending. - Moderate fluid resuscitation, but avoid precipitating pulmonary edema - Bicarbonate drip plus rehydration was given. Patient is now off the bicarbonate drip and on gentle IV hydration. It appears patient may now be in the diuretic phase of acute tubular necrosis. - Treat electrolyte disorders, though overall renal function appears to be steadily improving along with creatinine levels. - We have re-consulted Nephrology, continue to appreciate the recommendations and insight. Ergocalciferol and Neutra-Phos have been started on their recommendations.. # Chronic systolic congestive heart failure - See echocardiogram report as above - We started carvedilol low-dose - Unable to start NATHALIE inhibitor or ARB due to renal failure - Hold diuretics at this time as patient appears to be in the diuretic phase of acute tubular necrosis. The diuretic phase may be hampered somewhat by the fact that the patient has a solitary kidney. - With continued improvement in renal function may consider restarting diuretic in near future. #Persistent diarrhea - Maybe multifactorial related to a number of contributing factors including, frequent and large amounts of electrolyte replacement, underlying colonic and intestinal disease related to Crohn's, or infectious possibly C. difficile colitis. - C. difficile PCR is negative and thus will restart Imodium which has been very effective in controlling stool since yesterday, but must remain aware of potential for constipation which has occurred in the past. # Abdomen pain, diarrhea and emesis, acute, present on admission. Diarrhea appears to be chronic related to Crohn disease, although possibly worse recently. The patient is immunocompromise on TNF alpha inhibitor. Differential diagnosis is Crohn disease, gastroenteritis, ischemic bowel, partial bowel obstruction. Acalculous cholecystitis is possible, although not supported by CT scan. C. difficile had been ruled out prior. - Advancing diet now as tolerated - NG tube to low suction has been removed (03/15) - Gen. surgery consult to assess abdomen, they felt that there is no evidence of acute cholecystitis. - Discussed with Dr. Nasim Parry previously, pt now followed by Dr Parish, appreciating assistance and follow-up. There does not appear to be any current bowel obstruction, but CT does siggest evidence of some stricture. - Continue to monitor stooling pattern with DC of Lactulose. Continues to note loose and frequent stools. - General surgery has signed off narrowing intervention will not be needed recommend consultation of GI should further abdominal symptoms develop as possible Crohn's flare or other etiology may account for stricture noted in imaging studies. , # Hypotension, acute. Not present on admission. Resolved Patient developed mean arterial pressures less than 65 mmHg despite aggressive fluid hydration. - Place CVC to manage fluid resuscitation and pressors; IJ only to avoid interfering with potential dialysis catheter needs - Measure CVP - Pressors as needed - Maintain mean arterial pressure greater than 65, urine output greater than 0.5 ml/kg/hr - Currently resolved. HDS # Radiographic pneumonia, likely acute, present on admission. Likely aspiration pneumonia pneumonitis versus pneumonia based on clinical context of recent severe emesis. At risk for healthcare associated PNA: Recent admission . In ED, patient received: linezolid, Levaquin, Zosyn - Zosyn now discontinue following completion of seven-day course. - Discontinue vanco due to MRSA-negative status low clinical probability of staphylococcal pneumonia, no changed medications this morning. # Elevated ammonia, chronicity unknown, present on admission. On admit: Ammonia 144. Liver transaminases unremarkable, synthetic function intact. Differential diagnosis hyperammonemia: hepatic disorders, portosystemic shunt, inborn errors of urea cycle metabolism, Teresita's syndrome, ureterosigmoidostomy, infection in nondraining bladder, drugs (cyanide, carbamazepine, valproic acid, iron, and cytotoxics can also cause secondary hyperammonemia.) - Repeat ammonia levels have normalized - Lactulose held, AM ammonia level pending. Mentation also stable. Consider follow-up ammonia level in a few days #Hypokalemia: - Progressive process, renal dsyfunction likely contributing factor. Maybe also due to loose stools., - Continue to monitor on telemetry, Repleated IV currently , in addition provided Mg repletion as needed. #Hypernatremia: - transitioning to 1/2 NS at this time at 75cc/hr., and subsequently to D5 water for persistent elevation of sodium. - This condition also managed by nephrology continue to appreciate recommendations. # Hypocalcemia, hyperphosphatemia, present on admission. Presumed secondary to severe renal failure. Calcium phosphorus product is 43. - We will consult nephrology, repleteting orally daily, IV X1 again today. - Nephrology service has recommended initiation of ergocalciferol, in addition to Tums. # Diabetes mellitus, non-insulin using, chronic. Controlled. A1c 01/2017:5.6 - Frequently monitor capillary blood glucose - Glucose control goals: Random less than 180, fasting less than 140, none less than 70 - Insulin as needed, IV insulin while patient in CCU, then divided 50-50 long- acting and nutritional/correctional #Anemia: - Progressive process, no evidence of acute bleeding - Stool guiac ordered and pending. - Continue to monitor H&H. Resolving, stable and/or chronic problems: # Acute Encephalopathy, present on admission. Ongoing, however improving. Per documentation, patient was alert and oriented at baseline. Likely metabolic encephalopathy secondary to acidosis, uremia and elevated ammonia. Brain CT unremarkable - She is now awake and alert. - Repeat Swallow eval, speech therapy has been re-consulted; now advancing diet as tolerated - Avoid sedatives - Will hold Lactulose in setting of normal liver function, complaints of poor tolerability, and now frequent stooling pattern. - Avoid anticholinergics and benzodiazepines # High anion gap acidosis, acute, present on admission. On admit, calculated: 29, lactate is not elevated. Likely secondary to renal failure, pyroglutamate and D lactate possible - Replete fluids - Improved # Elevated troponins of undetermined significance, likely acute, present on admission. Monitor - Troponin profile does not suggest acute coronary syndrome # History of Crohn's colitis status post hemicolectomy, chronic. Recently initiated infliximab therapy. - May be contributing to electrolyte abnormalities which in turn may affect mental status - Continue tredning labs, role of medication treatment in this process unclear, but certain pt demonstrated acute worsening following first infusion. We will continue have further discussions with the patient and family . Exam Vital Signs (Last) Date Time Temp Pulse Resp B/P Pulse Ox O2 Delivery O2 Flow Rate FiO2 03/22/17 12:55 103 Room Air 03/22/17 10:31 36.4 18 132/71 98 03/20/17 04:11 2.00 Exam Physical Exam: GEN: Patient was awake, alert, responding appropriately to questions HEENT: Pupils equal round and reactive to light, extraocular eye muscles intact , Neck soft supple, trachea midline, nomocephalic/atraumatic CV: +S1/S2, regular rate and rhythm, no murmurs auscultated Respiratory: CTAB, no wheezes, rales, rhonchi GI: +bowel sounds x4, soft, compressible, nontender to palpation, obese EXT: no clubbing, cyanosis, edema Neuro: Cranial nerves II-XII grossly intact Psych: mood and affect were appropriate Test 03/08/17 19:22 03/08/17 19:50 03/09/17 02:21 03/09/17 04:30 Hold Purple Top Tube Received (Received) Hold Blue Top Tube Received (Received) Hold Red Top Tube Received (Received) Hold [place] Top Tube Received (Received) Prothrombin Time 10.5sec (8.1-12.5) Prothromb Time International Ratio 0.98ratio Vitamin B12 Level >1999pg/mL (211-946) Folate > 19.9ng/mL (>3.0) Thyroid Stimulating Hormone (TSH) 1.180uIU/mL (0.450-4.500) Free Thyroxine 0.91ng/dL (0.82-1.77) Urine Color Yellow (YELLOW) Urine Appearance Hazy (CLEAR,HAZY) Urine pH 5.0 (5.0-8.0) Urine Specific [place] 1.025 (1.003-1.035) Urine Protein 30mg/dL (NEG,TRACE) Urine Glucose (UA) Negativemg/dL (NEGATIVE) Urine Ketones Negativemg/dL (NEGATIVE) Urine Occult Blood Large (NEGATIVE) Urine Nitrite Negative (NEGATIVE) Urine Bilirubin Small (NEGATIVE) Urine Ictotest Positive (Negative) Urine Urobilinogen Normalmg/dL (NORMAL) Urine Leukocyte Esterase Negative (NEGATIVE) Urine RBC 11-50/hpf (0-2) Urine WBC 0-5/hpf (0-5) Urine Epithelial Cells Few/hpf (NONE-MOD) Urine Crystals Amorphous urates (NONE Urine Bacteria None/hpf (NONE-FEW) Urine Hyaline Casts None/lpf (NONE) Urine Granular Casts None seen (NONE SEEN) Urine Waxy Casts None seen (NONE SEEN) Urine Red Blood Cell Casts None seen (NONE SEEN) Urine White Blood Cell Casts None seen (NONE SEEN) Urine Mucus None seen (None Seen) Urine Trichomonas None seen (NONE SEEN) Urine Yeast None (NONE SEEN) Urine Culture Reflexed Not indicated Urine Legionella pneumophilia Ag Negative (Negative) Test 03/09/17 08:30 03/09/17 12:20 03/09/17 20:38 03/12/17 06:00 Total Creatine Kinase 129U/L (21-215) Troponin T 0.075ug/L (0.0-0.011) Vancomycin Level Trough 19.4mcg/mL Lactic Acid Level 0.8mmol/L (0.4-2.0) Procalcitonin 0.49ng/mL (0.00-0.08) Test 03/15/17 05:15 03/17/17 08:10 03/19/17 05:30 03/22/17 04:45 Pro-B-Type Natriuretic Peptide 9847pg/mL (0-738) Vitamin D 25-Hydroxy 27.2ng/mL (30.0-100.0) Parathyroid Hormone (Intact) 667pg/mL (15-65) Ionized Calcium (Calculated) 3.15mg/dL (3.5-5.2) Phosphorus Level 3.0mg/dL (2.5-4.9) White Blood Count 3.2th/mm3 (3.8-10.1) Red Blood Count 2.83mil/mm3 (3.90-5.20) Hemoglobin 7.9g/dL (12.0-15.6) Hematocrit 26.8% (35.0-46.0) Mean Corpuscular Volume 94.7fL (81-100) Mean Corpuscular Hemoglobin 27.9pg (27.0-35.0) Mean Corpuscular Hemoglobin Concent 29.5% (32.0-37.0) Red Cell Distribution Width 17.4% (12.3-15.4) Platelet Count 148bil/L (150-400) Neutrophils (%) (Auto) 41.3% (40-74) Lymphocytes (%) (Auto) 36.6% (14-46) Monocytes (%) (Auto) 18.0% (4-12) Eosinophils (%) (Auto) 2.5% (0-5) Basophils (%) (Auto) 0.3% (0-3) Sodium Level 146mEq/L (134-144) Potassium Level 3.5mEq/L (3.5-5.2) Chloride Level 111mEq/L (97-108) Carbon Dioxide Level 22mmol/L (18-29) Blood Urea Nitrogen 10mg/dL (8-27) Creatinine 2.00mg/dL (0.57-1.00) Estimat Glomerular Filtration Rate 35mL/min (>59) Glucose Level 117mg/dL (60-99) Calcium Level 6.1mg/dL (8.5-10.1) Magnesium Level 2.5mg/dL (1.6-2.6) Total Bilirubin 0.3mg/dL (0.0-1.2) Aspartate Amino Transf (AST/SGOT) 14U/L (0-50) Alanine Aminotransferase (ALT/SGPT) 8U/L (0-32) Alkaline Phosphatase 68U/L (25-165) Total Protein 4.8g/dL (6.4-8.4) Albumin 2.8g/dL (3.4-5.0) Test 03/22/17 05:20 Ammonia 46ug/dL (18-53) Microbiology Results Urinalysis no pyuria Enteric pathogen stool profile - no C. difficile or other pathogen MRSA swab negative Strep pneumonia and legionella urinary antigens negative Blood culture 03/08/17 - 2 sets pending Discharge Medications Discharge Medications ([Ergocalciferol (Vitamin D2)]) 53311 UNIT CAPSULE 50,000 UNIT PO WEEKLY Prescribed by: ELDON HUNT DO Amitriptyline (Amitriptyline) 10 Mg Tablet 30 MG PO HS (Reported) Anastrozole (Anastrozole) 1 Mg Tablet 1 MG PO QAM (Reported) Aspirin (Aspirin) 81 Mg Tablet 81 MG PO QAM (Reported) Calcitriol (Rocaltrol) 0.25 Mcg Capsule 1 MCG PO DAILY Prescribed by: ELDON HUNT DO Calcium Carbonate (Calcium Carbonate) 200 Mg Tab.chew 1,000 MG PO TIDWM Prescribed by: ELDON HUNT DO Carvedilol (Carvedilol) 3.125 Mg Tablet 3.125 MG PO BIDWM Prescribed by: ELDON HUNT DO Clobetasol Propionate (Clobetasol Propionate) 50 Ml Solution 1 APPLIC TP QAM ( Reported) 0.05% Cyanocobalamin (Cyanocobalamin Injection) 1,000 Mcg/1 Ml Vial 1,000 MCG IM Monthly (Reported) Duloxetine (Duloxetine) 60 Mg Capsule.dr 90 MG PO QAM (Reported) DULOXETINE 30 MG + 60 MG = 90 MG TOTAL Fluocinolone/Shower Cap (Fluocinolone Acetonide 0.01% Oil) 118.28 Ml Oil 1 APPLIC TOP DAILY (Reported) Fluocinonide 0.05% Cream (Fluocinonide 0.05% Cream) 15 Gm Cream..g. 1 APPLIC TOPICAL BID (Reported) Folic Acid/Multivits-Min/Lut (Centrum Silver Chewable Tablet) 1 Each Tab.chew 1 EACH PO QAM (Reported) Gabapentin (Gabapentin) 600 Mg Tablet 600 MG PO BIDBL (Reported) 600 MG IN AM & AFTERNOON, 900 MG AT HS Gabapentin (Gabapentin) 600 Mg Tablet 900 MG PO HS (Reported) 600 MG IN AM & AFTERNOON, 900 MG AT HS Infliximab (Remicade) 10 Mg/Ml Sdv Unknown Dose IV [id number] (Reported) Ketoconazole (Nizoral) 120 Ml Shampoo 1 APPLIC TOP TWICE WEEKLY (Reported) Magnesium Chloride (Mag64) 64 Mg Tablet.er 64 MG PO BID Prescribed by: ELDON HUNT DO Ondansetron ODT (Ondansetron ODT) 4 Mg Tab.rapdis 4-6 MG PO ACHS Prescribed by: ELDON HUNT DO Pramipexole Dihydrochloride (Pramipexole Dihydrochloride) 0.25 Mg Tablet 0.25 MG PO TIDWM (Reported) PRAMIPEXOLE 0.25 MG AM, NOON, PM AND 0.5 MG AT HS Pramipexole Dihydrochloride (Pramipexole Dihydrochloride) 0.5 Mg Tablet 0.5 MG PO HS (Reported) PRAMIPEXOLE 0.25 MG AM, NOON, PM AND 0.5 MG AT HS As needed Desonide (Desonide Cream) 15 Gm Cream..g. 1 APPLIC TOP BID PRN PRN RASH ( Reported) Lactulose (Lactulose) 20 Gm/30 Ml Solution 20 GM PO TIDWM PRN PRN For Constipation Prescribed by: ELDON HUNT DO Loperamide (Loperamide) 2 Mg Capsule 2 MG PO Q6H PRN PRN For Diarrhea or Loose Stool Prescribed by: ELDON HUNT DO Melatonin (Melatonin) 5 Mg Tablet 5 MG PO HS PRN PRN Insomnia Prescribed by: ELDON HUNT DO Additional med instructions Please pay close attention to the medication list that you are being given today. Many of your medications have been altered and it is important that he follow this new medication list. Followup Plan Discharge Diet: Diabetic, Renal Diet Discharge Activity: No restrictions (gradually return to normal daily activities) Patient Instructions Please follow up at the [facility] in regards to your Crohn's disease. It is very important that he follow-up at the [facility] as you may need a surgical procedure in order to help alleviate some of your issues in regards to Crohn's disease. An authorization form has already been sent over to [facility] and your insurance has approved it please maintain any follow-up appointments. Follow-up Provider: Judith Miranda DO Follow-up with PCP in: 1 week (if appointment has not been made please call to schedule an appointment) Follow-up in: 2 weeks (please call to schedule an appointment with the thermodynamicist at the [facility]) Mid-level Provider: Conor Carolina DO Follow-up with Mid-level in: 4 weeks (please follow-up with Dr. Carolina or Dr. Escobedo in the next 4-6 weeks in regards to your acute on chronic kidney injury. If an appointment has not been made please call to schedule an appointment) Time spent Greater than 35 minutes copies to: Judith Miranda Precious L DO March 22, 2017 13:36
[2017-03-22 14:34] VITALS: BP 149/61; PULSE 81; RESP 18; O2SAT 94
--- NOTE | 2017-03-22 14:43 | NUR ---
Social Work: Readiness for Discharge/Discharge Data: Pt is on day 14 of hospitalization for ELVIA ILEUS Pneumonia. EMR reviewed. Pt is medically cleared for discharge.PT has evaluated the pt and is currently recommending home with HH PT. LU gave Patty access and signed face to face. SW met with pt to update them and confirm discharge plan. Pt stated she is attempting to reach her son to come in and pick her up. LU called hilda Aly at to notify him that the pt is ready to be picked up. Pt to discharge home via family with Patty PT/RN. SW will continue to follow. Assessment: Pt who would benefit from HH PT/RN. Plan: Pt to d/c home via POV with Patty RN/PT. LU gave Patty access and they picked up signed face to face. 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 SORAYA Tian Addendum: 03/23/17 at 0852 by CHARLES BAUTISTA LU contacted Veronica Cintron at [facility] to update her. SORAYA Tian
[2017-03-22] MEDS ORDERED: CALCIUM GLUCO IV ONE (15:40)
[2017-03-22] MEDS ORDERED: DEXTROSE 5% IV ONE (15:40)
--- NOTE | 2017-03-22 20:52 | NUR ---
DISCHARGE IV discontinued with catheter intact. Pt. stable. On RA. Went over paperwork folder that bettie RN had printed. Pt. had prescriptions and information on all new prescriptions. Pt. was instructed when to follow up with her PCP and the GI doctor. Instructed pt. when to come back to ER. Pt. requested a bariatric commode prescription. This was not in her packet. Night hospitalist Dr. Shearer paged and came to write a prescription. Original given to pt., copy in chart. Pt. original POLST sent home and copy placed in chart. Pt. wheeled by this RN, accompanied by son and several bags of belongings to awaiting car.
--- NOTE | 2017-03-23 00:22 | PROG NOTE ---
[address] [address] PROGRESS NOTE PATIENT: ELIZABETH HAWTHORNE I : 1940 MR#: [id number] ADMIT: 03/08/2017 JOB ID: [id number] DATE: 03/22/2017 SUBJECTIVE: I was contacted by Dr. Cuevas today, who was discharging the patient, and she simply wanted know whether she should continue with her Remicade. The patient was admitted back on March 08 with symptoms of severe diarrhea, nausea, vomiting and acute renal failure. She has dramatically improved, but is dependent on antiemetic medication. She received only her first of the induction sequence of Remicade infusions and is approximately a week overdue for her next infusion. She does not believe it was the Remicade that caused her symptoms. She was clinically deteriorating with increasing nausea, emesis and diarrhea for perhaps a month or so or more leading up to admission. The patient has been referred by me down to the [facility] for evaluation. We started the Remicade in the patient in the hopes that with reduction or resolution of the inflammatory aspect, she may be able to get by. However, I have expressed doubt that we will ameliorate all of her symptoms, in that she has: 1. Fairly significant anal stenosis from her Crohn's. 2. A stenotic lengthy segment through the sigmoid with dilated upstream colon. She clinically has a great deal of difficulty getting stool through this location. She additionally has had a right hemicolectomy anastomosis and, historically, has demonstrated inflammation and stenosis of the surgical connection. OBJECTIVE: Vital signs stable. Blood pressure up a little bit. Afebrile. The patient is conversational, alert, oriented, appropriate, cooperative, in no distress. LABORATORY DATA: Fairly anemic throughout admission. White count is a little low. Platelets 148. Calcium is low. Creatinine has improved down to 2.0. Sodium was 146, potassium 3.5, bicarb 22, chloride 111, BUN 10, glucose 117. The liver tests are normal. ASSESSMENT AND RECOMMENDATIONS: A 76-year-old female with severe Crohn's manifest in right hemicolectomy anastomotic stenosis, a lengthy segment of sigmoid that has historically been inflamed and narrowed, along with moderate to severe anal stenosis. I suspect she has had intermittent problems with severe obstipation. She has lost about 40 pounds as a consequence of all of her symptoms and this hospitalization over the last month. There are currently no infectious issues, and I think it would be reasonable to continue the trial of Remicade. The patient is encouraged to give me a call if she perceives any adverse effects from the medication and is additionally encouraged to proceed with consultation down at the [facility]. Ultimately, I think unfortunately, she is going to need surgical intervention once again and, based on the multiple sites where there is significant pathology, she may require a total proctocolectomy with end- ileostomy. The patient understands this and wishes to proceed with evaluation at the [facility].
--- NOTE | 2017-04-14 15:30 | NUR ---
Palliative care note D/A: Follow up phone call to pt to inquire about recovery post most recent hospitalization. Pt sounds strong and engaged on the phone. She indicates that she had HH for a very brief period of time but elected to stop their services as she thought more about her longer term goals. She is scheduled for a follow up appt at end of April and she notes that this may result in a major surgery for her. She felt there was little point in going through working with PT if she was going to need to turn around and do it again post surgery. She is much stronger now and reports that she needs very little assist in showering or getting up out of bed or a chair. She is not using a walker but indicates she is a bit woobly and uses ample caution and tries to remain careful. She continues to experience diarrhea but the medications are helping with this. She indicates that she appreciates the phone call. P: No further need for palliative care follow up. Rebeka SCHRADER, CCM
== END 2017-03-22 20:55 | disposition home health service (06) | DRG 682 ==
LOC: EDBD 19:09 → SED 19:09 → PCC 22:23 → CCU 03-09 12:56 → PCC 03-10 17:10 → MPC 03-10 17:52
PROVIDERS: ADMIT Hospitalist; ATTEND Hospitalist
PROC: 4A033R1 Measurement of Arterial Saturation, Peripheral, Percutaneous Approach (ICD-10-PCS; 2017-03-08)
PROC: 02HV33Z Insertion of Infusion Device into Superior Vena Cava, Percutaneous Approach (ICD-10-PCS; principal; 2017-03-09)
DX: N17.0 Acute kidney failure with tubular necrosis (principal); J69.0 Pneumonitis due to inhalation of food and vomit; G93.41 Metabolic encephalopathy; Z68.41 Body mass index [BMI] 40.0-44.9, adult; E87.2 Acidosis; E72.20 Disorder of urea cycle metabolism, unspecified; I50.22 Chronic systolic (congestive) heart failure; K50.90 Crohn's disease, unspecified, without complications; K56.7 Ileus, unspecified; E87.0 Hyperosmolality and hypernatremia; E83.51 Hypocalcemia; Z87.891 Personal history of nicotine dependence; E66.01 Morbid (severe) obesity due to excess calories; Z85.3 Personal history of malignant neoplasm of breast; R11.10 Vomiting, unspecified; E11.9 Type 2 diabetes mellitus without complications; R27.8 Other lack of coordination; I12.9 Hypertensive chronic kidney disease with stage 1 through stage 4 chronic kidney disease, or unspecified chronic kidney disease; N18.3 Chronic kidney disease, stage 3 (moderate); Z66 Do not resuscitate; E87.6 Hypokalemia; E83.42 Hypomagnesemia; I95.9 Hypotension, unspecified; D64.9 Anemia, unspecified

== ENCOUNTER 2017-05-21 16:05 | Inpatient (IN) | payer MEDICARE ==
[~2017-05-21] VITALS: Ht 167.6 cm; Wt 114.4 kg
[2017-05-21] VITALS (12 sets, daily range): BP systolic 77–116; BP diastolic 42–62; PULSE 95–118; RESP 16–20; O2SAT 87–98
[~2017-05-21 16:05] MED LIST changes: +CALC0.257 PO; +CALC500T53 PO; +CARV3.122 PO; -CHOL100045 PO; +CLOB50SO TP; -CLOBEX TP; +CYA1000I IM; +DESO15CR25 TOP; -DESONIDE TP; +Ergocalciferol (Vitamin D2) PO; +FLUO15CR TOPICAL; -FUR20 PO; +INFL100V IV; -KETACONAZOLE CREAM TP; -KETACONAZOLE SHAMPOO TP; +KETO120S TOP; +LACT10SO60 PO; -LISI10TA PO; -LOPE1LIQ9 PO; +LOPE2CAP PO; -LOVA40TA PO; +MAGN64TA7 PO; +MELA5TAB14 PO; +ONDA4TAB12 PO; -[UNRECOGNIZED DRUG - OTHER] TP; -vitamin b-12 IM
[2017-05-21 16:49] LABS: BASOPHILS % (AUTO) 0.1 % (0-3); EOSINOPHILS % (AUTO) 0.4 % (0-5); MONOCYTES % (AUTO) 8.8 % (4-12); Mean Corpuscular Hemoglobin 29.2 pg (27.0-35.0); Mean Corpuscular Volume 92.1 fL (81-100); NEUTROPHILS % (AUTO) 69.4 % (40-74); Platelet Count 339 bil/L (150-400)
[2017-05-21] MEDS ORDERED: CHOL100045 PO (16:51)
[2017-05-21] MEDS ORDERED: LOPE-147 PO (16:51)
[2017-05-21] MEDS ORDERED: LACT1CAP74 PO (16:51)
[2017-05-21] MEDS ORDERED: MELA10CA2 PO (16:51)
[2017-05-21] MEDS ORDERED: AZU500 PO (16:51)
[2017-05-21] MEDS ORDERED: LOVA40TA PO (16:51)
[2017-05-21] MEDS ORDERED: LISI10TA PO (16:51)
[2017-05-21] MEDS ORDERED: FUR20 PO (16:51)
--- NOTE | 2017-05-21 17:00 | DRSVH ---
PROCEDURE: X-RAY CHEST ONE VIEW, PORTABLE ([id number]) INDICATIONS: HYPOTENSION TECHNIQUE: One view of the chest was acquired. COMPARISON: [facility], CR, XR CHEST 1VW (PORTABLE), 03/14/2017, 5:30. FINDINGS: Surgical changes and devices: None. Previously seen tubes and lines have been removed. Lungs and pleura: Aeration of the lungs is similar to the prior exam. There is elevation of the righ t diaphragm. Interstitial prominence within the right and left hilar regions is noted. No new conso lidation or pneumothorax is evident. No large effusion is appreciated. Mediastinum: Mediastinal contours appear normal. The heart is enlarged. There is aortic atheroscle rosis. Bones and chest wall: No suspicious bony lesions. Overlying soft tissues appear unremarkable. IMPRESSION: 1. Stable aeration of the lungs with prominent perihilar interstitial markings, which may represent scarring. Superimposed atelectasis or pneumonia cannot be excluded. 2. Cardiomegaly. Dictated by: Federico Maguire M.D. on 05/21/2017 at 15:58 Approved by: Federico Maguire M.D. on 05/21/2017 at 15:59
[2017-05-21] MEDS ORDERED: 0.9% Sodium Chloride 1,000 ML IV ONE ×2 (17:01→18:40)
[2017-05-21] MEDS ORDERED: Piperacillin-Tazo 3.375 Gm Inj 3.375 GM in Dextrose 5% Minibag Plus 50 ML IV ONE (17:05)
[2017-05-21] MEDS ORDERED: Vancomycin Dose per Pharmacist XX ONE (17:05)
--- NOTE | 2017-05-21 17:27 | ED.REPORT ---
HPI-General Illness Date of Service May 21, 2017 ED Provider: Nasim Starkey MD Pt is a 76 year old female with a hx of Crohn's disease presenting to the ED complaining of diffuse abdominal pain and swelling onset 1 week ago. Associated symptoms include chills, diarrhea, vomiting, dizziness, and a decreased appetite. Denies SOB, fever, chest pain, cough, or any other symptoms at this time. Nursing Notes Stated Complaint: ACUTE RENAL FAILURE Chief Complaint: General Complaint Nursing Notes Reviewed: Yes Allergies: Coded Allergies: No Known Drug Allergies (Verified Allergy, Unknown, 05/21/17) Scheduled Amitriptyline (Amitriptyline) 10 Mg Tablet 30 MG PO HS Anastrozole (Anastrozole) 1 Mg Tablet 1 MG PO QAM Aspirin (Aspirin) 81 Mg Tablet 81 MG PO QAM Calcitriol (Rocaltrol) 0.25 Mcg Capsule 1 MCG PO DAILY Calcium Carbonate (Calcium Carbonate) 200 Mg Tab.chew 1,000 MG PO TIDWM Carvedilol (Carvedilol) 3.125 Mg Tablet 3.125 MG PO BIDWM Cholecalciferol (Vitamin D3) (Vitamin D) 1,000 Unit Capsule 5,000 UNIT PO QAM Cyanocobalamin (Cyanocobalamin Injection) 1,000 Mcg/1 Ml Vial 1,000 MCG IM Monthly Duloxetine (Duloxetine) 60 Mg Capsule.dr 90 MG PO QAM DULOXETINE 30 MG + 60 MG = 90 MG TOTAL Folic Acid (Folic Acid) 0.8 Mg Tablet 0.8 MG PO DAILY Furosemide (Furosemide) 20 Mg Tab 20 MG PO QAM Gabapentin (Gabapentin) 600 Mg Tablet 600 MG PO TID AM, 1200,1600 Gabapentin (Gabapentin) 600 Mg Tablet 900 MG PO HS Infliximab (Remicade) 10 Mg/Ml Sdv Unknown Dose IV [id number] Lactobacillus Rhamnosus GG (Culturelle) 1 Each Cap.sprink 1 EACH PO QAM Lisinopril (Lisinopril) 10 Mg Tablet 10 MG PO QAM Lovastatin (Lovastatin) 40 Mg Tablet 40 MG PO HS Magnesium Chloride (Mag64) 64 Mg Tablet.er 64 MG PO BID Melatonin (Melatonin) 10 Mg Capsule 10 MG PO HS Ondansetron ODT (Ondansetron ODT) 4 Mg Tab.rapdis 4-6 MG PO ACHS Pramipexole Dihydrochloride (Pramipexole Dihydrochloride) 0.25 Mg Tablet 0.25 MG PO TIDWM AM, NOON, 1600 Pramipexole Dihydrochloride (Pramipexole Dihydrochloride) 0.5 Mg Tablet 0.5 MG PO HS Sulfasalazine (Sulfasalazine) 500 Mg Tablet 1,000 MG PO BIDWM Scheduled PRN Loperamide HCl (Imodium A-D) 2 Mg Capsule 2 MG PO QID PRN PRN For Diarrhea or Loose Stool General Time Seen by MD: 16:55 Chief Complaint Abdominal pain Hx Obtained From: Patient Arrived By: Walk-in Sudden in Onset?: No Onset Occurred: 1 week ago Symptom Duration: Since onset Location: : Abdomen Quality: Painful Severity: Current: Severe Severity: Maximum: Severe Recent Healthcare: Recent doctor visit, Recent hospitalization Similar Sx Previous: No Past Medical History Past Medical History Psoriasis Aortic and venous Insufficiency Crohn's disease of small AND large intestines Depression with anxiety Restless leg syndrome Diabetes type 2, uncontrolled Insomnia Mitral Valve-regurgitation Peripheral neuropathy Obstructive sleep apnea Metastatic breast cancer in clinical remission since 2008 Periodic limb movement Reports: Diabetes mellitus (Diet controlled), Denies: Hypertension Reports: Depression Past Surgical History Neil-colectomy Tonsillectomy Fistulaetomy Bowel resection Stomach tumor removal Appendectomy Mastectomy Hysterectomy Family History Father had congenital heart disease, aortic aneurysm Mother from Brain tumor Smoking History Former Smoker Ambulatory Status Independent Review of Systems Full Review of Systems Constitutional: Reports: Chills, Denies: Fever Respiratory: Denies: Non-productive cough, Shortness of breath Cardiovascular: Denies: Chest pain GI: Reports: Abdominal pain, Diarrhea, Nausea, Vomiting Neurologic: Reports: Dizziness Complete sys rev & neg: except as marked. Physical Exam Vital Signs Vital Signs Date Time Temp Pulse Resp B/P Pulse Ox O2 Delivery O2 Flow Rate FiO2 05/21/17 18:32 36.4 103 16 95/52 97 Nasal Cannula 2 05/21/17 17:58 100 19 116/59 95 Nasal Cannula 2 05/21/17 17:15 33.6 101 17 84/59 98 Nasal Cannula 4 05/21/17 17:08 105 18 79/52 87 Room Air 05/21/17 16:37 109 19 103/53 96 Room Air 05/21/17 16:14 36.0 118 20 77/42 95 Room Air Initial VS: Reviewed Head / Eyes: Atraumatic, Normocephalic, PERRL Respiratory: Breath sounds normal, Clear to auscultation, No respiratory distress Cardiovascular: Regular rate & rhythm, Heart sounds normal, Intact distal pulses Extremities: Vascular intact, Neuro intact, No swelling, No tenderness Neurologic: Alert, Oriented, Nonfocal Psychiatric: Mood/affect normal, Behavior normal, Normal thought content ENT: Atraumatic, Airway patent Mouth: Positive: Mucous membranes dry (Very) Abdomen: No guarding, No rebound Tenderness/Guarding/Rebound: Positive: Tender diffuse Bowel Sounds / Distention: Positive: Distention moderate Lower Extremity / Pelvis / MS: Neurologic intact, Vascular intact Cool extremities Skin: No rash Interpretation & Diagnostics Lab Results Interpretation Result Diagram: 05/21/17 1630 05/21/17 1630 Test 05/21/17 16:30 05/21/17 17:19 White Blood Count 9.5th/mm3 (3.8-10.1) Red Blood Count 4.31mil/mm3 (3.90-5.20) Hemoglobin 12.6g/dL (12.0-15.6) Hematocrit 39.7% (35.0-46.0) Mean Corpuscular Volume 92.1fL (81-100) Mean Corpuscular Hemoglobin 29.2pg (27.0-35.0) Mean Corpuscular Hemoglobin Concent 31.7% (32.0-37.0) Red Cell Distribution Width 16.1% (12.3-15.4) Platelet Count 339bil/L (150-400) Neutrophils (%) (Auto) 69.4% (40-74) Lymphocytes (%) (Auto) 20.8% (14-46) Monocytes (%) (Auto) 8.8% (4-12) Eosinophils (%) (Auto) 0.4% (0-5) Basophils (%) (Auto) 0.1% (0-3) Prothrombin Time 10.7sec (8.1-12.5) Prothromb Time International Ratio 1.00ratio Sodium Level 133mEq/L (134-144) Potassium Level 5.0mEq/L (3.5-5.2) Chloride Level 94mEq/L (97-108) Carbon Dioxide Level 16mmol/L (18-29) Blood Urea Nitrogen 67mg/dL (8-27) Creatinine 2.92mg/dL (0.57-1.00) Estimat Glomerular Filtration Rate 23mL/min (>59) Glucose Level 171mg/dL (60-99) Lactic Acid Level 2.4mmol/L (0.4-2.0) Calcium Level 9.8mg/dL (8.5-10.1) Magnesium Level 2.6mg/dL (1.6-2.6) Total Bilirubin 0.3mg/dL (0.0-1.2) Aspartate Amino Transf (AST/SGOT) 23U/L (0-50) Alanine Aminotransferase (ALT/SGPT) 13U/L (0-32) Alkaline Phosphatase 128U/L (25-165) Troponin T 0.043ug/L (0.0-0.011) Total Protein 7.7g/dL (6.4-8.4) Albumin 4.0g/dL (3.4-5.0) Lipase 31U/L (13-60) Procalcitonin 0.30ng/mL (0.00-0.08) Urine Color Yellow (YELLOW) Urine Appearance Clear (CLEAR,HAZY) Urine pH 5.0 (5.0-8.0) Urine Specific [place] 1.020 (1.003-1.035) Urine Protein Negativemg/dL (NEG,TRACE) Urine Glucose (UA) Negativemg/dL (NEGATIVE) Urine Ketones Negativemg/dL (NEGATIVE) Urine Occult Blood Negative (NEGATIVE) Urine Nitrite Negative (NEGATIVE) Urine Bilirubin Negative (NEGATIVE) Urine Urobilinogen Normalmg/dL (NORMAL) Urine Leukocyte Esterase Negative (NEGATIVE) Urine RBC 0-2/hpf (0-2) Urine WBC 0-5/hpf (0-5) Urine Epithelial Cells Occasional/hpf (NONE-MOD) Urine Crystals None seen (NONE SEEN) Urine Bacteria None/hpf (NONE-FEW) Urine Hyaline Casts None/lpf (NONE) Urine Granular Casts None seen (NONE SEEN) Urine Waxy Casts None seen (NONE SEEN) Urine Red Blood Cell Casts None seen (NONE SEEN) Urine White Blood Cell Casts None seen (NONE SEEN) Urine Mucus None seen (None Seen) Urine Trichomonas None seen (NONE SEEN) Urine Yeast None (NONE SEEN) Urinalysis Comment None Urine Culture Reflexed Not indicated ECG Interpretation ECG Interpretation: Sinus tachycardia rate 107. No acute changes. LVH. Time: 16:39 Interpreted by: ED physician X-Ray Chest Interpretation Chest Xray Interpretation: IMPRESSION: 1. Stable aeration of the lungs with prominent perihilar interstitial markings, which may represent scarring. Superimposed atelectasis or pneumonia cannot be excluded. 2. Cardiomegaly. Dictated by: Federico Maguire M.D. on 05/21/2017 at 15:58 View: Portable, 1 view Interpretation / Wet Read by: Interpret - Radiologist CT Abd / Pelvis Interpretation IMPRESSION: 1. Postsurgical changes status post partial bowel resection redemonstrated with diffuse fluid distention of the residual bowel loops associated with multiple air-fluid levels. No focal transition point to suggest obstruction. The findings again most likely represent an ileus. 2. Bibasilar groundglass opacities with right basilar peribronchial consolidation suggesting sequelae of aspiration. 3. Mild esophageal wall thickening and a small hiatal hernia may reflect sequelae of reflux. 4. Probable hyperdense cyst within the right kidney. Further evaluation may be obtained with ultrasound if clinically indicated. Dictated by: Man Mcnulty M.D. on 05/21/2017 at 18:01 Study type: Abdominal CT no contrast Interpretation / Wet Read by: Interpret - Radiologist Re-Eval/Medical Decision Time of Eval: 18:09 Patient Status: Condition improved Re-Evaluation/Progress Note: Discussed plan for admission. Pt understands and agrees. Consultation : Referral / Consult Name: Steven Marquez MD Consulted With: Hospitalist Call Returned at: 18:37 Rolling Up Machine Operator: Will see patient, Agrees with plan, Accepts admit Counseled Regarding: Diagnosis, Lab results, Need for follow-up, When/why to return to ED Discharge & Departure Primary Impression: Hypotension Additional Impressions: Abdominal pain Acute renal failure Disposition: ADMITTED TO HOSPITAL Discharge Condition All VS Reviewed: Yes Condition: Improved Referrals: Judith Miranda DO (PCP) Elvin Attestation Portions of this note were transcribed by Lizzy Astudillo. IDr. Starkey personally performed the history, physical exam and medical decision-making; I reviewed and confirmed the accuracy of the information in the transcribed note. Signed by: Elvin Baeza, 05/21/2017 at 5270. copies to: Judith Miranda Kirk H MD May 21, 2017 17:27 LIZZY ASTUDILLO May 21, 2017 17:33
[2017-05-21 17:28] LABS: Magnesium 2.6 mg/dL (1.6-2.6)
[2017-05-21 17:30] LABS: TROPONIN T 0.043 ug/L (0.0-0.011)
[2017-05-21 17:37] LABS: APPEARANCE,URINE CLEAR (CLEAR,HAZY); COLOR,URINE YELLOW (YELLOW); OCCULT BLOOD,URINE NEGATIVE (NEGATIVE); UROBILINOGEN,URINE NORMAL (NORMAL)
[2017-05-21] MEDS ORDERED: Vancomycin Inj 1,750 MG in Dextrose 5% 500 ML IV ONE (18:00)
[2017-05-21] MEDS ORDERED: FOLI0.8T PO (18:16)
--- NOTE | 2017-05-21 18:17 | DRSVH ---
PROCEDURE: CT ABDOMEN AND PELVIS WITHOUT CONTRAST ([id number]) INDICATIONS: abd pain/distention TECHNIQUE: Noncontrast 5 mm thick sections acquired from the diaphragms to the symphysis. 5 mm coronal and sagi ttal reformats were then performed. For radiation dose reduction, the following was used: automated exposure control, adjustment of mA and/or kV according to patient size. COMPARISON: [facility], CT, CT ABD PELVIS WO CON, 03/08/2017, 20:52. FINDINGS: Image quality: Excellent. ABDOMEN: Lung bases: There are patchy groundglass opacities are demonstrated within the lung bases with mild p eribronchial consolidation in the right middle and lower lobes. Heart size is normal. There is a sm all hiatal hernia. Mild wall thickening is demonstrated within the visualized distal esophagus. Solid organs: Liver and spleen are normal in size. Gallbladder is distended without calcified galls tones or wall thickening. There is mild fatty atrophy of the pancreas. No adrenal nodules. A small atrophic left kidney is redemonstrated. There is no hydronephrosis. There is a probable hyperdense cyst in the lower pole of the right kidney measuring up to 2.4 cm. Peritoneum and bowel: There are post surgical changes redemonstrated status post partial bowel resect ion. There is diffuse fluid distention of the residual small and large bowel loops with multiple air -fluid levels. No focal transition point to suggest obstruction. There is effacement of the colonic haustra. Colonic diverticulosis is present without acute diverticulitis. No free fluid or air. Nodes and vessels: No retroperitoneal or mesenteric adenopathy by size criteria. Aorta and inferior vena cava are normal in caliber. Miscellaneous: There is a small fat-containing supraumbilical ventral hernia. PELVIS: Genitourinary: Bladder wall thickness is normal. Miscellaneous: No inguinal hernias or adenopathy. Bones: No suspicious bony lesions. No vertebral body compression fractures. IMPRESSION: 1. Postsurgical changes status post partial bowel resection redemonstrated with diffuse fluid disten tion of the residual bowel loops associated with multiple air-fluid levels. No focal transition poin t to suggest obstruction. The findings again most likely represent an ileus. 2. Bibasilar groundglass opacities with right basilar peribronchial consolidation suggesting sequela e of aspiration. 3. Mild esophageal wall thickening and a small hiatal hernia may reflect sequelae of reflux. 4. Probable hyperdense cyst within the right kidney. Further evaluation may be obtained with ultras ound if clinically indicated. Dictated by: Man Mcnulty M.D. on 05/21/2017 at 18:01 Approved by: Man Mcnulty M.D. on 05/21/2017 at 18:15
[2017-05-21] MEDS ORDERED: Alum-Mag Hydrox-Simeth 30 mL Suspension PO PRN ×2 (18:35→20:00)
[2017-05-21] MEDS ORDERED: Ondansetron 2 mg/mL 2 mL Inj IVPUSH PRN (18:35)
[2017-05-21] MEDS ORDERED: CALC0.257 PO (19:56)
[2017-05-21] MEDS: 0.9% Sodium Chloride 1,000 ML IV SCH ×2 (19:58→22:43)
[2017-05-21] MEDS ORDERED: Polyethylene Glycol (PEG) 17 Gm Powder PO PRN (20:00)
--- NOTE | 2017-05-21 20:15 | NUR ---
Admission Note Pt admitted to [facility] at 1930 from ER on stretcher, alert and orientecx3, c/o severe abdominal pain /, nausea, night resident Jeaneth notified, Morphine ordered, 1mg IV given, Zofran 4mg given, symptoms not improved much. Denies SOB,cough,chest pain or pressure, fever,chills. BP 110/62 HR 103 RR SPO2 91% on O2 2l per nc, T 36.3. Coarse and some crackles at right mid and lower lobe anteriorly, left sound clear, decrease lung sounds bilaterally, HR regular, distant S1 S2, no murmur or rubs, Tele applied ST 102 per airplane technician, abdomen highly distended, tenderness at mid quadrant, BT absent, denies passing gas, last BT yesterday, slightly loose and brown per pt, trace edema at bilateral LEs. NS 250ML/hr and Vanco running on arrival, Neville placed at ER, patent. Dr. Wiley at bedside. Call light oriented to pt, high cage position, care ongoing.
[2017-05-21] MEDS: Ondansetron 2 mg/mL 2 mL Inj IVPUSH PRN (20:18)
--- NOTE | 2017-05-21 23:02 | NUR ---
NG placement NG inserted at 2140 with charge nurse Lana Natarajan's assistance, conected to low continous wall suction per MD order. Portable X-ray ordered and done to verify the NG placement, no reading at night, Night resident Quisumbing made aware and he will read it. Light brown liquid output about 500ml so far, nausea and abdominal pain significantly improved per pt, pain down to 1/10.
--- NOTE | 2017-05-21 23:13 | PCM.HPMED ---
Subjective Date of Service May 21, 2017 Primary Provider: Admitting Physician: Safia Alvarez DO Primary Care Physician: Judith Miranda DO Attending Physician: Safia Alvarez DO Admit Status: From the Emergency Department Chief Complaint: Abd pain/N/V History of Present Illness: Pt is a 76 year old female with a hx of Crohn's disease s/p hemicolectomy, DM2, HTN, and NANI who presented with diffuse abdominal pain and swelling with associated nausea and vomiting for 1 week. The pain is described as a severe abdominal pain that starts in the epigastric area and then radiates throughout the entire abdomen. She states she has not been eating well for 2 weeks, due to dysphagia, a feeling that "food gets bigger in my throat," and nausea. She also complains of acid reflux, fevers, chills, dizziness, and a decreased appetite. She reports intermittent shortness of breath, feeling like she can't get enough air. Denies chest pain, cough, or any other symptoms at this time. On admission, HR 103, BP 95/52, O2 97 2L NC. WBC 9.5, Na 133, Cl 94, CO2 16, BUN 67, Cr 2.92, glucose 171, lactic acid 2.4, troponin T 0.045, procalcitonin 0.3. Review of Systems: Comprehensive review of systems conducted and was negative except for the pertinent positives listed above. Allergies Coded Allergies: No Known Drug Allergies (Verified Allergy, Unknown, 05/21/17) Home Medications Amitriptyline 30 mg qhs Anastrozole 1 mg daily Aspirin 81 mg daily Carvedilol 3.125 mg BID Duloxetine 90 mg daily Furosemide 20 mg daily Gabapentin 600 mg 0800, 1200, 1600 and 900 mg qhs Infliximab q2 weeks Lisinopril 10 mg daily Imodium 2 mg TID Lovastatin 40 mg qhs Melatonin 10 mg qhs Ondansetron 4-6 mg qhs Pramipexole 0.25 mg TIDWM and 0.5 mg qhs Sulfasalazine 1000 mg BIDWM PMH Crohn's disease of small AND large intestines Systolic congestive heart failure (EF 45 - 50) Diabetes mellitus (Diet controlled) Obstructive sleep apnea Mitral Valve-regurgitation Peripheral neuropathy Psoriasis Aortic and venous Insufficiency Depression with anxiety Restless leg syndrome Insomnia Metastatic breast cancer in clinical remission since 2008 Surgical History Neil-colectomy Tonsillectomy Fistulaetomy Bowel resection Stomach tumor removal Appendectomy Mastectomy Hysterectomy Family History Father had congenital heart disease, aortic aneurysm Mother from Brain tumor Social History Hx Alcohol Use: No Hx Substance Use: No Hx Tobacco Use: No Smoking Status: Former Smoker Exam Vital Signs Vital Sign - Last Date Time Temp Pulse Resp B/P Pulse Ox O2 Delivery O2 Flow Rate FiO2 05/21/17 22:30 36.4 106 20 96/54 95 Nasal Cannula 2.00 Exam General: Alert, Oriented X3, Cooperative, Moderate distress from nausea/ abdominal pain Head: Normocephalic, atraumatic. External ears normal. Eyes: PERRLA, EOMI. Anicteric sclerae. Mouth: Mouth normal, Mucous membranes dry Neck: Neck supple with full range of motion. Chest& Lungs: Clear to auscultation bilaterally with no crackles, wheezes, or rhonchi. Cardiovascular: Regular rate/rhythm, Normal S1, Normal S2, No murmurs/rubs/ gallops Abdomen: Tender to palpation, distended, No masses, high pitched bowel sounds Musculoskeletal: Normal range of motion Extremities: No cyanosis/clubbing/edema bilaterally Neurological: Grossly neurologically intact. Normal speech Lab and Diagnostics Result Diagram: 05/21/17 1630 05/21/17 1630 Assessment & Plan Pt is a 76 year old female with a hx of Crohn's disease s/p hemicolectomy, DM2, HTN, and NANI who presented with diffuse abdominal pain and swelling with associated nausea and vomiting for 1 week. Acute ileus. Present on admission. - Pt presents with several days of abdominal pain, N/V. Bowel sounds hyperactive , high pitched. CT abd/pelvis showed diffuse fluid distention of the residual bowel loops associated with multiple air-fluid levels. No focal transition point to suggest obstruction. The findings again most likely represent an ileus. CT abd/pelvis also showed bilateral basilar infiltrates, but this was likely secondary to compressive atelectasis due to dilated bowel and obesity. No fevers/leukocytosis, and procalcitonin was low so aspiration pneumonia less likely. - Dr. Porter of Surgery has been consulted. We appreciate his expertise. - NG tube with suction - NPO - Hold home imodium - Obtain intra abdominal pressures - cont piperacillin-tazobactam Acute on chronic kidney injury, present on admission. - In setting of unilateral functioning kidney. Presumed prerenal azotemia secondary to volume depletion. On admit: Creatinine 2.92; recent baseline is 1.15. Cr was 2 on 03/22/17 on discharge from previous hospitalization. Moderate fluid resuscitation, but avoid precipitating pulmonary edema. - Avoid nephrotoxic medications - Hold aspirin, lisinopril, furosemide - Monitor CMP daily Hypotension, acute. Present on admission. - Pt maintaining MAP > 65. Appears fluid depleted. Responding somewhat to fluids. Will discontinue continuous fluids to avoid fluid overload given her CHF , and give intermittent boluses of NS - Continue to monitor vitals closely - concerning for cardiogenic etiology given history - ECHO ordered for am Anion gap metabolic acidosis, acute. Present on admission. - Pt presents with anion gap of 23. Likely secondary to lactic acidosis and ELVIA/ CKD. - Will correct underlying conditions. - Monitor lactic acid q2h until normal. Chronic systolic congestive heart failure - Recent echocardiogram on 01/09/17 showed LVEF 45-50% with borderline global hypokinesis, severe inferior/inferoposterior hypokinesis, which has been present in previous studies. - Continue home carvedilol, lovastatin - Hold lasix as pt does appears to be volume depleted. Diabetes mellitus, non-insulin using, chronic. - Controlled. A1c 01/2017:5.6. Glucose 171 on admission. - Continue to monitor CMP. Start Lantus if glucose continually elevated. Elevated troponins, chronic, present on admission. - Troponin 0.043 on admission, in setting of CKD. Last hospitalization (03/08/17 ) average troponin was 0.07. EKG showed sinus tachycardia with no acute changes. Likely not ACS. - Trend troponin History of Crohn's colitis status post hemicolectomy, chronic. - Continue home infliximab and sulfasalazine - Gastroenterology consult in AM Depression with anxiety - Continue home duloxetine Restless leg syndrome - Continue home amitriptyline, pramipexole Peripheral neuropathy - Continue home gabapentin Other Chronic Conditions Psoriasis Aortic and venous Insufficiency Diabetes type 2, diet controlled Insomnia Mitral Valve-regurgitation Obstructive sleep apnea Metastatic breast cancer in clinical remission since 2008 Periodic limb movement - Bowel regimen as needed - Antiemetic as needed Patient is admitted under inpatient status with expected length of stay greater than 2 midnights due to severity of presenting symptoms, risk of adverse event, and complexity of treatment plan. Resuscitation Status: DNR/DNI:Do Not Resuscitate/Intubate Attending Statement The patient was seen and examined together with house staff on 05/21/2017 and I agree with the history, exam and plan as outlined in the note above. Dylon Eric May 21, 2017 23:13 Safia Alvarez DO May 22, 2017 03:57
[2017-05-22] VITALS (10 sets, daily range): BP systolic 77–93; BP diastolic 36–56; PULSE 104–108; RESP 18–20; O2SAT 91–97
[2017-05-22] MEDS: 0.9% Sodium Chloride 1,000 ML IV SCH ×2 (00:01→16:01)
[2017-05-22] MEDS ORDERED: 0.9% Sodium Chloride 250 ML IV ONE ×2 (00:35→03:50)
--- NOTE | 2017-05-22 00:42 | NUR ---
Transfer Note Pt transferred to PCC at 0030 per order due to BP trending down, report given to Lita Damon RN PCC. Pt alert and oriented, vitals rechecked before transfer BP 85/54 HR 104.
--- NOTE | 2017-05-22 02:19 | NUR ---
UAP UAP measured at 14.
[2017-05-22] MEDS: Ondansetron 2 mg/mL 2 mL Inj IVPUSH PRN (02:24)
[2017-05-22 02:29] LABS: BASOPHILS % (AUTO) 0.1 % (0-3); EOSINOPHILS % (AUTO) 0.1 % (0-5); MONOCYTES % (AUTO) 9.7 % (4-12); Mean Corpuscular Hemoglobin 29.3 pg (27.0-35.0); NEUTROPHILS % (AUTO) 79.1 % (40-74); Platelet Count 235 bil/L (150-400)
--- NOTE | 2017-05-22 05:30 | NUR ---
Hypotension/Pain/CT Patient continues to have SBP in the 80s. Denies pain, although she does admit intermittent "spasms" in her abdomen. Patient off unit for STAT CT of her abdomen; report received and placed in chart. FYI page to resident.
[2017-05-22] MEDS: Piperacillin-Tazo 3.375 Gm Inj 3.375 GM in Dextrose 5% Minibag Plus 50 ML IV SCH ×2 (06:25→17:44)
--- NOTE | 2017-05-22 07:30 | DRSVH ---
PROCEDURE: X-RAY CHEST ONE VIEW, PORTABLE ([id number]) INDICATIONS: NG tube TECHNIQUE: One view of the chest was acquired. COMPARISON: [facility], CR, XR CHEST 1VW (PORTABLE), 05/21/2017, 16:40. FINDINGS: Surgical changes and devices: An NG tube is present with the tip coiled in the gastric fundus. Lungs and pleura: Lung volumes are low. Patchy opacities are present at the left lung base. There may also be a small left pleural effusion. Mediastinum: Mediastinal contours appear normal. Heart size is normal. Bones and chest wall: No suspicious bony lesions. Overlying soft tissues appear unremarkable. IMPRESSION: NG tube with the tip in the gastric fundus. Low lung volumes and left basilar consolidati on. Dictated by: Maria Eugenia Ayala M.D. on 05/22/2017 at 7:27 Approved by: Maria Eugenia Ayala M.D. on 05/22/2017 at 7:28
[2017-05-22] MEDS: Sulfasalzine 500 mg Tablet PO SCH ×2 (08:00→17:30)
[2017-05-22] MEDS: DULoxetine 30 mg DR Capsule PO SCH (08:30)
--- NOTE | 2017-05-22 08:34 | DRSVH ---
PROCEDURE: CT ABDOMEN AND PELVIS WITHOUT CONTRAST ([id number]) INDICATIONS: Abd pain, hypotension TECHNIQUE: Noncontrast 5 mm thick sections acquired from the diaphragms to the symphysis. 5 mm coronal and sagi ttal reformats were then performed. For radiation dose reduction, the following was used: automated exposure control, adjustment of mA and/or kV according to patient size. COMPARISON: [facility], CT, CT ABD PELVIS WO CON, 05/21/2017, 17:28. FINDINGS: Image quality: Excellent. ABDOMEN: Lung bases: Atelectasis versus consolidation is present at the bilateral lung bases. No pleural effus ion. No pneumothorax. Solid organs: Liver and spleen are normal in size. Gallbladder is moderately distended. No gallblad suresh wall thickening or pericholecystic fluid.. Pancreas is normal in contours. No adrenal nodules. The left kidney is atrophic. A low-density exophytic subcentimeter right renal cyst is visualized. Peritoneum and bowel: The stomach is decompressed and an NG tube is present. Patient is status post r ight hemicolectomy. The proximal and midportion of the small bowel is decompressed. The distal small bowel is dilated and filled with solid appearing stool. The ascending, transverse, and descending col on is dilated and stool filled. The sigmoid colon is decompressed. There scattered sigmoid colonic di verticular outpouchings. No mucosal thickening or pericolonic fat stranding to suggest acute divertic ulitis. Nodes and vessels: No retroperitoneal or mesenteric adenopathy by size criteria. Aorta and inferior vena cava are normal in caliber. There are scattered atheromatous calcifications throughout the aor ta and iliac arteries bilaterally. Miscellaneous: No ventral hernias. PELVIS: Genitourinary: The uterus and ovaries are not visualized and may be surgically absent. The bladder i s decompressed and a Neville catheter is present. Punctate foci of gas within the bladder is likely sec ondary to catheterization. Miscellaneous: No inguinal hernias or adenopathy. Bones: No suspicious bony lesions. No vertebral body compression fractures. IMPRESSION: 1. Dilated, stool-filled distal small bowel and dilated stool-filled proximal and mid colon. When com pared with the study dated , the extent of small bowel dilatation has decreased suggesting par tial, interval decompression. These findings are concordant with the overnight interpretation. 2. Bibasilar atelectasis versus aspiration/infection. Dictated by: Maria Eugenia Ayala M.D. on 05/22/2017 at 8:25 Approved by: Maria Eugenia Ayala M.D. on 05/22/2017 at 8:33
[2017-05-22] MEDS ORDERED: 0.9% Sodium Chloride 1,000 ML IV ONE (10:35)
--- NOTE | 2017-05-22 10:35 | PCM.PNMED ---
Subjective Date of Service May 22, 2017 Subjective She is still having a fair amount of abdominal cramping, no flatus or bowel movement. The NG tube did help to some degree. She does have a history of recurrent fall obstruction. She had had a planned possible surgical procedure at [facility] which was fairly complex and related to obstruction. No dyspnea, no chest pain. No nausea or vomiting. Overnight events notable for persistent hypotension and recurrent fluid boluses. She has 3 peripheral IVs. Exam Vital Signs Vital Sign - Last Date Time Temp Pulse Resp B/P Pulse Ox O2 Delivery O2 Flow Rate FiO2 05/22/17 08:45 107 05/22/17 07:35 36.5 18 84/51 93 Nasal Cannula 1.00 Intake and Output 05/21/17 05/21/17 05/22/17 Cumulative From/Thru 15:00 23:00 07:00 05/21/17 16:14 - 05/22/17 05:55 Intake Total 3520 ml 0 ml 3520 ml Output Total 1450 ml 1450 ml Balance 3520 ml -1450 ml 2070 ml Intake Oral 0 ml 0 ml IV Total 3520 ml 3520 ml Output Urine Total 400 ml 400 ml Gastric Drainage Total 950 ml 950 ml Emesis 100 ml 100 ml Exam Alert and oriented -3, no distress. Fluent speech Anicteric sclera. Lungs are clear with normal rate and effort Heart is regular without murmur gallop or rub Abdomen soft nontender, flat Extremities are free of edema. Skin is free of rash or lesions. IVs and Medications Medications Reviewed: Medications were reviewed in detail Lab and Diagnostics Result Diagram: 05/22/17 02205/22/17 0220 Assessment & Plan Pt is a 76 year old female with a hx of Crohn's disease s/p hemicolectomy, DM2, HTN, and NANI who presented with diffuse abdominal pain and swelling with associated nausea and vomiting for 1 week. Acute small bowel obstruction. Present on admission and about the same.. - Pt presents with several days of abdominal pain, N/V. Bowel sounds hyperactive , high pitched. CT abd/pelvis showed diffuse fluid distention of the residual bowel loops associated with multiple air-fluid levels. No focal transition point to suggest obstruction. The findings again most likely represent an ileus. CT abd/pelvis also showed bilateral basilar infiltrates, but this was likely secondary to compressive atelectasis due to dilated bowel and obesity. No fevers/leukocytosis, and procalcitonin was low so aspiration pneumonia less likely. - Dr. Porter of Surgery has been consulted. We appreciate his expertise. - NG tube with suction - NPO - Hold home imodium - Obtain intra abdominal pressures - cont piperacillin-tazobactam The patient would be amenable to surgery if she fails to improve with nasogastric suctioning. Acute on chronic kidney injury, present on admission and improving. - In setting of unilateral functioning kidney. Presumed prerenal azotemia secondary to volume depletion. On admit: Creatinine 2.92; recent baseline is 1.15. Cr was 2 on 03/22/17 on discharge from previous hospitalization. Moderate fluid resuscitation, but avoid precipitating pulmonary edema. - Avoid nephrotoxic medications - Hold aspirin, lisinopril, furosemide - Monitor CMP daily Hypotension, acute. Present on admission. Persistent. - Pt maintaining MAP > 65. Appears fluid depleted. Responding somewhat to fluids. Will discontinue continuous fluids to avoid fluid overload given her CHF , and give intermittent boluses of NS - Continue to monitor vitals closely - concerning for cardiogenic etiology given history - ECHO ordered for am We will give her another liter of normal saline. She fails to improve or place a PICC. I believe she is volume depleted at this point. Anion gap metabolic acidosis, acute. Present on admission and stable. - Pt presents with anion gap of 23. Likely secondary to lactic acidosis and ELVIA/ CKD. - Will correct underlying conditions. - Monitor lactic acid q2h until normal. Chronic systolic congestive heart failure, POA and stable. - Recent echocardiogram on 01/09/17 showed LVEF 45-50% with borderline global hypokinesis, severe inferior/inferoposterior hypokinesis, which has been present in previous studies. - Continue home carvedilol, lovastatin - Hold lasix as pt does appears to be volume depleted. Diabetes mellitus, non-insulin using, POA and stable. - Controlled. A1c 01/2017:5.6. Glucose 171 on admission. - Continue to monitor CMP. Start Lantus if glucose continually elevated. Elevated troponins, chronic, present on admission. We will follow clinically - Troponin 0.043 on admission, in setting of CKD. Last hospitalization (03/08/17 ) average troponin was 0.07. EKG showed sinus tachycardia with no acute changes. Likely not ACS. - Trend troponin History of Crohn's colitis status post hemicolectomy, chronic. - Continue home infliximab and sulfasalazine - Gastroenterology consult in AM Depression with anxiety - Continue home duloxetine Restless leg syndrome - Continue home amitriptyline, pramipexole Peripheral neuropathy - Continue home gabapentin Other Chronic Conditions Psoriasis Aortic and venous Insufficiency Diabetes type 2, diet controlled Insomnia Mitral Valve-regurgitation Obstructive sleep apnea Metastatic breast cancer in clinical remission since 2008 Periodic limb movement - Bowel regimen as needed - Antiemetic as needed Patient is admitted under inpatient status with expected length of stay greater than 2 midnights due to severity of presenting symptoms, risk of adverse event, and complexity of treatment plan. VTE Mechanical Devices: Intermittant Pneumatic CD Resuscitation Status: DNR/DNI:Do Not Resuscitate/Intubate Steven Marquez MD May 22, 2017 10:34
--- NOTE | 2017-05-22 11:48 | DRSVH ---
[facility] [address] [place] [address] Echocardiogram Report Name: ELIZABETH HAWTHORNE IStudy Date: Height: 66 in Hospital Exam Location: [facility] Weight: 252 lb Gender: Female BSA: 2.2 m2 : 1940 Age: 76 yrs BP: 84/43 m mHg Reason For Study: Hypotension Ordering Physician: HOSPITALIST [facility] Performed By: Ruth Bone Referring Physician: Dr. Jovani Miranda Interpretation Summary 1) Normal left ventricular thickness, size, wall motion, and systolic function (EF 55-60%). 2) Normal right ventricular size with mildly reduced function. 3) No significant valvular abnormalities. 4) Compared to the Echo done 01/09/2017, LVEF has improved from 45-50% to normal on today's study. Procedure: A two-dimensional transthoracic echocardiogram with color flow and Doppler was performed. The study quality was technically adequate. Comparison is made with the echocardiogram of 01-09-17. The heart rate ranged between 105-106 bpm during the study. Left Ventricle: The left ventricle is normal in size. There is normal left ventricular wall thickness. The ejection fraction is estimated to be 55-60%. Left ventricular systolic function is normal without focal wall motion abnormalities. Diastolic function could not be accurately assessed due to tachycardia. Right Ventricle: The right ventricle is grossly normal size. Right ventricular systolic function is mildly reduced. Atria: The left atrium is mildly dilated. The right atrium grossly appears normal in size. The interatrial septum is intact with no evidence for an atrial septal defect. Mitral Valve: The mitral valve leaflets appear borderline thickened, but open well. There is moderate mitral annular calcification. There is mild mitral regurgitation. Aortic Valve: The aortic valve is trileaflet. The aortic valve opens well. There is no aortic valve stenosis. No aortic regurgitation is present. Tricuspid Valve: The tricuspid valve leaflets are thin and pliable. There is mild tricuspid regurgitation. Pulmonic Valve: The pulmonic valve is normal in structure and function. There is trace pulmonic regurgitation. Great Vessels: The aortic root is normal size. The ascending aorta is at the upper limits of normal in size. The inferior vena cava was not visualized. Pericardium/ Pleura There is no pericardial effusion. There is no pleural effusion. MMode/2D Measurements & Calculations LVIDd: 4.7 cm LA dimension: 4.7 cm RVDd major Ao root diam LVIDs: 2.9 cm : 5.6 cm FS: 37.4 % LA A2 area: 22.2 cm Aortic Jxn IVSd: 1.00 cm LA A4 area: 25.9 cm LVPWd: 0.93 cm LA length (vol): 5.4 cm asc Aorta LA vol: 89.6 ml Diam: 3.8 cm LA vol index : 40.6 ml/m2 LV ayala. diameter/BSA LV sys. diameter/BSA RVD1 (basal) RVD2 (mid) (cm/m^2): 2.1 (cm/m^2): 1.3 : 3.3 cm Doppler Measurements & Calculations Ao V2 max MV E max saulo MV E/A: 0.58 TR max saulo : 150.3 cm/sec : 69.6 cm/sec Med Peak E' Saulo : 280.2 cm/sec Ao max PG MV A max saulo TR max PG : 9.0 mmHg : 121.0 cm/sec E/E' med: 13.4 : 31.4 mmHg Ao mean PG MV P1/2t: 48.1 msec Lat Peak E' Saulo PA V2 max : 4.3 mmHg : 106.8 cm/sec E/E' lat: 7.7 PA mean PG E/e' average: 10.6 MV A dur: 0.13 sec PA Accel Time : 0.12 sec MV dec time MV P1/2t max saulo Ao V2 mean PA V2 mean : 0.16 sec : 92.5 cm/sec : 75.5 cm/sec Ao V2 VTI: 22.4 cm MVA(P1/2t): 4.6 cm2 Reading Physician:11:47 AM
[2017-05-22] MEDS ORDERED: 0.9% Sodium Chloride 500 ML IV ONE (13:15)
[2017-05-22] MEDS ORDERED: Sodium Chloride LOK Flush 10 mL Syringe IVFLUSH PRN ×2 (14:15)
--- NOTE | 2017-05-22 16:22 | NUR ---
Social Work: Multidisciplinary Rounds Pt discussed in am rounds; pt is on day 1 of stay. Sw disposition and needs unknown at this time. Case management will not be able to see pt today due to high census. SHOE TURNER will attempt to see pt and family tomorrow. SORAYA Yuen
[2017-05-22] MEDS: Nystatin 100,000 Unit/mL 5 mL Suspension PO SCH (17:50)
--- NOTE | 2017-05-22 18:26 | NUR ---
Hypotension/Pain Patient a/o x 3, c/o abd pain and mid chest pressure this shift. SBP 70-80's, patient states "When I close my eyes it feels like the bed is floating." Dr Marquez notified and patient given 1.5 L bolus of NS. SBP 80's throughout the shift. IVT up to attempt PICC placement this evening without success. Neville patent putting out dark alexx uop. Patient had small loose BM x 1. Tele SR-ST 90-100's.
--- NOTE | 2017-05-22 18:29 | CONS ---
[address] [address] CONSULTATION REPORT PATIENT: ELIZABETH HAWTHORNE I : 1940 MR#: [id number] ADMIT: 05/21/2017 JOB ID: [id number] DATE OF SERVICE: It was pleasure seeing the patient at [facility]. GI service for evaluation of Crohn's and abdominal pain. This is a 76-year-old lady with complex medical history who was been followed by Dr. Casper and she has been in our clinic for a number of years, since all the way to 2008. It appears that she has Crohn disease for about 29 years and she had a right hemicolectomy. She was treated with Pentasa and back in August 2015, she was doing quite well. She was supposed to follow up in three months. However, she did not have any followup until October 2015. At that time, she was not doing so well. She was having moderately severe abdominal pain which occurred daily. Problem was somewhat improving. Prior to this, she did have a colonoscopy but she experienced abdominal pain, diarrhea, dysphagia, and vomiting. At the time, she was not having any issues with bloating, constipation. CT was done, which did not reveal any significant finding, according to Dr. Casper's notes. However, colonoscopy was done in September 2016, which showed that there was a very twisted sigmoid and there appears to be something possibly externally exerting pressure on the sigmoid. The lumen was obliterated and even with air insufflation, would not fully insufflate. There was additional appearance of mucosal irregularity through the sigmoid colon and, at very least, there were polypoid structures. It was very difficult to make out the anatomy and biopsies were obtained in this area. He was able to go into the descending colon which showed tremendous dilation, full of stool, debris, and fluids. He thought he may have gotten to the transverse colon, but he was not able to get beyond this area. The biopsy of the colon showed mild active colitis and this was noted at some areas in the sigmoid colon as well. Rectal biopsies were normal and again there were a few places in the sigmoid colon which showed minimal to mild chronic active colitis. The patient was last seen by Dr. Casper in the clinic in December 2016. Again, persistent abdominal pain, bloating, inability to control bowel movements. Her symptoms were not improving medically. Further workup included Sitz marker test which was abnormal. Sitz marker revealed on day five there were 15 markers in the left abdomen and the descending colon, four markers in the hepatic flexure. It appears that the markers did not go beyond the sigmoid colon. According to Dr. Casper's notes, he was thinking about starting the patient on Remicade or Humira. However, ultimately patient would need surgical intervention and she was eventually sent to [facility] for this. She did go to the [facility]. However, they did not have all the report. Therefore, she was asked to come back later and this happened in the past month. However, in the meantime, she did get a CT scan back in February 2017 which revealed that she had fluid and gas distention of the small and large bowel extending to the rectosigmoid colon distally without focal transition. Since February, her symptoms have worsened and she started having diffuse abdominal pain, worsening about a week ago, and she could not pass gas. She did not have any bowel movement. She did occasionally have diarrhea and had nausea, vomiting with decreased appetite and she could not tolerate anything p.o. Because situation got worse, the patient came into the emergency department. In fact, in February, similar situation occurred and she was in acute renal failure but she was treated medically and discharged. This time when she came in, they did a CT scan which showed that she has postsurgical changes, status post partial small bowel resection, and again demonstrating diffuse fluid distention of residual bowel loop associated with multiple air-fluid loops. No focal transition point was noted, but they called it an ileus. Patient also had esophageal wall thickening and small hiatal hernia. Patient had dysphagia and this was noted back in late last year. Because of these findings, patient was placed on NG suction and she was admitted yesterday. With the NG suction, her symptoms did not improve significantly. In fact, they did another CT scan this morning and found that she had dilated stool-filled distal small bowel and dilated stool-filled proximal and mid colon. Again, interpretation was a partial bowel obstruction. Surgery was consulted and Surgery requested GI to evaluate the patient. When I saw the patient, patient was not comfortable, nauseated, and appeared a little upset that nothing was done. The patient states that abdominal pain is severe and she is very bloated and she is nauseated. She is getting her pain medication, and pain medication does help her situation. PAST MEDICAL HISTORY: Includes aortic insufficiency, psoriasis, B12 deficiency, venous insufficiency, Crohn disease of small and large intestines, depression, anxiety, restless legs syndrome. Sinus tachycardia, elevated blood pressure, diabetes, insomnia, mitral valve regurgitation, peripheral neuropathy, obstructive sleep apnea. Tonsillectomy, bowel resection, stomach tumor removed, appendectomy, mastectomy, hysterectomy, breast cancer with surgery. 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 SOCIAL HISTORY: Former smoker. No alcohol or drugs. FAMILY HISTORY: No Crohn disease. Aortic aneurysm and brain tumor. MEDICATIONS: Here include Zosyn, Zofran, morphine, melatonin, gabapentin, Cymbalta, Arimidex, sulfasalazine, Mirapex, Elavil, nystatin, atorvastatin, Lipitor, MiraLAX, Senna, Maalox. PHYSICAL EXAMINATION: Patient is alert, oriented, is in moderate distress. Vitals: Temp 36.6, pulse 104, blood pressure 82/36. It was a 77/47. Head and neck: No icterus, no lymphadenopathy. Lungs: Basilar crackles but superiorly more clear. Cardiovascular: Tachy with normal S1, S2. Abdomen significantly distended with decreased bowel sounds. Diffusely tender but no guarding, rebound, or firmness. Extremities: No pitting edema of the ankles. Skin: Shows no jaundice. LABORATORY STUDIES: White count went from 9500 to 12,800. Hemoglobin is 10.5. Platelets of 235,000. INR 1. Chemistry revealed that her troponin is mildly elevated at 0.020. BUN 65, creatinine 2.76. Glucose 155. Calcium 7.9. LFTs were normal. Albumin 3. Imaging as described in the H and P. IMPRESSION and PLAN: This is a 76-year-old lady with about 30-year history of Crohn disease, who has been followed by Dr. Casper and was on Pentasa and her disease was relatively under control. However, she started having worsening abdominal pain, distention, and she presented to him back in September 2016 for colonoscopy and colonoscopy description as above. It appears that there was Crohn's activity. However, the way he was describing his colonoscopy was that it appears that there was some type of obstruction in the sigmoid colon or something compressing which was distorting the anatomy and it appeared that this was creating a functional obstruction which is causing dilated colonic loop in the descending colon and the transverse colon. This was confirmed on the CT scan. It appears this has progressed and she was seen in [facility] for surgical intervention. However, the [facility] did not have all the information and she was supposed to follow up with them. The current CT again shows the same kind of picture back in September and October of last year. I am not completely sure what is happening because the biopsy showed that there was a minimal Crohn's activity. Patient is behaving more like an obstructive type of situation since September of this year. There was anal stenosis. However, the endoscopy description and the CT description seems to be consistent with some type of obstructive process in the sigmoid colon, and based on the colonoscopy it may be extraluminal. However, CT does not show anything that seems to be extraluminal. She is not improving. Her blood pressures is low. This could be due to underlying sepsis. Under these circumstances, I am leery about starting her on Remicade or any kind of immunosuppression. Therefore I suggest surgical intervention may be necessary but will speak to the surgical services. FREDDIE
[2017-05-23] VITALS (9 sets, daily range): BP systolic 84–118; BP diastolic 53–66; PULSE 104–109; RESP 16–22; O2SAT 93–95
--- NOTE | 2017-05-23 00:46 | CONS ---
[address] [address] CONSULTATION REPORT PATIENT: ELIZABETH HAWTHORNE I : 1940 MR#: [id number] ADMIT: 05/21/2017 JOB ID: [id number] DATE OF SERVICE: CHIEF COMPLAINT/IDENTIFICATION: I have been asked to see this 76-year-old woman regarding bowel obstruction. HISTORY OF PRESENT ILLNESS: The patient was admitted to the Medicine Service last night. She reportedly has a 1-week history of nausea and vomiting with abdominal distention and pain. This has been a problem in the past including an admission in February of this year with similar symptoms, but as well mental status changes. The patient has a longstanding history of Crohn's disease and reports having had what sounds to be either right hemicolectomy or small bowel resection in 1988. She was not on any Crohn's therapy until earlier last year. At that time, she was seen by Dr. Casper who did a partial colonoscopy and found that she had some sort of obstructive problem at the sigmoid colon with a dilated stool-filled descending colon. The colonoscopy was not completed due to the stool filled proximal colon. There was no distal malignancy seen and multiple biopsies showed mild acute and chronic inflammation consistent with Crohn's. She tells me that she had been referred to the [facility] and saw a nutritional services cook for a possible colostomy, but as there were no old medical records at her visit they postponed this. She denies anorexia, significant weight loss, change in bowel habits over the past year to six months. PAST MEDICAL HISTORY: Congestive heart failure, diabetes, obstructive sleep apnea, mitral valve regurgitation, psoriasis, venous insufficiency, depression, history of breast cancer, history of some sort of benign gastric tumor removal, status post mastectomy, status post hysterectomy. MEDICATIONS: Per med reconciliation list. ALLERGIES: None. FAMILY HISTORY/REVIEW OF SYSTEMS: Per admission history and physical. PHYSICAL EXAMINATION: When she is seen, she has a recorded blood pressure of 84/51, her pulse is 105, her temperature is 36.5. Her abdomen is protuberant, mildly distended and firm in the left upper quadrant. It feels as if she may have a ventral hernia, though this is not documented on her CAT scan. LABORATORIES: Admission white count is 9.5, hematocrit is 39.7. Chemistries demonstrated mildly decreased carbon dioxide, though she did have a normal lactic acid. Her anion gap was 28. Troponins were 0.02. Albumin was 3. IMAGING: For some reason, she has had two CT scans of the abdomen and pelvis, without oral contrast. These demonstrated dilated small bowel and proximal colon. I have compared these to her scans from early in the year, and these appear essentially unchanged. IMPRESSION/PLAN: A 76-year-old woman with multiple medical problems, who appears to have some sort of mechanical partial blockage at the area of the proximal sigmoid colon that has been present for quite some time. I think that this will likely not resolve with simple stool softening regimens and will likely require some sort of operation intervention or possibly endoscopic dilation. Colonoscopy showed mild chronic and active Crohn's disease, but nothing suggestive of a malignancy. However malignancy needs to be ruled out, particularly if there will be an attempt to manage this endoscopically. Most likely, this represents some sort of Crohn's stricture in the proximal sigmoid though it would be nice to see more of her medical records including more information on her previous surgery as well as have a repeat endoscopy. Gastrografin enema may be helpful to demonstrate distensibility of the sigmoid colon, if any, and the length of the strictured segment. Nothing about her abdominal history and examination explains her hypotension, and I do not think that she requires urgent abdominal surgery. My recommendation would be a GI consult (which is being performed), Gastrografin enema some time. I will check random tumor markers of CEA and CA-125, though I have a low index of suspicion that this is either colon or ovarian cancer. I will follow along and I suspect that she will require an operation to resolve these issues. My recommendations have been reviewed with the patient and her sister, who has expressed frustration that this seems to be the same problem that the patient had during her last hospital admission. FREDDIE
[2017-05-23] MEDS: 0.9% Sodium Chloride 1,000 ML IV SCH ×3 (02:24→13:19)
[2017-05-23] MEDS: Nystatin 100,000 Unit/mL 5 mL Suspension PO SCH ×5 (02:25→22:00)
--- NOTE | 2017-05-23 06:19 | NUR ---
Hypotension Patient's SBP overnight 84-93. MAP between 61-65. Patient reports feeling better than she has been; no nausea or vomiting overnight.
[2017-05-23] MEDS: Piperacillin-Tazo 3.375 Gm Inj 3.375 GM in Dextrose 5% Minibag Plus 50 ML IV SCH ×2 (06:39→17:56)
[2017-05-23 08:50] LABS: Mean Corpuscular Hemoglobin 28.9 pg (27.0-35.0); Mean Corpuscular Volume 94.9 fL (81-100)
[2017-05-23] MEDS: Sulfasalzine 500 mg Tablet PO SCH ×2 (09:31→17:17)
[2017-05-23] MEDS: DULoxetine 30 mg DR Capsule PO SCH (09:33)
--- NOTE | 2017-05-23 11:04 | PCM.PNMED ---
Subjective Date of Service May 23, 2017 Subjective She is feeling better, no abdominal pain. Small amount of stool. Minimal flatus. No abdominal distention. Note dyspnea, palpitations, chest pain. No dysuria. No overnight events Exam Vital Signs Vital Sign - Last Date Time Temp Pulse Resp B/P Pulse Ox O2 Delivery O2 Flow Rate FiO2 05/23/17 08:25 105 05/23/17 07:46 36.7 20 99/62 94 Nasal Cannula 1.00 Intake and Output 05/22/17 05/22/17 05/23/17 Cumulative From/Thru 15:00 23:00 07:00 05/21/17 16:14 - 05/23/17 06:47 Intake Total 4187 ml 1334 ml 9041 ml Output Total 600 ml 700 ml 2750 ml Balance 3587 ml 634 ml 6291 ml Intake Oral 0 ml 0 ml 0 ml IV Total 4187 ml 1334 ml 9041 ml Output Urine Total 500 ml 700 ml 1600 ml Gastric Drainage Total 100 ml 1050 ml Emesis 100 ml Exam Alert and oriented -3, no distress. Fluent speech. NG tube in place Anicteric sclera. Lungs are clear with normal rate and effort Heart is regular without murmur gallop or rub Abdomen soft nontender, flat Extremities are free of edema. Skin is free of rash or lesions. IVs and Medications Medications Reviewed: Medications were reviewed in detail Lab and Diagnostics Result Diagram: 05/23/1735 05/23/17 0835 Assessment & Plan Pt is a 76 year old female with a hx of Crohn's disease s/p hemicolectomy, DM2, HTN, and NANI who presented with diffuse abdominal pain and swelling with associated nausea and vomiting for 1 week. Acute small bowel obstruction. Present on admission improving - Pt presents with several days of abdominal pain, N/V. Bowel sounds hyperactive , high pitched. CT abd/pelvis showed diffuse fluid distention of the residual bowel loops associated with multiple air-fluid levels. No focal transition point to suggest obstruction. The findings again most likely represent an ileus. CT abd/pelvis also showed bilateral basilar infiltrates, but this was likely secondary to compressive atelectasis due to dilated bowel and obesity. No fevers/leukocytosis, and procalcitonin was low so aspiration pneumonia less likely. - Dr. Porter of Surgery has been consulted. We appreciate his expertise. - NG tube with suction - NPO - Hold home imodium - Obtain intra abdominal pressures -Discontinue piperacillin-tazobactam Discussed with surgery today. We will plan Gastrografin enema on Wednesday as this is when the study is available. We will also discuss with her primary GI doctor Dr. Holley. Acute on chronic kidney injury, present on admission and improving. - In setting of unilateral functioning kidney. Presumed prerenal azotemia secondary to volume depletion. On admit: Creatinine 2.92; recent baseline is 1.15. Cr was 2 on 03/22/17 on discharge from previous hospitalization. Moderate fluid resuscitation, but avoid precipitating pulmonary edema. - Avoid nephrotoxic medications - Hold aspirin, lisinopril, furosemide - Monitor CMP daily. The creatinine is even more improved today. Hypotension, acute. Present on admission. Resolved with IV fluids. Consistent with volume depletion. - Pt maintaining MAP > 65. Appears fluid depleted. Responding somewhat to fluids. Will discontinue continuous fluids to avoid fluid overload given her CHF , and give intermittent boluses of NS - Continue to monitor vitals closely - concerning for cardiogenic etiology given history - ECHO reveals improved left ventricular function with an EF of 55% decrease rate of IV fluids. Anion gap metabolic acidosis, acute. Present on admission and improved. - Pt presents with anion gap of 23. Likely secondary to lactic acidosis and ELVIA/ CKD. - Will correct underlying conditions. Follow clinically Chronic systolic congestive heart failure, POA and stable with improved ventricular function. - Recent echocardiogram on 01/09/17 showed LVEF 45-50% with borderline global hypokinesis, severe inferior/inferoposterior hypokinesis, which has been present in previous studies. - Continue home carvedilol, lovastatin - Hold lasix as pt does appears to be volume depleted. Diabetes mellitus 2, non-insulin using, POA and stable. - Controlled. A1c 01/2017:5.6. Glucose 171 on admission. - Continue to monitor CMP. Start Lantus if glucose continually elevated. Elevated troponins, chronic, present on admission. We will follow clinically - Troponin 0.043 on admission, in setting of CKD. Last hospitalization (03/08/17 ) average troponin was 0.07. EKG showed sinus tachycardia with no acute changes. Likely not ACS. - Trend troponin History of Crohn's colitis status post hemicolectomy, chronic. - Continue home infliximab and sulfasalazine - Gastroenterology consult in AM Depression with anxiety - Continue home duloxetine Restless leg syndrome - Continue home amitriptyline, pramipexole Peripheral neuropathy - Continue home gabapentin Other Chronic Conditions Psoriasis Aortic and venous Insufficiency Diabetes type 2, diet controlled Insomnia Mitral Valve-regurgitation Obstructive sleep apnea Metastatic breast cancer in clinical remission since 2008 Periodic limb movement - Bowel regimen as needed - Antiemetic as needed Patient is admitted under inpatient status with expected length of stay greater than 2 midnights due to severity of presenting symptoms, risk of adverse event, and complexity of treatment plan. VTE Mechanical Devices: Intermittant Pneumatic CD Resuscitation Status: DNR/DNI:Do Not Resuscitate/Intubate Steven Marquez MD May 23, 2017 11:04
--- NOTE | 2017-05-23 13:22 | PCM.PNMED ---
Subjective Date of Service May 23, 2017 Subjective Patient reports feeling relatively quite good. She has had decrease in her abdominal discomfort, is not feeling nauseous, has not vomited today. She has had small bowel movements but is not passing gas. Purpose of Gastrografin enema discussed, questions answered, patient anticipates this to happen tomorrow. Exam Vital Signs Vital Sign - Last Date Time Temp Pulse Resp B/P Pulse Ox O2 Delivery O2 Flow Rate FiO2 05/23/17 08:25 105 05/23/17 07:46 36.7 20 99/62 94 Nasal Cannula 1.00 Intake and Output 05/22/17 05/22/17 05/23/17 Cumulative From/Thru 15:00 23:00 07:00 05/21/17 16:14 - 05/23/17 06:47 Intake Total 4187 ml 1334 ml 9041 ml Output Total 600 ml 700 ml 2750 ml Balance 3587 ml 634 ml 6291 ml Intake Oral 0 ml 0 ml 0 ml IV Total 4187 ml 1334 ml 9041 ml Output Urine Total 500 ml 700 ml 1600 ml Gastric Drainage Total 100 ml 1050 ml Emesis 100 ml Exam General: No acute distress, well-developed, well-nourished, appropriately interactive HEENT: Normocephalic, atraumatic. External ears without defect. Anicteric sclerae, moist conjunctivae, and no lid lag. Oropharynx free of erythema and cobble stoning with moist mucosa. Neck: Supple with full range of motion. Thick. Cardiovascular: Regular rate and rhythm with no murmurs, rubs, or gallops appreciated Pulmonary: Clear to auscultation bilaterally with no crackles, wheezes, or rhonchi. Normal respiratory effort with no use of accessory muscles. Abdomen: Bowel tones are hyperactive. Soft, nontender, very mildly. No hepatosplenomegaly or masses appreciated. Well-healed midline incision with palpable hernia superior to incision just to the left of midline. Extremities: No clubbing, cyanosis, edema, or lymphadenopathy appreciated. Skin: Normal temperature, turgor, and texture; no rash, ulcers, or subcutaneous nodules appreciated. Neurological: Cranial nerves grossly intact. Normal muscle strength, tone, and bulk. No known gait impairment. Psychiatric: Normal mood and affect. Alert and oriented to person, place, and time. Lab and Diagnostics Result Diagram: 05/23/17 0835 05/22/17 0220 X-Rays, CTs and MRIs PROCEDURE: CT ABDOMEN AND PELVIS WITHOUT CONTRAST ([id number]) IMPRESSION: 1. Dilated, stool-filled distal small bowel and dilated stool-filled proximal and mid colon. When compared with the study dated , the extent of small bowel dilatation has decreased suggesting partial, interval decompression. These findings are concordant with the overnight interpretation. 2. Bibasilar atelectasis versus aspiration/infection. Dictated by: Maria Eugenia Ayala M.D. on 05/22/2017 at 8:25 ADDENDUM: Please note, there is a likely focal circumferential thickening of the superior sigmoid colon at the transition point between the dilated descending colon and the decompressed sigmoid colon (series 2, image 81). This is not well characterized given the lack of intravenous and oral contrast. This finding is likely present on prior studies dating back to 03/08/17. Additionally, on the study dated 10/14/16, circumferential thickening of the sigmoid in this region is visualized in the setting of a decompressed colon. Although this finding may be associated with chronic inflammatory changes, neoplasm should be considered in the differential as well. These findings were discussed with Dr. Boateng and Dr. Parry on 05/22/17. Dictated by: Maria Eugenia Ayala M.D. on 05/22/2017 at 17:22 PROCEDURE: X-RAY CHEST ONE VIEW, PORTABLE IMPRESSION: NG tube with the tip in the gastric fundus. Low lung volumes and left basilar consolidation. Dictated by: Maria Eugenia Ayala M.D. on 05/22/2017 at 7:27 PROCEDURE: CT ABDOMEN AND PELVIS WITHOUT CONTRAST IMPRESSION: 1. Postsurgical changes status post partial bowel resection redemonstrated with diffuse fluid distention of the residual bowel loops associated with multiple air-fluid levels. No focal transition point to suggest obstruction. The findings again most likely represent an ileus. 2. Bibasilar groundglass opacities with right basilar peribronchial consolidation suggesting sequelae of aspiration. 3. Mild esophageal wall thickening and a small hiatal hernia may reflect sequelae of reflux. 4. Probable hyperdense cyst within the right kidney. Further evaluation may be obtained with ultrasound if clinically indicated. Dictated by: Man Mcnulty M.D. on 05/21/2017 at 18:01 Assessment & Plan This is a 76-year-old lady with about 30-year history of Crohn disease, who has been followed by Dr. Casper and was on Pentasa and her Chron's disease was relatively under control. However, she started having worsening abdominal pain , distention, and she presented to him back in September 2016 for colonoscopy and colonoscopy description as above. It appears that there was Crohn's activity. However, the way he was describing his colonoscopy was that it appears that there was some type of obstruction in the sigmoid colon or something compressing which was distorting the anatomy and it appeared that this was creating a functional obstruction which is causing dilated colonic loop in the descending colon and the transverse colon, which was also noticed on the endoscopy. This was confirmed on the CT scan. It appears this has progressed and she was seen in [facility] for surgical intervention. However, the [facility] did not have all the information and she was supposed to follow up with them. The current CT again shows the same kind of picture back in September and October of last year. Surgery was consulted and recommends tumor markers (CEA and CA-125) which have been ordered and Gastrografin enema which will be performed 05/24/2017. Given patient has has several small bowel movements I have ordered Fleets enemas Q8 hours x3 to help with clearing of distal colon and rectum prior to gastrograffin study. I saw and examined the patient. Agree with above. Pain Evaluation: Adequate Pain Control VTE Mechanical Devices: Intermittant Pneumatic CD Resuscitation Status: DNR/DNI:Do Not Resuscitate/Intubate copies to: Abhay Boateng MD, Erika R DO May 23, 2017 09:23 Abhay Boateng MD May 26, 2017 14:06 Given patient has has several small bowel movements I have ordered Fleets enemas Q8 hours x3 to help with clearing of distal colon and rectum prior to gastrograffin study. Pain Evaluation: Adequate Pain Control VTE Mechanical Devices: Intermittant Pneumatic CD Resuscitation Status: DNR/DNI:Do Not Resuscitate/Intubate copies to: Abhay Boateng MD, Erika R DO May 23, 2017 09:23
--- NOTE | 2017-05-23 13:49 | PROG NOTE ---
[address] [address] PROGRESS NOTE PATIENT: ELIZABETH HAWTHORNE I : 1940 MR#: [id number] ADMIT: 05/21/2017 JOB ID: [id number] DATE: 05/23/2017 NOTE: The patient feels more comfortable this morning without nausea. She has passed some small stools per rectum. Nasogastric tube is recorded as having put out over a liter yesterday, 500 cc since midnight. Gastrografin enema has been ordered.
--- NOTE | 2017-05-23 15:32 | NUR ---
Social Work: Initial Assessment/Multidisciplinary Rounds D: Per EMR review, pt is a 76 year old female admitted for Abdominal pain, dehydration, hypotermia. Pt is [facility] with Medicare; pt has no LTC insurance and No VA Benefits. PCP is Judith Miranda DO. NOK is Jermain Beverly, son, . Advanced directives completed. Readmit score is 3/8. [employer] WORK[employer] met with the pt and daughter at bedside. Sw role explained, discharge planning checklist and contact info provided. Pt lives at home in [place]; pt's son lives with her and assists her with chores, cleaning, cooking, and some assistance with ambulation if pt is feeling weak. pt uses a 4WW, is I with personal care. Pt has a brief history with [facility] and has never needed skilled rehab. Pt discussed in am rounds. Pt with NG Tube placed for possible SBO. Pt may require surgery. Discharge needs are unknown at this time. No concerns for pt's capacity for self care. A: Pt who lives at home iwth her son who assists with care. P: Evolving; [employer]LE[employer] WORKER to continue to follow pt's clinical course and assist with discharge planning and place referrals as ordered by . SORAYA Yuen Addendum: 05/23/17 at 1537 by TABATHA GERBER SS Amended: Links added.
[2017-05-23] MEDS: Sodium Biphos-Phos 133 mL Enema RECTAL SCH (17:55)
--- NOTE | 2017-05-23 18:13 | NUR ---
Blood pressure/Activity/NG/Glucose Patient a/o x 3, denies abd or chest pain, nausea or sob this shift. Taking ice chips, NGT put out 1200 ml green-brown liq. Abd distended, semi soft. Patient denies flatus, had small loose BM x 3. Fleets enema given per orders. Neville patent alexx uop. SBP 100-110's this shift, patient oob to bsc x 1 with one person assist. Blood glucose down to 66 this evening, notified and IVF changed to D5NS. Will cont to monitor.
[2017-05-23] MEDS: Dextrose 5% 0.9% NaCl 1,000 ML IV SCH (19:15)
[2017-05-24] VITALS (9 sets, daily range): BP systolic 113–148; BP diastolic 51–77; PULSE 80–120; RESP 18–20; O2SAT 90–99
[2017-05-24] MEDS: Dextrose 5% 0.9% NaCl 1,000 ML IV SCH ×2 (01:07→14:28)
[2017-05-24] MEDS: Sodium Biphos-Phos 133 mL Enema RECTAL SCH ×3 (01:07→20:30)
[2017-05-24 04:31] LABS: Mean Corpuscular Hemoglobin 29.2 pg (27.0-35.0); Mean Corpuscular Volume 95.4 fL (81-100)
--- NOTE | 2017-05-24 05:46 | NUR ---
BP/Enema/NG tube Patient's BP continues to improve; SBP 113-120 this shift. Patient reports feeling much better and is in good spirits. Fleets enema given per orders with small stool output. NG tube to continuous suction with 1200 ml of green output overnight.
[2017-05-24] MEDS: Piperacillin-Tazo 3.375 Gm Inj 3.375 GM in Dextrose 5% Minibag Plus 50 ML IV SCH ×2 (06:35→21:32)
[2017-05-24] MEDS: DULoxetine 30 mg DR Capsule PO SCH (07:53)
[2017-05-24] MEDS: Sulfasalzine 500 mg Tablet PO SCH ×2 (07:53→16:31)
[2017-05-24] MEDS: Nystatin 100,000 Unit/mL 5 mL Suspension PO SCH ×4 (07:55→22:00)
--- NOTE | 2017-05-24 12:03 | DRSVH ---
PROCEDURE: X-RAY ENEMA WITH GASTROGRAPHIN ([id number]) INDICATIONS: abdominal pain COMPARISON: None. FINDINGS: KUB: Preprocedural financial representative film demonstrates a considerable air within the bowel. Surgical clips and s utures are present in the right lower quadrant. There is a oval shaped 11 x 19 mm calcification in th e left lower quadrant at the L4 level, indeterminate. Visualized solid organ contours appear normal i n size. Nasogastric tube is present. No suspicious bony lesions. Colon: Using dilute Gastrografin per rectum, limited enema study was obtained with patient in the lef t lateral decubitus position, initially without distention of the Bardex balloon which was subsequent ly distended after visually clearing the anorectal junction. At the level of the mid sigmoid colon, approximately 35 CM above the anus, is a focal area of narrowi ng with mass effect and overhanging margins, associated with spasm. Maximum distended diameter of the narrowed segment is 12 mm, the narrowed segment estimated at 3.3 cm in length. There is retrograde passage of contrast material through the narrowed segment, filling proximal diste nded and unprepped bowel. On overhead series, contrast extended retrograde through the transverse and ascending colon. IMPRESSION: 1. Partially obstructing mass lesion in the mid sigmoid colon, highly suspect for adenocarcinoma of t he colon. Focal colitis in patient with known Crohn's disease is also a possibility. There are also d iverticula in the region and focal diverticulitis cannot be excluded. Further evaluation by colonosco py is recommended. 2. Exam is a limited study, incomplete preparation for the exam resulting in considerable fecal reten tion throughout the more proximal dilated portion of the colon. 3. Postoperative surgical clips and sutures and intragastric nasogastric tube noted. 4. Oval calcification at the left L4 level is apparently within the left ureter with secondary left r enal atrophy as noted on CT exam of 05/21/2017. Note: Findings reviewed with Dr. Trevizo at 12:00 on 05/24/2017 Dictated by: Kem Wellington M.D. on 05/24/2017 at 11:32 Approved by: Kem Wellington M.D. on 05/24/2017 at 12:01
--- NOTE | 2017-05-24 13:05 | PCM.PNSURG ---
Subjective Date of Service: May 24, 2017 Visit Information: Reason for Visit Abdomnial Pain,Dehydration,Hypothermia Surgery/Surgery Date Post-Op Day # Date of Admission: May 21, 2017 at 18:40 Hospital Day #4 Subjective: Had a moderate amount of liquid stool production following Gastrografin enema this morning. No flatus or bowel movement since that time. Complains of mild crampy abdominal pain that is intermittent requiring no analgesia. Denies nausea or vomiting. Drinking large amounts of water/ice chips, 4 large glasses overnight. Ambulatory in the room. Postop General: Other (as above) Gastrointestinal: No N/V Pain Management: IV Push Postop Activity: Ambulating in Room Only Objective Vital Sign- Last 8 Hours Date Time Temp Pulse Resp B/P Pulse Ox O2 Delivery O2 Flow Rate FiO2 05/24/17 12:05 36.5 80 20 117/72 99 Nasal Cannula 2.00 05/24/17 10:06 106 05/24/17 07:55 106 05/24/17 07:55 Supplement Oxygen 05/24/17 07:49 36.8 106 20 123/60 94 Nasal Cannula 1.00 Intake and Output- Last 8 Hour 05/24/17 Cumulative From/Thru 07:00 05/21/17 16:14 - 05/24/17 06:43 Intake Total 3561 ml 00219 ml Output Total 2600 ml 7950 ml Balance 961 ml 5922 ml Intake Oral 1400 ml 1800 ml IV Total 1361 ml 29075 ml TPN/PPN 800 ml 800 ml Output Urine Total 1400 ml 3900 ml Gastric Drainage Total 1200 ml 3950 ml Emesis 100 ml # Bowel Movements 3 General: Alert, Cooperative, No Acute Distress Lungs: Clear to Auscultation Heart: Regular Rate/Rhythm Abdomen: Firm, Non-tender, Distended (with palpable and visual distended loops of bowel in the upper abdomen) Extremities: Thigh&Calf Soft/Nontender Neuro: Normal Speech Catheters: None Result Diagram: 05/24/17 0415 05/24/17 0415 Assessment & Plan Impression Primary diagnoses: Partial bowel obstruction. HD #4 with no resolution of symptoms. GGE this morning demonstrated mass effect: Crohn's stricture versus diverticular phlegmon versus carcinoma. CEA and CA-125 are pending. Other chronic conditions: 1. Crohn's disease of small AND large intestines 2. Systolic congestive heart failure (EF 45 - 50) 3. Diabetes mellitus (Diet controlled) 4. Obstructive sleep apnea 5. Mitral Valve-regurgitation 6. Vitamin B12 deficiency 7. Venous insufficiency 8. Hypertension 9. History bladder cancer 10. Peripheral neuropathy 11. Psoriasis 12. Aortic and venous Insufficiency 13. Depression with anxiety 14. Restless leg syndrome 15. Insomnia 16. Metastatic breast cancer in clinical remission since 2008 17. Former cigarette smoker Problems: Plan This patient was discussed with Dr. Mullen, the on-call surgeon. We will recheck flat plate and upright abdomen in the morning. Pain Management: Intermittent IV analgesic Resuscitation Status: DNR/DNI:Do Not Resuscitate/Intubate Ish Reza PA-C May 24, 2017 13:05
--- NOTE | 2017-05-24 13:58 | NUR ---
NUTRITION ASSESSMENT Assess: 76 YO F admitted with abdominal pain, dehydration with partial bowel obstruction. Pt has been NPO X 3 days. Pt with NGT to suction. Pt had Gastrografin enema today with possible findings of colon mass. PMHX: Crohn's disease, CHF, type 2 DM, NANI, mitral valve regurgitation, peripheral neuropathy, psoriasis, aortic and venous insufficiency, depression/anxiety, restless leg syndrome, insomnia, metastatic breast cancer, hemicolectomy, bowel resection. DIET: NPO X 3 days. LABS: Na 148, K+ 3.4, BUN 47, Cr 1.81, Glu 133, Ca 7.4, Alb 2.8 MEDICATIONS: Reviewed. GI: 3 BM 05/23. NGT to suction. SKIN: No issues noted. ANTHROPOMETRICS: Wt: 114.4 kg, BMI 40.7 kg/m2, Admit wt: 114.0 kg, Adj. BW: 72.9 kg. ESTIMATED NEEDS: BMI Calories: 3255-0528 kcal/day (25-30 kcal/kg Adj. BW) Protein: 88-109 g/day (1.2-1.5 g/kg Adj. BW) NUTRITION DIAGNOSIS: 1) Inadequate oral intake related to decreased ability to consume sufficient energy as evidenced by NPO status. INTERVENTION: 1) Will await timely advancement of diet, if unable to advance diet in the next 2-4 days consider nutrition support. MONITOR/EVALUATE: NPO status, diet advance, labs, GI/nutrition status. Follow per high nutrition risk guidelines.
[2017-05-24] MEDS ORDERED: KCl 40 mEq/D5W 500 mL 40 MEQ in IV Premix 1 EACH IV ONE (14:40)
--- NOTE | 2017-05-24 14:43 | PCM.PNMED ---
Subjective Date of Service May 24, 2017 Subjective Patient is doing better. No abdominal pain, nausea. She is thirsty like to try sips of water. She has small stool yesterday. She denies any abdominal distention. No belching or vomiting. No dyspnea. No pain. No overnight events noted Exam Vital Signs Vital Sign - Last Date Time Temp Pulse Resp B/P Pulse Ox O2 Delivery O2 Flow Rate FiO2 05/24/17 12:05 36.5 80 20 117/72 99 Nasal Cannula 2.00 Intake and Output 05/23/17 05/23/17 05/24/17 Cumulative From/Thru 14:59 22:59 06:59 05/21/17 16:14 - 05/24/17 06:43 Intake Total 1270 ml 3561 ml 56961 ml Output Total 500 ml 2100 ml 2600 ml 7950 ml Balance -500 ml -830 ml 961 ml 5922 ml Intake Oral 400 ml 1400 ml 1800 ml IV Total 870 ml 1361 ml 57813 ml TPN/PPN 800 ml 800 ml Output Urine Total 900 ml 1400 ml 3900 ml Gastric Drainage Total 500 ml 1200 ml 1200 ml 3950 ml Emesis 100 ml # Bowel Movements 3 3 Exam Alert and oriented -3, no distress. Fluent speech Anicteric sclera. Lungs are clear with normal rate and effort Heart is regular without murmur gallop or rub Abdomen soft nontender, standing slightly hypertympanic but not tender. Extremities are free of edema. Skin is free of rash or lesions. IVs and Medications Medications Reviewed: Medications were reviewed in detail Lab and Diagnostics Result Diagram: 05/24/17 0415 05/24/17 0415 X-Rays, CTs and MRIs PROCEDURE: CT ABDOMEN AND PELVIS WITHOUT CONTRAST ([id number]) IMPRESSION: 1. Dilated, stool-filled distal small bowel and dilated stool-filled proximal and mid colon. When compared with the study dated , the extent of small bowel dilatation has decreased suggesting partial, interval decompression. These findings are concordant with the overnight interpretation. 2. Bibasilar atelectasis versus aspiration/infection. Dictated by: Maria Eugenia Ayala M.D. on 05/22/2017 at 8:25 ADDENDUM: Please note, there is a likely focal circumferential thickening of the superior sigmoid colon at the transition point between the dilated descending colon and the decompressed sigmoid colon (series 2, image 81). This is not well characterized given the lack of intravenous and oral contrast. This finding is likely present on prior studies dating back to 03/08/17. Additionally, on the study dated 10/14/16, circumferential thickening of the sigmoid in this region is visualized in the setting of a decompressed colon. Although this finding may be associated with chronic inflammatory changes, neoplasm should be considered in the differential as well. These findings were discussed with Dr. Boateng and Dr. Parry on 05/22/17. Dictated by: Maria Eugenia Ayala M.D. on 05/22/2017 at 17:22 PROCEDURE: X-RAY CHEST ONE VIEW, PORTABLE IMPRESSION: NG tube with the tip in the gastric fundus. Low lung volumes and left basilar consolidation. Dictated by: Maria Eugenia Ayala M.D. on 05/22/2017 at 7:27 PROCEDURE: CT ABDOMEN AND PELVIS WITHOUT CONTRAST IMPRESSION: 1. Postsurgical changes status post partial bowel resection redemonstrated with diffuse fluid distention of the residual bowel loops associated with multiple air-fluid levels. No focal transition point to suggest obstruction. The findings again most likely represent an ileus. 2. Bibasilar groundglass opacities with right basilar peribronchial consolidation suggesting sequelae of aspiration. 3. Mild esophageal wall thickening and a small hiatal hernia may reflect sequelae of reflux. 4. Probable hyperdense cyst within the right kidney. Further evaluation may be obtained with ultrasound if clinically indicated. Dictated by: Man Mcnulty M.D. on 05/21/2017 at 18:01 Assessment & Plan Acute small bowel obstruction. Present on admission improving - Pt presents with several days of abdominal pain, N/V. Bowel sounds hyperactive , high pitched. CT abd/pelvis showed diffuse fluid distention of the residual bowel loops associated with multiple air-fluid levels. No focal transition point to suggest obstruction. The findings again most likely represent an ileus. CT abd/pelvis also showed bilateral basilar infiltrates, but this was likely secondary to compressive atelectasis due to dilated bowel and obesity. No fevers/leukocytosis, and procalcitonin was low so aspiration pneumonia less likely. - Dr. Porter of Surgery has been consulted. We appreciate his expertise. - NG tube with suction - NPO - Hold home imodium - Obtain intra abdominal pressures -Discontinue piperacillin-tazobactam The Gastrografin enema continues to show an area of constriction. Gastroenterology had considered a repeat colonoscopy depending on the level this appears to be fairly proximal to the rectum. There are reviewing the study today and will provide recommendations. The meantime she would have sips of water as she is improved clinically. Acute on chronic kidney injury, present on admission and improving. This continues. - In setting of unilateral functioning kidney. Presumed prerenal azotemia secondary to volume depletion. On admit: Creatinine 2.92; recent baseline is 1.15. Cr was 2 on 03/22/17 on discharge from previous hospitalization. Moderate fluid resuscitation, but avoid precipitating pulmonary edema. - Avoid nephrotoxic medications - Hold aspirin, lisinopril, furosemide - Monitor CMP daily. The creatinine is even more improved today. Hypotension, acute. Present on admission. Resolved with IV fluids. Consistent with volume depletion. - Pt maintaining MAP > 65. Appears fluid depleted. Responding somewhat to fluids. Will discontinue continuous fluids to avoid fluid overload given her CHF , and give intermittent boluses of NS - Continue to monitor vitals closely - concerning for cardiogenic etiology given history - ECHO reveals improved left ventricular function with an EF of 55% decrease rate of IV fluids. Anion gap metabolic acidosis, acute. Present on admission and improved. - Pt presents with anion gap of 23. Likely secondary to lactic acidosis and ELVIA/ CKD. - Will correct underlying conditions. Follow clinically Chronic systolic congestive heart failure, POA and stable with improved ventricular function. - Recent echocardiogram on 01/09/17 showed LVEF 45-50% with borderline global hypokinesis, severe inferior/inferoposterior hypokinesis, which has been present in previous studies. - Continue home carvedilol, lovastatin - Hold lasix as pt does appears to be volume depleted. Diabetes mellitus 2, non-insulin using, POA and stable. - Controlled. A1c 01/2017:5.6. Glucose 171 on admission. - Continue to monitor CMP. Start Lantus if glucose continually elevated. Elevated troponins, chronic, present on admission. We will follow clinically - Troponin 0.043 on admission, in setting of CKD. Last hospitalization (03/08/17 ) average troponin was 0.07. EKG showed sinus tachycardia with no acute changes. Likely not ACS. - Trend troponin, no further workup. She has no clinical symptoms that appear to be cardiac. History of Crohn's colitis status post hemicolectomy, chronic. - Continue home infliximab and sulfasalazine - Gastroenterology consult in AM Depression with anxiety - Continue home duloxetine Restless leg syndrome - Continue home amitriptyline, pramipexole Peripheral neuropathy - Continue home gabapentin Other Chronic Conditions Psoriasis Aortic and venous Insufficiency Diabetes type 2, diet controlled Insomnia Mitral Valve-regurgitation Obstructive sleep apnea Metastatic breast cancer in clinical remission since 2008 Periodic limb movement - Bowel regimen as needed - Antiemetic as needed Patient is admitted under inpatient status with expected length of stay greater than 2 midnights due to severity of presenting symptoms, risk of adverse event, and complexity of treatment plan. VTE Mechanical Devices: Intermittant Pneumatic CD Resuscitation Status: DNR/DNI:Do Not Resuscitate/Intubate VTE Mechanical Devices: Intermittant Pneumatic CD Resuscitation Status: DNR/DNI:Do Not Resuscitate/Intubate Steven Marquez MD May 24, 2017 14:43
[2017-05-24] MEDS: Dextrose 5% 0.45% NaCl 1,000 ML IV SCH (16:31)
--- NOTE | 2017-05-24 19:25 | NUR ---
NGT/Activity/BM Patient a/o x 3, denies abd or chest pain, sob or nausea. Patient taking freq ice chips, NGT LCS putting out large amt green bile. Enema given this a.m. patient had small jelly like brown stools x 3. Patient oob with 1 person assist, sat in chair for approx 1.5 hrs matias well. VSS, tele SR 70-80's at rest ST 120-130's with activity.
--- NOTE | 2017-05-24 20:12 | PCM.PNMED ---
Subjective Date of Service May 24, 2017 Subjective Patient feeling better this morning. She is having mild intermittent abdominal pain and some cramping. She had just returned from Gastrografin enema procedure. She has been eating ice chips overnight and is having clear green output from her NG tube. Exam Vital Signs Vital Sign - Last Date Time Temp Pulse Resp B/P Pulse Ox O2 Delivery O2 Flow Rate FiO2 05/24/17 12:05 36.5 80 20 117/72 99 Nasal Cannula 2.00 Intake and Output 05/23/17 05/23/17 05/24/17 Cumulative From/Thru 15:00 23:00 07:00 05/21/17 16:14 - 05/24/17 06:43 Intake Total 1270 ml 3561 ml 69951 ml Output Total 500 ml 2100 ml 2600 ml 7950 ml Balance -500 ml -830 ml 961 ml 5922 ml Intake Oral 400 ml 1400 ml 1800 ml IV Total 870 ml 1361 ml 43627 ml TPN/PPN 800 ml 800 ml Output Urine Total 900 ml 1400 ml 3900 ml Gastric Drainage Total 500 ml 1200 ml 1200 ml 3950 ml Emesis 100 ml # Bowel Movements 3 3 Exam General: No acute distress, well-developed, well-nourished, appropriately interactive HEENT: Normocephalic, atraumatic. External ears without defect. Anicteric sclerae, moist conjunctivae, and no lid lag. Oropharynx free of erythema and cobble stoning with moist mucosa. Neck: Supple with full range of motion. Thick. Cardiovascular: Regular rate and rhythm with no murmurs, rubs, or gallops appreciated Pulmonary: Clear to auscultation bilaterally with no crackles, wheezes, or rhonchi. Normal respiratory effort with no use of accessory muscles. Abdomen: Bowel tones are hyperactive. Soft, nontender, very mildly. No hepatosplenomegaly or masses appreciated. Well-healed midline incision with palpable hernia superior to incision just to the left of midline. Extremities: No clubbing, cyanosis, or lymphadenopathy appreciated. Trace edema in ankles bilaterally Skin: Normal temperature, turgor, and texture; no rash, ulcers, or subcutaneous nodules appreciated. Neurological: Cranial nerves grossly intact. Normal muscle strength, tone, and bulk. No known gait impairment. Psychiatric: Normal mood and affect. Alert and oriented to person, place, and time. Lab and Diagnostics Result Diagram: 05/24/17 0415 05/24/17 0415 X-Rays, CTs and MRIs PROCEDURE: CT ABDOMEN AND PELVIS WITHOUT CONTRAST ([id number]) IMPRESSION: 1. Dilated, stool-filled distal small bowel and dilated stool-filled proximal and mid colon. When compared with the study dated , the extent of small bowel dilatation has decreased suggesting partial, interval decompression. These findings are concordant with the overnight interpretation. 2. Bibasilar atelectasis versus aspiration/infection. Dictated by: Maria Eugenia Ayala M.D. on 05/22/2017 at 8:25 ADDENDUM: Please note, there is a likely focal circumferential thickening of the superior sigmoid colon at the transition point between the dilated descending colon and the decompressed sigmoid colon (series 2, image 81). This is not well characterized given the lack of intravenous and oral contrast. This finding is likely present on prior studies dating back to 03/08/17. Additionally, on the study dated 10/14/16, circumferential thickening of the sigmoid in this region is visualized in the setting of a decompressed colon. Although this finding may be associated with chronic inflammatory changes, neoplasm should be considered in the differential as well. These findings were discussed with Dr. Boateng and Dr. Parry on 05/22/17. Dictated by: Maria Eugenia Ayala M.D. on 05/22/2017 at 17:22 PROCEDURE: X-RAY CHEST ONE VIEW, PORTABLE IMPRESSION: NG tube with the tip in the gastric fundus. Low lung volumes and left basilar consolidation. Dictated by: Maria Eugenia Ayala M.D. on 05/22/2017 at 7:27 PROCEDURE: CT ABDOMEN AND PELVIS WITHOUT CONTRAST IMPRESSION: 1. Postsurgical changes status post partial bowel resection redemonstrated with diffuse fluid distention of the residual bowel loops associated with multiple air-fluid levels. No focal transition point to suggest obstruction. The findings again most likely represent an ileus. 2. Bibasilar groundglass opacities with right basilar peribronchial consolidation suggesting sequelae of aspiration. 3. Mild esophageal wall thickening and a small hiatal hernia may reflect sequelae of reflux. 4. Probable hyperdense cyst within the right kidney. Further evaluation may be obtained with ultrasound if clinically indicated. Dictated by: Man Mcnulty M.D. on 05/21/2017 at 18:01 Additional Diagnostics PROCEDURE: X-RAY ENEMA WITH GASTROGRAPHIN IMPRESSION: 1. Partially obstructing mass lesion in the mid sigmoid colon, highly suspect for adenocarcinoma of the colon. Focal colitis in patient with known Crohn's disease is also a possibility. There are also diverticula in the region and focal diverticulitis cannot be excluded. Further evaluation by colonoscopy is recommended. 2. Exam is a limited study, incomplete preparation for the exam resulting in considerable fecal retention throughout the more proximal dilated portion of the colon. 3. Postoperative surgical clips and sutures and intragastric nasogastric tube noted. 4. Oval calcification at the left L4 level is apparently within the left ureter with secondary left renal atrophy as noted on CT exam of 05/21/2017. Note: Findings reviewed with Dr. Trevizo at 12:00 on 05/24/2017 Dictated by: Kem Wellington M.D. on 05/24/2017 at 11:32 Assessment & Plan This is a 76-year-old lady with about 30-year history of Crohn disease, who has been followed by Dr. Casper and was on Pentasa and her Chron's disease was relatively under control. However, she started having worsening abdominal pain , distention, and she presented to him back in September 2016 for colonoscopy and colonoscopy description as above. It appears that there was Crohn's activity. However, the way he was describing his colonoscopy was that it appears that there was some type of obstruction in the sigmoid colon or something compressing which was distorting the anatomy and it appeared that this was creating a functional obstruction which is causing dilated colonic loop in the descending colon and the transverse colon, which was also noticed on the endoscopy. This was confirmed on the CT scan. It appears this has progressed and she was seen in [facility] for surgical intervention. However, the [facility] did not have all the information and she was supposed to follow up with them. The current CT again shows the same kind of picture back in September and October of last year. I am not completely sure what is happening because the biopsy showed that there was a minimal Crohn's activity. Patient is behaving more like an obstructive type of situation since September of this year. There was anal stenosis. However , the endoscopy description and the CT description seems to be consistent with some type of obstructive process in the sigmoid colon, and based on the previous colonoscopy it may be extraluminal. However, CT does not show anything that seems to be extraluminal however CT scan does show likely focal circumferential thickening of the superior sigmoid colon at the transition point between the dilated descending colon and the decompressed sigmoid colon. She is clinically improving. Recommend clamping NG tube and monitoring output. Based on patient's tolerance advance her diet to purees. Abdominal X ray in AM Surgery was consulted and recommends allowing patient to evacuate colon as she has large amounts of stool proximal to the narrowing. Additionally tumor markers (CEA and CA-125) which are pending. We appreciate their recommendations. 2 scoops miralax BID Enemas BID We can do a flexible sigmoidoscope if it will help with the surgery Pain Evaluation: Adequate Pain Control VTE Mechanical Devices: Intermittant Pneumatic CD Resuscitation Status: DNR/DNI:Do Not Resuscitate/Intubate copies to: Abhay Boateng MD, Erika R DO May 24, 2017 13:39 Abhay Boateng MD May 26, 2017 14:15 Dana Sanchez DO May 24, 2017 13:39
[2017-05-24] MEDS: Polyethylene Glycol (PEG) 17 Gm Powder PO SCH (21:20)
[2017-05-25] VITALS (11 sets, daily range): BP systolic 114–161; BP diastolic 66–81; PULSE 104–122; RESP 16–20; O2SAT 91–99
[2017-05-25] MEDS: Dextrose 5% 0.45% NaCl 1,000 ML IV SCH ×3 (00:49→20:50)
[2017-05-25] MEDS: Piperacillin-Tazo 3.375 Gm Inj 3.375 GM in Dextrose 5% Minibag Plus 50 ML IV SCH (05:39)
--- NOTE | 2017-05-25 06:39 | NUR ---
BP stable this shift. Sinus rhythm-sinus tach 110-130's. 2L NC worn at night for NANI. NPO with ice chips and small sips of water per Dr. Marquez. NG clamped, low continuous suction. 700 cc dark green output this shift. Small, light brown, jelly-like bowel movement after administration of fleets enema and miralax. Hypoactive bowel tones. Neville cath draining clear alexx urine. R PIV patent, asymptomatic, L PIV asymptomatic, flushes with resistance. Care continues.
[2017-05-25] MEDS: Sulfasalzine 500 mg Tablet PO SCH ×4 (08:00→17:48)
--- NOTE | 2017-05-25 08:24 | PCM.PNSURG ---
Subjective Date of Service: May 25, 2017 Date of Service: May 25, 2017 Visit Information: Reason for Visit Abdomnial Pain,Dehydration,Hypothermia Date of Admission: May 21, 2017 at 18:40 Subjective: The patient had a small bowel movement this morning. She states she is quite warm but does not feel she has a fever. She is currently using a cool washcloth on her forehead. She has no complaints of abdominal pain, nausea or vomiting. She is currently nothing by mouth and is feeling hungry and thirsty. She has not been ambulating about the room this morning but states she was sitting up in bed and to the commode yesterday. She understands the necessity to get some strength back and is looking forward to visit from PT today. Gastrointestinal: No N/V, Passing Stool Pain Management: IV Push Postop Activity: Ambulating in Room Only Objective Objective The patient is resting comfortably with a NG tube in place with 200 mL of drainage and 700 mL over the last 24 hours, a urinary Neville in place, and has hypoactive bowel sounds. Vital Sign- Last 8 Hours Date Time Temp Pulse Resp B/P Pulse Ox O2 Delivery O2 Flow Rate FiO2 05/25/17 04:30 37.2 107 18 136/81 95 Nasal Cannula 1.50 05/25/17 01:08 36.8 107 16 126/67 92 Room Air Intake and Output- Last 8 Hour 05/25/17 Cumulative From/Thru 07:00 05/21/17 16:14 - 05/25/17 06:52 Intake Total 1027 ml 39670 ml Output Total 1400 ml 42131 ml Balance -373 ml 4563 ml Intake Oral 0 ml 2100 ml IV Total 1027 ml 93154 ml TPN/PPN 800 ml Output Urine Total 700 ml 5550 ml Gastric Drainage Total 700 ml 6250 ml Emesis 100 ml # Bowel Movements 6 General: Alert, Oriented X3, Cooperative, No Acute Distress Lungs: Clear to Auscultation Heart: Regular Rate/Rhythm Abdomen: Soft, Non-tender, Non-distended Catheters: Urethral 2 Way Neville Result Diagram: 05/24/17 0415 05/24/17 0415 Diagnostics: X-RAY ABDOMEN WITH ERECT AND/OR DECUBITUS VIEWS IMPRESSION: Dilated small bowel and dilated, contrast filled colon after recent Gastrografin enema. These findings are consistent with near complete distal colonic obstruction. Dictated by: Maria Eugenia Ayala M.D. on 05/25/2017 at 9:39 Approved by: Maria Eugenia Ayala M.D. on 05/25/2017 at 9:41 Assessment & Plan Impression Primary diagnosis Partial large bowel obstruction. Chronic conditions: 1. Crohn's disease of small AND large intestines 2. Systolic congestive heart failure (EF 45 - 50) 3. Diabetes mellitus (Diet controlled) 4. Obstructive sleep apnea 5. Mitral Valve-regurgitation 6. Vitamin B12 deficiency 7. Venous insufficiency 8. Hypertension 9. History bladder cancer 10. Peripheral neuropathy 11. Psoriasis 12. Aortic and venous Insufficiency 13. Depression with anxiety 14. Restless leg syndrome 15. Insomnia 16. Metastatic breast cancer in clinical remission since 2008 17. Former cigarette smoker Problems: Plan 1. Partial large bowel obstruction, present on admission, unchanged. - Hospital day #5 with no specific resolution of symptoms -Differential includes but is not limited to adhesions, Crohn's stricture, carcinoma and diverticular phlegmon -CEA and CA-125 are pending - Abdominal series x-ray to be done 05/25/2017 is consistent with persistent bowel obstruction - Advance diet as patient tolerates per GI Team Pain Management: Intermittent IV analgesic VTE Prophylaxis: SCDs Resuscitation Status: DNR/DNI:Do Not Resuscitate/Intubate Hyun Sorensen DO May 25, 2017 08:24
[2017-05-25] MEDS: DULoxetine 30 mg DR Capsule PO SCH ×2 (08:25→09:20)
--- NOTE | 2017-05-25 09:04 | PCM.PNMED ---
Subjective Date of Service May 25, 2017 Subjective She is doing better today. No abdominal pain, nausea. She still somewhat distended. She had a small gelatinous stool today. Minimal flatus. She denies any difficulty with chest pain, palpitations, dyspnea or cough. No difficulty urinating. No overnight events Exam Vital Signs Vital Sign - Last Date Time Temp Pulse Resp B/P Pulse Ox O2 Delivery O2 Flow Rate FiO2 05/25/17 08:21 36.7 104 16 118/71 94 Nasal Cannula 1.50 Intake and Output 05/24/17 05/24/17 05/25/17 Cumulative From/Thru 15:00 23:00 07:00 05/21/17 16:14 - 05/25/17 06:52 Intake Total 1564 ml 1027 ml 00250 ml Output Total 2550 ml 1400 ml 91720 ml Balance -986 ml -373 ml 4563 ml Intake Oral 300 ml 0 ml 2100 ml IV Total 1264 ml 1027 ml 88174 ml TPN/PPN 800 ml Output Urine Total 950 ml 700 ml 5550 ml Gastric Drainage Total 1600 ml 700 ml 6250 ml Emesis 100 ml # Bowel Movements 3 6 Exam Alert and oriented -3, no distress. Fluent speech Anicteric sclera. Lungs are clear with normal rate and effort Heart is regular without murmur gallop or rub Abdomen soft nontender, distended slightly hypertympanic. Extremities are free of edema. Skin is free of rash or lesions. IVs and Medications Medications Reviewed: Medications were reviewed in detail Lab and Diagnostics Result Diagram: 05/24/17 0415 05/24/17 041 X-Rays, CTs and MRIs PROCEDURE: CT ABDOMEN AND PELVIS WITHOUT CONTRAST ([id number]) IMPRESSION: 1. Dilated, stool-filled distal small bowel and dilated stool-filled proximal and mid colon. When compared with the study dated , the extent of small bowel dilatation has decreased suggesting partial, interval decompression. These findings are concordant with the overnight interpretation. 2. Bibasilar atelectasis versus aspiration/infection. Dictated by: Maria Eugenia Ayala M.D. on 05/22/2017 at 8:25 ADDENDUM: Please note, there is a likely focal circumferential thickening of the superior sigmoid colon at the transition point between the dilated descending colon and the decompressed sigmoid colon (series 2, image 81). This is not well characterized given the lack of intravenous and oral contrast. This finding is likely present on prior studies dating back to 03/08/17. Additionally, on the study dated 10/14/16, circumferential thickening of the sigmoid in this region is visualized in the setting of a decompressed colon. Although this finding may be associated with chronic inflammatory changes, neoplasm should be considered in the differential as well. These findings were discussed with Dr. Boateng and Dr. Parry on 05/22/17. Dictated by: Maria Eugenia Ayala M.D. on 05/22/2017 at 17:22 PROCEDURE: X-RAY CHEST ONE VIEW, PORTABLE IMPRESSION: NG tube with the tip in the gastric fundus. Low lung volumes and left basilar consolidation. Dictated by: Maria Eugenia Ayala M.D. on 05/22/2017 at 7:27 PROCEDURE: CT ABDOMEN AND PELVIS WITHOUT CONTRAST IMPRESSION: 1. Postsurgical changes status post partial bowel resection redemonstrated with diffuse fluid distention of the residual bowel loops associated with multiple air-fluid levels. No focal transition point to suggest obstruction. The findings again most likely represent an ileus. 2. Bibasilar groundglass opacities with right basilar peribronchial consolidation suggesting sequelae of aspiration. 3. Mild esophageal wall thickening and a small hiatal hernia may reflect sequelae of reflux. 4. Probable hyperdense cyst within the right kidney. Further evaluation may be obtained with ultrasound if clinically indicated. Dictated by: Man Mcnulty M.D. on 05/21/2017 at 18:01 Additional Diagnostics PROCEDURE: X-RAY ENEMA WITH GASTROGRAPHIN IMPRESSION: 1. Partially obstructing mass lesion in the mid sigmoid colon, highly suspect for adenocarcinoma of the colon. Focal colitis in patient with known Crohn's disease is also a possibility. There are also diverticula in the region and focal diverticulitis cannot be excluded. Further evaluation by colonoscopy is recommended. 2. Exam is a limited study, incomplete preparation for the exam resulting in considerable fecal retention throughout the more proximal dilated portion of the colon. 3. Postoperative surgical clips and sutures and intragastric nasogastric tube noted. 4. Oval calcification at the left L4 level is apparently within the left ureter with secondary left renal atrophy as noted on CT exam of 05/21/2017. Note: Findings reviewed with Dr. Trevizo at 12:00 on 05/24/2017 Dictated by: Kem Wellington M.D. on 05/24/2017 at 11:32 Assessment & Plan Acute small bowel obstruction. Present on admission improving - The plan to this complex patient with a long history of recurrent partial small colon resection obstructions and Crohn's used to clamp NG tube or pured diet and see if she evacuates. The larger plan is to continue to work straight , on an outpatient basis, the ultimate surgical solution at [facility]. Her heater furnace, Dr. Holley, has been assisting with these efforts palpation. Acute on chronic kidney injury, present on admission and improving. - In setting of unilateral functioning kidney. Presumed prerenal azotemia secondary to volume depletion. On admit: Creatinine 2.92; recent baseline is 1.15. Cr was 2 on 03/22/17 on discharge from previous hospitalization. Moderate fluid resuscitation, but avoid precipitating pulmonary edema. - Avoid nephrotoxic medications - Hold aspirin, lisinopril, furosemide - Monitor CMP daily. The creatinine continues to improve with gentle hydration. Hypotension, acute. Present on admission. Resolved with IV fluids. - ECHO reveals improved left ventricular function with an EF of 55% decrease rate of IV fluids. Anion gap metabolic acidosis, present on admission. Improved. - Pt presents with anion gap of 23. Likely secondary to lactic acidosis and ELVIA/ CKD. - Will correct underlying conditions. Follow clinically Chronic systolic congestive heart failure, POA and stable with improved ventricular function. - Recent echocardiogram on 01/09/17 showed LVEF 45-50% with borderline global hypokinesis, severe inferior/inferoposterior hypokinesis, which has been present in previous studies. - Continue home carvedilol, lovastatin - Hold lasix as pt does appears to be volume depleted. May need to resume Lasix next 1-2 days. Diabetes mellitus 2, non-insulin using, POA and stable. - Controlled. A1c 01/2017:5.6. Glucose 171 on admission. - Continue to monitor CMP. Start Lantus if glucose continually elevated. Elevated troponins, chronic, present on admission. We will follow clinically - Troponin 0.043 on admission, in setting of CKD. Last hospitalization (03/08/17 ) average troponin was 0.07. EKG showed sinus tachycardia with no acute changes. Likely not ACS. - Trend troponin, no further workup. She has no clinical symptoms that appear to be cardiac. History of Crohn's colitis status post hemicolectomy, chronic. - Continue home infliximab and sulfasalazine - Gastroenterology consult in AM Depression with anxiety - Continue home duloxetine Restless leg syndrome - Continue home amitriptyline, pramipexole Peripheral neuropathy - Continue home gabapentin Other Chronic Conditions Psoriasis Aortic and venous Insufficiency Diabetes type 2, diet controlled Insomnia Mitral Valve-regurgitation Obstructive sleep apnea Metastatic breast cancer in clinical remission since 2008 Periodic limb movement - Bowel regimen as needed - Antiemetic as needed Patient is admitted under inpatient status with expected length of stay greater than 2 midnights due to severity of presenting symptoms, risk of adverse event, and complexity of treatment plan. Her left exact timing of discharge is unclear at this point will be contingent upon her ability to resume full by mouth intake. She will be recurrent likely to get surgical repletion her given the complexity of her case and the likelihood of the need for colorectal surgeon. Addendum. Lately day gastroenterology, Dr. Boateng, requested initiation of her transfer to [facility]. They had indicated that they wanted a surgeon to surgeon communication and this was not possible at the end of the day. We will continue to attempt transfer efforts tomorrow. We will again request that diploma medical assistant communicating the surgical needs of this demanding case. VTE Mechanical Devices: Intermittant Pneumatic CD Resuscitation Status: DNR/DNI:Do Not Resuscitate/Intubate Steven Marquez MD May 25, 2017 09:04
[2017-05-25] MEDS: Polyethylene Glycol (PEG) 17 Gm Powder PO SCH ×2 (09:11→20:00)
[2017-05-25] MEDS: Nystatin 100,000 Unit/mL 5 mL Suspension PO SCH ×4 (09:11→22:52)
--- NOTE | 2017-05-25 09:43 | DRSVH ---
PROCEDURE: X-RAY ABDOMEN WITH ERECT AND/OR DECUBITUS VIEWS ([id number]) INDICATIONS: follow bowel obstruction TECHNIQUE: 2 views of the abdomen were acquired. COMPARISON: [facility], CR, XR ENEMA GASTROGRAFIN, 05/24/2017, 9:58. [facility], CR, ABD W/ERECT +/OR DECB, 11/22/2009, 8:58. FINDINGS: Surgical changes and devices: None. Bowel: Contrast is visualized within the dilated colon. Multiple gas-filled, dilated loops of small b owel are visualized. No pneumatosis or pneumoperitoneum. Soft tissues: No masses; visualized solid organ contours appear normal in size. No suspicious abdom inal calcifications. Bones: No suspicious bony abnormalities. IMPRESSION: Dilated small bowel and dilated, contrast filled colon after recent Gastrografin enema. T hese findings are consistent with near complete distal colonic obstruction. Dictated by: Maria Eugenia Ayala M.D. on 05/25/2017 at 9:39 Approved by: Maria Eugenia Ayala M.D. on 05/25/2017 at 9:41
[2017-05-25] MEDS: Sodium Biphos-Phos 133 mL Enema RECTAL SCH ×2 (12:07→22:56)
[2017-05-25] MEDS: Dextrose 5% 1,000 ML IV SCH (17:46)
--- NOTE | 2017-05-25 18:31 | NUR ---
Diet/Emesis/Activity Patient a/o x 3, denies abd pain, nausea or sob. NGT CLS putting out green liq. NGT clamped this a.m. patient matias liq well and small amts of pureed diet. Abd distended semi firm, positive bowel tones. Patient having small gelatinous brown stools. Neville patent alexx uop. Patient oob amb in room, sat in chair for approx 2 hr and showered this evening. Tele SR 80-90's at [address] ST 110-140's with activity. Patient denies chest pain or palpitations. VSS. NG had 400 ml green bile prior to clamping. Patient suctioned pre dinner and 175 ml green bile removed. Evening meds given and patient unable to swallow pill and had immediate emesis 200 ml green bile. Will cont to monitor. Plan for poss transfer to or clutier.
[2017-05-25] MEDS: Ondansetron 2 mg/mL 2 mL Inj IVPUSH PRN (19:57)
--- NOTE | 2017-05-25 23:19 | PCM.PNMED ---
Subjective Date of Service May 25, 2017 Subjective Patient continues to feel fine. she is still having small bowel movements. She does not feel nauseous and has not vomited. NG output was 700 cc overnight. Exam Vital Signs Vital Sign - Last Date Time Temp Pulse Resp B/P Pulse Ox O2 Delivery O2 Flow Rate FiO2 05/25/17 16:00 36.7 109 18 117/67 94 Nasal Cannula 2.00 Intake and Output 05/24/17 05/24/17 05/25/17 Cumulative From/Thru 15:00 23:00 07:00 05/21/17 16:14 - 05/25/17 06:52 Intake Total 1564 ml 1027 ml 86075 ml Output Total 2550 ml 1400 ml 07325 ml Balance -986 ml -373 ml 4563 ml Intake Oral 300 ml 0 ml 2100 ml IV Total 1264 ml 1027 ml 34677 ml TPN/PPN 800 ml Output Urine Total 950 ml 700 ml 5550 ml Gastric Drainage Total 1600 ml 700 ml 6250 ml Emesis 100 ml # Bowel Movements 3 6 Exam General: No acute distress, well-developed, well-nourished, appropriately interactive HEENT: Normocephalic, atraumatic. External ears without defect. Anicteric sclerae, moist conjunctivae, and no lid lag. Oropharynx free of erythema and cobble stoning with moist mucosa. Neck: Supple with full range of motion. Thick. Cardiovascular: Regular rate and rhythm with no murmurs, rubs, or gallops appreciated Pulmonary: Clear to auscultation bilaterally with no crackles, wheezes, or rhonchi. Normal respiratory effort with no use of accessory muscles. Abdomen: Bowel tones normal. Soft, nontender, non distended. No hepatosplenomegaly or masses appreciated. Well-healed midline incision with palpable hernia superior to incision just to the left of midline. Extremities: No clubbing, cyanosis, or lymphadenopathy appreciated. Trace edema in ankles bilaterally Skin: Normal temperature, turgor, and texture; no rash, ulcers, or subcutaneous nodules appreciated. Neurological: Cranial nerves grossly intact. Normal muscle strength, tone, and bulk. No known gait impairment. Psychiatric: Normal mood and affect. Alert and oriented to person, place, and time. Lab and Diagnostics Result Diagram: 05/24/17 0415 05/25/17 0935 X-Rays, CTs and MRIs PROCEDURE: X-RAY ABDOMEN WITH ERECT AND/OR DECUBITUS VIEWS IMPRESSION: Dilated small bowel and dilated, contrast filled colon after recent Gastrografin enema. These findings are consistent with near complete distal colonic obstruction. Dictated by: Maria Eugenia Ayala M.D. on 05/25/2017 at 9:39 PROCEDURE: CT ABDOMEN AND PELVIS WITHOUT CONTRAST ([id number]) IMPRESSION: 1. Dilated, stool-filled distal small bowel and dilated stool-filled proximal and mid colon. When compared with the study dated , the extent of small bowel dilatation has decreased suggesting partial, interval decompression. These findings are concordant with the overnight interpretation. 2. Bibasilar atelectasis versus aspiration/infection. Dictated by: Maria Eugenia Ayala M.D. on 05/22/2017 at 8:25 ADDENDUM: Please note, there is a likely focal circumferential thickening of the superior sigmoid colon at the transition point between the dilated descending colon and the decompressed sigmoid colon (series 2, image 81). This is not well characterized given the lack of intravenous and oral contrast. This finding is likely present on prior studies dating back to 03/08/17. Additionally, on the study dated 10/14/16, circumferential thickening of the sigmoid in this region is visualized in the setting of a decompressed colon. Although this finding may be associated with chronic inflammatory changes, neoplasm should be considered in the differential as well. These findings were discussed with Dr. Boateng and Dr. Parry on 05/22/17. Dictated by: Maria Eugenia Ayala M.D. on 05/22/2017 at 17:22 PROCEDURE: X-RAY CHEST ONE VIEW, PORTABLE IMPRESSION: NG tube with the tip in the gastric fundus. Low lung volumes and left basilar consolidation. Dictated by: Maria Eugenia Ayala M.D. on 05/22/2017 at 7:27 PROCEDURE: CT ABDOMEN AND PELVIS WITHOUT CONTRAST IMPRESSION: 1. Postsurgical changes status post partial bowel resection redemonstrated with diffuse fluid distention of the residual bowel loops associated with multiple air-fluid levels. No focal transition point to suggest obstruction. The findings again most likely represent an ileus. 2. Bibasilar groundglass opacities with right basilar peribronchial consolidation suggesting sequelae of aspiration. 3. Mild esophageal wall thickening and a small hiatal hernia may reflect sequelae of reflux. 4. Probable hyperdense cyst within the right kidney. Further evaluation may be obtained with ultrasound if clinically indicated. Dictated by: Man Mcnulty M.D. on 05/21/2017 at 18:01 Additional Diagnostics PROCEDURE: X-RAY ENEMA WITH GASTROGRAPHIN IMPRESSION: 1. Partially obstructing mass lesion in the mid sigmoid colon, highly suspect for adenocarcinoma of the colon. Focal colitis in patient with known Crohn's disease is also a possibility. There are also diverticula in the region and focal diverticulitis cannot be excluded. Further evaluation by colonoscopy is recommended. 2. Exam is a limited study, incomplete preparation for the exam resulting in considerable fecal retention throughout the more proximal dilated portion of the colon. 3. Postoperative surgical clips and sutures and intragastric nasogastric tube noted. 4. Oval calcification at the left L4 level is apparently within the left ureter with secondary left renal atrophy as noted on CT exam of 05/21/2017. Note: Findings reviewed with Dr. Trevizo at 12:00 on 05/24/2017 Dictated by: Kem Wellington M.D. on 05/24/2017 at 11:32 Assessment & Plan This is a 76-year-old lady with about 30-year history of Crohn's disease, who has been followed by Dr. Casper and was on Pentasa and her Chron's disease was relatively well controlled. However, she started having worsening abdominal pain, distention, and she presented to him back in September 2016 for endoscopy. It appears that there was Crohn's activity. However, the way he was describing his colonoscopy was that it appears that there was some type of obstruction in the sigmoid colon or something compressing which was distorting the anatomy and it appeared that this was creating a functional obstruction which is causing dilated colonic loop in the descending colon and the transverse colon, which was also noticed on the endoscopy. This was confirmed on the CT scan. It appears this has progressed and she was seen in [facility] for surgical intervention. She is scheduled for colonoscopy June 09 2017 at . Upon discussion of case with Dr. Casper patient has three strictures: anal stenosis, hemicolectomy anastamotic stricture, and narrowing of the mid sigmoid colon from what appears to be an external source and it is suspected that this is a diverticular stricture developing over time from past episodes of diverticulitis. The current CT again shows the same kind of picture back in September and October of last year with likely focal circumferential thickening of the superior sigmoid colon at the transition point between the dilated descending colon and the decompressed sigmoid colon. She is clinically improving. Her blood pressures have stabalized, her hypotension could have been due to underlying sepsis. Under these circumstances , I am leery about starting her on Remicade or any kind of immunosuppression. Gastrografin enema performed 05/24/2017 which shows mass effect on mid sigmoid colon contributing to obstruction. Repeat XR Abd shows near complete distal colonic obstruction. Recommend transfer to [facility] for surgical intervention. Patient has had intermittent obstruction for at least the last 6 months. She is stable at present and we do not believe she has an active intra or extra luminal colonic infection at this time. Patient was referred to in the outpatient setting which is an appropriate center for her care given the risk and complexity of this case. Tumor markers are negative. 2 scoops miralax BID to help soften stool so that it may pass strictures more easily. Enemas BID to continue to clear the distal colon Flexible sigmoidoscope if surgery service request to identify part to surgery. I saw and examined the patient. Agree with above. Pain Evaluation: Adequate Pain Control VTE Prophylaxis: SCDs VTE Mechanical Devices: Intermittant Pneumatic CD Resuscitation Status: DNR/DNI:Do Not Resuscitate/Intubate copies to: Abhay Boateng MD, Erika R DO May 25, 2017 19:57 Abhay Boateng MD May 26, 2017 14:17
--- NOTE | 2017-05-26 03:52 | NUR ---
Transfer from [facility]/Nausea/ Vomiting Patient arrived to Room 1028 from [facility] (Room 2022) at 2130, accompanied by [facility] RN. Patient walked over to [facility] bed. VSS with the exception of elevated pulse rate. Patient denied pain but stated she had slight nausea. Patient started to retch. 500ml of vomitus noted. Zofran 4mg IVP administered. Fleets enema administered. Patient tolerated enema well. Minimal stool return. Ice chips given. Call light within reach. Care continues.
[2017-05-26 04:33] VITALS: BP 97/61; PULSE 120; RESP 16; O2SAT 92
[2017-05-26] MEDS: Dextrose 5% 0.45% NaCl 1,000 ML IV SCH ×2 (06:40→15:57)
[2017-05-26] MEDS: Sulfasalzine 500 mg Tablet PO SCH (08:00)
[2017-05-26 08:06] VITALS: BP 107/74; PULSE 122; RESP 18; O2SAT 90
[2017-05-26] MEDS: Ondansetron 2 mg/mL 2 mL Inj IVPUSH PRN (08:10)
[2017-05-26] MEDS: DULoxetine 30 mg DR Capsule PO SCH (08:30)
[2017-05-26] MEDS ORDERED: Benzocaine-Menthol Lozenge 2/Pkg PO PRN (10:05)
[2017-05-26] MEDS: Nystatin 100,000 Unit/mL 5 mL Suspension PO SCH ×2 (10:17→13:10)
--- NOTE | 2017-05-26 10:30 | DRSVH ---
PROCEDURE: X-RAY ABDOMEN WITH ERECT AND/OR DECUBITUS VIEWS ([id number]) INDICATIONS: f/u Contrast Enema TECHNIQUE: 2 views of the abdomen were acquired. COMPARISON: [facility], CR, XR ENEMA GASTROGRAFIN, 05/24/2017, 9:58. [facility], CT, CT ABD PELVIS WO CON, 05/22/2017, 5:08. [facility], CR, XR ABD W ERECT + OR DECU B 2 VW, 05/25/2017, 8:51. [facility], CR, ABD W/ERECT +/OR DECB, 11/22/2009, 8:58. FINDINGS: Surgical changes and devices: An NGT is present. Bowel: No pneumoperitoneum. Moderate high-density material remains within the colon. There is modera te diffuse gastric distention. Multiple moderately distended small bowel loops are present, which dem onstrate air-fluid levels. Soft tissues: No masses; visualized solid organ contours appear normal in size. No suspicious abdom inal calcifications. Bones: No suspicious bony abnormalities. IMPRESSION: 1. Distended small bowel loops with air-fluid levels, consistent with small bowel obstruction. 2. Moderate retention of contrast within the colon, consistent with sequelae of the obstructing colon ic mass versus inflammation seen by barium Gastrografin enema. Dictated by: Bernice Fountain M.D. on 05/26/2017 at 10:25 Approved by: Bernice Fountain M.D. on 05/26/2017 at 10:28
--- NOTE | 2017-05-26 10:54 | PCM.PNSURG ---
Subjective Date of Service: May 26, 2017 Date of Service: May 26, 2017 Visit Information: Reason for Visit Abdomnial Pain,Dehydration,Hypothermia Date of Admission: May 21, 2017 at 18:40 Hospital Day #6 Subjective: The patient is feeling well at the moment after an enema allowed her to relieve her bowels. She had 2 bouts of emesis last night and feels this is related to taking oral medication. Her NG tube was clamped overnight and she was attempting a pured diet. She was feeling comfortable this morning but her NG tube was put back to suction removing 700 mL, she feels much better now. She feels the advancement of her diet failed. It feels the best thing for her is to be transferred to for she fears she will have to return to the hospital if her obstruction does not resolve. Postop General: No Shortness of Breath, No Chest Pain, Shortness of Breath ( on 2 L of oxygen nasal cannula) Gastrointestinal: Vomitting (2 bouts of emesis last night. No nausea or vomiting since), Not Tolerating Oral Feedings Objective Objective Patient is currently resting comfortable. She did not tolerate advancement of her diet was a residual amount of 700 mL pulled from her NG tube. Her abdomen remains nontender but has become slightly distended with mild tympany. Vital Sign- Last 8 Hours Date Time Temp Pulse Resp B/P Pulse Ox O2 Delivery O2 Flow Rate FiO2 05/26/17 08:06 36.8 122 18 107/74 90 Nasal Cannula 1.50 05/26/17 04:33 36.7 120 16 97/61 92 Nasal Cannula 1.50 Intake and Output- Last 8 Hour 05/26/17 Cumulative From/Thru 07:00 05/21/17 16:14 - 05/26/17 06:07 Intake Total 979 ml 71520 ml Output Total 650 ml 19700 ml Balance 329 ml 5116 ml Intake Oral 700 ml 3740 ml IV Total 279 ml 81964 ml TPN/PPN 800 ml Output Urine Total 150 ml 6200 ml Gastric Drainage Total 6925 ml Emesis 500 ml 800 ml # Bowel Movements 10 General: Alert, Cooperative, No Acute Distress Lungs: Clear to Auscultation Heart: Regular Rate/Rhythm Abdomen: Firm, Distended, Tympanic Neuro: Cranial Nerves 2-12 nl, Normal Speech Catheters: Urethral 2 Way [place] Result Diagram: 05/24/17 0415 05/26/17 0600 Diagnostics: Abdominal x-ray IMPRESSION: 1. Distended small bowel loops with air-fluid levels, consistent with small bowel obstruction. 2. Moderate retention of contrast within the colon, consistent with sequelae of the obstructing colonic mass versus inflammation seen by barium Gastrografin enema. Dictated by: Bernice Fountain M.D. on 05/26/2017 at 10:25 Assessment & Plan Impression Primary diagnosis Partial large bowel obstruction. Chronic conditions: 1. Crohn's disease of small AND large intestines 2. Systolic congestive heart failure (EF 45 - 50) 3. Diabetes mellitus (Diet controlled) 4. Obstructive sleep apnea 5. Mitral Valve-regurgitation 6. Vitamin B12 deficiency 7. Venous insufficiency 8. Hypertension 9. History bladder cancer 10. Peripheral neuropathy 11. Psoriasis 12. Aortic and venous Insufficiency 13. Depression with anxiety 14. Restless leg syndrome 15. Insomnia 16. Metastatic breast cancer in clinical remission since 2008 17. Former cigarette smoker Problems: Plan Problems: Plan 1. Partial large bowel obstruction, present on admission, unchanged. - Hospital day #6 with no specific resolution of symptoms -Differential includes but is not limited to adhesions, Crohn's stricture, carcinoma and diverticular phlegmon -CEA and CA-125 both returned and are within normal limits - Abdominal x-ray to be done 05/26/2017 is consistent with persistent bowel obstruction -Patient should be put back on nothing by mouth status since she had 700 mL residual through the NG tube - We await a bed at so she can transfer. Pain Management: She is requiring medication for pain management at this time. VTE Prophylaxis: SCDs Resuscitation Status: DNR/DNI:Do Not Resuscitate/Intubate Hyun Sorensen DO May 26, 2017 10:54
[2017-05-26 12:39] VITALS: BP 100/59; PULSE 120; RESP 18; O2SAT 97
--- NOTE | 2017-05-26 13:43 | NUR ---
Social Work- Multi-Disciplinary Rounds/Transfer Data & Assessment: EMR Reviewed. Pt is on day 5 of hospitalization for abdominal pain, dehydration per H&P. Per multi-disciplinary rounds, pt is possibly going to transfer to [facility]. This is requiring a surgeon to surgeon communication. Per dip tube assembler machine, pt is transferring and contact has been made with regarding acceptance. Pt will be transferred and arrive at ED to be admitted through the ED. dip tube assembler machine is coordinating transfer. No social work needs identified. Plan: Pt will transfer to [facility]. Transfer orders are active. dip tube assembler machine is coordinating transfer with . No SW needs identified. Joselyn Seo MSW
[2017-05-26 13:51] VITALS: PULSE 125
--- NOTE | 2017-05-26 14:07 | NUR ---
NG tube NG tube advance 3cm per md order from 73cm to 70cm.
[2017-05-26] MEDS: Dextrose 5% 1,000 ML IV SCH (15:47)
[2017-05-26 16:15] VITALS: BP 108/70; PULSE 118; RESP 20; O2SAT 95
--- NOTE | 2017-05-26 16:23 | NUR ---
Transfer Hard copy report filled out and faxed to [facility]. Pt to have transport via ALS around 5pm. Family and pt updated with plan. All questions and concerns addressed. Addendum: 05/26/17 at 1710 by KATELYNN NUNEZ RN Pt d/c'd via ALS. Report given to MARGI. All beloningings with pt.
--- NOTE | 2017-05-26 22:50 | PCM.DC.MED ---
Discharge Summary Date of Service May 26, 2017 Dates of Hospitalization Date of Hospital Admission May 21, 2017 at 18:40 Date of Discharge: May 26, 2017 Providers: Admitting Physician: Safia Alvarez DO Primary Care Physician: Judith Miranda DO Attending Physician: Fox Mead MD Diagnosis at Time of Discharge Diagnosis at Time of Discharge Crohn's disease with colonic obstruction. Consultations Gastroenterology with Dr. Boateng and surgery with Dr. Mullen Procedures XRay, CTs & MRIs PROCEDURE: X-RAY ABDOMEN WITH ERECT AND/OR DECUBITUS VIEWS IMPRESSION: Dilated small bowel and dilated, contrast filled colon after recent Gastrografin enema. These findings are consistent with near complete distal colonic obstruction. Dictated by: Maria Eugenia Ayala M.D. on 05/25/2017 at 9:39 PROCEDURE: CT ABDOMEN AND PELVIS WITHOUT CONTRAST ([id number]) IMPRESSION: 1. Dilated, stool-filled distal small bowel and dilated stool-filled proximal and mid colon. When compared with the study dated , the extent of small bowel dilatation has decreased suggesting partial, interval decompression. These findings are concordant with the overnight interpretation. 2. Bibasilar atelectasis versus aspiration/infection. Dictated by: Maria Eugenia Ayala M.D. on 05/22/2017 at 8:25 ADDENDUM: Please note, there is a likely focal circumferential thickening of the superior sigmoid colon at the transition point between the dilated descending colon and the decompressed sigmoid colon (series 2, image 81). This is not well characterized given the lack of intravenous and oral contrast. This finding is likely present on prior studies dating back to 03/08/17. Additionally, on the study dated 10/14/16, circumferential thickening of the sigmoid in this region is visualized in the setting of a decompressed colon. Although this finding may be associated with chronic inflammatory changes, neoplasm should be considered in the differential as well. These findings were discussed with Dr. Boateng and Dr. Parry on 05/22/17. Dictated by: Maria Eugenia Ayala M.D. on 05/22/2017 at 17:22 PROCEDURE: X-RAY CHEST ONE VIEW, PORTABLE IMPRESSION: NG tube with the tip in the gastric fundus. Low lung volumes and left basilar consolidation. Dictated by: Maria Eugenia Ayala M.D. on 05/22/2017 at 7:27 PROCEDURE: CT ABDOMEN AND PELVIS WITHOUT CONTRAST IMPRESSION: 1. Postsurgical changes status post partial bowel resection redemonstrated with diffuse fluid distention of the residual bowel loops associated with multiple air-fluid levels. No focal transition point to suggest obstruction. The findings again most likely represent an ileus. 2. Bibasilar groundglass opacities with right basilar peribronchial consolidation suggesting sequelae of aspiration. 3. Mild esophageal wall thickening and a small hiatal hernia may reflect sequelae of reflux. 4. Probable hyperdense cyst within the right kidney. Further evaluation may be obtained with ultrasound if clinically indicated. Dictated by: Man Mcnulty M.D. on 05/21/2017 at 18:01 Other Diagnostics PROCEDURE: X-RAY ENEMA WITH GASTROGRAPHIN IMPRESSION: 1. Partially obstructing mass lesion in the mid sigmoid colon, highly suspect for adenocarcinoma of the colon. Focal colitis in patient with known Crohn's disease is also a possibility. There are also diverticula in the region and focal diverticulitis cannot be excluded. Further evaluation by colonoscopy is recommended. 2. Exam is a limited study, incomplete preparation for the exam resulting in considerable fecal retention throughout the more proximal dilated portion of the colon. 3. Postoperative surgical clips and sutures and intragastric nasogastric tube noted. 4. Oval calcification at the left L4 level is apparently within the left ureter with secondary left renal atrophy as noted on CT exam of 05/21/2017. Note: Findings reviewed with Dr. Trevizo at 12:00 on 05/24/2017 Dictated by: Kem Wellington M.D. on 05/24/2017 at 11:32 Brief History Pt is a 76 year old female with a hx of Crohn's disease s/p hemicolectomy, DM2, HTN, and NANI who presented with diffuse abdominal pain and swelling with associated nausea and vomiting for 1 week. The pain is described as a severe abdominal pain that starts in the epigastric area and then radiates throughout the entire abdomen. She states she has not been eating well for 2 weeks, due to dysphagia, a feeling that "food gets bigger in my throat," and nausea. She also complains of acid reflux, fevers, chills, dizziness, and a decreased appetite. She reports intermittent shortness of breath, feeling like she can't get enough air. Denies chest pain, cough, or any other symptoms at this time. On admission, HR 103, BP 95/52, O2 97 2L NC. WBC 9.5, Na 133, Cl 94, CO2 16, BUN 67, Cr 2.92, glucose 171, lactic acid 2.4, troponin T 0.045, procalcitonin 0.3. Hospital Course This is a 76-year-old lady with about 30-year history of Crohn's disease, who has been followed by Dr. Casper and was on Pentasa and her Chron's disease was relatively well controlled. However, she started having worsening abdominal pain, distention, and she presented to him back in September 2016 for endoscopy. It appears that there was Crohn's activity. However, the way he was describing his colonoscopy was that it appears that there was some type of obstruction in the sigmoid colon or something compressing which was distorting the anatomy and it appeared that this was creating a functional obstruction which is causing dilated colonic loop in the descending colon and the transverse colon, which was also noticed on the endoscopy. This was confirmed on the CT scan. It appears this has progressed and she was seen in [facility] for surgical intervention. She is scheduled for colonoscopy June 09 2017 at . Upon discussion of case with Dr. Casper patient has three strictures: anal stenosis, hemicolectomy anastamotic stricture, and narrowing of the mid sigmoid colon from what appears to be an external source and it is suspected that this is a diverticular stricture developing over time from past episodes of diverticulitis. The current CT again shows the same kind of picture back in September and October of last year with likely focal circumferential thickening of the superior sigmoid colon at the transition point between the dilated descending colon and the decompressed sigmoid colon. the patient was admitted to the hospitalist service for further evaluation and treatment. Acute bowel obstruction. Present on admission improving - The plan to this complex patient with a long history of recurrent partial small colon resection obstructions and Crohn's used to clamp NG tube or pured diet and see if she evacuates. The larger plan is to continue to work straight , on an outpatient basis, the ultimate surgical solution at [facility]. Her stock plan administrator, Dr. Holley, has been assisting with these efforts.Dr. Mullen discussed the case with Dr. Ousmane Bryant at the [facility],surgeon to surgeon, and Dr. Ousmane Bryant agreed to accept the patient in transfer. Acute on chronic kidney injury, present on admission and improving. - In setting of unilateral functioning kidney. Presumed prerenal azotemia secondary to volume depletion. On admit: Creatinine 2.92; recent baseline is 1.15. Cr was 2 on 03/22/17 on discharge from previous hospitalization. Moderate fluid resuscitation, but avoid precipitating pulmonary edema. - Avoid nephrotoxic medications - Hold aspirin, lisinopril, furosemide - Monitor CMP daily. The creatinine continues to improve with gentle hydration. Hypotension, acute. Present on admission. Resolved with IV fluids. - ECHO reveals improved left ventricular function with an EF of 55% decrease rate of IV fluids. Anion gap metabolic acidosis, present on admission. Improved. - Pt presents with anion gap of 23. Likely secondary to lactic acidosis and ELVIA/ CKD. - Will correct underlying conditions. Follow clinically Chronic systolic congestive heart failure, POA and stable with improved ventricular function. - Recent echocardiogram on 01/09/17 showed LVEF 45-50% with borderline global hypokinesis, severe inferior/inferoposterior hypokinesis, which has been present in previous studies. - Continue home carvedilol, lovastatin - Hold lasix as pt does appears to be volume depleted. May need to resume Lasix next 1-2 days. Diabetes mellitus 2, non-insulin using, POA and stable. - Controlled. A1c 01/2017:5.6. Glucose 171 on admission. - Continue to monitor CMP. Start Lantus if glucose continually elevated. Elevated troponins, chronic, present on admission. We will follow clinically - Troponin 0.043 on admission, in setting of CKD. Last hospitalization (03/08/17 ) average troponin was 0.07. EKG showed sinus tachycardia with no acute changes. Likely not ACS. - Trend troponin, no further workup. She has no clinical symptoms that appear to be cardiac. History of Crohn's colitis status post hemicolectomy, chronic. - Continue home infliximab and sulfasalazine - Gastroenterology has been following the patient Depression with anxiety - Continue home duloxetine Restless leg syndrome - Continue home amitriptyline, pramipexole Peripheral neuropathy - Continue home gabapentin Other Chronic Conditions Psoriasis Aortic and venous Insufficiency Diabetes type 2, diet controlled Insomnia Mitral Valve-regurgitation Obstructive sleep apnea Metastatic breast cancer in clinical remission since 2008 Periodic limb movement - Bowel regimen as needed - Antiemetic as needed Disposition: The patient will be transferredtoday to the [facility] under the care of Dr. Ousmane Bryant, was he except in Doctor. Exam Vital Signs (Last) Date Time Temp Pulse Resp B/P Pulse Ox O2 Delivery O2 Flow Rate FiO2 05/26/17 16:15 36.6 118 20 108/70 95 Nasal Cannula 1.50 Exam General: Patient is in no apparent distress lying supine in bed with an NG tube in HEENT: Head is atraumatic and normocephalic. Eyes: Pupils are equally round and reactive to light and accommodation. Extraocular muscles are intact. Sclera are white, anicteric. Subconjunctival mucosa is pink. Ears and nose are unremarkable. Oropharynx: There is no mucosal lesions, there is no thrush, there is no pharyngitis. Neck: Is supple, there are no nodes, or masses or tenderness. Chest: Is clear to auscultation and percussion. There are no rales, rhonchi, wheezes or rubs. Heart: Rate, rhythm is regular. There is no murmur, rub or gallop. Abdomen: Hypoactive bowel sounds are present. Abdomen is obesesoft, nontender, no organomegaly or masses were appreciated. There is a significant amount of tympany to percussion. Extremities: Are symmetrical and well perfused. There is no edema, there is no cellulitis, no rash. Neurologic: There are no focal neurological deficits. Cranial nerves II through XII are intact. There are no sensory or motor deficits. Psychiatric: Patients mood is calm and shows no sign of agitation. Genital: Deferred Rectal: Deferred Test 05/21/17 16:30 05/21/17 17:19 05/22/17 02:20 05/22/17 09:35 Prothrombin Time 10.7sec (8.1-12.5) Prothromb Time International Ratio 1.00ratio Magnesium Level 2.6mg/dL (1.6-2.6) Lipase 31U/L (13-60) Procalcitonin 0.30ng/mL (0.00-0.08) Urine Color Yellow (YELLOW) Urine Appearance Clear (CLEAR,HAZY) Urine pH 5.0 (5.0-8.0) Urine Specific Munith 1.020 (1.003-1.035) Urine Protein Negativemg/dL (NEG,TRACE) Urine Glucose (UA) Negativemg/dL (NEGATIVE) Urine Ketones Negativemg/dL (NEGATIVE) Urine Occult Blood Negative (NEGATIVE) Urine Nitrite Negative (NEGATIVE) Urine Bilirubin Negative (NEGATIVE) Urine Urobilinogen Normalmg/dL (NORMAL) Urine Leukocyte Esterase Negative (NEGATIVE) Urine RBC 0-2/hpf (0-2) Urine WBC 0-5/hpf (0-5) Urine Epithelial Cells Occasional/hpf (NONE-MOD) Urine Crystals None seen (NONE SEEN) Urine Bacteria None/hpf (NONE-FEW) Urine Hyaline Casts None/lpf (NONE) Urine Granular Casts None seen (NONE SEEN) Urine Waxy Casts None seen (NONE SEEN) Urine Red Blood Cell Casts None seen (NONE SEEN) Urine White Blood Cell Casts None seen (NONE SEEN) Urine Mucus None seen (None Seen) Urine Trichomonas None seen (NONE SEEN) Urine Yeast None (NONE SEEN) Urinalysis Comment None Urine Culture Reflexed Not indicated Neutrophils (%) (Auto) 79.1% (40-74) Lymphocytes (%) (Auto) 10.8% (14-46) Monocytes (%) (Auto) 9.7% (4-12) Eosinophils (%) (Auto) 0.1% (0-5) Basophils (%) (Auto) 0.1% (0-3) Troponin T 0.020ug/L (0.0-0.011) Test 05/23/17 08:35 05/24/17 04:15 05/26/17 06:00 Lactic Acid Level 0.8mmol/L (0.4-2.0) White Blood Count 4.8th/mm3 (3.8-10.1) Red Blood Count 3.29mil/mm3 (3.90-5.20) Hemoglobin 9.6g/dL (12.0-15.6) Hematocrit 31.4% (35.0-46.0) Mean Corpuscular Volume 95.4fL (81-100) Mean Corpuscular Hemoglobin 29.2pg (27.0-35.0) Mean Corpuscular Hemoglobin Concent 30.6% (32.0-37.0) Red Cell Distribution Width 16.4% (12.3-15.4) Platelet Count 209bil/L (150-400) Total Bilirubin 0.2mg/dL (0.0-1.2) Aspartate Amino Transf (AST/SGOT) 15U/L (0-50) Alanine Aminotransferase (ALT/SGPT) 8U/L (0-32) Alkaline Phosphatase 95U/L (25-165) Total Protein 5.1g/dL (6.4-8.4) Albumin 2.8g/dL (3.4-5.0) Carcinoembryonic Antigen 3.2ng/mL (0.0-4.7) CA 125 Antigen 34.5U/mL (0.0-38.1) Sodium Level 145mEq/L (134-144) Potassium Level 3.8mEq/L (3.5-5.2) Chloride Level 104mEq/L (97-108) Carbon Dioxide Level 25mmol/L (18-29) Blood Urea Nitrogen 33mg/dL (8-27) Creatinine 1.92mg/dL (0.57-1.00) Estimat Glomerular Filtration Rate 37mL/min (>59) Glucose Level 163mg/dL (60-99) Calcium Level 8.4mg/dL (8.5-10.1) Discharge Medications Discharge Medications Amitriptyline (Amitriptyline) 10 Mg Tablet 30 MG PO HS (Reported) Anastrozole (Anastrozole) 1 Mg Tablet 1 MG PO QAM (Reported) Aspirin (Aspirin) 81 Mg Tablet 81 MG PO QAM (Reported) Calcitriol (Rocaltrol) 0.25 Mcg Capsule 0.25 MCG PO DAILY (Reported) Calcium Carbonate (Calcium Carbonate) 200 Mg Tab.chew 1,000 MG PO TIDWM Prescribed by: ELDON HUNT DO Carvedilol (Carvedilol) 3.125 Mg Tablet 3.125 MG PO BIDWM Prescribed by: ELDON HUNT DO Cholecalciferol (Vitamin D3) (Vitamin D) 1,000 Unit Capsule 5,000 UNIT PO QAM ( Reported) Cyanocobalamin (Cyanocobalamin Injection) 1,000 Mcg/1 Ml Vial 1,000 MCG IM Monthly (Reported) Duloxetine (Duloxetine) 60 Mg Capsule.dr 90 MG PO QAM (Reported) DULOXETINE 30 MG + 60 MG = 90 MG TOTAL Folic Acid (Folic Acid) 0.8 Mg Tablet 0.8 MG PO DAILY (Reported) Furosemide (Furosemide) 20 Mg Tab 20 MG PO QAM (Reported) Gabapentin (Gabapentin) 600 Mg Tablet 600 MG PO TID (Reported) AM, 1200,1600 Gabapentin (Gabapentin) 600 Mg Tablet 900 MG PO HS (Reported) Infliximab (Remicade) 10 Mg/Ml Sdv Unknown Dose IV [id number] (Reported) Lactobacillus Rhamnosus GG (Culturelle) 1 Each Cap.sprink 1 EACH PO QAM ( Reported) Lisinopril (Lisinopril) 10 Mg Tablet 10 MG PO QAM (Reported) Lovastatin (Lovastatin) 40 Mg Tablet 40 MG PO HS (Reported) Magnesium Chloride (Mag64) 64 Mg Tablet.er 64 MG PO BID Prescribed by: ELDON HUNT DO Melatonin (Melatonin) 10 Mg Capsule 10 MG PO HS (Reported) Ondansetron ODT (Ondansetron ODT) 4 Mg Tab.rapdis 4-6 MG PO ACHS Prescribed by: ELDON HUNT DO Pramipexole Dihydrochloride (Pramipexole Dihydrochloride) 0.25 Mg Tablet 0.25 MG PO TIDWM (Reported) AM, NOON, 1600 Pramipexole Dihydrochloride (Pramipexole Dihydrochloride) 0.5 Mg Tablet 0.5 MG PO HS (Reported) Sulfasalazine (Sulfasalazine) 500 Mg Tablet 1,000 MG PO BIDWM (Reported) As needed Loperamide HCl (Imodium A-D) 2 Mg Capsule 2 MG PO QID PRN PRN For Diarrhea or Loose Stool (Reported) Followup Plan Disposition: The patient is being transferred to the [facility] under the care of Dr. Ousmane Bryant general surgeon. Time spent Time spent on discharging this patient was greater than 35 minutes, over half of which was involved in counseling and coordination of care. Fox Mead MD May 26, 2017 22:50
== END 2017-05-26 17:10 | disposition short-term general hospital (02) | DRG 389 ==
LOC: SED 16:05 → MPC 18:40 → PCC 05-22 00:36 → OSC 05-25 21:20
PROVIDERS: ADMIT Internal Medicine; ATTEND Internal Medicine
DX: K56.60 Unspecified intestinal obstruction (principal); I50.22 Chronic systolic (congestive) heart failure; E87.2 Acidosis; N17.9 Acute kidney failure, unspecified; Z68.41 Body mass index [BMI] 40.0-44.9, adult; K50.90 Crohn's disease, unspecified, without complications; E87.1 Hypo-osmolality and hyponatremia; E66.9 Obesity, unspecified; Z87.891 Personal history of nicotine dependence; E11.9 Type 2 diabetes mellitus without complications; G47.33 Obstructive sleep apnea (adult) (pediatric); I95.9 Hypotension, unspecified; F32.9 Major depressive disorder, single episode, unspecified; F41.8 Other specified anxiety disorders; G25.81 Restless legs syndrome; G62.9 Polyneuropathy, unspecified; I12.9 Hypertensive chronic kidney disease with stage 1 through stage 4 chronic kidney disease, or unspecified chronic kidney disease; N18.9 Chronic kidney disease, unspecified